=== PATIENT | male | born 1930 | race Caucasian/White ===

== ENCOUNTER 2017-03-04 19:37 | Emergency (ER) | payer MEDICARE, OTHER ==
[2017-03-04 20:00] VITALS: BP 79/65
[2017-03-04] MEDS ORDERED: Sodium Chloride 0.9% 10 ML Syringe FLUSH PRN (20:20)
[2017-03-04] MEDS ORDERED: cefTRIAXone 2 GM in Sodium Chloride 0.9% 100 ML IV ONE (20:21)
--- NOTE | 2017-03-04 23:39 | EDM.PDOC ---
ED HPI GENERAL MEDICAL PROBLEM - General Chief Complaint: Upper Extremity Injury/Pain Stated Complaint: SWOLLEN LEFT HAND HAD SURGERY Time Seen by Provider: 03/04/17 20:01 Source of Information: Reports: Patient History Limitations: Reports: No Limitations - History of Present Illness INITIAL COMMENTS - FREE TEXT/NARRATIVE: The patient presents with left hand redness and swelling post lumpectomy. The patient had a lump on the left dorsum of his hand and Dr Mckee removed it on the . He developed redness, pain and swelling a few days ago. He went to the [facility] walk in clinic and was put on clindamycin. He took 2 doses and he presented today. He had more swelling and he was concerned. He denies other symptoms such as fever, chills, cough, chest pain, or abdominal pain. Onset: Gradual Duration: Day(s): Location: Reports: Upper Extremity, Left (dorsum of his hand) Quality: Reports: Sharp Severity: Moderate Improves with: Reports: None Worsens with: Reports: None Associated Symptoms: Reports: No Other Symptoms Left Hand Pain Score (Numeric/FACES): 5 - Related Data Allergies Allergy/AdvReac Type Severity Reaction Status Date / Time celecoxib [From Celebrex] Allergy Hives Verified 02/02/14 18:07 rofecoxib [From Vioxx] Allergy Hives Verified 02/02/14 18:07 valdecoxib [From Bextra] Allergy Hives Verified 02/02/14 18:07 methylprednisolone AdvReac Dizziness Verified 02/02/14 18:07 Home Meds: Home Meds Ascorbic Acid [Vitamin C] 500 mg PO DAILY 01/05/14 [History] Aspirin [David Chewable Aspirin] 81 mg PO DAILY 01/05/14 [History] Calcium Carbonate/Vitamin D3 [Caltrate 600 + D Soft Chew Tab] 1 each PO DAILY [History] Enalapril [Vasotec] 20 mg PO BID 01/05/14 [History] Metoprolol Tartrate 1 tab PO BID 01/05/14 [History] Omeprazole 20 mg PO DAILY 01/05/14 [History] Rivaroxaban [Xarelto] 15 mg PO DAILY 01/05/14 [History] Tamsulosin [Flomax] 0.8 mg PO DAILY 01/05/14 [History] atorvaSTATin [Lipitor] 40 mg PO DAILY 01/05/14 [History] Acetaminophen [Tylenol] 650 mg PO BID 02/02/14 [History] Aloe Vera 2 oz PO DAILY 02/02/14 [History] Arginine HCl [Pure l-Arginine HCl] 1,000 mg PO DAILY 02/02/14 [History] Docusate Sodium [Colace] 100 mg PO DAILY 02/02/14 [History] Fenofibric Acid (Choline) [Trilipix] 45 mg PO DAILY 02/02/14 [History] Fibromed 1 tab PO DAILY 02/02/14 [History] Isosorbide Mononitrate [Imdur] 30 mg PO DAILY 02/02/14 [History] Nitroglycerin [Nitrostat] 0.4 mg SL PRN 02/02/14 [History] Vitamin E 400 unit PO DAILY 02/02/14 [History] guaiFENesin [Mucinex] 600 mg PO BID 02/02/14 [History] Levofloxacin [Levaquin] 750 mg PO DAILY #7 tab 02/04/14 [Rx] Cefpodoxime [Vantin] 400 mg PO BID #14 tablet 02/13/14 [Rx] Doxycycline [Doxycycline Monohydrate] 100 mg PO BID #14 tab 02/13/14 [Rx] Past Medical History HEENT History: Reports: Hard of Hearing, Impaired Vision Cardiovascular History: Reports: Bypass, [place], Stents, Other (See Below) Neurological History: Reports: TIA - Past Surgical History GI Surgical History: Reports: Cholecystectomy Musculoskeletal Surgical History: Reports: Hip Replacement Social & Family History - Tobacco Use Smoking Status *Q: Former Smoker Years of Tobacco use: 20 Used Tobacco, but Quit: Yes Month Tobacco Last Used: 1984 Second Hand Smoke Exposure: Yes - Caffeine Use Caffeine Use: Reports: Coffee, Soda - Alcohol Use Days Per Week of Alcohol Use: 2 Number of Drinks Per Day: 2 Total Drinks Per Week: 4 - Recreational Drug Use Recreational Drug Use: No Review of Systems - Review of Systems Review Of Systems: See Below Constitutional: Reports: No Symptoms Eyes: Reports: No Symptoms Ears: Reports: No Symptoms Nose: Reports: No Symptoms Respiratory: Reports: No Symptoms Cardiovascular: Reports: No Symptoms GI/Abdominal: Reports: No Symptoms Musculoskeletal: Reports: Other (Left hand infection) ED EXAM, GENERAL - Physical Exam Exam: See Below Exam Limited By: No Limitations General Appearance: Alert, No Apparent Distress Ears: Normal External Exam Nose: Normal Inspection Head: Atraumatic, Normocephalic Neck: Normal Inspection Respiratory/Chest: No Respiratory Distress, Lungs Clear, Normal Breath Sounds Cardiovascular: Regular Rate, Rhythm, No Edema, No Murmur GI/Abdominal: Soft, Non-Tender, No Organomegaly, No Mass Extremities: Other (Left hand has erythema and edema to the dorsum. He can move his fingers and he has good sensation.) Course - Vital Signs Last Recorded V/S: Last Vital Signs Temp 98.2 F 03/04/17 19:57 Pulse 70 03/04/17 23:57 Resp 18 03/04/17 23:57 BP 79/65 L 03/04/17 19:57 Pulse Ox 95 03/04/17 23:57 - Orders/Labs/Meds Orders: Active Orders 24 hr Category Date Time Status Peripheral IV Care [RC] . DIRECTED Care 03/04/17 20:21 Active VL Duplex Upr Ext Veins Ltd Lt [US] Stat Exams 03/04/17 20:22 Taken Peripheral IV Insertion Adult [OM.PC] Stat Oth 03/04/17 20:20 Ordered Labs: Laboratory Tests 03/04/17 03/04/17 Range/Units 21:05 21:05 WBC 8.14 (4.23-9.07) K/mm3 RBC 4.37 L (4.63-6.08) M/mm3 Hgb 12.9 L (13.7-17.5) gm/L Hct 40.4 (40.1-51.0) % MCV 92.4 H (79.0-92.2) fl MCH 29.5 (25.7-32.2) pg MCHC 31.9 L (32.2-35.5) g/dl RDW Std Deviation 47.0 H (35.1-43.9) fL Plt Count 149 L (163-337) K/mm3 MPV 11.0 (9.4-12.3) fl Neut % (Auto) 71.7 H (34.0-67.9) % Lymph % (Auto) 17.9 L (21.8-53.1) % [place] % (Auto) 7.7 (5.3-12.2) % Eos % (Auto) 2.2 (0.8-7.0) Baso % (Auto) 0.1 (0.1-1.2) % Neut # (Auto) 5.83 H (1.78-5.38) K/mm3 Lymph # (Auto) 1.46 (1.32-3.57) K/mm3 [place] # (Auto) 0.63 (0.30-0.82) K/mm3 Eos # (Auto) 0.18 (0.04-0.54) K/mm3 Baso # (Auto) 0.01 (0.01-0.08) K/mm3 Sodium 139 (136-145) mEq/L Potassium 3.9 (3.5-5.1) mEq/L Chloride 103 (98-107) mEq/L Carbon Dioxide 30 (21-32) mEq/L Anion Gap 9.9 (5-15) BUN 23 H (7-18) mg/dL Creatinine 1.2 (0.7-1.3) mg/dL Est Cr Clr Drug Dosing 43.54 mL/min Estimated GFR (MDRD) 58 (>60) mL/min BUN/Creatinine Ratio 19.2 H (14-18) Glucose 170 H (83-115) mg/dL Calcium 8.9 (8.5-10.1) mg/dL Total Bilirubin 0.3 (0.2-1.0) mg/dL AST 20 (15-37) U/L ALT 18 (16-63) U/L Alkaline Phosphatase 37 L (46-116) U/L C-Reactive Protein 2.2 H* (<1.0) mg/dL Total Protein 6.6 (6.4-8.2) g/dl Albumin 3.6 (3.4-5.0) g/dl Globulin 3.0 gm/dL Albumin/Globulin Ratio 1.2 (1-2) Meds: Medications Discontinued Medications Generic Name Dose Route Start Last Admin Trade Name Freq PRN Reason Stop Dose Admin Ceftriaxone Sodium 2 gm/ 100 mls @ 200 mls/hr 03/04/17 20:21 03/04/17 21:09 Sodium Chloride IV 03/04/17 20:50 200 mls/hr ONETIME ONE Administration Sodium Chloride 10 ml 03/04/17 20:20 03/04/17 21:10 Saline Flush FLUSH 10 ml ASDIRECTED PRN Administration Keep Vein Open - Re-Assessments/Exams Free Text/Narrative Re-Assessment/Exam: 03/05/17 02:38 I ordered an IV, rocephin 2 grams IV, and labs. 03/05/17 02:39 His WBC was normal. His CMP was negative. His CRP was elevated at 2.2. The clinic was able to get a culture. I feel clindamycin is a good choice until they get cultures back. He is scheduled to see Mary Alonzo on Sunday. I will have him keep that appointment and have him elevate his arm and take the antibiotics. Departure - Departure Time of Disposition: 23:40 Disposition: Home, Self-Care 01 Condition: Good Clinical Impression: Cellulitis Postoperative wound infection Qualifiers: Encounter type: initial encounter Qualified Code(s): T81.4XXA - Infection following a procedure, initial encounter - Discharge Information Instructions: Cellulitis, Adult, Cellulitis, Adult, [id number] Referrals: Kj Mckee MD [Physician] - 3 Days Forms: ED Department Discharge Additional Instructions: Elevate your arm as much as you can above your heart for the next 2 days. Continue to take the clindamycin as prescribed. Follow up with Dr Mckee. Please return if you are worse. - My Orders Last 24 Hours: My Active Orders 03/04/17 20:20 Peripheral IV Insertion Adult [OM.PC] Stat 03/04/17 20:21 Peripheral IV Care [RC] . DIRECTED 03/04/17 20:22 VL Duplex Upr Ext Veins Ltd Lt [US] Stat - Assessment/Plan Last 24 Hours: My Active Orders 03/04/17 20:20 Peripheral IV Insertion Adult [OM.PC] Stat 03/04/17 20:21 Peripheral IV Care [RC] . DIRECTED 03/04/17 20:22 VL Duplex Upr Ext Veins Ltd Lt [US] Stat
--- NOTE | 2017-03-05 17:54 | US ---
Left upper extremity venous ultrasound: Duplex and color flow imaging was obtained of the left internal jugular, subclavian, axillary, brachial, cephalic, basilic, radial and ulnar veins. Findings: Normal phasic flow, augmentation and compression are seen. Impression: 1. No evidence of venous thrombosis is seen within the left upper extremity. Diagnostic code #1 Agree with preliminary report issued by [facility] ([facility] preliminary report dictated on 03/04/17, 11:21 PM Central Time)
== END 2017-03-04 23:50 | disposition home or self-care (01) ==
LOC: JD.ED 19:37
DX: T81.4XXA Infection following a procedure, initial encounter (principal); I25.2 Old myocardial infarction; Z88.8 Allergy status to other drugs, medicaments and biological substances; Z79.82 Long term (current) use of aspirin; Z79.899 Other long term (current) drug therapy; Z86.73 Personal history of transient ischemic attack (TIA), and cerebral infarction without residual deficits; Z90.49 Acquired absence of other specified parts of digestive tract; Z96.649 Presence of unspecified artificial hip joint; Z87.891 Personal history of nicotine dependence
CPT/HCPCS: 36415; 80053; 85025; 86140; 93971; 96365; 99284; J0696; J7030; J7050

== ENCOUNTER → 2017-03-06 | Day surgery (SDC) | payer MEDICARE, OTHER ==
[~2017-03-06] MED LIST: HYDROmorphone 0.5 MG/0.5 ML Syringe IVPUSH ONE; HYDROmorphone 0.5 MG/0.5 ML Syringe ONE; Iodine/Sodium Iodide 2% Tincture 30 ML Bottle ONE; Labetalol 100 MG/20 ML MDV ONE; Lactated Ringers 1,000 ML ONE; Lidocaine 0.5% 50 ML SDV ONE; Lidocaine 1% 2 ML ONE; Midazolam 1 MG/ML 2 ML SDV ONE; Propofol 200 MG/20 ML SDV ONE; Sodium Bicarbonate 8.4% 50 MEQ/50 ML SDV ONE; Sodium Chloride 0.9% 10 ML Syringe FLUSH PRN; fentaNYL 100 MCG/2 ML SDV IVPUSH ONE; fentaNYL 100 MCG/2 ML SDV ONE
[2017-03-06 03:10] VITALS: BP 94/61
--- NOTE | 2017-03-06 03:31 | EDM.PDOC ---
ED HPI GENERAL MEDICAL PROBLEM - General Chief Complaint: Upper Extremity Injury/Pain Stated Complaint: INFECTED LEFT HAND Time Seen by Provider: 03/06/17 03:04 Source of Information: Reports: Patient, Family History Limitations: Reports: No Limitations - History of Present Illness INITIAL COMMENTS - FREE TEXT/NARRATIVE: The patient presents with left hand pain, redness, swelling and infection. He had a lump on his left hand that was removed by Dr Mckee on the 27 of February. A few days ago he developed pain, redness and swelling. He was seen at the [facility] on the . He was given clindamycin. He took a couple doses and his pain continued. He came in to the ER on the and I saw him. I did an US of his arm to look for DVT and it was negative. His WBC was normal but his CRP was elevated to 2.2. I gave him 2 grams of rocephin. I discharged him home and kept him on the clindamycin. He was supposed to follow up with Dr Mckee's PA on Sunday, Mary Rosado. The pain has increased today. He had more drainage today. They did get a culture at the clinic a few days ago. He denies fever or chills, chest pain, abdominal pain nausea or vomiting. He does have shortness of breath. He is oxygen dependent due to COPD. Onset: Gradual Duration: Week(s): Location: Reports: Upper Extremity, Left (hand) Quality: Reports: Sharp Severity: Severe Improves with: Reports: None Worsens with: Reports: Movement Associated Symptoms: Reports: Shortness of Breath. Denies: Chest Pain, Fever/ Chills, Headaches, Nausea/Vomiting, Seizure Left Hand Pain Score (Numeric/FACES): 7 - Related Data Allergies Allergy/AdvReac Type Severity Reaction Status Date / Time celecoxib [From Celebrex] Allergy Hives Verified 03/06/17 03:11 rofecoxib [From Vioxx] Allergy Hives Verified 03/06/17 03:11 valdecoxib [From Bextra] Allergy Hives Verified 03/06/17 03:11 methylprednisolone AdvReac Dizziness Verified 03/06/17 03:11 Home Meds: Home Meds Ascorbic Acid [Vitamin C] 500 mg PO DAILY 01/05/14 [History] Aspirin [David Chewable Aspirin] 81 mg PO DAILY 01/05/14 [History] Calcium Carbonate/Vitamin D3 [Caltrate 600 + D Soft Chew Tab] 1 each PO DAILY [History] Enalapril [Vasotec] 20 mg PO BID 01/05/14 [History] Metoprolol Tartrate 1 tab PO BID 01/05/14 [History] Omeprazole 20 mg PO DAILY 01/05/14 [History] Rivaroxaban [Xarelto] 15 mg PO DAILY 01/05/14 [History] Tamsulosin [Flomax] 0.4 mg PO DAILY 01/05/14 [History] atorvaSTATin [Lipitor] 40 mg PO DAILY 01/05/14 [History] Acetaminophen [Tylenol] 650 mg PO BID 02/02/14 [History] Arginine HCl [Pure l-Arginine HCl] 1,000 mg PO DAILY 02/02/14 [History] Docusate Sodium [Colace] 100 mg PO DAILY 02/02/14 [History] Fenofibric Acid (Choline) [Trilipix] 45 mg PO DAILY 02/02/14 [History] Fibromed 1 tab PO DAILY 02/02/14 [History] Isosorbide Mononitrate [Imdur] 30 mg PO DAILY 02/02/14 [History] Nitroglycerin [Nitrostat] 0.4 mg SL ASDIRECTED PRN 02/02/14 [History] Vitamin E 400 unit PO DAILY 02/02/14 [History] Clindamycin HCl [Cleocin] 300 mg PO Q8H 03/06/17 [History] Non-Formulary Medication [NF Drug] 1 cap PO BID 03/06/17 [History] Past Medical History HEENT History: Reports: Hard of Hearing, Impaired Vision Cardiovascular History: Reports: Bypass, [place], Stents, Other (See Below) Respiratory History: Reports: Other (See Below) Other Respiratory History: Chronic O2 use Gastrointestinal History: Reports: GERD Genitourinary History: Reports: BPH Neurological History: Reports: TIA Dermatologic History: Reports: Other (See Below) Other Dermatologic History: growth on left hand - Past Surgical History HEENT Surgical History: Reports: None Respiratory Surgical History: Reports: None GI Surgical History: Reports: Cholecystectomy Neurological Surgical History: Reports: None Musculoskeletal Surgical History: Reports: Hip Replacement Dermatological Surgical History: Reports: Skin Biopsy Social & Family History - Tobacco Use Smoking Status *Q: Former Smoker Years of Tobacco use: 20 Used Tobacco, but Quit: Yes Month Tobacco Last Used: 1979 Second Hand Smoke Exposure: No - Caffeine Use Caffeine Use: Reports: None - Alcohol Use Days Per Week of Alcohol Use: 2 Number of Drinks Per Day: 2 Total Drinks Per Week: 4 - Recreational Drug Use Recreational Drug Use: No Review of Systems - Review of Systems Review Of Systems: See Below Constitutional: Reports: No Symptoms Eyes: Reports: No Symptoms Ears: Reports: No Symptoms Nose: Reports: No Symptoms Mouth/Throat: Reports: No Symptoms Respiratory: Reports: Shortness of Breath Cardiovascular: Reports: No Symptoms GI/Abdominal: Reports: No Symptoms Genitourinary: Reports: No Symptoms Musculoskeletal: Reports: Other (Left hand pain, erythema and edema) ED EXAM, GENERAL - Physical Exam Exam: See Below Exam Limited By: No Limitations General Appearance: Alert, No Apparent Distress Ears: Normal External Exam Nose: Normal Inspection Head: Atraumatic, Normocephalic Neck: Normal Inspection Respiratory/Chest: No Respiratory Distress, Lungs Clear, Normal Breath Sounds Cardiovascular: Regular Rate, Rhythm, No Edema, No Murmur GI/Abdominal: Soft, Non-Tender, No Organomegaly, No Mass Extremities: Other (erythema and edema with pain upon palpation to the dorsum of the left hand. There is some drainage. He can move his fingers and he has good sensation distally.) Course - Vital Signs Last Recorded V/S: Last Vital Signs Temp 97.5 F 03/06/17 03:07 Pulse 73 03/06/17 03:07 Resp 22 H 03/06/17 03:07 BP 94/61 03/06/17 03:07 Pulse Ox - Orders/Labs/Meds Orders: Active Orders 24 hr Category Date Time Status Cardiac Monitoring [RC] . DIRECTED Care 03/06/17 03:07 Active Oxygen Therapy [RC] PRN Care 03/06/17 03:08 Active Peripheral IV Care [RC] . DIRECTED Care 03/06/17 03:08 Active Sodium Chloride 0.9% [Saline Flush] Med 03/06/17 03:07 Active 10 ml FLUSH ASDIRECTED PRN Peripheral IV Insertion Adult [OM.PC] Stat Oth 03/06/17 03:07 Ordered Medication Orders Sodium Chloride (Saline Flush) 10 ml FLUSH ASDIRECTED PRN PRN Reason: Keep Vein Open Last Admin: 03/06/17 03:22 Dose: 10 ml Labs: Laboratory Tests 03/06/17 03/06/17 Range/Units 03:15 03:15 WBC 8.62 (4.23-9.07) K/mm3 RBC 4.75 (4.63-6.08) M/mm3 Hgb 14.0 (13.7-17.5) gm/L Hct 43.6 (40.1-51.0) % MCV 91.8 (79.0-92.2) fl MCH 29.5 (25.7-32.2) pg MCHC 32.1 L (32.2-35.5) g/dl RDW Std Deviation 47.2 H (35.1-43.9) fL Plt Count 153 L (163-337) K/mm3 MPV 11.0 (9.4-12.3) fl Neut % (Auto) 70.4 H (34.0-67.9) % Lymph % (Auto) 18.6 L (21.8-53.1) % [place] % (Auto) 8.1 (5.3-12.2) % Eos % (Auto) 2.3 (0.8-7.0) Baso % (Auto) 0.1 (0.1-1.2) % Neut # (Auto) 6.07 H (1.78-5.38) K/mm3 Lymph # (Auto) 1.60 (1.32-3.57) K/mm3 [place] # (Auto) 0.70 (0.30-0.82) K/mm3 Eos # (Auto) 0.20 (0.04-0.54) K/mm3 Baso # (Auto) 0.01 (0.01-0.08) K/mm3 Sodium 140 (136-145) mEq/L Potassium 4.3 (3.5-5.1) mEq/L Chloride 103 (98-107) mEq/L Carbon Dioxide 28 (21-32) mEq/L Anion Gap 13.3 (5-15) BUN 23 H (7-18) mg/dL Creatinine 1.3 (0.7-1.3) mg/dL Est Cr Clr Drug Dosing 40.34 mL/min Estimated GFR (MDRD) 52 (>60) mL/min BUN/Creatinine Ratio 17.7 (14-18) Glucose 158 H (83-115) mg/dL Calcium 9.3 (8.5-10.1) mg/dL Total Bilirubin 0.4 (0.2-1.0) mg/dL AST 19 (15-37) U/L ALT 18 (16-63) U/L Alkaline Phosphatase 40 L (46-116) U/L C-Reactive Protein 2.7 H* (<1.0) mg/dL Total Protein 7.5 (6.4-8.2) g/dl Albumin 3.8 (3.4-5.0) g/dl Globulin 3.7 gm/dL Albumin/Globulin Ratio 1.0 (1-2) Meds: Medications Generic Name Dose Route Start Last Admin Trade Name Freq PRN Reason Stop Dose Admin Sodium Chloride 10 ml 03/06/17 03:07 03/06/17 03:22 Saline Flush FLUSH 10 ml ASDIRECTED PRN Administration Keep Vein Open Discontinued Medications Generic Name Dose Route Start Last Admin Trade Name Jeri PRN Reason Stop Dose Admin Fentanyl 50 mcg 03/06/17 03:53 03/06/17 04:00 Sublimaze IVPUSH 03/06/17 03:54 50 mcg ONETIME ONE Administration Fentanyl 50 mcg 03/06/17 04:52 03/06/17 05:00 Sublimaze IVPUSH 03/06/17 04:53 50 mcg ONETIME ONE Administration Fentanyl 100 mcg 03/06/17 05:35 03/06/17 05:40 Sublimaze IVPUSH 03/06/17 05:36 100 mcg ONETIME ONE Administration Fentanyl 100 mcg 03/06/17 06:58 Sublimaze IVPUSH 03/06/17 06:59 ONETIME ONE Hydromorphone HCl 0.5 mg 03/06/17 03:10 03/06/17 03:22 Dilaudid IVPUSH 03/06/17 03:11 0.5 mg ONETIME ONE Administration Vancomycin HCl 1.5 gm/ Sodium 250 mls @ 250 mls/hr 03/06/17 03:11 03/06/17 03 :22 Chloride IV 03/06/17 04:10 250 mls/hr ONETIME ONE Administration - Re-Assessments/Exams Free Text/Narrative Re-Assessment/Exam: 03/06/17 03:35 I ordered oxygen, IV saline lock, vancomycin 1.5grams IV, and labs. 03/06/17 04:36 His CBC looks good. His glucose was slightly elevated at 158. His CRP went up just slightly to 2.7. He had more pain so I ordered fentanyl 50mcg IV. I feel he needs to be admitted. I called Dr Vale and he would not take care of the patient because he does not do hands. I called Dr Reynoso and she would not admit the patient. I called [facility] in [place] and talked with Dr Lay the hand surgeon transition mgr rn and he recommended opening up the sutures and cleaning out the wound and he can follow up with the patient. I feel he needs to go to surgery. I called Dr Saenz and he agreed to come see the patient and open up the wound and clean it out. I ordered a few doses of fentanyl while he was waiting. Departure - Departure Time of Disposition: 07:10 Disposition: Refer to Observation Condition: Good Clinical Impression: Cellulitis Postoperative wound infection Qualifiers: Encounter type: initial encounter Qualified Code(s): T81.4XXA - Infection following a procedure, initial encounter - Discharge Information Referrals: Yovanny Irwin MD [Primary Care Provider] - Forms: ED Department Discharge - My Orders Last 24 Hours: My Active Orders 03/06/17 03:07 Cardiac Monitoring [RC] . DIRECTED Sodium Chloride 0.9% [Saline Flush] 10 ml FLUSH ASDIRECTED PRN Peripheral IV Insertion Adult [OM.PC] Stat 03/06/17 03:08 Oxygen Therapy [RC] PRN Peripheral IV Care [RC] . DIRECTED - Assessment/Plan Last 24 Hours: My Active Orders 03/06/17 03:07 Cardiac Monitoring [RC] . DIRECTED Sodium Chloride 0.9% [Saline Flush] 10 ml FLUSH ASDIRECTED PRN Peripheral IV Insertion Adult [OM.PC] Stat 03/06/17 03:08 Oxygen Therapy [RC] PRN Peripheral IV Care [RC] . DIRECTED
--- NOTE | 2017-03-06 14:36 | HP ---
DATE OF ADMISSION: 03/06/2017 HISTORY OF PRESENT ILLNESS: This is the first orthopedic outpatient admission for surgery for this 87-year- old male who is suffering from a postsurgical infection of left hand. The patient underwent a surgical removal of a mass on 02/26/2017, developed increasing pain, swelling, and redness about dorsum of the hand with drainage. He had presented several times to both the walk-in clinic and emergency room. Cultures were taken and found to have a staph infection. The patient was placed on clindamycin and then followed with vancomycin. With persistent pain problems and no improvement in his condition, Orthopedic evaluation was carried out through the emergency room. The patient is now being scheduled for an outpatient irrigation and debridement, and begin wound care treatment program for a postsurgical infection of the left hand. The patient was discussed of the infection, went over the procedure and treatment program, and he understands that and has consented to the surgery. ALLERGIES: To morphine. The patient also has allergy to Celebrex and Vioxx. PAST MEDICAL HISTORY: The patient has a complicated medical history with a previous history of heart problems. He is currently on a blood-thinning medication that includes Xarelto and also he is on treatment programs for his prostate. Otherwise, the patient denies any fever, chills, or night sweats in the left hand area and has been stable. He also has been taking prednisone 20 mg on a long-term basis. CURRENT MEDICATIONS: Include Flomax 0.4 mg, Lopressor 50 mg, Vasotec 20 mg, Trilipix 45 mg, Xarelto 15 mg, levofloxacin 500 mg, prednisone 20 mg, Lipitor along with Imdur 30 mg, Prilosec 20 mg, Flonase, aspirin, and multivitamins. PAST SURGICAL HISTORY: The patient has had multiple surgeries in the past including bypass surgery, colon surgery, he also notes a right hip problem and had surgical procedure performed. Notes no anesthesia complications or problems. SOCIAL HISTORY: The patient is a nonsmoker. Alcohol is on occasional basis. PHYSICAL EXAMINATION: GENERAL: A well-developed and well-nourished 87-year-old male in moderate to severe distress. HEAD, EYES, EARS, NOSE, AND THROAT: Normocephalic. NECK: Supple. CHEST: Clear. COR: Regular rate. ABDOMEN: Soft. : Intact. MUSCULOSKELETAL: Examination of the left hand reveals dorsal aspect with significant erythema and also early necrosis forming in and around the incisional area of the left hand. Sutures are present. The patient has positive pain with any type of finger motion and wrist motion. The overall circulation of the left upper extremity is intact. ASSESSMENT: Surgical infection of left hand, dorsal aspect, staph. PLAN: The plan is for the patient to undergo irrigation and debridement, and then begin an outpatient treatment program with IV antibiotics along with wound care treatment through a program through the Physical Therapy Department. MMODAL /[id number]
--- NOTE | 2017-03-07 08:56 | CONS ---
CONSULTING PHYSICIAN: Zeferino Saenz MD DATE OF CONSULTATION: 03/06/2017 HISTORY: Orthopedic consultation called for evaluation of a left hand infection. The patient had undergone a previous surgical removal of a mass on 02/26/2017. He noted that, approximately 4 to 5 days after removal, he started developing increasing pain, swelling, redness and some drainage in around the surgical incision site area. The patient was seen through the Walk-in Clinic at [facility]. He had cultures taken and was placed on antibiotics. The patient presented to the emergency room here at [facility] for evaluation of the hand infection. The patient was then changed to IV vancomycin and was sent out. He then returned again with severe pain of the hand, again, redness and swelling developed with some drainage. The patient was then evaluated and Orthopedic consultation was called for. PHYSICAL EXAMINATION: Examination of the left hand reveals the patient to have positive swelling at the dorsal aspect of the left hand. There is a straight line surgical incision over roughly the third metacarpal area, approximately 6 cm long. There is erythema surrounding the surgical site area. Stitches are still in place. There is mild drainage present of the distal end of the incisional area. The patient has severe pain with any type of pressure or palpation about the dorsum of the hand. Circulation is intact to the fingers. IMPRESSION: Post infection, surgical, left hand, probable staph. PLAN: The plan would be for the patient to undergo an irrigation and debridement, and begin wound care treatment program for the left hand surgical infection. Procedure has been outlined to him and what the plan would be for him. He will go through IV antibiotics on an outpatient basis. Then, he will be started into the physical therapy wound care program and begin on a treatment for the wound itself. The procedure, again, was outlined to him, he understands it, and he has consented to the surgery. MMODAL /[id number]
--- NOTE | 2017-03-07 09:03 | OR ---
DATE OF OPERATION: 03/06/2017 SURGEON: Zeferino Saenz MD PREOPERATIVE DIAGNOSIS: Postsurgical infection, dorsum of left hand staph. POSTOPERATIVE DIAGNOSIS: Postsurgical infection, dorsum of left hand staph. ANESTHESIA: Light sedation with Barney block anesthesia. OPERATION PERFORMED: Irrigation and debridement of surgical wound dorsal aspect left hand. DESCRIPTION OF PROCEDURE: The patient was taken to the operative room in supine and was placed under a sedation with Barney block anesthesia of left upper extremity. After adequate anesthesia, the sutures were then removed which were very painful and unable to be moved in the emergency room. Once the sutures were removed, the operation proceeded with prepping and draping of the left hand by standard technique for open infection. After prepping and draping, the area of wound was inspected. The skin had closed proximally but was very soft and fluctuant distally. It was opted to go ahead and open the incisional area up and proceeded ahead with the debridement of the subcutaneous tissues. Once the debridement was completed, surge lavage was used with iodine to thoroughly irrigate the wound pre debridement and post debridement. Once thorough irrigation being completed, inspection was complete. The operation proceeded with packing the wound with half-inch iodoform gauze. A soft sterile dressing was applied and the patient was placed in a short-arm splint. The patient tolerated the procedure well, left the operating room in stable condition to his room for recovery. PLAN: Plan will be for the patient to continue on IV vancomycin treatment program which we monitored through the pharmacy for 5 days and also the patient will then follow up with physical therapy for wound care. ESTIMATED BLOOD LOSS: MMODAL /[id number]
--- NOTE | 2017-03-15 09:44 | OR ---
DATE OF OPERATION: 03/06/2017 SURGEON: Zeferino Saenz MD ADDENDUM: PREOPERATIVE DIAGNOSIS: 1. Wound infection, MRSA staph, left hand. The measurements for the incisional wound was 7 mm long by 1.5 cm wide for debridement. 2. Also cultures were taken at the time of surgery. MMODAL /[id number]
--- NOTE | 2017-03-19 13:35 | OR ---
DATE OF OPERATION: 03/06/2017 SURGEON: Zeferino Saenz MD ADDENDUM: PREOPERATIVE DIAGNOSIS: Wound infection, MRSA staph, left hand. Measurements for the incisional wound were 7 cm long by 1.5 cm wide. POSTOPERATIVE DIAGNOSIS: Wound infection, MRSA staph, left hand. Measurements for the incisional wound were 7 cm long by 1.5 cm wide. MMODAL /[id number]
== END ==
LOC: JD.ED 03:01 → JD.SDS 08:50
PROVIDERS: ATTEND Specialist
DX: T81.4XXA Infection following a procedure, initial encounter (principal); B95.62 Methicillin resistant Staphylococcus aureus infection as the cause of diseases classified elsewhere; Z88.6 Allergy status to analgesic agent; Z79.01 Long term (current) use of anticoagulants; Z79.52 Long term (current) use of systemic steroids; Z79.82 Long term (current) use of aspirin; Z79.899 Other long term (current) drug therapy; Z98.890 Other specified postprocedural states; Z88.5 Allergy status to narcotic agent
CPT/HCPCS: 11043; 36415; 80053; 85025; 86140; 96361; 96365; 96366; 96375; 96376; 99285; A9270; J1170; J2250; J3010; J3370; J7050; 00400; J2704

== ENCOUNTER 2017-03-08 12:00 | Inpatient (IN) | payer MEDICARE, OTHER ==
[2017-03-08] MEDS ORDERED: Sodium Chloride 0.9% 500 ML IV ONE (14:03)
[2017-03-08] MEDS ORDERED: Sodium Chloride 0.9% 250 ML IV ONE (14:54)
[2017-03-08] MEDS ORDERED: Hydrocortisone Sodium Succinate 100 MG/2 ML SDV IVPUSH ONE (15:28)
--- NOTE | 2017-03-08 15:37 | CR ---
Chest: Portable view of the chest was obtained. Comparison: Previous chest x-ray of 02/08/14. Heart is enlarged. Pulmonary vessels are congested. Lungs otherwise are clear. Bony structures are grossly intact. Previous sternotomy is noted. Impression: 1. Cardiomegaly and mild pulmonary vascular congestion. Diagnostic code #3
[2017-03-08] MEDS ORDERED: Linezolid 600 MG Tab PO ONE (15:45)
--- NOTE | 2017-03-08 17:21 | EDM.PDOC ---
ED HPI GENERAL MEDICAL PROBLEM - General Chief Complaint: Respiratory Problem Stated Complaint: LEFT HAND COMPLICATION Time Seen by Provider: 03/08/17 12:08 Source of Information: Reports: Patient History Limitations: Reports: No Limitations - History of Present Illness INITIAL COMMENTS - FREE TEXT/NARRATIVE: The patient presents from day surgery because he does not feel well. The patient had surgery on the dorsum of his hand on February [address] Mckee. There was a lump that he removed. He did good for a few days and then he started having more pain, swelling, redness and drainage. On March 04 he went to the [facility] and they did cultures and put him on clindamycin. He came to the ER that night and I saw him and did labs. His WBC was normal. His CRP was 2.2. I gave him rocephin 2 grams IV and he was to continue the clindamycin. He came back to the ER on March 06 with more pain and redness. I ordered labs and his WBC was normal. His CRP was 2.7. I ordered vancomycin and I was going to admit him here. Dr Vale does not do hands and he recommended I send him to [place]. I called [facility] in [place] and talked with the hand surgeon there and he recommended removing the sutures and cleaning out the wound and continue the antibiotics. I was not comfortable with this and I called Dr Saenz and he came to see the patient and took him to the OR and removed the sutures and cleaned out the wound. He did cultures and that grew out MRSA. He has been on vancomycin daily since. He went for his vancomycin dose and he was very tired and had generalized weakness. He was sent over to the ER for evaluation. He says since he had the surgery he has been feeling like this. He denies fever, chills, cough, chest pain, abdominal pain, nausea or vomiting. He is normally short of breath and he is on oxygen at home. He had trouble getting down his stairs at home. He has not been eating or drinking much as home. Onset: Gradual Duration: Day(s): Location: Reports: Upper Extremity, Left (Dorsum of hand) Quality: Reports: Sharp Severity: Moderate Improves with: Reports: None Worsens with: Reports: Movement Associated Symptoms: Reports: Shortness of Breath. Denies: Chest Pain, Cough, Fever/Chills, Nausea/Vomiting Left Arm Pain Score (Numeric/FACES): 8 - Related Data Allergies Allergy/AdvReac Type Severity Reaction Status Date / Time celecoxib [From Celebrex] Allergy Hives Verified 03/08/17 12:18 rofecoxib [From Vioxx] Allergy Hives Verified 03/08/17 12:18 valdecoxib [From Bextra] Allergy Hives Verified 03/08/17 12:18 methylprednisolone AdvReac Dizziness Verified 03/08/17 12:18 morphine AdvReac Irritabilit Verified 03/08/17 12:18 y Home Meds: Home Meds Ascorbic Acid [Vitamin C] 500 mg PO DAILY 01/05/14 [History] Aspirin [David Chewable Aspirin] 81 mg PO DAILY 01/05/14 [History] Calcium Carbonate/Vitamin D3 [Caltrate 600 + D Soft Chew Tab] 1 each PO DAILY [History] Enalapril [Vasotec] 20 mg PO BID 01/05/14 [History] Metoprolol Tartrate 1 tab PO BID 01/05/14 [History] Omeprazole 20 mg PO DAILY 01/05/14 [History] Rivaroxaban [Xarelto] 15 mg PO DAILY 01/05/14 [History] Tamsulosin [Flomax] 0.4 mg PO DAILY 01/05/14 [History] atorvaSTATin [Lipitor] 40 mg PO DAILY 01/05/14 [History] Arginine HCl [Pure l-Arginine HCl] 1,000 mg PO DAILY 02/02/14 [History] Docusate Sodium [Colace] 100 mg PO DAILY 02/02/14 [History] Fenofibric Acid (Choline) [Trilipix] 45 mg PO DAILY 02/02/14 [History] Fibromed 1 tab PO DAILY 02/02/14 [History] Isosorbide Mononitrate [Imdur] 30 mg PO DAILY 02/02/14 [History] Nitroglycerin [Nitrostat] 0.4 mg SL ASDIRECTED PRN 02/02/14 [History] Vitamin E 400 unit PO DAILY 02/02/14 [History] Non-Formulary Medication [NF Drug] 1 cap PO BID 03/06/17 [History] oxyCODONE ER [OxyCONTIN] 10 mg PO Q12HR PRN 03/08/17 [History] oxyCODONE HCl/Acetaminophen [oxyCODONE-Acetaminophen 5-325] 1 - 2 tab PO Q6H PRN 03/08/17 [History] Past Medical History HEENT History: Reports: Hard of Hearing, Impaired Vision Cardiovascular History: Reports: Bypass, SC, Stents, Other (See Below) Respiratory History: Reports: Other (See Below) Other Respiratory History: Chronic O2 use Gastrointestinal History: Reports: GERD Genitourinary History: Reports: BPH Neurological History: Reports: TIA Dermatologic History: Reports: Other (See Below) Other Dermatologic History: growth on left hand - Past Surgical History HEENT Surgical History: Reports: None Cardiovascular Surgical History: Reports: Coronary Artery Bypass, Coronary Artery Stent Respiratory Surgical History: Reports: None GI Surgical History: Reports: Cholecystectomy Neurological Surgical History: Reports: None Musculoskeletal Surgical History: Reports: Hip Replacement, Other (See Below) Dermatological Surgical History: Reports: Skin Biopsy Social & Family History - Tobacco Use Smoking Status *Q: Former Smoker Years of Tobacco use: 20 Used Tobacco, but Quit: No Month Tobacco Last Used: 1979 Second Hand Smoke Exposure: No - Caffeine Use Caffeine Use: Reports: None - Alcohol Use Days Per Week of Alcohol Use: 2 Number of Drinks Per Day: 2 Total Drinks Per Week: 4 - Recreational Drug Use Recreational Drug Use: No ED ROS GENERAL - Review of Systems Review Of Systems: See Below Constitutional: Reports: Weakness, Fatigue HEENT: Reports: No Symptoms Respiratory: Reports: Shortness of Breath. Denies: Cough Cardiovascular: Reports: No Symptoms Endocrine: Reports: No Symptoms GI/Abdominal: Reports: No Symptoms : Reports: No Symptoms Musculoskeletal: Reports: Other (Left hand pain, redness and swelling) ED EXAM, GENERAL - Physical Exam Exam: See Below Exam Limited By: No Limitations General Appearance: Alert, No Apparent Distress Ears: Normal External Exam Nose: Normal Inspection Head: Atraumatic, Normocephalic Neck: Normal Inspection Respiratory/Chest: No Respiratory Distress, Lungs Clear, Decreased Breath Sounds Cardiovascular: Regular Rate, Rhythm, No Edema, No Murmur GI/Abdominal: Soft, Non-Tender, No Organomegaly, No Mass Back Exam: Normal Inspection Extremities: Other (Right hand is in splint. He has good capillary refill and sensation.) EKG INTERPRETATION EKG Date: 09/07/17 Time: 13:10 Rhythm: NSR Rate (Beats/Min): 69 [place]: RAD-Right [place] Deviation P-Wave: Present QRS: Normal ST-T: Normal QT: Normal EKG Interpretation Comments: PVC Course - Vital Signs Last Recorded V/S: Last Vital Signs Temp 97.6 F 03/08/17 12:18 Pulse 80 03/08/17 18:05 Resp 16 03/08/17 17:01 BP 79/57 L 03/08/17 18:05 Pulse Ox 90 L 03/08/17 18:05 - Orders/Labs/Meds Orders: Active Orders 24 hr Category Date Time Status Cardiac Monitoring [RC] . DIRECTED Care 03/08/17 12:43 Active EKG Documentation Completion [RC] STAT Care 03/08/17 12:45 Active Insert Cali Catheter [Insert Urinary Catheter] [OM.PC] Care 03/08/17 18:45 Ordered Q24H RT Aerosol Therapy [RC] ASDIRECTED Care 03/08/17 18:29 Active Urinary Catheter Assessment [RC] ASDIRECTED Care 03/08/17 18:32 Active PT Evaluation and Treatment [CONS] Routine Cons 03/08/17 15:15 Active Labs: Laboratory Tests 03/08/17 03/08/17 03/08/17 Range/Units 13:20 13:20 13:54 WBC 8.44 (4.23-9.07) K/mm3 RBC 4.27 L (4.63-6.08) M/mm3 Hgb 12.5 L (13.7-17.5) gm/L Hct 39.4 L (40.1-51.0) % MCV 92.3 H (79.0-92.2) fl MCH 29.3 (25.7-32.2) pg MCHC 31.7 L (32.2-35.5) g/dl RDW Std Deviation 47.3 H (35.1-43.9) fL Plt Count 142 L (163-337) K/mm3 MPV 10.8 (9.4-12.3) fl Neut % (Auto) 80.3 H (34.0-67.9) % Lymph % (Auto) 10.5 L (21.8-53.1) % [place] % (Auto) 7.6 (5.3-12.2) % Eos % (Auto) 1.3 (0.8-7.0) Baso % (Auto) 0.1 (0.1-1.2) % Neut # (Auto) 6.77 H (1.78-5.38) K/mm3 Lymph # (Auto) 0.89 L (1.32-3.57) K/mm3 [place] # (Auto) 0.64 (0.30-0.82) K/mm3 Eos # (Auto) 0.11 (0.04-0.54) K/mm3 Baso # (Auto) 0.01 (0.01-0.08) K/mm3 Sodium 136 (136-145) mEq/L Potassium 4.4 (3.5-5.1) mEq/L Chloride 100 (98-107) mEq/L Carbon Dioxide 30 (21-32) mEq/L Anion Gap 10.4 (5-15) BUN 40 H (7-18) mg/dL Creatinine 2.3 H (0.7-1.3) mg/dL Est Cr Clr Drug Dosing 21.95 mL/min Estimated GFR (MDRD) 27 (>60) mL/min BUN/Creatinine Ratio 17.4 (14-18) Glucose 114 (83-115) mg/dL Calcium 9.1 (8.5-10.1) mg/dL Magnesium 2.1 (1.8-2.4) mg/dl Total Bilirubin 0.4 (0.2-1.0) mg/dL AST 22 (15-37) U/L ALT 15 L (16-63) U/L Alkaline Phosphatase 36 L (46-116) U/L Troponin I 0.032 (0.00-0.056) ng/mL NT-Pro-B Natriuret Pep 1402 H (0-450) pg/mL Total Protein 6.6 (6.4-8.2) g/dl Albumin 3.2 L (3.4-5.0) g/dl Globulin 3.4 gm/dL Albumin/Globulin Ratio 0.9 L (1-2) Meds: Medications Discontinued Medications Generic Name Dose Route Start Last Admin Trade Name Freq PRN Reason Stop Dose Admin Albuterol/Ipratropium 3 ml 03/08/17 18:29 03/08/17 18:54 Duoneb 3.0-0.5 Mg/3 Ml NEB 09/07/17 18:30 3 ml ONETIME ONE Administration Hydrocortisone Sodium Succinate 100 mg 03/08/17 15:28 03/08/17 15:36 Solu-Cortef IVPUSH 03/08/17 15:29 100 mg ONETIME ONE Administration Sodium Chloride 500 mls @ 1,000 mls/hr 03/08/17 14:03 03/08/17 14:13 Normal Saline IV 03/08/17 14:32 1,000 mls/hr .BOLUS ONE Administration Sodium Chloride 250 mls @ 1,000 mls/hr 03/08/17 14:54 Normal Saline IV 03/08/17 15:08 .BOLUS ONE Linezolid 600 mg 03/08/17 15:45 03/08/17 17:01 Zyvox PO 03/08/17 15:46 600 mg ONETIME ONE Administration - Re-Assessments/Exams Free Text/Narrative Re-Assessment/Exam: 03/08/17 17:24 I ordered an IV saline lock, EKG, labs, and CXR. 03/08/17 17:25 His WBC is normal. His creatinine is elevated at 2.3. His troponin is negative. His BNP was elevated at 1402. He has a history of CHF. His EKG shows a NSR with no acute changes. His CXR show cardiomegaly and mild congestive changes. He wears oxygen at home and he needs it here. His BP went down in the 60s when he was here. I gave him a few fluid boluses to a total of 1L. That did help some but not much. I wonder if he has some adrenal insufficiency. I ordered hydrocortisone 100mg IV. That did help some. The odd thing is he does not look like he is in shock. He is alert and orientated and he jokes with every one. I feel he needs to be admitted and I called Dr Reynoso and she would like a few other things done. I ordered a CT of his chest. PT also came to see him and put the wound vac on it. I am waiting for the CT now. We did that because of the hypoxia and hypotension. 03/08/17 19:[address] shows mild emphysematous change. Scattered areas of scarring and fibrosis. Other incidental findings. Nothing acute is felt to be present on noncontrast chest CT study. Dr Reynoso and I talked his BP is better. It appears he is not on anything for his COPD. I have ordered a duoneb. She will admit him to ICU. Departure - Departure Time of Disposition: 19:05 Disposition: Admitted As Inpatient 68 Condition: Serious Clinical Impression: Cellulitis, Hypoxia, Renal impairment, COLD, Chronic obstructive lung disease, Hypoxemia Postoperative wound infection Qualifiers: Encounter type: initial encounter Qualified Code(s): T81.4XXA - Infection following a procedure, initial encounter Hypotension Qualifiers: Hypotension type: unspecified hypotension type Qualified Code(s): I95.9 - Hypotension, unspecified - Discharge Information - My Orders Last 24 Hours: My Active Orders 03/08/17 12:43 Cardiac Monitoring [RC] . DIRECTED 03/08/17 12:45 EKG Documentation Completion [RC] STAT 03/08/17 15:15 PT Evaluation and Treatment [CONS] Routine 03/08/17 18:29 RT Aerosol Therapy [RC] ASDIRECTED 03/08/17 18:32 Urinary Catheter Assessment [RC] ASDIRECTED 03/08/17 18:45 Insert Cali Catheter [Insert Urinary Catheter] [OM.PC] Q24H - Assessment/Plan Last 24 Hours: My Active Orders 03/08/17 12:43 Cardiac Monitoring [RC] . DIRECTED 03/08/17 12:45 EKG Documentation Completion [RC] STAT 03/08/17 15:15 PT Evaluation and Treatment [CONS] Routine 03/08/17 18:29 RT Aerosol Therapy [RC] ASDIRECTED 03/08/17 18:32 Urinary Catheter Assessment [RC] ASDIRECTED 03/08/17 18:45 Insert Cali Catheter [Insert Urinary Catheter] [OM.PC] Q24H
--- NOTE | 2017-03-08 17:50 | CT ---
CT chest Technique: Multiple axial sections were obtained from above the lung apices inferiorly through the lung bases. Intravenous contrast was not utilized. Findings: Previous sternotomy is noted. Coronary artery calcification is seen. Scattered lymph nodes are seen and believed to be within normal limits. Vascular calcification is seen within the thoracic aorta and branch vessels. Surgical clips are seen from prior cholecystectomy. Small portion of the visualized upper abdominal structures are within normal limits. Mild emphysematous change is present. Mild areas of parenchymal density are seen within both upper lungs as well as peripherally within the lower lungs felt compatible with combination of scarring and mild fibrosis. No acute-appearing parenchymal densities are seen. No pleural effusions or pneumothorax is seen. Bone window settings were reviewed showing scattered degenerative endplate spurring within the spine. Impression: 1. Mild emphysematous change. Scattered areas of scarring and fibrosis as noted above. Other incidental findings. 2. Nothing acute is felt to be present on noncontrast chest CT study. Diagnostic code #2
[2017-03-08] MEDS ORDERED: Albuterol/Ipratropium 3.0-0.5 MG/3 ML Neb Soln NEB ONE (18:29)
[2017-03-08] MEDS ORDERED: Nitroglycerin 0.4 MG Tab.SL SL PRN (19:18)
[2017-03-08] MEDS ORDERED: Hydrocortisone Sodium Succinate 100 MG/2 ML SDV IVPUSH SCH (19:30)
[2017-03-08] MEDS ORDERED: HYDROmorphone 0.5 MG/0.5 ML Syringe IVPUSH PRN (19:34)
[2017-03-08] MEDS ORDERED: Acetaminophen/HYDROcodone 325-5 MG Tab PO PRN (19:36)
[2017-03-08] MEDS ORDERED: Temazepam 7.5 MG Cap PO PRN (19:37)
[2017-03-08] MEDS ORDERED: Albuterol/Ipratropium 3.0-0.5 MG/3 ML Neb Soln NEB PRN (19:39)
--- NOTE | 2017-03-08 20:04 | PCM.HP ---
H&P History of Present Illness - General Date of Service: 03/08/17 Admit Problem/Dx: Admission Diagnosis/Problem Admission Diagnosis/Problem Renal failure Source of Information: Patient, Family, Old Records, Provider History Limitations: Reports: No Limitations - History of Present Illness Initial Comments - Free Text/Narative: 87 year old male with hand surgery in late January, has required I and D with wound cultures with MRSA. He has been on Vancomycin and most recently on Clindamycin. The patient has presented twice to the ED with a complaint of hand pain associated with generalized weakness and malaise. He has been given a dose of oral Zyvox in the ED, will be admitted to the ICU for hypotension; a lactic acid is pending on admission. Symptom Onset Date: 03/06/17 Duration of Symptoms: Reports: Day(s):, Getting Worse Location: Reports: Lower Extremity, Left Quality: Reports: Same as Previous Episode Severity: Moderate Improves with: Reports: Medication Worsens with: Reports: None Associated Symptoms: Reports: Malaise, Weakness Left Arm Pain Score (Numeric/FACES): 8 - Related Data Allergies/Adverse Reactions: Allergies Allergy/AdvReac Type Severity Reaction Status Date / Time celecoxib [From Celebrex] Allergy Hives Verified 03/08/17 12:18 rofecoxib [From Vioxx] Allergy Hives Verified 03/08/17 12:18 valdecoxib [From Bextra] Allergy Hives Verified 03/08/17 12:18 methylprednisolone AdvReac Dizziness Verified 03/08/17 12:18 morphine AdvReac Irritabilit Verified 03/08/17 12:18 y Home Medications: Home Meds Ascorbic Acid [Vitamin C] 500 mg PO DAILY 01/05/14 [History] Aspirin [David Chewable Aspirin] 81 mg PO DAILY 01/05/14 [History] Calcium Carbonate/Vitamin D3 [Caltrate 600 + D Soft Chew Tab] 1 each PO DAILY [History] Enalapril [Vasotec] 20 mg PO BID 01/05/14 [History] Metoprolol Tartrate 1 tab PO BID 01/05/14 [History] Omeprazole 20 mg PO DAILY 01/05/14 [History] Rivaroxaban [Xarelto] 15 mg PO DAILY 01/05/14 [History] Tamsulosin [Flomax] 0.4 mg PO DAILY 01/05/14 [History] atorvaSTATin [Lipitor] 40 mg PO DAILY 01/05/14 [History] Arginine HCl [Pure l-Arginine HCl] 1,000 mg PO DAILY 02/02/14 [History] Docusate Sodium [Colace] 100 mg PO DAILY 02/02/14 [History] Fenofibric Acid (Choline) [Trilipix] 45 mg PO DAILY 02/02/14 [History] Fibromed 1 tab PO DAILY 02/02/14 [History] Isosorbide Mononitrate [Imdur] 30 mg PO DAILY 02/02/14 [History] Nitroglycerin [Nitrostat] 0.4 mg SL ASDIRECTED PRN 02/02/14 [History] Vitamin E 400 unit PO DAILY 02/02/14 [History] Non-Formulary Medication [NF Drug] 1 cap PO BID 03/06/17 [History] oxyCODONE ER [OxyCONTIN] 10 mg PO Q12HR PRN 03/08/17 [History] oxyCODONE HCl/Acetaminophen [oxyCODONE-Acetaminophen 5-325] 1 - 2 tab PO Q6H PRN 03/08/17 [History] Past Medical History HEENT History: Reports: Hard of Hearing, Impaired Vision Cardiovascular History: Reports: Bypass, [place], Stents, Other (See Below) Respiratory History: Reports: Other (See Below) Other Respiratory History: Chronic O2 use Gastrointestinal History: Reports: GERD Genitourinary History: Reports: BPH Neurological History: Reports: TIA Dermatologic History: Reports: Other (See Below) Other Dermatologic History: growth on left hand - Past Surgical History HEENT Surgical History: Reports: None Cardiovascular Surgical History: Reports: Coronary Artery Bypass, Coronary Artery Stent Respiratory Surgical History: Reports: None GI Surgical History: Reports: Cholecystectomy Neurological Surgical History: Reports: None Musculoskeletal Surgical History: Reports: Hip Replacement, Other (See Below) Dermatological Surgical History: Reports: Skin Biopsy Social & Family History - Tobacco Use Smoking Status *Q: Former Smoker Years of Tobacco use: 20 Used Tobacco, but Quit: No Month Tobacco Last Used: 1979 Second Hand Smoke Exposure: No - Caffeine Use Caffeine Use: Reports: None - Alcohol Use Days Per Week of Alcohol Use: 2 Number of Drinks Per Day: 2 Total Drinks Per Week: 4 - Recreational Drug Use Recreational Drug Use: No H&P Review of Systems - Review of Systems: Review Of Systems: See Below General: Reports: Malaise, Weakness, Fatigue HEENT: Reports: No Symptoms Pulmonary: Reports: Shortness of Breath Cardiovascular: Reports: No Symptoms Gastrointestinal: Reports: No Symptoms Genitourinary: Reports: No Symptoms Musculoskeletal: Reports: No Symptoms Skin: Reports: No Symptoms Psychiatric: Reports: No Symptoms Neurological: Reports: No Symptoms Hematologic/Lymphatic: Reports: No Symptoms Immunologic: Reports: No Symptoms Exam - Exam Exam: See Below - Vital Signs Vital Signs: Last Vital Signs Temp 36.4 C 03/08/17 12:18 Pulse 80 03/08/17 18:05 Resp 16 03/08/17 17:01 BP 79/57 L 03/08/17 18:05 Pulse Ox 90 L 03/08/17 18:05 Weight: 96.162 kg - Exam Quality Assessment: Supplemental Oxygen General: Alert, Oriented HEENT: EOMI, Nares Patent, Normal Nasal Septum, Pupils Equal, Pupils Reactive, PERRLA Neck: Supple, Trachea Midline Lungs: Normal Respiratory Effort, Decreased Breath Sounds Cardiovascular: Regular Rate GI/Abdominal Exam: Normal Bowel Sounds, Soft, Non-Tender, No Distention (Male) Exam: Deferred Rectal (Males) Exam: Deferred Back Exam: Normal Inspection Extremities: Arm Pain (right; decrease range of motion.), Limited Range of Motion, Increased Warmth, Redness Skin: Warm, Dry, Wound (dressing: CDI; changed to wound vac) Neurological: Cranial Nerves Intact Neuro Extensive - Mental Status: Alert, Oriented x3 Neuro Extensive - Motor, Sensory, Reflexes: CN II-XII Intact Psychiatric: Alert, Normal Affect, Normal Mood - Patient Data Result Diagrams: 03/09/17 10:30 03/09/17 10:30 *Q Meaningful Use (ADM) - VTE *Q VTE Criteria *Q: - Stroke *Q Stroke Criteria *Q: - AMI *Q AMI Criteria *Q: - Problem List (1) COLD, Chronic obstructive lung disease SNOMED Code(s): 70972560 ICD Code: J44.9 - CHRONIC OBSTRUCTIVE PULMONARY DISEASE, UNSPECIFIED Status : Acute Current Visit: Yes (2) Cellulitis SNOMED Code(s): 033635042 ICD Code: L03.90 - CELLULITIS, UNSPECIFIED Status: Acute Current Visit: Yes (3) Hypotension SNOMED Code(s): 18170316 ICD Code: I95.9 - HYPOTENSION, UNSPECIFIED Status: Acute Current Visit: Yes Qualifiers: Hypotension type: unspecified hypotension type Qualified Code(s): I95.9 - Hypotension, unspecified (4) Hypoxia SNOMED Code(s): 180948395 ICD Code: R09.02 - HYPOXEMIA Status: Acute Current Visit: Yes (5) Postoperative wound infection SNOMED Code(s): 42225064, 295247004 ICD Code: T81.4XXA - INFECTION FOLLOWING A PROCEDURE, INITIAL ENCOUNTER Status: Acute Current Visit: Yes Qualifiers: Encounter type: initial encounter Qualified Code(s): T81.4XXA - Infection following a procedure, initial encounter (6) Renal impairment SNOMED Code(s): 267622336 ICD Code: N28.9 - DISORDER OF KIDNEY AND URETER, UNSPECIFIED Status: Acute Current Visit: Yes Problem List Initiated/Reviewed/Updated: Yes Orders Last 24hrs: Active Orders 24 hr Category Date Time Status Patient Status [ADT] Routine ADT 03/08/17 19:02 Active RT Aerosol Therapy [RC] ASDIRECTED Care 03/08/17 19:39 Active Consult to Case Management [CONS] Routine Cons 03/08/17 19:38 Active Consult to Occupational Therapy [OT Evaluation and Cons 03/09/17 09:00 Active Treatment] [CONS] Routine BMP [BASIC METABOLIC PANEL,BMP] [CHEM] DAILY Lab 03/09/17 05:00 Ordered BMP [BASIC METABOLIC PANEL,BMP] [CHEM] DAILY Lab 03/10/17 05:00 Ordered BMP [BASIC METABOLIC PANEL,BMP] [CHEM] DAILY Lab 03/11/17 05:00 Ordered BMP [BASIC METABOLIC PANEL,BMP] [CHEM] DAILY Lab 03/12/17 05:00 Ordered CBC WITH AUTO DIFF [HEME] DAILY Lab 03/09/17 05:00 Ordered CBC WITH AUTO DIFF [HEME] DAILY Lab 03/10/17 05:00 Ordered CBC WITH AUTO DIFF [HEME] DAILY Lab 03/11/17 05:00 Ordered CBC WITH AUTO DIFF [HEME] DAILY Lab 03/12/17 05:00 Ordered CRP [C-REACTIVE PROTEIN] [CHEM] DAILY Lab 03/09/17 05:00 Ordered CRP [C-REACTIVE PROTEIN] [CHEM] DAILY Lab 03/10/17 05:00 Ordered CRP [C-REACTIVE PROTEIN] [CHEM] DAILY Lab 03/11/17 05:00 Ordered CRP [C-REACTIVE PROTEIN] [CHEM] DAILY Lab 03/12/17 05:00 Ordered CULTURE BLOOD [BC] Stat Lab 03/08/17 19:26 Ordered CULTURE BLOOD [BC] Stat Lab 03/08/17 19:26 Ordered LACTIC ACID [CHEM] DAILY Lab 03/09/17 05:00 Ordered LACTIC ACID [CHEM] DAILY Lab 03/10/17 05:00 Ordered LACTIC ACID [CHEM] DAILY Lab 03/11/17 05:00 Ordered LACTIC ACID [CHEM] DAILY Lab 03/12/17 05:00 Ordered PRO B-TYPE NATRIUR PEPT,BNPPRO [CHEM] Routine Lab 03/09/17 05:00 Ordered SEDIMENTATION RATE AUTO [HEME] Routine Lab 03/09/17 05:00 Ordered Acetaminophen/HYDROcodone [[place] 325-5 MG] Med 03/08/17 19:36 Active 1 tab PO Q8H PRN Albuterol/Ipratropium [DuoNeb 3.0-0.5 MG/3 ML] Med 03/08/17 19:39 Active 3 ml NEB QID PRN Arginine HCl [Pure l-Arginine HCl] Med 03/09/17 09:00 Active 1,000 mg PO DAILY Aspirin Med 03/09/17 09:00 Active 81 mg PO DAILY Docusate Sodium [Colace] Med 03/09/17 09:00 Active 100 mg PO DAILY Fenofibric Acid (Choline) [Trilipix] Med 03/09/17 09:00 Active 45 mg PO DAILY HYDROmorphone [Dilaudid] Med 03/08/17 19:34 Active 0.5 mg IVPUSH Q6H PRN Hydrocortisone Sod Succinate [Solu-CORTEF] Med 03/08/17 19:30 Active 100 mg IVPUSH Q6H Isosorbide Mononitrate [Imdur] Med 03/09/17 09:00 Active 30 mg PO DAILY Linezolid [Zyvox] Med 03/09/17 08:00 Active 600 mg PO Q12H Metoprolol Tartrate [Lopressor] Med 03/08/17 21:00 Active 50 mg PO BID Nitroglycerin [Nitrostat] Med 03/08/17 19:18 Active 0.4 mg SL ASDIRECTED PRN Pantoprazole [ProTONIX] Med 03/09/17 07:00 Active 40 mg PO DAILY@0700 Rivaroxaban [Xarelto] Med 03/09/17 09:00 Active 15 mg PO DAILY Rosuvastatin [Crestor] Med 03/09/17 09:00 Active 10 mg PO DAILY Tamsulosin [Flomax] Med 03/09/17 09:00 Active 0.4 mg PO DAILY Temazepam [Restoril] Med 03/08/17 19:37 Active 7.5 mg PO BEDTIME PRN Blood Culture x2 Reflex Set [OM.PC] Stat Oth 03/08/17 19:26 Ordered Isolation [COMM] Routine Oth 03/08/17 19:38 Ordered Medication Orders Hydrocodone Bitart/Acetaminophen ([place] 325-5 Mg) 1 tab PO Q8H PRN PRN Reason: Pain (moderate 4-6) Albuterol/Ipratropium (Duoneb 3.0-0.5 Mg/3 Ml) 3 ml NEB QID PRN PRN Reason: Shortness of Breath Aspirin (Aspirin) 81 mg PO DAILY [facility] Docusate Sodium (Colace) 100 mg PO DAILY [facility] Hydrocortisone Sodium Succinate (Solu-Cortef) 100 mg IVPUSH Q6H [place] Hydromorphone HCl (Dilaudid) 0.5 mg IVPUSH Q6H PRN PRN Reason: Pain (moderate 4-6) Isosorbide Mononitrate (Imdur) 30 mg PO DAILY [facility] Linezolid (Zyvox) 600 mg PO Q12H [facility] Metoprolol Tartrate (Lopressor) 50 mg PO BID [facility] Nitroglycerin (Nitrostat) 0.4 mg SL ASDIRECTED PRN PRN Reason: Chest Pain Non-Formulary Medication (Arginine Hcl [Pure L-Arginine Hcl]) 1,000 mg PO DAILY [facility] Non-Formulary Medication (Fenofibric Acid (Choline) [Trilipix]) 45 mg PO DAILY [facility] Pantoprazole Sodium (Protonix) 40 mg PO DAILY@0700 [facility] Rivaroxaban (Xarelto) 15 mg PO DAILY [facility] Rosuvastatin Calcium (Crestor) 10 mg PO DAILY [facility] Tamsulosin HCl (Flomax) 0.4 mg PO DAILY [facility] Temazepam (Restoril) 7.5 mg PO BEDTIME PRN PRN Reason: Insomnia Assessment/Plan Comment:: Impression: Post op wound infection, POD 9 (original procedure 02/27/17); I/D 03/04/17, returns with progression of swelling-->celluitis, MRSA Failed post op outpatient therapy twice. COPD with emphysema; O2 dependent Chronic HTN CAD s/p CABG BPH GERD Plan: IVF Zyvox Contact isolation Elevate LUE Pain mgt Ortho follow up Daily labs Home meds DVT/GI prophylaxis
[2017-03-08] MEDS ORDERED: Sodium Chloride 0.9% 1,000 ML IV SCH (20:15)
[2017-03-08] MEDS: Metoprolol Tartrate 50 MG Tab PO SCH (20:21)
[2017-03-08] MEDS: Hydrocortisone Sodium Succinate 100 MG/2 ML SDV IVPUSH SCH (20:45)
[2017-03-09] MEDS: Hydrocortisone Sodium Succinate 100 MG/2 ML SDV IVPUSH SCH ×4 (02:54→20:30)
[2017-03-09] MEDS: Pantoprazole 40 MG Tab.CR PO SCH (07:21)
[2017-03-09] MEDS ORDERED: Linezolid 600 MG Tab PO SCH (08:00)
[2017-03-09] MEDS: Docusate Sodium 100 MG Cap PO SCH (08:07)
[2017-03-09] MEDS: Rosuvastatin 10 MG Tab PO SCH (08:07)
[2017-03-09] MEDS: Isosorbide Mononitrate 30 MG Tab.ER PO SCH (08:08)
[2017-03-09] MEDS: Rivaroxaban 10 MG Tab PO SCH (08:08)
[2017-03-09] MEDS: Tamsulosin 0.4 MG Cap.ER PO SCH (08:09)
[2017-03-09] MEDS: Aspirin 81 MG Tab.Chew PO SCH (08:09)
[2017-03-09] MEDS: Metoprolol Tartrate 50 MG Tab PO SCH ×2 (10:49→20:17)
[2017-03-09] MEDS: ARGININE PO SCH (10:50)
[2017-03-09] MEDS: Fenofibrate 54 MG Tab PO SCH (10:56)
--- NOTE | 2017-03-09 12:49 | PCM.SN ---
- Free Text/Narrative Note: Start: 1010 Stop: 1032 Anesthesia requested to assist in lab draw. 20 gauge to right upper forearm placed with aseptic technique and 10ml's of blood drawn and given to Lab personnel. Site flushed with 10ml's of normal saline. Sterile opsite placed and site secured.
[2017-03-09] MEDS ORDERED: Furosemide 20 MG/2 ML VIAL IVPUSH ONE (13:09)
--- NOTE | 2017-03-09 15:59 | PCM.PN ---
- General Info Date of Service: 03/09/17 Functional Status: Reports: Pain Controlled, Tolerating Diet, Ambulating - Review of Systems General: Reports: No Symptoms HEENT: Reports: No Symptoms Pulmonary: Reports: No Symptoms Cardiovascular: Reports: No Symptoms Gastrointestinal: Reports: No Symptoms Genitourinary: Reports: No Symptoms Musculoskeletal: Reports: No Symptoms Skin: Reports: No Symptoms Neurological: Reports: No Symptoms Psychiatric: Reports: No Symptoms - Patient Data Vitals - Most Recent: Last Vital Signs Temp 36.3 C 03/09/17 12:00 Pulse 89 03/09/17 10:49 Resp 19 03/09/17 12:00 BP 116/82 03/09/17 14:00 Pulse Ox 98 03/09/17 12:00 Orthostatic Blood Pressure [ 102/72 Standing] Orthostatic Blood Pressure [ 96/80 Sitting] Orthostatic Blood Pressure [ 95/37 Supine] Weight - Most Recent: 96.162 kg I&O - Last 24 Hours: Intake & Output 03/09/17 03/09/17 03/09/17 06:59 14:59 22:59 Intake Total 450 560 500 Output Total 700 450 100 Balance -250 110 400 Lab Results Last 24 Hours: Laboratory Results - last 24 hr 03/09/17 03/09/17 03/09/17 Range/Units 10:30 10:30 10:30 WBC 7.52 (4.23-9.07) K/mm3 RBC 4.45 L (4.63-6.08) M/mm3 Hgb 13.2 L (13.7-17.5) gm/L Hct 40.9 (40.1-51.0) % MCV 91.9 (79.0-92.2) fl MCH 29.7 (25.7-32.2) pg MCHC 32.3 (32.2-35.5) g/dl RDW Std Deviation 47.3 H (35.1-43.9) fL Plt Count 171 (163-337) K/mm3 MPV 11.1 (9.4-12.3) fl Neut % (Auto) 83.4 H (34.0-67.9) % Lymph % (Auto) 9.7 L (21.8-53.1) % [place] % (Auto) 6.3 (5.3-12.2) % Eos % (Auto) 0.1 L (0.8-7.0) Baso % (Auto) 0.1 (0.1-1.2) % Neut # (Auto) 6.27 H (1.78-5.38) K/mm3 Lymph # (Auto) 0.73 L (1.32-3.57) K/mm3 [place] # (Auto) 0.47 (0.30-0.82) K/mm3 Eos # (Auto) 0.01 L (0.04-0.54) K/mm3 Baso # (Auto) 0.01 (0.01-0.08) K/mm3 Manual Slide Review Abnormal smear ESR 34 H (0-15) mm/hr Sodium 140 (136-145) mEq/L Potassium 4.5 (3.5-5.1) mEq/L Chloride 103 (98-107) mEq/L Carbon Dioxide 28 (21-32) mEq/L Anion Gap 13.5 (5-15) BUN 40 H (7-18) mg/dL Creatinine 2.0 H (0.7-1.3) mg/dL Est Cr Clr Drug Dosing 25.25 mL/min Estimated GFR (MDRD) 32 (>60) mL/min BUN/Creatinine Ratio 20.0 H (14-18) Glucose 167 H (83-115) mg/dL Lactic Acid (0.4-2.0) mmol/L Calcium 9.2 (8.5-10.1) mg/dL C-Reactive Protein 13.5 H* (<1.0) mg/dL NT-Pro-B Natriuret Pep 2442 H (0-450) pg/mL 03/09/17 Range/Units 10:30 WBC (4.23-9.07) K/mm3 RBC (4.63-6.08) M/mm3 Hgb (13.7-17.5) gm/L Hct (40.1-51.0) % MCV (79.0-92.2) fl MCH (25.7-32.2) pg MCHC (32.2-35.5) g/dl RDW Std Deviation (35.1-43.9) fL Plt Count (163-337) K/mm3 MPV (9.4-12.3) fl Neut % (Auto) (34.0-67.9) % Lymph % (Auto) (21.8-53.1) % [place] % (Auto) (5.3-12.2) % Eos % (Auto) (0.8-7.0) Baso % (Auto) (0.1-1.2) % Neut # (Auto) (1.78-5.38) K/mm3 Lymph # (Auto) (1.32-3.57) K/mm3 [place] # (Auto) (0.30-0.82) K/mm3 Eos # (Auto) (0.04-0.54) K/mm3 Baso # (Auto) (0.01-0.08) K/mm3 Manual Slide Review ESR (0-15) mm/hr Sodium (136-145) mEq/L Potassium (3.5-5.1) mEq/L Chloride (98-107) mEq/L Carbon Dioxide (21-32) mEq/L Anion Gap (5-15) BUN (7-18) mg/dL Creatinine (0.7-1.3) mg/dL Est Cr Clr Drug Dosing mL/min Estimated GFR (MDRD) (>60) mL/min BUN/Creatinine Ratio (14-18) Glucose (83-115) mg/dL Lactic Acid 2.3 H (0.4-2.0) mmol/L Calcium (8.5-10.1) mg/dL C-Reactive Protein (<1.0) mg/dL NT-Pro-B Natriuret Pep (0-450) pg/mL Med Orders - Current: Current Medications Hydrocodone Bitart/Acetaminophen ([place] 325-5 Mg) 1 tab PO Q8H PRN PRN Reason: Pain (moderate 4-6) Albuterol/Ipratropium (Duoneb 3.0-0.5 Mg/3 Ml) 3 ml NEB QID PRN PRN Reason: Shortness of Breath Aspirin (Aspirin) 81 mg PO DAILY [facility] Last Admin: 03/09/17 08:09 Dose: 81 mg Docusate Sodium (Colace) 100 mg PO DAILY [facility] Last Admin: 03/09/17 08:07 Dose: 100 mg Fenofibrate (Fenofibrate) 54 mg PO DAILY [facility] Last Admin: 03/09/17 10:56 Dose: 54 mg Hydrocortisone Sodium Succinate (Solu-Cortef) 100 mg IVPUSH Q6H [facility] Last Admin: 03/09/17 10:56 Dose: 100 mg Hydromorphone HCl (Dilaudid) 0.5 mg IVPUSH Q6H PRN PRN Reason: Pain (moderate 4-6) Isosorbide Mononitrate (Imdur) 30 mg PO DAILY [facility] Last Admin: 03/09/17 08:08 Dose: 30 mg Linezolid (Zyvox) 600 mg PO Q12H [facility] Metoprolol Tartrate (Lopressor) 50 mg PO BID [facility] Last Admin: 03/09/17 10:49 Dose: Not Given Nitroglycerin (Nitrostat) 0.4 mg SL ASDIRECTED PRN PRN Reason: Chest Pain Pantoprazole Sodium (Protonix) 40 mg PO DAILY@0700 [facility] Last Admin: 03/09/17 07:21 Dose: 40 mg Pure L-Arginine Hcl (1,000 Mg) 0 each PO DAILY [facility] Last Admin: 03/09/17 10:50 Dose: Not Given Rivaroxaban (Xarelto) 15 mg PO DAILY [facility] Last Admin: 03/09/17 08:08 Dose: 15 mg Rosuvastatin Calcium (Crestor) 10 mg PO DAILY [facility] Last Admin: 03/09/17 08:07 Dose: 10 mg Tamsulosin HCl (Flomax) 0.4 mg PO DAILY [facility] Last Admin: 03/09/17 08:09 Dose: 0.4 mg Temazepam (Restoril) 7.5 mg PO BEDTIME PRN PRN Reason: Insomnia Discontinued Medications Albuterol/Ipratropium (Duoneb 3.0-0.5 Mg/3 Ml) 3 ml NEB ONETIME ONE Stop: 03/08/17 18:30 Last Admin: 03/08/17 18:54 Dose: 3 ml Furosemide (Lasix) 20 mg IVPUSH NOW ONE Stop: 03/09/17 13:10 Last Admin: 03/09/17 14:12 Dose: 20 mg Hydrocortisone Sodium Succinate (Solu-Cortef) 100 mg IVPUSH ONETIME ONE Stop: 03/08/17 15:29 Last Admin: 03/08/17 15:36 Dose: 100 mg Hydrocortisone Sodium Succinate (Solu-Cortef) 100 mg IVPUSH Q6H [facility] Last Admin: 03/08/17 20:23 Dose: Not Given Sodium Chloride (Normal Saline) 500 mls @ 1,000 mls/hr IV .BOLUS ONE Stop: 03/08/17 14:32 Last Admin: 03/08/17 14:13 Dose: 1,000 mls/hr Sodium Chloride (Normal Saline) 250 mls @ 1,000 mls/hr IV .BOLUS ONE Stop: 03/08/17 15:08 Last Admin: 03/08/17 19:04 Dose: Not Given Sodium Chloride (Normal Saline) 1,000 mls @ 75 mls/hr IV ASDIRECTED [facility] Last Admin: 03/08/17 20:45 Dose: 75 mls/hr Linezolid (Zyvox) 600 mg PO ONETIME ONE Stop: 03/08/17 15:46 Last Admin: 03/08/17 17:01 Dose: 600 mg Linezolid (Zyvox) 600 mg PO Q12H [facility] Last Admin: 03/09/17 07:22 Dose: 600 mg - Exam Quality Assessment: Supplemental Oxygen, DVT Prophylaxis General: Alert, Oriented, Cooperative, No Acute Distress HEENT: Pupils Equal, Pupils Reactive, EOMI Neck: Supple, Trachea Midline Lungs: Normal Respiratory Effort Cardiovascular: Regular Rate, Regular Rhythm GI/Abdominal Exam: Normal Bowel Sounds, Soft, Non-Tender, No Organomegaly (Male) Exam: Deferred Back Exam: Normal Inspection Extremities: Arm Pain (improved), Limited Range of Motion Skin: Warm Neurological: No New Focal Deficit Psy/Mental Status: Alert - Problem List & Annotations (1) COLD, Chronic obstructive lung disease SNOMED Code(s): 99648228 Code(s): J44.9 - CHRONIC OBSTRUCTIVE PULMONARY DISEASE, UNSPECIFIED Status : Acute Current Visit: Yes (2) Cellulitis SNOMED Code(s): 310279481 Code(s): L03.90 - CELLULITIS, UNSPECIFIED Status: Acute Current Visit: Yes (3) Hypotension SNOMED Code(s): 56722069 Code(s): I95.9 - HYPOTENSION, UNSPECIFIED Status: Acute Current Visit: Yes Qualifiers: Hypotension type: unspecified hypotension type Qualified Code(s): I95.9 - Hypotension, unspecified (4) Hypoxia SNOMED Code(s): 151031047 Code(s): R09.02 - HYPOXEMIA Status: Acute Current Visit: Yes (5) Postoperative wound infection SNOMED Code(s): 68744489, 401285343 Code(s): T81.4XXA - INFECTION FOLLOWING A PROCEDURE, INITIAL ENCOUNTER Status: Acute Current Visit: Yes Qualifiers: Encounter type: initial encounter Qualified Code(s): T81.4XXA - Infection following a procedure, initial encounter (6) Renal impairment SNOMED Code(s): 818478209 Code(s): N28.9 - DISORDER OF KIDNEY AND URETER, UNSPECIFIED Status: Acute Current Visit: Yes - Problem List Review Problem List Initiated/Reviewed/Updated: Yes - My Orders Last 24 Hours: My Active Orders 03/08/17 19:18 Nitroglycerin [Nitrostat] 0.4 mg SL ASDIRECTED PRN 03/08/17 19:26 Blood Culture x2 Reflex Set [OM.PC] Stat 03/08/17 19:34 HYDROmorphone [Dilaudid] 0.5 mg IVPUSH Q6H PRN 03/08/17 19:36 Acetaminophen/HYDROcodone [[place] 325-5 MG] 1 tab PO Q8H PRN 03/08/17 19:37 Temazepam [Restoril] 7.5 mg PO BEDTIME PRN 03/08/17 19:38 Consult to Case Management [CONS] Routine Isolation [COMM] Routine 03/08/17 19:39 RT Aerosol Therapy [RC] ASDIRECTED Albuterol/Ipratropium [DuoNeb 3.0-0.5 MG/3 ML] 3 ml NEB QID PRN 03/08/17 20:17 CULTURE BLOOD [BC] Stat 03/08/17 20:35 CULTURE BLOOD [BC] Stat 03/08/17 21:00 Metoprolol Tartrate [Lopressor] 50 mg PO BID 03/08/17 21:30 Hydrocortisone Sod Succinate [Solu-CORTEF] 100 mg IVPUSH Q6H 03/09/17 07:00 Pantoprazole [ProTONIX] 40 mg PO DAILY@0700 03/09/17 09:00 Consult to Occupational Therapy [OT Evaluation and Treatment] [CONS] Routine Aspirin 81 mg PO DAILY Docusate Sodium [Colace] 100 mg PO DAILY Fenofibrate 54 mg PO DAILY Isosorbide Mononitrate [Imdur] 30 mg PO DAILY Patient's Own Medication [Ptom] 0 each PO DAILY Rivaroxaban [Xarelto] 15 mg PO DAILY Rosuvastatin [Crestor] 10 mg PO DAILY Tamsulosin [Flomax] 0.4 mg PO DAILY 03/09/17 12:24 Up ad [place] [RC] ASDIRECTED 03/09/17 15:29 Admission Status [Patient Status] [ADT] Routine 03/09/17 19:00 Linezolid [Zyvox] 600 mg PO Q12H 03/09/17 Breakfast Heart Healthy Diet [DIET] 03/10/17 05:00 BMP [BASIC METABOLIC PANEL,BMP] [CHEM] DAILY CBC WITH AUTO DIFF [HEME] DAILY CRP [C-REACTIVE PROTEIN] [CHEM] DAILY LACTIC ACID [CHEM] DAILY PRO B-TYPE NATRIUR PEPT,BNPPRO [CHEM] Routine 03/11/17 05:00 BMP [BASIC METABOLIC PANEL,BMP] [CHEM] DAILY CBC WITH AUTO DIFF [HEME] DAILY CRP [C-REACTIVE PROTEIN] [CHEM] DAILY LACTIC ACID [CHEM] DAILY 03/12/17 05:00 BMP [BASIC METABOLIC PANEL,BMP] [CHEM] DAILY CBC WITH AUTO DIFF [HEME] DAILY CRP [C-REACTIVE PROTEIN] [CHEM] DAILY LACTIC ACID [CHEM] DAILY - Plan Plan:: Impression: Post op wound infection, POD 10 (original procedure 02/27/17); I/D 03/04/17, returns with progression of swelling-->celluitis, MRSA Failed post op outpatient therapy twice. COPD with emphysema; O2 dependent Chronic HTN CAD s/p CABG BPH GERD Plan: IVF Zyvox Contact isolation Elevate LUE Pain mgt Ortho follow up Daily labs Home meds DVT/GI prophylaxis
[2017-03-09] MEDS: Linezolid 600 MG Tab PO SCH (19:51)
[2017-03-10] MEDS: Hydrocortisone Sodium Succinate 100 MG/2 ML SDV IVPUSH SCH ×4 (03:36→20:49)
[2017-03-10] MEDS: Pantoprazole 40 MG Tab.CR PO SCH (06:29)
[2017-03-10] MEDS: Linezolid 600 MG Tab PO SCH (06:29)
[2017-03-10] MEDS: Tamsulosin 0.4 MG Cap.ER PO SCH (08:30)
[2017-03-10] MEDS: Rivaroxaban 10 MG Tab PO SCH (08:30)
[2017-03-10] MEDS: Docusate Sodium 100 MG Cap PO SCH (08:30)
[2017-03-10] MEDS: Rosuvastatin 10 MG Tab PO SCH (08:31)
[2017-03-10] MEDS: Aspirin 81 MG Tab.Chew PO SCH (08:32)
[2017-03-10] MEDS: Isosorbide Mononitrate 30 MG Tab.ER PO SCH (08:33)
[2017-03-10] MEDS: ARGININE PO SCH (08:36)
[2017-03-10] MEDS: Fenofibrate 54 MG Tab PO SCH (08:42)
[2017-03-10] MEDS: Metoprolol Tartrate 50 MG Tab PO SCH ×2 (08:43→20:53)
--- NOTE | 2017-03-10 09:28 | PCM.PN ---
- General Info Date of Service: 03/10/17 Functional Status: Reports: Pain Controlled, Tolerating Diet, Ambulating - Review of Systems General: Reports: No Symptoms HEENT: Reports: No Symptoms Pulmonary: Reports: No Symptoms Cardiovascular: Reports: No Symptoms Gastrointestinal: Reports: No Symptoms Genitourinary: Reports: No Symptoms Musculoskeletal: Reports: No Symptoms Skin: Reports: No Symptoms Neurological: Reports: No Symptoms Psychiatric: Reports: No Symptoms - Patient Data Vitals - Most Recent: Last Vital Signs Temp 36.4 C 03/10/17 08:40 Pulse 63 03/10/17 08:43 Resp 16 03/10/17 08:40 BP 113/94 H 03/10/17 08:43 Pulse Ox 92 L 03/10/17 08:40 Orthostatic Blood Pressure [ 102/72 Standing] Orthostatic Blood Pressure [ 96/80 Sitting] Orthostatic Blood Pressure [ 95/37 Supine] Weight - Most Recent: 100.652 kg I&O - Last 24 Hours: Intake & Output 03/09/17 03/10/17 03/10/17 22:59 06:59 14:59 Intake Total 1380 600 Output Total 500 500 Balance 880 100 Lab Results Last 24 Hours: Laboratory Results - last 24 hr 03/09/17 03/09/17 03/09/17 Range/Units 10:30 10:30 10:30 WBC 7.52 (4.23-9.07) K/mm3 RBC 4.45 L (4.63-6.08) M/mm3 Hgb 13.2 L (13.7-17.5) gm/L Hct 40.9 (40.1-51.0) % MCV 91.9 (79.0-92.2) fl MCH 29.7 (25.7-32.2) pg MCHC 32.3 (32.2-35.5) g/dl RDW Std Deviation 47.3 H (35.1-43.9) fL Plt Count 171 (163-337) K/mm3 MPV 11.1 (9.4-12.3) fl Neut % (Auto) 83.4 H (34.0-67.9) % Lymph % (Auto) 9.7 L (21.8-53.1) % Rooks % (Auto) 6.3 (5.3-12.2) % Eos % (Auto) 0.1 L (0.8-7.0) Baso % (Auto) 0.1 (0.1-1.2) % Neut # (Auto) 6.27 H (1.78-5.38) K/mm3 Lymph # (Auto) 0.73 L (1.32-3.57) K/mm3 Rooks # (Auto) 0.47 (0.30-0.82) K/mm3 Eos # (Auto) 0.01 L (0.04-0.54) K/mm3 Baso # (Auto) 0.01 (0.01-0.08) K/mm3 Manual Slide Review Abnormal smear ESR 34 H (0-15) mm/hr Sodium 140 (136-145) mEq/L Potassium 4.5 (3.5-5.1) mEq/L Chloride 103 (98-107) mEq/L Carbon Dioxide 28 (21-32) mEq/L Anion Gap 13.5 (5-15) BUN 40 H (7-18) mg/dL Creatinine 2.0 H (0.7-1.3) mg/dL Est Cr Clr Drug Dosing 25.25 mL/min Estimated GFR (MDRD) 32 (>60) mL/min BUN/Creatinine Ratio 20.0 H (14-18) Glucose 167 H (83-115) mg/dL Lactic Acid (0.4-2.0) mmol/L Calcium 9.2 (8.5-10.1) mg/dL C-Reactive Protein 13.5 H* (<1.0) mg/dL NT-Pro-B Natriuret Pep 2442 H (0-450) pg/mL 03/09/17 03/10/17 03/10/17 Range/Units 10:30 06:33 06:33 WBC 7.37 (4.23-9.07) K/mm3 RBC 4.16 L (4.63-6.08) M/mm3 Hgb 12.3 L (13.7-17.5) gm/L Hct 38.0 L (40.1-51.0) % MCV 91.3 (79.0-92.2) fl MCH 29.6 (25.7-32.2) pg MCHC 32.4 (32.2-35.5) g/dl RDW Std Deviation 46.0 H (35.1-43.9) fL Plt Count 150 L (163-337) K/mm3 MPV 11.1 (9.4-12.3) fl Neut % (Auto) 83.0 H (34.0-67.9) % Lymph % (Auto) 9.6 L (21.8-53.1) % Rooks % (Auto) 6.9 (5.3-12.2) % Eos % (Auto) 0.1 L (0.8-7.0) Baso % (Auto) 0.0 L (0.1-1.2) % Neut # (Auto) 6.11 H (1.78-5.38) K/mm3 Lymph # (Auto) 0.71 L (1.32-3.57) K/mm3 Rooks # (Auto) 0.51 (0.30-0.82) K/mm3 Eos # (Auto) 0.01 L (0.04-0.54) K/mm3 Baso # (Auto) 0.00 L (0.01-0.08) K/mm3 Manual Slide Review Abnormal smear ESR (0-15) mm/hr Sodium 139 (136-145) mEq/L Potassium 4.6 (3.5-5.1) mEq/L Chloride 104 (98-107) mEq/L Carbon Dioxide 29 (21-32) mEq/L Anion Gap 10.6 (5-15) BUN 49 H (7-18) mg/dL Creatinine 1.7 H (0.7-1.3) mg/dL Est Cr Clr Drug Dosing 29.70 mL/min Estimated GFR (MDRD) 38 (>60) mL/min BUN/Creatinine Ratio 28.8 H (14-18) Glucose 174 H (83-115) mg/dL Lactic Acid 2.3 H (0.4-2.0) mmol/L Calcium 9.1 (8.5-10.1) mg/dL C-Reactive Protein 6.5 H* (<1.0) mg/dL NT-Pro-B Natriuret Pep 2643 H (0-450) pg/mL 03/10/17 Range/Units 06:33 WBC (4.23-9.07) K/mm3 RBC (4.63-6.08) M/mm3 Hgb (13.7-17.5) gm/L Hct (40.1-51.0) % MCV (79.0-92.2) fl MCH (25.7-32.2) pg MCHC (32.2-35.5) g/dl RDW Std Deviation (35.1-43.9) fL Plt Count (163-337) K/mm3 MPV (9.4-12.3) fl Neut % (Auto) (34.0-67.9) % Lymph % (Auto) (21.8-53.1) % Rooks % (Auto) (5.3-12.2) % Eos % (Auto) (0.8-7.0) Baso % (Auto) (0.1-1.2) % Neut # (Auto) (1.78-5.38) K/mm3 Lymph # (Auto) (1.32-3.57) K/mm3 Rooks # (Auto) (0.30-0.82) K/mm3 Eos # (Auto) (0.04-0.54) K/mm3 Baso # (Auto) (0.01-0.08) K/mm3 Manual Slide Review ESR (0-15) mm/hr Sodium (136-145) mEq/L Potassium (3.5-5.1) mEq/L Chloride (98-107) mEq/L Carbon Dioxide (21-32) mEq/L Anion Gap (5-15) BUN (7-18) mg/dL Creatinine (0.7-1.3) mg/dL Est Cr Clr Drug Dosing mL/min Estimated GFR (MDRD) (>60) mL/min BUN/Creatinine Ratio (14-18) Glucose (83-115) mg/dL Lactic Acid 1.2 (0.4-2.0) mmol/L Calcium (8.5-10.1) mg/dL C-Reactive Protein (<1.0) mg/dL NT-Pro-B Natriuret Pep (0-450) pg/mL Jose David Results Last 24 Hours: Microbiology 03/08/17 20:17 Aerobic Blood Culture - Preliminary Blood - Venous NO GROWTH AFTER 1 DAY Anaerobic Blood Culture - Preliminary NO GROWTH AFTER 1 DAY 03/08/17 20:35 Aerobic Blood Culture - Preliminary Blood - Venous - Lab Draw NO GROWTH AFTER 1 DAY Anaerobic Blood Culture - Preliminary NO GROWTH AFTER 1 DAY Med Orders - Current: Current Medications Hydrocodone Bitart/Acetaminophen ([place] 325-5 Mg) 1 tab PO Q8H PRN PRN Reason: Pain (moderate 4-6) Albuterol/Ipratropium (Duoneb 3.0-0.5 Mg/3 Ml) 3 ml NEB QID PRN PRN Reason: Shortness of Breath Aspirin (Aspirin) 81 mg PO DAILY [facility] Last Admin: 03/10/17 08:32 Dose: 81 mg Docusate Sodium (Colace) 100 mg PO DAILY [facility] Last Admin: 03/10/17 08:30 Dose: 100 mg Fenofibrate (Fenofibrate) 54 mg PO DAILY [facility] Last Admin: 03/10/17 08:42 Dose: 54 mg Hydrocortisone Sodium Succinate (Solu-Cortef) 100 mg IVPUSH Q6H [facility] Last Admin: 03/10/17 03:36 Dose: 100 mg Hydromorphone HCl (Dilaudid) 0.5 mg IVPUSH Q6H PRN PRN Reason: Pain (moderate 4-6) Last Admin: 03/10/17 08:36 Dose: 0.5 mg Isosorbide Mononitrate (Imdur) 30 mg PO DAILY [facility] Last Admin: 03/10/17 08:33 Dose: 30 mg Linezolid (Zyvox) 600 mg PO Q12H [facility] Last Admin: 03/10/17 06:29 Dose: 600 mg Metoprolol Tartrate (Lopressor) 50 mg PO BID [facility] Last Admin: 03/10/17 08:43 Dose: Not Given Nitroglycerin (Nitrostat) 0.4 mg SL ASDIRECTED PRN PRN Reason: Chest Pain Pantoprazole Sodium (Protonix) 40 mg PO DAILY@0700 [facility] Last Admin: 03/10/17 06:29 Dose: 40 mg Pure L-Arginine Hcl (1,000 MgOwn Med) 0 each PO DAILY [facility] Last Admin: 03/10/17 08:36 Dose: 1,000 each Rivaroxaban (Xarelto) 15 mg PO DAILY [facility] Last Admin: 03/10/17 08:30 Dose: 15 mg Rosuvastatin Calcium (Crestor) 10 mg PO DAILY [facility] Last Admin: 03/10/17 08:31 Dose: 10 mg Tamsulosin HCl (Flomax) 0.4 mg PO DAILY [facility] Last Admin: 03/10/17 08:30 Dose: 0.4 mg Temazepam (Restoril) 7.5 mg PO BEDTIME PRN PRN Reason: Insomnia Discontinued Medications Albuterol/Ipratropium (Duoneb 3.0-0.5 Mg/3 Ml) 3 ml NEB ONETIME ONE Stop: 03/08/17 18:30 Last Admin: 03/08/17 18:54 Dose: 3 ml Furosemide (Lasix) 20 mg IVPUSH NOW ONE Stop: 03/09/17 13:10 Last Admin: 03/09/17 14:12 Dose: 20 mg Hydrocortisone Sodium Succinate (Solu-Cortef) 100 mg IVPUSH ONETIME ONE Stop: 03/08/17 15:29 Last Admin: 03/08/17 15:36 Dose: 100 mg Hydrocortisone Sodium Succinate (Solu-Cortef) 100 mg IVPUSH Q6H [facility] Last Admin: 03/08/17 20:23 Dose: Not Given Sodium Chloride (Normal Saline) 500 mls @ 1,000 mls/hr IV .BOLUS ONE Stop: 03/08/17 14:32 Last Admin: 03/08/17 14:13 Dose: 1,000 mls/hr Sodium Chloride (Normal Saline) 250 mls @ 1,000 mls/hr IV .BOLUS ONE Stop: 03/08/17 15:08 Last Admin: 03/08/17 19:04 Dose: Not Given Sodium Chloride (Normal Saline) 1,000 mls @ 75 mls/hr IV ASDIRECTED [facility] Last Admin: 03/08/17 20:45 Dose: 75 mls/hr Linezolid (Zyvox) 600 mg PO ONETIME ONE Stop: 03/08/17 15:46 Last Admin: 03/08/17 17:01 Dose: 600 mg Linezolid (Zyvox) 600 mg PO Q12H [facility] Last Admin: 03/09/17 07:22 Dose: 600 mg - Exam Quality Assessment: Supplemental Oxygen, DVT Prophylaxis General: Alert, Oriented, Cooperative HEENT: Pupils Equal, Pupils Reactive, EOMI Neck: Supple, Trachea Midline, No JVD Lungs: Normal Respiratory Effort Cardiovascular: Regular Rate, Regular Rhythm GI/Abdominal Exam: Normal Bowel Sounds, Soft, Non-Tender, No Distention (Male) Exam: Deferred Back Exam: Normal Inspection Extremities: Normal Inspection Skin: Warm Neurological: No New Focal Deficit Psy/Mental Status: Alert - Problem List & Annotations (1) COLD, Chronic obstructive lung disease SNOMED Code(s): 92248773 Code(s): J44.9 - CHRONIC OBSTRUCTIVE PULMONARY DISEASE, UNSPECIFIED Status : Acute Current Visit: Yes (2) Cellulitis SNOMED Code(s): 100443280 Code(s): L03.90 - CELLULITIS, UNSPECIFIED Status: Acute Current Visit: Yes (3) Hypotension SNOMED Code(s): 74330031 Code(s): I95.9 - HYPOTENSION, UNSPECIFIED Status: Acute Current Visit: Yes Qualifiers: Hypotension type: unspecified hypotension type Qualified Code(s): I95.9 - Hypotension, unspecified (4) Hypoxia SNOMED Code(s): 808022389 Code(s): R09.02 - HYPOXEMIA Status: Acute Current Visit: Yes (5) Postoperative wound infection SNOMED Code(s): 46125095, 619254955 Code(s): T81.4XXA - INFECTION FOLLOWING A PROCEDURE, INITIAL ENCOUNTER Status: Acute Current Visit: Yes Qualifiers: Encounter type: initial encounter Qualified Code(s): T81.4XXA - Infection following a procedure, initial encounter (6) Renal impairment SNOMED Code(s): 358365935 Code(s): N28.9 - DISORDER OF KIDNEY AND URETER, UNSPECIFIED Status: Acute Current Visit: Yes - Problem List Review Problem List Initiated/Reviewed/Updated: Yes - My Orders Last 24 Hours: My Active Orders 03/09/17 09:00 Consult to Occupational Therapy [OT Evaluation and Treatment] [CONS] Routine Aspirin 81 mg PO DAILY Docusate Sodium [Colace] 100 mg PO DAILY Fenofibrate 54 mg PO DAILY Isosorbide Mononitrate [Imdur] 30 mg PO DAILY Patient's Own Medication [Ptom] 0 each PO DAILY Rivaroxaban [Xarelto] 15 mg PO DAILY Rosuvastatin [Crestor] 10 mg PO DAILY Tamsulosin [Flomax] 0.4 mg PO DAILY 03/09/17 12:24 Up ad Angelina [RC] ASDIRECTED 03/09/17 15:29 Admission Status [Patient Status] [ADT] Routine 03/09/17 19:00 Linezolid [Zyvox] 600 mg PO Q12H 03/11/17 05:00 BMP [BASIC METABOLIC PANEL,BMP] [CHEM] DAILY CBC WITH AUTO DIFF [HEME] DAILY CRP [C-REACTIVE PROTEIN] [CHEM] DAILY LACTIC ACID [CHEM] DAILY 03/12/17 05:00 BMP [BASIC METABOLIC PANEL,BMP] [CHEM] DAILY CBC WITH AUTO DIFF [HEME] DAILY CRP [C-REACTIVE PROTEIN] [CHEM] DAILY LACTIC ACID [CHEM] DAILY - Plan Plan:: Impression: Post op wound infection, POD 10 (original procedure 02/27/17); I/D 03/04/17, returns with progression of swelling-->celluitis, MRSA Failed post op outpatient therapy twice. -->Day 2 of Zyvox COPD with emphysema; O2 dependent Chronic HTN CAD s/p CABG BPH GERD Plan: IVF Zyvox-->start IV Zyvox, give for 24-48 hours Wound care, continue wound vac Contact isolation Elevate LUE Pain mgt Ortho follow up Daily labs Home meds DVT/GI prophylaxis
[2017-03-10] MEDS ORDERED: Furosemide 20 MG/2 ML VIAL IVPUSH ONE (09:33)
[2017-03-10] MEDS: Linezolid 600 MG in Premix Bag 1 BAG IV SCH (13:05)
[2017-03-11] MEDS: Linezolid 600 MG in Premix Bag 1 BAG IV SCH ×2 (01:03→13:38)
--- NOTE | 2017-03-11 01:54 | PCM.SN ---
- Free Text/Narrative Note: Start: 0137 Stop: 0153 Anesthesia requested for IV start. 22 gauge to right upper arm times one attempt. Site flushed with 20ml's normal saline.
--- NOTE | 2017-03-11 04:25 | PCM.SN ---
- Free Text/Narrative Note: Start: 401 Stop: 0425 Anesthesia called for IV start. 22 gauge to right inner wrist noted times one attempt. Site flushed with 30ml's of normal saline. 22 gauge to upper arm dc'd and tip in tact, pressure dressing applied.
[2017-03-11] MEDS: Hydrocortisone Sodium Succinate 100 MG/2 ML SDV IVPUSH SCH ×5 (05:28→22:23)
[2017-03-11] MEDS: Metoprolol Tartrate 50 MG Tab PO SCH ×3 (05:40→21:21)
[2017-03-11] MEDS: Pantoprazole 40 MG Tab.CR PO SCH (06:00)
[2017-03-11] MEDS: Aspirin 81 MG Tab.Chew PO SCH (09:53)
[2017-03-11] MEDS: Rosuvastatin 10 MG Tab PO SCH (09:54)
[2017-03-11] MEDS: Docusate Sodium 100 MG Cap PO SCH (09:55)
[2017-03-11] MEDS: Tamsulosin 0.4 MG Cap.ER PO SCH (09:55)
[2017-03-11] MEDS: Isosorbide Mononitrate 30 MG Tab.ER PO SCH (09:58)
[2017-03-11] MEDS: Fenofibrate 54 MG Tab PO SCH (09:59)
[2017-03-11] MEDS: ARGININE PO SCH (10:00)
[2017-03-11] MEDS: Rivaroxaban 10 MG Tab PO SCH (10:03)
[2017-03-11] MEDS ORDERED: Magnesium Sulfate/Water 2 GM in Premix Bag 1 BAG IV ONE (14:27)
--- NOTE | 2017-03-11 14:32 | PCM.PN ---
- General Info Date of Service: 03/11/17 Functional Status: Reports: Tolerating Diet - Review of Systems General: Reports: No Symptoms HEENT: Reports: No Symptoms Pulmonary: Reports: No Symptoms Cardiovascular: Reports: No Symptoms Gastrointestinal: Reports: No Symptoms Genitourinary: Reports: No Symptoms Musculoskeletal: Reports: No Symptoms Skin: Reports: No Symptoms Neurological: Reports: No Symptoms Psychiatric: Reports: No Symptoms - Patient Data Vitals - Most Recent: Last Vital Signs Temp 36.7 C 03/10/17 20:55 Pulse 52 L 03/11/17 10:05 Resp 20 03/11/17 10:05 BP 136/76 03/11/17 10:05 Pulse Ox 93 L 03/11/17 10:05 Orthostatic Blood Pressure [ 102/72 Standing] Orthostatic Blood Pressure [ 96/80 Sitting] Orthostatic Blood Pressure [ 95/37 Supine] Weight - Most Recent: 100.924 kg I&O - Last 24 Hours: Intake & Output 03/10/17 03/11/17 03/11/17 22:59 06:59 14:59 Intake Total 780 1020 Output Total 520 Balance 260 1020 Jose David Results Last 24 Hours: Microbiology 03/08/17 20:17 Aerobic Blood Culture - Preliminary Blood - Venous NO GROWTH AFTER 2 DAYS Anaerobic Blood Culture - Preliminary NO GROWTH AFTER 2 DAYS 03/08/17 20:35 Aerobic Blood Culture - Preliminary Blood - Venous - Lab Draw NO GROWTH AFTER 2 DAYS Anaerobic Blood Culture - Preliminary NO GROWTH AFTER 2 DAYS Med Orders - Current: Current Medications Hydrocodone Bitart/Acetaminophen ([place] 325-5 Mg) 1 tab PO Q8H PRN PRN Reason: Pain (moderate 4-6) Albuterol/Ipratropium (Duoneb 3.0-0.5 Mg/3 Ml) 3 ml NEB QID PRN PRN Reason: Shortness of Breath Aspirin (Aspirin) 81 mg PO DAILY [facility] Last Admin: 03/11/17 09:53 Dose: 81 mg Docusate Sodium (Colace) 100 mg PO DAILY [facility] Last Admin: 03/11/17 09:55 Dose: 100 mg Fenofibrate (Fenofibrate) 54 mg PO DAILY [facility] Last Admin: 03/11/17 09:59 Dose: 54 mg Hydrocortisone Sodium Succinate (Solu-Cortef) 100 mg IVPUSH Q6H [facility] Last Admin: 03/11/17 10:00 Dose: 100 mg Hydromorphone HCl (Dilaudid) 0.5 mg IVPUSH Q6H PRN PRN Reason: Pain (moderate 4-6) Last Admin: 03/10/17 08:36 Dose: 0.5 mg Linezolid 600 mg/ Premix 300 mls @ 300 mls/hr IV Q12H [facility] Last Admin: 03/11/17 13:38 Dose: 300 mls/hr Magnesium Sulfate 2 gm/ Premix 50 mls @ 25 mls/hr IV ONETIME ONE Stop: 03/11/17 16:26 Isosorbide Mononitrate (Imdur) 30 mg PO DAILY [facility] Last Admin: 03/11/17 09:58 Dose: 30 mg Metoprolol Tartrate (Lopressor) 50 mg PO BID [facility] Last Admin: 03/11/17 09:57 Dose: Not Given Nitroglycerin (Nitrostat) 0.4 mg SL ASDIRECTED PRN PRN Reason: Chest Pain Pantoprazole Sodium (Protonix) 40 mg PO DAILY@0700 [facility] Last Admin: 03/11/17 06:00 Dose: 40 mg Pure L-Arginine Hcl (1,000 MgOwn Med) 0 each PO DAILY [facility] Last Admin: 03/11/17 10:00 Dose: 1,000 each Rivaroxaban (Xarelto) 15 mg PO DAILY [facility] Last Admin: 03/11/17 10:03 Dose: 15 mg Rosuvastatin Calcium (Crestor) 10 mg PO DAILY [facility] Last Admin: 03/11/17 09:54 Dose: 10 mg Tamsulosin HCl (Flomax) 0.4 mg PO DAILY [facility] Last Admin: 03/11/17 09:55 Dose: 0.4 mg Temazepam (Restoril) 7.5 mg PO BEDTIME PRN PRN Reason: Insomnia Discontinued Medications Albuterol/Ipratropium (Duoneb 3.0-0.5 Mg/3 Ml) 3 ml NEB ONETIME ONE Stop: 03/08/17 18:30 Last Admin: 03/08/17 18:54 Dose: 3 ml Furosemide (Lasix) 20 mg IVPUSH NOW ONE Stop: 03/09/17 13:10 Last Admin: 03/09/17 14:12 Dose: 20 mg Furosemide (Lasix) 20 mg IVPUSH NOW ONE Stop: 03/10/17 09:34 Last Admin: 03/10/17 10:13 Dose: 20 mg Hydrocortisone Sodium Succinate (Solu-Cortef) 100 mg IVPUSH ONETIME ONE Stop: 03/08/17 15:29 Last Admin: 03/08/17 15:36 Dose: 100 mg Hydrocortisone Sodium Succinate (Solu-Cortef) 100 mg IVPUSH Q6H [facility] Last Admin: 03/08/17 20:23 Dose: Not Given Sodium Chloride (Normal Saline) 500 mls @ 1,000 mls/hr IV .BOLUS ONE Stop: 03/08/17 14:32 Last Admin: 03/08/17 14:13 Dose: 1,000 mls/hr Sodium Chloride (Normal Saline) 250 mls @ 1,000 mls/hr IV .BOLUS ONE Stop: 03/08/17 15:08 Last Admin: 03/08/17 19:04 Dose: Not Given Sodium Chloride (Normal Saline) 1,000 mls @ 75 mls/hr IV ASDIRECTED [facility] Last Admin: 03/08/17 20:45 Dose: 75 mls/hr Linezolid (Zyvox) 600 mg PO ONETIME ONE Stop: 03/08/17 15:46 Last Admin: 03/08/17 17:01 Dose: 600 mg Linezolid (Zyvox) 600 mg PO Q12H [facility] Last Admin: 03/09/17 07:22 Dose: 600 mg Linezolid (Zyvox) 600 mg PO Q12H [facility] Last Admin: 03/10/17 06:29 Dose: 600 mg - Exam Quality Assessment: DVT Prophylaxis General: Alert, Oriented, Cooperative HEENT: Pupils Equal, Pupils Reactive, EOMI Neck: Supple, Trachea Midline Lungs: Normal Respiratory Effort Cardiovascular: Regular Rate, Regular Rhythm GI/Abdominal Exam: Normal Bowel Sounds, Soft, Non-Tender, No Distention (Male) Exam: Deferred Back Exam: Normal Inspection Extremities: Normal Inspection, Non-Tender Skin: Warm Wound/Incisions: Dressing Dry and Intact Neurological: No New Focal Deficit Psy/Mental Status: Alert, Normal Affect, Normal Mood - Problem List & Annotations (1) COLD, Chronic obstructive lung disease SNOMED Code(s): 07781821 Code(s): J44.9 - CHRONIC OBSTRUCTIVE PULMONARY DISEASE, UNSPECIFIED Status : Acute Current Visit: Yes (2) Cellulitis SNOMED Code(s): 142909448 Code(s): L03.90 - CELLULITIS, UNSPECIFIED Status: Acute Current Visit: Yes (3) Hypotension SNOMED Code(s): 28012323 Code(s): I95.9 - HYPOTENSION, UNSPECIFIED Status: Acute Current Visit: Yes Qualifiers: Hypotension type: unspecified hypotension type Qualified Code(s): I95.9 - Hypotension, unspecified (4) Hypoxia SNOMED Code(s): 247723700 Code(s): R09.02 - HYPOXEMIA Status: Acute Current Visit: Yes (5) Postoperative wound infection SNOMED Code(s): 35574334, 305185321 Code(s): T81.4XXA - INFECTION FOLLOWING A PROCEDURE, INITIAL ENCOUNTER Status: Acute Current Visit: Yes Qualifiers: Encounter type: initial encounter Qualified Code(s): T81.4XXA - Infection following a procedure, initial encounter (6) Renal impairment SNOMED Code(s): 730597765 Code(s): N28.9 - DISORDER OF KIDNEY AND URETER, UNSPECIFIED Status: Acute Current Visit: Yes - Problem List Review Problem List Initiated/Reviewed/Updated: Yes - My Orders Last 24 Hours: My Active Orders 03/10/17 15:49 Code Status [Resuscitation Status] Routine 03/11/17 14:27 Magnesium Sulfate/Water [Magnesium Sulfate 2 GM in Water 50 ML] 2 gm Premix Bag 1 bag IV ONETIME 03/12/17 05:00 BMP [BASIC METABOLIC PANEL,BMP] [CHEM] DAILY CBC WITH AUTO DIFF [HEME] DAILY CRP [C-REACTIVE PROTEIN] [CHEM] DAILY LACTIC ACID [CHEM] DAILY MAGNESIUM [CHEM] Routine - Plan Plan:: Impression: Post op wound infection, POD 12 (original procedure 02/27/17); I/D 03/04/17, returns with progression of swelling-->celluitis, MRSA Failed post op outpatient therapy twice. -->Day 3 of Zyvox COPD with emphysema; O2 dependent Chronic HTN CAD s/p CABG BPH GERD Plan: IVF Zyvox-->start IV Zyvox, give for 24-48 hours Wound care, continue wound vac Contact isolation Elevate LUE Pain mgt Ortho follow up Daily labs Home meds DVT/GI prophylaxis DC 03/12/17 on PO Zyvox
[2017-03-11] MEDS ORDERED: Sodium Chloride 0.9% 100 ML IV SCH (16:15)
--- NOTE | 2017-03-11 23:21 | PCM.SN ---
- Free Text/Narrative Note: Start: 2202 Stop: 2229 Anesthesia requested for IV start. 20 gauge to right antecubital placed times one attempt. Site flushed times 30 ml's of normal saline.
[2017-03-12] MEDS: Linezolid 600 MG in Premix Bag 1 BAG IV SCH (02:01)
[2017-03-12] MEDS: Linezolid 600 MG Tab PO SCH ×2 (02:38→15:11)
[2017-03-12] MEDS: Pantoprazole 40 MG Tab.CR PO SCH (07:40)
[2017-03-12] MEDS: Aspirin 81 MG Tab.Chew PO SCH (09:14)
[2017-03-12] MEDS: Docusate Sodium 100 MG Cap PO SCH (09:14)
[2017-03-12] MEDS: Fenofibrate 54 MG Tab PO SCH (09:14)
[2017-03-12] MEDS: Rosuvastatin 10 MG Tab PO SCH (09:14)
[2017-03-12] MEDS: Tamsulosin 0.4 MG Cap.ER PO SCH (09:15)
[2017-03-12] MEDS: Isosorbide Mononitrate 30 MG Tab.ER PO SCH (09:16)
[2017-03-12] MEDS: ARGININE PO SCH (09:16)
[2017-03-12] MEDS: Metoprolol Tartrate 50 MG Tab PO SCH (09:16)
[2017-03-12] MEDS: Rivaroxaban 10 MG Tab PO SCH (09:17)
[2017-03-12 09:19] VITALS: BP 150/82
--- NOTE | 2017-03-12 12:33 | PCM.DCSUM1 ---
<Ashley Crespo M - Last Filed: 03/12/17 14:52> Discharge Summary - Hospital Course Free Text/Narrative:: 87 year old male with hand surgery in late January, has required I and D with wound cultures with MRSA. He has been on Vancomycin and most recently on Clindamycin. The patient has presented twice to the ED with a complaint of hand pain associated with generalized weakness and malaise. He has been given a dose of oral Zyvox in the ED, will be admitted to the ICU for hypotension; a lactic acid is pending on admission. - Discharge Data Discharge Date: 03/12/17 (admit date 03/08/17) Discharge Disposition: Home, Self-Care 01 Condition: Good - Discharge Diagnosis/Problem(s) (1) Cellulitis SNOMED Code(s): 335839065 ICD Code: L03.90 - CELLULITIS, UNSPECIFIED Status: Acute Priority: High (2) Abscess SNOMED Code(s): 491535449 ICD Code: L02.91 - CUTANEOUS ABSCESS, UNSPECIFIED Status: Acute Priority : High (3) Postoperative wound infection SNOMED Code(s): 64061723, 435916313 ICD Code: T81.4XXA - INFECTION FOLLOWING A PROCEDURE, INITIAL ENCOUNTER Status: Acute Priority: High QualifierTitle: Encounter type: initial encounter Qualified Code(s): T81.4XXA - Infection following a procedure, initial encounter (4) Hypotension SNOMED Code(s): 94955925 ICD Code: I95.9 - HYPOTENSION, UNSPECIFIED Status: Resolved Priority: High QualifierTitle: Hypotension type: unspecified hypotension type Qualified Code(s): I95.9 - Hypotension, unspecified (5) Hypoxemia SNOMED Code(s): 445199769 ICD Code: R09.02 - HYPOXEMIA Status: Resolved Priority: High (6) COLD, Chronic obstructive lung disease SNOMED Code(s): 37506973 ICD Code: J44.9 - CHRONIC OBSTRUCTIVE PULMONARY DISEASE, UNSPECIFIED Status : Chronic Priority: Medium (7) Renal impairment SNOMED Code(s): 687660535 ICD Code: N28.9 - DISORDER OF KIDNEY AND URETER, UNSPECIFIED Status: Chronic Priority: Medium - Patient Summary/Data Operative Procedure(s) Performed: None Complications: None Consults: Consultations 03/08/17 19:38 Consult to Case Management [CONS] Routine 03/09/17 09:00 Consult to Occupational Therapy [OT Evaluation and Treatment] [CONS] Routine Labs Pending at D/C: None Recommended Follow-up Testing/Procedures: Coordinate follow up with Dr. Saenz, Orthopedic Surgeon, with Physical Therapy when you go for wound care appointments with PT. -PT appointment today at 3:15pm for change of wound vac Follow up with your PCP within one week of discharge. Planned Operative Procedure(s) after DC: Wound vac change per PT- Follow up with Dr. Saenz, Orthopedics [facility] Course: As above - Patient Instructions Diet: Usual Diet as Tolerated Activity: As Tolerated (Do not use hand/arm until further instruction with PT and Orthopedics, Dr. Saenz.) Showering/Bathing: May Shower Wound/Incision Care: Keep Operative Site/Wound Site Clean and Dry, Do NOT Change Dressing Notify Provider of: Fever, Increased Pain, Swelling and Redness, Drainage, Nausea and/or Vomiting - Discharge Plan Prescriptions/Med Rec: Linezolid [Zyvox] 600 mg PO Q12H #14 tablet Home Medications: Home Meds Ascorbic Acid [Vitamin C] 500 mg PO DAILY 01/05/14 [History] Aspirin [David Chewable Aspirin] 81 mg PO DAILY 01/05/14 [History] Calcium Carbonate/Vitamin D3 [Caltrate 600 + D Soft Chew Tab] 1 each PO DAILY [History] Enalapril [Vasotec] 20 mg PO BID 01/05/14 [History] Metoprolol Tartrate 1 tab PO BID 01/05/14 [History] Omeprazole 20 mg PO DAILY 01/05/14 [History] Rivaroxaban [Xarelto] 15 mg PO DAILY 01/05/14 [History] Tamsulosin [Flomax] 0.4 mg PO DAILY 01/05/14 [History] atorvaSTATin [Lipitor] 40 mg PO DAILY 01/05/14 [History] Arginine HCl [Pure l-Arginine HCl] 1,000 mg PO DAILY 02/02/14 [History] Docusate Sodium [Colace] 100 mg PO DAILY 02/02/14 [History] Fenofibric Acid (Choline) [Trilipix] 45 mg PO DAILY 02/02/14 [History] Fibromed 1 tab PO DAILY 02/02/14 [History] Isosorbide Mononitrate [Imdur] 30 mg PO DAILY 02/02/14 [History] Nitroglycerin [Nitrostat] 0.4 mg SL ASDIRECTED PRN 02/02/14 [History] Vitamin E 400 unit PO DAILY 02/02/14 [History] Non-Formulary Medication [NF Drug] 1 cap PO BID 03/06/17 [History] oxyCODONE ER [OxyCONTIN] 10 mg PO Q12HR PRN 03/08/17 [History] oxyCODONE HCl/Acetaminophen [oxyCODONE-Acetaminophen 5-325] 1 - 2 tab PO Q6H PRN 03/08/17 [History] Linezolid [Zyvox] 600 mg PO Q12H #14 tablet 03/12/17 [Rx] Patient Handouts: Vacuum-Assisted Closure Therapy Dressing Care, Rivaroxaban oral tablets, Contact Precautions, [id number], Chronic Obstructive Pulmonary Disease, [id number], Cellulitis, Adult, [id number], Vacuum-Assisted Closure Therapy, Aspirin, ASA oral tablets, MRSA Infection, Adult Forms: ED Department Discharge Referrals: Zeferino Saenz MD [Physician] - Yovanny Irwin MD [Primary Care Provider] - - Discharge Summary/Plan Comment DC Time >30 min.: Yes (40 min) - General Info Date of Service: 03/12/17 Admission Dx/Problem (Free Text: Admission Diagnosis/Problem Admission Diagnosis/Problem Renal failure Functional Status: Reports: Pain Controlled, Tolerating Diet, Ambulating, Urinating. Denies: New Symptoms - Review of Systems General: Reports: No Symptoms. Denies: Fever HEENT: Reports: No Symptoms Pulmonary: Reports: No Symptoms Cardiovascular: Reports: No Symptoms Gastrointestinal: Reports: No Symptoms Genitourinary: Reports: No Symptoms Musculoskeletal: Reports: Arm Pain (hand) Skin: Reports: Other (dressing clean, dry, intact) Neurological: Reports: No Symptoms Psychiatric: Reports: No Symptoms, Mood Lability - Patient Data Vitals - Most Recent: Last Vital Signs Temp 97.5 F 03/12/17 08:05 Pulse 60 03/12/17 08:05 Resp 14 03/12/17 08:05 BP 150/82 H 03/12/17 09:16 Pulse Ox 96 03/12/17 08:05 Orthostatic Blood Pressure [ 102/72 Standing] Orthostatic Blood Pressure [ 96/80 Sitting] Orthostatic Blood Pressure [ 95/37 Supine] Weight - Most Recent: 97.976 kg I&O - Last 24 hours: Intake & Output 03/11/17 03/12/17 03/12/17 22:59 06:59 14:59 Intake Total 2080 800 480 Output Total 1250 625 Balance 830 175 480 Lab Results - Last 24 hrs: Laboratory Results - last 24 hr 03/12/17 03/12/17 03/12/17 Range/Units 07:45 07:45 07:45 WBC 9.12 H (4.23-9.07) K/mm3 RBC 4.82 (4.63-6.08) M/mm3 Hgb 14.0 (13.7-17.5) gm/L Hct 42.2 (40.1-51.0) % MCV 87.6 (79.0-92.2) fl MCH 29.0 (25.7-32.2) pg MCHC 33.2 (32.2-35.5) g/dl RDW Std Deviation 43.9 (35.1-43.9) fL Plt Count 151 L (163-337) K/mm3 MPV 11.3 (9.4-12.3) fl Neut % (Auto) 73.5 H (34.0-67.9) % Lymph % (Auto) 15.8 L (21.8-53.1) % Story % (Auto) 8.0 (5.3-12.2) % Eos % (Auto) 1.2 (0.8-7.0) Baso % (Auto) 0.1 (0.1-1.2) % Neut # (Auto) 6.70 H (1.78-5.38) K/mm3 Lymph # (Auto) 1.44 (1.32-3.57) K/mm3 Story # (Auto) 0.73 (0.30-0.82) K/mm3 Eos # (Auto) 0.11 (0.04-0.54) K/mm3 Baso # (Auto) 0.01 (0.01-0.08) K/mm3 Manual Slide Review Normal smear Sodium 141 (136-145) mEq/L Potassium 3.8 (3.5-5.1) mEq/L Chloride 102 (98-107) mEq/L Carbon Dioxide 28 (21-32) mEq/L Anion Gap 14.8 (5-15) BUN 39 H (7-18) mg/dL Creatinine 1.4 H (0.7-1.3) mg/dL Est Cr Clr Drug Dosing 36.07 mL/min Estimated GFR (MDRD) 48 (>60) mL/min BUN/Creatinine Ratio 27.9 H (14-18) Glucose 157 H (83-115) mg/dL Lactic Acid 1.9 (0.4-2.0) mmol/L Calcium 8.7 (8.5-10.1) mg/dL Magnesium 2.3 (1.8-2.4) mg/dl C-Reactive Protein 2.2 H* (<1.0) mg/dL [facility] Results - Last 24 hrs: Microbiology 03/08/17 20:17 Aerobic Blood Culture - Preliminary Blood - Venous NO GROWTH AFTER 3 DAYS Anaerobic Blood Culture - Preliminary NO GROWTH AFTER 3 DAYS 03/08/17 20:35 Aerobic Blood Culture - Preliminary Blood - Venous - Lab Draw NO GROWTH AFTER 3 DAYS Anaerobic Blood Culture - Preliminary NO GROWTH AFTER 3 DAYS Med Orders - Current: Current Medications Hydrocodone Bitart/Acetaminophen ([place] 325-5 Mg) 1 tab PO Q8H PRN PRN Reason: Pain (moderate 4-6) Albuterol/Ipratropium (Duoneb 3.0-0.5 Mg/3 Ml) 3 ml NEB QID PRN PRN Reason: Shortness of Breath Aspirin (Aspirin) 81 mg PO DAILY [facility] Last Admin: 03/12/17 09:14 Dose: 81 mg Docusate Sodium (Colace) 100 mg PO DAILY [facility] Last Admin: 03/12/17 09:14 Dose: 100 mg Fenofibrate (Fenofibrate) 54 mg PO DAILY [facility] Last Admin: 03/12/17 09:14 Dose: 54 mg Isosorbide Mononitrate (Imdur) 30 mg PO DAILY [facility] Last Admin: 03/12/17 09:16 Dose: 30 mg Linezolid (Zyvox) 600 mg PO Q12H [facility] Last Admin: 03/12/17 02:38 Dose: 600 mg Metoprolol Tartrate (Lopressor) 50 mg PO BID [facility] Last Admin: 03/12/17 09:16 Dose: Not Given Nitroglycerin (Nitrostat) 0.4 mg SL ASDIRECTED PRN PRN Reason: Chest Pain Pantoprazole Sodium (Protonix) 40 mg PO DAILY@0700 [facility] Last Admin: 03/12/17 07:40 Dose: 40 mg Pure L-Arginine Hcl (1,000 MgOwn Med) 0 each PO DAILY [facility] Last Admin: 03/12/17 09:16 Dose: 1 each Rivaroxaban (Xarelto) 15 mg PO DAILY [facility] Last Admin: 03/12/17 09:17 Dose: 15 mg Rosuvastatin Calcium (Crestor) 10 mg PO DAILY [facility] Last Admin: 03/12/17 09:14 Dose: 10 mg Tamsulosin HCl (Flomax) 0.4 mg PO DAILY [facility] Last Admin: 03/12/17 09:15 Dose: 0.4 mg Temazepam (Restoril) 7.5 mg PO BEDTIME PRN PRN Reason: Insomnia Discontinued Medications Albuterol/Ipratropium (Duoneb 3.0-0.5 Mg/3 Ml) 3 ml NEB ONETIME ONE Stop: 03/08/17 18:30 Last Admin: 03/08/17 18:54 Dose: 3 ml Furosemide (Lasix) 20 mg IVPUSH NOW ONE Stop: 03/09/17 13:10 Last Admin: 03/09/17 14:12 Dose: 20 mg Furosemide (Lasix) 20 mg IVPUSH NOW ONE Stop: 03/10/17 09:34 Last Admin: 03/10/17 10:13 Dose: 20 mg Hydrocortisone Sodium Succinate (Solu-Cortef) 100 mg IVPUSH ONETIME ONE Stop: 03/08/17 15:29 Last Admin: 03/08/17 15:36 Dose: 100 mg Hydrocortisone Sodium Succinate (Solu-Cortef) 100 mg IVPUSH Q6H [facility] Last Admin: 03/08/17 20:23 Dose: Not Given Hydrocortisone Sodium Succinate (Solu-Cortef) 100 mg IVPUSH Q6H [facility] Last Admin: 03/11/17 22:23 Dose: 100 mg Hydromorphone HCl (Dilaudid) 0.5 mg IVPUSH Q6H PRN PRN Reason: Pain (moderate 4-6) Last Admin: 03/10/17 08:36 Dose: 0.5 mg Sodium Chloride (Normal Saline) 500 mls @ 1,000 mls/hr IV .BOLUS ONE Stop: 03/08/17 14:32 Last Admin: 03/08/17 14:13 Dose: 1,000 mls/hr Sodium Chloride (Normal Saline) 250 mls @ 1,000 mls/hr IV .BOLUS ONE Stop: 03/08/17 15:08 Last Admin: 03/08/17 19:04 Dose: Not Given Sodium Chloride (Normal Saline) 1,000 mls @ 75 mls/hr IV ASDIRECTED [facility] Last Admin: 03/08/17 20:45 Dose: 75 mls/hr Linezolid 600 mg/ Premix 300 mls @ 300 mls/hr IV Q12H [facility] Last Admin: 03/12/17 02:01 Dose: Not Given Magnesium Sulfate 2 gm/ Premix 50 mls @ 25 mls/hr IV ONETIME ONE Stop: 03/11/17 16:26 Last Admin: 03/11/17 15:03 Dose: 25 mls/hr Sodium Chloride (Normal Saline) 100 mls @ 50 mls/hr IV ASDIRECTED [facility] Last Admin: 03/11/17 16:26 Dose: 50 mls/hr Linezolid (Zyvox) 600 mg PO ONETIME ONE Stop: 03/08/17 15:46 Last Admin: 03/08/17 17:01 Dose: 600 mg Linezolid (Zyvox) 600 mg PO Q12H [facility] Last Admin: 03/09/17 07:22 Dose: 600 mg Linezolid (Zyvox) 600 mg PO Q12H [facility] Last Admin: 03/10/17 06:29 Dose: 600 mg - Exam Quality Assessment: Reports: DVT Prophylaxis General: Reports: Alert, No Acute Distress HEENT: Reports: Pupils Equal, Mucous Membr. Moist/[place] Neck: Reports: Supple Lungs: Reports: Normal Respiratory Effort (Male) Exam: Deferred Rectal (Males) Exam: Deferred Extremities: Normal Capillary Refill, Other (CMS + distally; dressing/wound vac in place to hand) Wound/Incisions: Reports: Dressing Dry and Intact Neurological: Reports: No New Focal Deficit Psy/Mental Status: Reports: Alert, Normal Affect, Normal Mood *Q Meaningful Use (DIS) - VTE *Q VTE Criteria *Q: - Stroke *Q Stroke Criteria *Q: - AMI *Q AMI Criteria *Q: <Marylu Reynoso - Last Filed: 03/12/17 16:59> Discharge Summary - Hospital Course Free Text/Narrative:: The patient received IV Zyvox for 48 hours, wound vac was placed by wound care/ PT service. He will be going to OP services for wound care, has reportedly been told that he will require 2 months of wound care, this has not been documented by ortho/wound care provider. Will verify DC needs, he will have 14 days of Zyvox. It is expected that he will no longer need the wound vac after 2 weeks, and will be able to drive to [place] for the winter season. CM/Sw will attempt to arrange his DC needs to expedite his travel to [place] safely. 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 PCP TBD Wound care See consult; would benefit from smaller brace Medication Zyvox 600 mg BID for 14 days. - Discharge Diagnosis/Problem(s) (1) COLD, Chronic obstructive lung disease SNOMED Code(s): 74999493 ICD Code: J44.9 - CHRONIC OBSTRUCTIVE PULMONARY DISEASE, UNSPECIFIED Status : Chronic Priority: Medium (2) Cellulitis SNOMED Code(s): 873823574 ICD Code: L03.90 - CELLULITIS, UNSPECIFIED Status: Acute Priority: High (3) Hypotension SNOMED Code(s): 51652168 ICD Code: I95.9 - HYPOTENSION, UNSPECIFIED Status: Resolved Priority: High Qualifiers: Hypotension type: unspecified hypotension type Qualified Code(s): I95.9 - Hypotension, unspecified (4) Hypoxia SNOMED Code(s): 871548928 ICD Code: R09.02 - HYPOXEMIA Status: Acute (5) Postoperative wound infection SNOMED Code(s): 00580314, 090518166 ICD Code: T81.4XXA - INFECTION FOLLOWING A PROCEDURE, INITIAL ENCOUNTER Status: Acute Priority: High Qualifiers: Encounter type: initial encounter Qualified Code(s): T81.4XXA - Infection following a procedure, initial encounter (6) Renal impairment SNOMED Code(s): 574195054 ICD Code: N28.9 - DISORDER OF KIDNEY AND URETER, UNSPECIFIED Status: Chronic Priority: Medium - Patient Summary/Data Consults: Consultations 03/08/17 19:38 Consult to Case Management [CONS] Routine 03/09/17 09:00 Consult to Occupational Therapy [OT Evaluation and Treatment] [CONS] Routine - Patient Data Vitals - Most Recent: Last Vital Signs Temp 36.4 C 03/12/17 08:05 Pulse 60 03/12/17 08:05 Resp 14 03/12/17 08:05 BP 150/82 H 03/12/17 09:16 Pulse Ox 96 03/12/17 08:05 Orthostatic Blood Pressure [ 102/72 Standing] Orthostatic Blood Pressure [ 96/80 Sitting] Orthostatic Blood Pressure [ 95/37 Supine] I&O - Last 24 hours: Intake & Output 03/12/17 03/12/17 03/12/17 06:59 14:59 22:59 Intake Total 800 480 Output Total 625 Balance 175 480 Lab Results - Last 24 hrs: Laboratory Results - last 24 hr 03/12/17 03/12/17 03/12/17 Range/Units 07:45 07:45 07:45 WBC 9.12 H (4.23-9.07) K/mm3 RBC 4.82 (4.63-6.08) M/mm3 Hgb 14.0 (13.7-17.5) gm/L Hct 42.2 (40.1-51.0) % MCV 87.6 (79.0-92.2) fl MCH 29.0 (25.7-32.2) pg MCHC 33.2 (32.2-35.5) g/dl RDW Std Deviation 43.9 (35.1-43.9) fL Plt Count 151 L (163-337) K/mm3 MPV 11.3 (9.4-12.3) fl Neut % (Auto) 73.5 H (34.0-67.9) % Lymph % (Auto) 15.8 L (21.8-53.1) % Story % (Auto) 8.0 (5.3-12.2) % Eos % (Auto) 1.2 (0.8-7.0) Baso % (Auto) 0.1 (0.1-1.2) % Neut # (Auto) 6.70 H (1.78-5.38) K/mm3 Lymph # (Auto) 1.44 (1.32-3.57) K/mm3 Story # (Auto) 0.73 (0.30-0.82) K/mm3 Eos # (Auto) 0.11 (0.04-0.54) K/mm3 Baso # (Auto) 0.01 (0.01-0.08) K/mm3 Manual Slide Review Normal smear Sodium 141 (136-145) mEq/L Potassium 3.8 (3.5-5.1) mEq/L Chloride 102 (98-107) mEq/L Carbon Dioxide 28 (21-32) mEq/L Anion Gap 14.8 (5-15) BUN 39 H (7-18) mg/dL Creatinine 1.4 H (0.7-1.3) mg/dL Est Cr Clr Drug Dosing 36.07 mL/min Estimated GFR (MDRD) 48 (>60) mL/min BUN/Creatinine Ratio 27.9 H (14-18) Glucose 157 H (83-115) mg/dL Lactic Acid 1.9 (0.4-2.0) mmol/L Calcium 8.7 (8.5-10.1) mg/dL Magnesium 2.3 (1.8-2.4) mg/dl C-Reactive Protein 2.2 H* (<1.0) mg/dL [facility] Results - Last 24 hrs: Microbiology 03/08/17 20:17 Aerobic Blood Culture - Preliminary Blood - Venous NO GROWTH AFTER 3 DAYS Anaerobic Blood Culture - Preliminary NO GROWTH AFTER 3 DAYS 03/08/17 20:35 Aerobic Blood Culture - Preliminary Blood - Venous - Lab Draw NO GROWTH AFTER 3 DAYS Anaerobic Blood Culture - Preliminary NO GROWTH AFTER 3 DAYS Med Orders - Current: Current Medications Discontinued Medications Hydrocodone Bitart/Acetaminophen ([place] 325-5 Mg) 1 tab PO Q8H PRN PRN Reason: Pain (moderate 4-6) Albuterol/Ipratropium (Duoneb 3.0-0.5 Mg/3 Ml) 3 ml NEB ONETIME ONE Stop: 03/08/17 18:30 Last Admin: 03/08/17 18:54 Dose: 3 ml Albuterol/Ipratropium (Duoneb 3.0-0.5 Mg/3 Ml) 3 ml NEB QID PRN PRN Reason: Shortness of Breath Aspirin (Aspirin) 81 mg PO DAILY [facility] Last Admin: 03/12/17 09:14 Dose: 81 mg Docusate Sodium (Colace) 100 mg PO DAILY [facility] Last Admin: 03/12/17 09:14 Dose: 100 mg Fenofibrate (Fenofibrate) 54 mg PO DAILY [facility] Last Admin: 03/12/17 09:14 Dose: 54 mg Furosemide (Lasix) 20 mg IVPUSH NOW ONE Stop: 03/09/17 13:10 Last Admin: 03/09/17 14:12 Dose: 20 mg Furosemide (Lasix) 20 mg IVPUSH NOW ONE Stop: 03/10/17 09:34 Last Admin: 03/10/17 10:13 Dose: 20 mg Hydrocortisone Sodium Succinate (Solu-Cortef) 100 mg IVPUSH ONETIME ONE Stop: 03/08/17 15:29 Last Admin: 03/08/17 15:36 Dose: 100 mg Hydrocortisone Sodium Succinate (Solu-Cortef) 100 mg IVPUSH Q6H [facility] Last Admin: 03/08/17 20:23 Dose: Not Given Hydrocortisone Sodium Succinate (Solu-Cortef) 100 mg IVPUSH Q6H [facility] Last Admin: 03/11/17 22:23 Dose: 100 mg Hydromorphone HCl (Dilaudid) 0.5 mg IVPUSH Q6H PRN PRN Reason: Pain (moderate 4-6) Last Admin: 03/10/17 08:36 Dose: 0.5 mg Sodium Chloride (Normal Saline) 500 mls @ 1,000 mls/hr IV .BOLUS ONE Stop: 03/08/17 14:32 Last Admin: 03/08/17 14:13 Dose: 1,000 mls/hr Sodium Chloride (Normal Saline) 250 mls @ 1,000 mls/hr IV .BOLUS ONE Stop: 03/08/17 15:08 Last Admin: 03/08/17 19:04 Dose: Not Given Sodium Chloride (Normal Saline) 1,000 mls @ 75 mls/hr IV ASDIRECTED [facility] Last Admin: 03/08/17 20:45 Dose: 75 mls/hr Linezolid 600 mg/ Premix 300 mls @ 300 mls/hr IV Q12H [facility] Last Admin: 03/12/17 02:01 Dose: Not Given Magnesium Sulfate 2 gm/ Premix 50 mls @ 25 mls/hr IV ONETIME ONE Stop: 03/11/17 16:26 Last Admin: 03/11/17 15:03 Dose: 25 mls/hr Sodium Chloride (Normal Saline) 100 mls @ 50 mls/hr IV ASDIRECTED [facility] Last Admin: 03/11/17 16:26 Dose: 50 mls/hr Isosorbide Mononitrate (Imdur) 30 mg PO DAILY [facility] Last Admin: 03/12/17 09:16 Dose: 30 mg Linezolid (Zyvox) 600 mg PO ONETIME ONE Stop: 03/08/17 15:46 Last Admin: 03/08/17 17:01 Dose: 600 mg Linezolid (Zyvox) 600 mg PO Q12H [facility] Last Admin: 03/09/17 07:22 Dose: 600 mg Linezolid (Zyvox) 600 mg PO Q12H [facility] Last Admin: 03/10/17 06:29 Dose: 600 mg Linezolid (Zyvox) 600 mg PO Q12H [facility] Last Admin: 03/12/17 15:11 Dose: Not Given Metoprolol Tartrate (Lopressor) 50 mg PO BID [facility] Last Admin: 03/12/17 09:16 Dose: Not Given Nitroglycerin (Nitrostat) 0.4 mg SL ASDIRECTED PRN PRN Reason: Chest Pain Pantoprazole Sodium (Protonix) 40 mg PO DAILY@0700 [facility] Last Admin: 03/12/17 07:40 Dose: 40 mg Pure L-Arginine Hcl (1,000 MgOwn Med) 0 each PO DAILY [facility] Last Admin: 03/12/17 09:16 Dose: 1 each Rivaroxaban (Xarelto) 15 mg PO DAILY [facility] Last Admin: 03/12/17 09:17 Dose: 15 mg Rosuvastatin Calcium (Crestor) 10 mg PO DAILY [facility] Last Admin: 03/12/17 09:14 Dose: 10 mg Tamsulosin HCl (Flomax) 0.4 mg PO DAILY [facility] Last Admin: 03/12/17 09:15 Dose: 0.4 mg Temazepam (Restoril) 7.5 mg PO BEDTIME PRN PRN Reason: Insomnia *Q Meaningful Use (DIS) - VTE *Q VTE Criteria *Q: - Stroke *Q Stroke Criteria *Q: - AMI *Q AMI Criteria *Q:
== END 2017-03-12 15:00 | disposition home or self-care (01) | DRG 863 ==
LOC: JD.ED 12:00 → JD.ICU 18:46 → JD.MS 03-10 16:35
PROVIDERS: ADMIT Internal Medicine Cardiovascular Disease; ATTEND Internal Medicine Cardiovascular Disease
DX: T81.4XXA Infection following a procedure, initial encounter (principal); L03.90 Cellulitis, unspecified; I25.810 Atherosclerosis of coronary artery bypass graft(s) without angina pectoris; A49.02 Methicillin resistant Staphylococcus aureus infection, unspecified site; L03.114 Cellulitis of left upper limb; J44.9 Chronic obstructive pulmonary disease, unspecified; Z95.1 Presence of aortocoronary bypass graft; R09.02 Hypoxemia; N28.9 Disorder of kidney and ureter, unspecified; I95.9 Hypotension, unspecified; R53.1 Weakness; Z95.5 Presence of coronary angioplasty implant and graft; I10 Essential (primary) hypertension; Z87.891 Personal history of nicotine dependence; N40.0 Benign prostatic hyperplasia without lower urinary tract symptoms; Z96.649 Presence of unspecified artificial hip joint; K21.9 Gastro-esophageal reflux disease without esophagitis; I25.2 Old myocardial infarction; Z86.73 Personal history of transient ischemic attack (TIA), and cerebral infarction without residual deficits; Z79.01 Long term (current) use of anticoagulants; Z79.82 Long term (current) use of aspirin; Z99.81 Dependence on supplemental oxygen; Z79.899 Other long term (current) drug therapy; Z88.6 Allergy status to analgesic agent; Z88.8 Allergy status to other drugs, medicaments and biological substances
CPT/HCPCS: 36415; 71010; 71250; 80053; 83735; 83880; 84484; 85025; 93005; 94664; 96361; 96374; 99285; A9270; J1720; J7040; 80048; 83605; 85652; 86140; 87040; 97161-GP; 97165-GO; 97530-GO; 97605-GP; J1170; J2020; J3475; J7030

== ENCOUNTER 2017-03-14 09:56 | Inpatient (IN) | payer MEDICARE, OTHER ==
--- NOTE | 2017-03-14 12:04 | PCM.SN ---
- Free Text/Narrative Note: Start: 1140 Stop: 1200 Anesthesia requested for IV start. 20 gauge to right antecubital times one attempt. Site flushed with 20ml's of normal saline.
[2017-03-14] MEDS ORDERED: Ondansetron 4 MG/2 ML SDV IVPUSH PRN (12:06)
[2017-03-14] MEDS ORDERED: Sodium Chloride 0.9% 10 ML Syringe FLUSH PRN (12:10)
[2017-03-14] MEDS: HYDROmorphone 0.5 MG/0.5 ML Syringe IVPUSH PRN ×2 (12:52→14:38)
[2017-03-14] MEDS: Vancomycin 1 GM, Vancomycin 500 MG in Sodium Chloride 0.9% 500 ML IV SCH (12:53)
[2017-03-14] MEDS ORDERED: LORazepam 0.5 MG Tab PO PRN (16:30)
[2017-03-14] MEDS ORDERED: Acetaminophen/oxyCODONE 325-5 MG Tab PO PRN (16:31)
[2017-03-14] MEDS ORDERED: Nitroglycerin 0.4 MG Tab.SL SL PRN (16:31)
[2017-03-14] MEDS ORDERED: oxyCODONE ER 10 MG TAB.ER PO PRN (16:31)
--- NOTE | 2017-03-14 17:55 | PCM.CONS ---
H&P History of Present Illness - General Date of Service: 03/14/17 Admit Problem/Dx: Admission Diagnosis/Problem Admission Diagnosis/Problem Pain of left hand Source of Information: Patient, Old Records, Provider, RN Notes Reviewed History Limitations: Reports: Physical Impairment (left hand) - History of Present Illness Initial Comments - Free Text/Narative: This is an 87 yo elderly white male with past medical hx/o Impaired Vision/ Hearing, HTN, HLD, Hx/o [place] S/p CABG with Stents, Chronic O2 Use/?COPD, GERD, BPH , Hx/o TIA, and Chronic Pain who comes in as direct admit under the services of Dr. Mckee for worsening hand pain. Patient was recently treated for left hand infection. Currently, he denies any chest pain, chest discomfort, no shortness of breath or difficulty breathing. However he admits to having shoulder pain and left arm pain. He denies any fever or chills. His admission lab shows a creatinine of 1.6 and GFR of 41. Hospital medicine was consulted for possible referred pain rule out WA given his history of advanced cardiovascular disease. Left Hand Pain Score (Numeric/FACES): 8 - Related Data Allergies/Adverse Reactions: Allergies Allergy/AdvReac Type Severity Reaction Status Date / Time celecoxib [From Celebrex] Allergy Hives Verified 03/08/17 12:18 rofecoxib [From Vioxx] Allergy Hives Verified 03/08/17 12:18 valdecoxib [From Bextra] Allergy Hives Verified 03/08/17 12:18 methylprednisolone AdvReac Dizziness Verified 03/08/17 12:18 morphine AdvReac Irritabilit Verified 03/08/17 12:18 y Home Medications: Home Meds Ascorbic Acid [Vitamin C] 500 mg PO DAILY 01/05/14 [History] Aspirin [David Chewable Aspirin] 81 mg PO DAILY 01/05/14 [History] Calcium Carbonate/Vitamin D3 [Caltrate 600 + D Soft Chew Tab] 1 each PO DAILY [History] Enalapril [Vasotec] 20 mg PO BID 01/05/14 [History] Metoprolol Tartrate 1 tab PO BID 01/05/14 [History] Omeprazole 20 mg PO DAILY 01/05/14 [History] Rivaroxaban [Xarelto] 15 mg PO DAILY 01/05/14 [History] Tamsulosin [Flomax] 0.4 mg PO DAILY 01/05/14 [History] atorvaSTATin [Lipitor] 40 mg PO DAILY 01/05/14 [History] Arginine HCl [Pure l-Arginine HCl] 1,000 mg PO DAILY 02/02/14 [History] Docusate Sodium [Colace] 100 mg PO DAILY 02/02/14 [History] Fenofibric Acid (Choline) [Trilipix] 45 mg PO DAILY 02/02/14 [History] Isosorbide Mononitrate [Imdur] 30 mg PO DAILY 02/02/14 [History] Nitroglycerin [Nitrostat] 0.4 mg SL ASDIRECTED PRN 02/02/14 [History] Vitamin E 400 unit PO DAILY 02/02/14 [History] Non-Formulary Medication [NF Drug] 1 cap PO BID 03/06/17 [History] oxyCODONE ER [OxyCONTIN] 10 mg PO Q6HR PRN 03/08/17 [History] oxyCODONE HCl/Acetaminophen [oxyCODONE-Acetaminophen 5-325] 1 - 2 tab PO Q12HR PRN 03/08/17 [History] Linezolid [Zyvox] 600 mg PO Q12H #14 tablet 03/12/17 [Rx] Fibromed. 1 tab PO DAILY 03/14/17 [History] Past Medical History HEENT History: Reports: Hard of Hearing, Impaired Vision Other HEENT History: glasses Cardiovascular History: Reports: Bypass, [place], Stents, Other (See Below) Respiratory History: Reports: Sleep Apnea, Other (See Below) Other Respiratory History: Chronic O2 use, uses 3 L/min at home, uses CPAP at home. Gastrointestinal History: Reports: GERD Genitourinary History: Reports: BPH Musculoskeletal History: Reports: Back Pain, Chronic Neurological History: Reports: TIA Psychiatric History: Reports: Anxiety, Depression Hematologic History: Reports: Blood Transfusion(s) Dermatologic History: Reports: Other (See Below) Other Dermatologic History: growth on left hand - Infectious Disease History Infectious Disease History: Reports: Shingles - Past Surgical History HEENT Surgical History: Reports: None Cardiovascular Surgical History: Reports: Coronary Artery Bypass, Coronary Artery Stent Respiratory Surgical History: Reports: None GI Surgical History: Reports: Cholecystectomy Neurological Surgical History: Reports: None Musculoskeletal Surgical History: Reports: Hip Replacement, Other (See Below) Other Musculoskeletal Surgeries/Procedures:: growth removed from left hand Dermatological Surgical History: Reports: Skin Biopsy Social & Family History - Family History Family Medical History: Noncontributory - Tobacco Use Smoking Status *Q: Former Smoker Years of Tobacco use: 20 Used Tobacco, but Quit: Yes Month Tobacco Last Used: 20years ago Second Hand Smoke Exposure: No - Caffeine Use Caffeine Use: Reports: Coffee, Soda, Tea - Alcohol Use Days Per Week of Alcohol Use: 2 Number of Drinks Per Day: 2 Total Drinks Per Week: 4 Date of Last Drink: 03/01/17 Time of Last Drink: 20:00 - Recreational Drug Use Recreational Drug Use: No Drug Use in Last 12 Months: No H&P Review of Systems - Review of Systems: Review Of Systems: See Below General: Denies: Fever, Chills, Malaise, Weakness, Fatigue HEENT: Reports: No Symptoms Pulmonary: Denies: Shortness of Breath Cardiovascular: Denies: Chest Pain Gastrointestinal: Denies: Abdominal Pain, Nausea, Vomiting Genitourinary: Reports: No Symptoms Musculoskeletal: Reports: Shoulder Pain, Arm Pain Skin: Reports: Wound, Lesions. Denies: Cyanosis, Rash Psychiatric: Denies: Depression, Anxiety, Hallucinations (Auditory) Neurological: Denies: Dizziness, Difficulty Walking, Weakness, Gait Disturbance Hematologic/Lymphatic: Reports: No Symptoms Immunologic: Reports: No Symptoms Exam - Exam Exam: See Below - Vital Signs Vital Signs: Last Vital Signs Temp 37.0 C 03/14/17 12:22 Pulse 76 03/14/17 12:22 Resp 14 03/14/17 12:22 BP 149/87 H 03/14/17 12:22 Pulse Ox 96 03/14/17 12:22 Weight: 96.627 kg - Exam General: Alert, Oriented, Cooperative HEENT: Conjunctiva Clear, EACs Clear, EOMI, Hearing Intact, Mucosa Moist & [place] , Nares Patent, Normal Nasal Septum, Posterior Pharynx Clear, Pupils Equal, Pupils Reactive Neck: Supple, Trachea Midline, +2 Carotid Pulse wo Bruit Lungs: Clear to Auscultation, Normal Respiratory Effort Cardiovascular: Regular Rate, Regular Rhythm GI/Abdominal Exam: Normal Bowel Sounds, Soft, Non-Tender, No Organomegaly, No Distention, No Abnormal Bruit, No Mass (Male) Exam: Deferred Rectal (Males) Exam: Deferred Back Exam: Normal Inspection, Decreased Range of Motion Extremities: Normal Inspection, Normal Range of Motion, Non-Tender, No Pedal Edema, Normal Capillary Refill, Limited Range of Motion (Left hand: dressed and wrapped) Peripheral Pulses: 2+: Posterior Tibial (L), Posterior Tibial (R), Dorsalis Pedis (R) Skin: Warm, Dry, Intact Neuro Extensive - Mental Status: Oriented x3, Normal Cognition, Memory Intact Neuro Extensive - Motor, Sensory, Reflexes: CN II-XII Intact, Normal Gait Psychiatric: Alert, Normal Affect, Normal Mood - Patient Data Lab Results Last 24 hrs: Laboratory Results - last 24 hr 03/14/17 Range/Units 12:40 Creatinine 1.6 H (0.7-1.3) mg/dL Est Cr Clr Drug Dosing 31.56 mL/min Estimated GFR (MDRD) 41 (>60) mL/min Result Diagrams: 03/14/17 12:40 Consult PN Assessment/Plan POD#: other Procedures: Procedures AIRWAY INHALATION TREATMENT (02/06/14) ASSAY OF LACTIC ACID (03/08/17) ASSAY OF MAGNESIUM (03/08/17) ASSAY OF NATRIURETIC PEPTIDE (03/08/17) ASSAY OF TROPONIN QUANT (03/08/17) ASSAY OF VANCOMYCIN (02/06/14) BLOOD CULTURE FOR BACTERIA (03/08/17) BLOOD GASES ANY COMBINATION (02/06/14) C-REACTIVE PROTEIN (03/08/17) CARDIOVASCULAR STRESS TEST (12/01/16) CHEST WALL MANIPULATION (02/06/14) CHEST WALL MANIPULATION (02/06/14) CHEST X-RAY 1 VIEW FRONTAL (03/08/17) CHEST X-RAY 2VW FRONTAL&LATL (02/06/14) COMPLETE CBC W/AUTO DIFF WBC (03/08/17) COMPREHEN METABOLIC PANEL (03/08/17) CREATINE MB FRACTION (02/06/14) CT ANGIOGRAPHY CHEST (02/06/14) CT THORAX W/O DYE (03/08/17) CULTURE AEROBIC IDENTIFY (03/04/17) CULTURE OTHR SPECIMN AEROBIC (03/04/17) RAFAEL MUSC/FASCIA 20 SQ CM/< (03/06/17) ELECTROCARDIOGRAM TRACING (03/08/17) EMERGENCY DEPT VISIT (03/08/17) EMERGENCY DEPT VISIT (03/04/17) EMERGENCY DEPT VISIT (02/06/14) EMERGENCY DEPT VISIT (01/05/14) EVALUATE PT USE OF INHALER (03/08/17) EXTREMITY STUDY (03/04/17) GAIT TRAINING THERAPY (02/06/14) HT MUSCLE IMAGE SPECT MULT (12/01/16) HYDRATE IV INFUSION ADD-ON (03/08/17) MEASURE BLOOD OXYGEN LEVEL (02/06/14) MEASURE BLOOD OXYGEN LEVEL (02/06/14) MEASURE BLOOD OXYGEN LEVEL (02/06/14) MEASURE BLOOD OXYGEN LEVEL (02/02/14) MEASURE BLOOD OXYGEN LEVEL (01/05/14) METABOLIC PANEL TOTAL CA (03/08/17) MICROBE SUSCEPTIBLE DISK (02/02/14) MICROBE SUSCEPTIBLE CHIDI (03/04/17) NEG PRESS WOUND TX </=50 CM (03/08/17) NEUROMUSCULAR REEDUCATION (02/06/14) OT EVAL LOW COMPLEX 30 MIN (03/08/17) OT EVALUATION (02/06/14) PCV13 VACCINE IM (02/02/14) PROTHROMBIN TIME (02/06/14) PT EVAL LOW COMPLEX 20 MIN (03/08/17) PT EVALUATION (02/06/14) RBC SED RATE AUTOMATED (03/08/17) ROUTINE VENIPUNCTURE (03/08/17) SMEAR GRAM STAIN (02/06/14) THER/PROPH/DIAG INJ IV PUSH (03/08/17) THER/PROPH/DIAG IV INF ADDON (03/06/17) THER/PROPH/DIAG IV INF INIT (03/06/17) THERAPEUTIC ACTIVITIES (03/08/17) THERAPEUTIC EXERCISES (02/06/14) TTE W/DOPPLER COMPLETE (02/02/14) TX/PRO/DX INJ NEW DRUG ADDON (03/06/17) TX/PRO/DX INJ SAME DRUG CYANIDE POT HARDENER (03/06/17) TX/PROPH/DG ADDL SEQ IV INF (02/06/14) URINALYSIS AUTO W/SCOPE (02/06/14) US EXAM ABDOM COMPLETE (02/06/14) WITHDRAWAL OF ARTERIAL BLOOD (02/06/14) Problem List Initiated/Reviewed/Updated: Yes My Orders Last 24 Hours: My Active Orders 03/14/17 17:03 EKG 12 Lead [EKG Documentation Completion] [RC] STAT CKMB [CHEM] Urgent TROPONIN I [CHEM] Urgent 03/14/17 17:04 Chest 1V Frontal [CR] Urgent Plan: Assessment/Plan: Acute: Shoulder and Arm Pain - R/o WA - Cardiovascular Risk Factors: Hx/o [place] s/p Stents, Hx/o CABG, HTN, and HLD - Non-active smoke and non-diabetic - HEART Score: 4 points Moderate Score (4-6 points): Risk of MACE of 12-16.6% - He denies any chest pain or SOB - No pain or discomfort with manual palpation - Stat: CXR, CE x1 and EKG Left Arm Infection - Management as per Primary Team Chronic: Impaired Vision/Hearing HTN HLD Hx/o WA S/p CABG with Stents Chronic O2 use GERD BPH Hx/o TIA Chronic Pain Recommendation: This is an 87-year-old elderly white male with recent left wound infection currently undergoing treatment with antibiotic who comes in as direct admit for worsening hand pain. Hospital medicine was consulted for referred shoulder pain to rule out WA given his advanced cardiac history. From hospitalist standpoint, we will order stat chest x-ray, cardiac enzymes x1 and EKG for basic cardiac workup. On behalf of the hospitalist team, thank you for the opportunity to participate in the management of this patient. Requesting Provider: Dr. Mckee Date Consult Requested: 03/14/17 Reason for Consult: Referred Pain R/o WA Patient History Reviewed: Yes Admission H&P Reviewed: Yes Consult Result/Summary:: No chest pain Notified Requestor: Yes Time Spent (in minutes): 45
[2017-03-14] MEDS: Aspirin 81 MG Tab.Chew PO SCH (20:42)
[2017-03-14] MEDS: Pantoprazole 40 MG Tab.CR PO SCH (20:42)
[2017-03-14] MEDS: Vitamin E (dl-alpha-tocopherol acetate) 400 Unit Cap PO SCH (20:42)
[2017-03-14] MEDS: Calcium Carbonate/Vitamin D3 1500 MG-200 Units Tab PO SCH (20:42)
[2017-03-14] MEDS: Rosuvastatin 10 MG Tab PO SCH (20:42)
[2017-03-14] MEDS: Docusate Sodium 100 MG Cap PO SCH (20:42)
[2017-03-14] MEDS: Ascorbic Acid 500 MG Tab PO SCH (20:43)
[2017-03-14] MEDS: Rivaroxaban 10 MG Tab PO SCH (20:43)
[2017-03-14] MEDS: Metoprolol Tartrate 50 MG Tab PO SCH (20:44)
[2017-03-14] MEDS ORDERED: oxyCODONE 5 MG Tab PO PRN (21:04)
[2017-03-14] MEDS: oxyCODONE ER 10 MG TAB.ER PO PRN (21:30)
[2017-03-15] MEDS: Acetaminophen/oxyCODONE 325-5 MG Tab PO PRN ×2 (05:05→12:51)
[2017-03-15] MEDS ORDERED: [UNRECOGNIZED DRUG - OTHER] PO SCH (09:00)
[2017-03-15] MEDS: Mupirocin Oint 22 GM Tube TOP SCH ×2 (09:58→20:32)
[2017-03-15] MEDS: Calcium Carbonate/Vitamin D3 1500 MG-200 Units Tab PO SCH (09:59)
[2017-03-15] MEDS: Aspirin 81 MG Tab.Chew PO SCH (09:59)
[2017-03-15] MEDS: Isosorbide Mononitrate 30 MG Tab.ER PO SCH (09:59)
[2017-03-15] MEDS: Docusate Sodium 100 MG Cap PO SCH (09:59)
[2017-03-15] MEDS: Tamsulosin 0.4 MG Cap.ER PO SCH (09:59)
[2017-03-15] MEDS: Metoprolol Tartrate 50 MG Tab PO SCH ×2 (10:01→20:35)
[2017-03-15] MEDS: Pantoprazole 40 MG Tab.CR PO SCH (10:01)
[2017-03-15] MEDS: FENOFIBRIC ACID 45 MG PO SCH (10:02)
[2017-03-15] MEDS: Ascorbic Acid 500 MG Tab PO SCH (10:02)
[2017-03-15] MEDS: Vitamin E (dl-alpha-tocopherol acetate) 400 Unit Cap PO SCH (10:02)
--- NOTE | 2017-03-15 10:13 | PCM.PN ---
- General Info Date of Service: 03/15/17 Functional Status: Reports: Pain Controlled - Review of Systems General: Reports: No Symptoms Pulmonary: Reports: No Symptoms Cardiovascular: Reports: No Symptoms - Patient Data Vitals - Most Recent: Last Vital Signs Temp 97.2 F 03/15/17 04:32 Pulse 65 03/15/17 10:01 Resp 16 03/15/17 04:32 BP 121/78 03/15/17 10:01 Pulse Ox 95 03/15/17 04:32 Weight - Most Recent: 96.627 kg I&O - Last 24 Hours: Intake & Output 03/14/17 03/15/17 03/15/17 23:59 07:59 15:59 Intake Total 800 Output Total 575 Balance 225 Lab Results Last 24 Hours: Laboratory Results - last 24 hr 03/14/17 03/14/17 03/15/17 Range/Units 12:40 20:06 06:52 WBC 10.27 H (4.23-9.07) K/mm3 RBC 4.39 L (4.63-6.08) M/mm3 Hgb 12.9 L (13.7-17.5) gm/L Hct 40.4 (40.1-51.0) % MCV 92.0 (79.0-92.2) fl MCH 29.4 (25.7-32.2) pg MCHC 31.9 L (32.2-35.5) g/dl RDW Std Deviation 47.9 H (35.1-43.9) fL Plt Count 132 L (163-337) K/mm3 MPV 10.7 (9.4-12.3) fl Neut % (Auto) 75.7 H (34.0-67.9) % Lymph % (Auto) 10.7 L (21.8-53.1) % [place] % (Auto) 9.1 (5.3-12.2) % Eos % (Auto) 3.8 (0.8-7.0) Baso % (Auto) 0.2 (0.1-1.2) % Neut # (Auto) 7.78 H (1.78-5.38) K/mm3 Lymph # (Auto) 1.10 L (1.32-3.57) K/mm3 [place] # (Auto) 0.93 H (0.30-0.82) K/mm3 Eos # (Auto) 0.39 (0.04-0.54) K/mm3 Baso # (Auto) 0.02 (0.01-0.08) K/mm3 Sodium (136-145) mEq/L Potassium (3.5-5.1) mEq/L Chloride (98-107) mEq/L Carbon Dioxide (21-32) mEq/L Anion Gap (5-15) BUN (7-18) mg/dL Creatinine 1.6 H (0.7-1.3) mg/dL Est Cr Clr Drug Dosing 31.56 mL/min Estimated GFR (MDRD) 41 (>60) mL/min BUN/Creatinine Ratio (14-18) Glucose (83-115) mg/dL Calcium (8.5-10.1) mg/dL Total Bilirubin (0.2-1.0) mg/dL AST (15-37) U/L ALT (16-63) U/L Alkaline Phosphatase (46-116) U/L CK-MB (CK-2) 0.5 (0-3.6) ng/ml Troponin I 0.024 (0.00-0.056) ng/mL Total Protein (6.4-8.2) g/dl Albumin (3.4-5.0) g/dl Globulin gm/dL Albumin/Globulin Ratio (1-2) 03/15/17 Range/Units 06:52 WBC (4.23-9.07) K/mm3 RBC (4.63-6.08) M/mm3 Hgb (13.7-17.5) gm/L Hct (40.1-51.0) % MCV (79.0-92.2) fl MCH (25.7-32.2) pg MCHC (32.2-35.5) g/dl RDW Std Deviation (35.1-43.9) fL Plt Count (163-337) K/mm3 MPV (9.4-12.3) fl Neut % (Auto) (34.0-67.9) % Lymph % (Auto) (21.8-53.1) % [place] % (Auto) (5.3-12.2) % Eos % (Auto) (0.8-7.0) Baso % (Auto) (0.1-1.2) % Neut # (Auto) (1.78-5.38) K/mm3 Lymph # (Auto) (1.32-3.57) K/mm3 [place] # (Auto) (0.30-0.82) K/mm3 Eos # (Auto) (0.04-0.54) K/mm3 Baso # (Auto) (0.01-0.08) K/mm3 Sodium 139 (136-145) mEq/L Potassium 3.9 (3.5-5.1) mEq/L Chloride 103 (98-107) mEq/L Carbon Dioxide 28 (21-32) mEq/L Anion Gap 11.9 (5-15) BUN 31 H (7-18) mg/dL Creatinine 1.5 H (0.7-1.3) mg/dL Est Cr Clr Drug Dosing 33.66 mL/min Estimated GFR (MDRD) 44 (>60) mL/min BUN/Creatinine Ratio 20.7 H (14-18) Glucose 144 H (83-115) mg/dL Calcium 9.1 (8.5-10.1) mg/dL Total Bilirubin 0.5 (0.2-1.0) mg/dL AST 18 (15-37) U/L ALT 15 L (16-63) U/L Alkaline Phosphatase 29 L (46-116) U/L CK-MB (CK-2) (0-3.6) ng/ml Troponin I (0.00-0.056) ng/mL Total Protein 6.1 L (6.4-8.2) g/dl Albumin 3.1 L (3.4-5.0) g/dl Globulin 3.0 gm/dL Albumin/Globulin Ratio 1.0 (1-2) Med Orders - Current: Current Medications Ascorbic Acid (Vitamin C) 500 mg PO DAILY [facility] Last Admin: 03/15/17 10:02 Dose: 500 mg Aspirin (Aspirin) 81 mg PO DAILY [facility] Last Admin: 03/15/17 09:59 Dose: 81 mg Calcium Carbonate (Calcium Carbonate/Vitamin D 1500 Mg-200 Unit) 1 tab PO DAILY [facility] Last Admin: 03/15/17 09:59 Dose: 1 tab Docusate Sodium (Colace) 100 mg PO DAILY [facility] Last Admin: 09/14/17 09:59 Dose: 100 mg Enalapril Maleate (Vasotec) 20 mg PO BID [facility] Last Admin: 03/15/17 10:01 Dose: 20 mg Hydromorphone HCl (Dilaudid) 0.5 mg IVPUSH Q2H PRN PRN Reason: Pain Last Admin: 03/14/17 14:38 Dose: 0.5 mg Vancomycin HCl 1 gm/Vancomycin HCl 500 mg/ Sodium Chloride 500 mls @ 250 mls/ hr IV Q24H [facility] Last Admin: 03/14/17 12:53 Dose: 250 mls/hr Isosorbide Mononitrate (Imdur) 30 mg PO DAILY [facility] Last Admin: 03/15/17 09:59 Dose: 30 mg Lorazepam (Ativan) 0.5 mg PO Q8H PRN PRN Reason: Anxiety Last Admin: 03/14/17 17:06 Dose: 0.5 mg Metoprolol Tartrate (Lopressor) 50 mg PO BID [facility] Last Admin: 03/15/17 10:01 Dose: 50 mg Mupirocin (Bactroban Oint) 0 gm TOP BID [facility] Last Admin: 03/15/17 09:58 Dose: 1 applic Nitroglycerin (Nitrostat) 0.4 mg SL ASDIRECTED PRN PRN Reason: Chest Pain Fibromed. 1 Tab 1 tab PO DAILY [facility] Ondansetron HCl (Zofran) 4 mg IVPUSH Q8H PRN PRN Reason: Nausea/Vomiting Oxycodone HCl (Oxycontin) 10 mg PO Q12HR PRN PRN Reason: Pain Last Admin: 03/14/17 21:30 Dose: 10 mg Oxycodone/Acetaminophen (Percocet 325-5 Mg) 1 - 2 tab PO Q6H PRN PRN Reason: Pain Last Admin: 03/15/17 05:05 Dose: 2 tab Pantoprazole Sodium (Protonix) 40 mg PO DAILY [facility] Last Admin: 03/15/17 10:01 Dose: 40 mg Fenofibric Acid ( Choline) [Trilipix] 45mg. 0 each PO DAILY [facility] Last Admin: 03/15/17 10:02 Dose: Not Given Rivaroxaban (Xarelto) 15 mg PO DAILY@2000 [facility] Last Admin: 03/14/17 20:43 Dose: 15 mg Rosuvastatin Calcium (Crestor) 10 mg PO BEDTIME [facility] Last Admin: 03/14/17 20:42 Dose: 10 mg Sodium Chloride (Saline Flush) 10 ml FLUSH ASDIRECTED PRN PRN Reason: Keep Vein Open Tamsulosin HCl (Flomax) 0.4 mg PO DAILY [facility] Last Admin: 03/15/17 09:59 Dose: 0.4 mg Vancomycin HCl (Pharmacy To Dose - Vancomycin) 0 dose .XX ASDIRECTED PRN PRN Reason: RX TO DOSE IV VANCOMYCIN Vitamin E (Vitamin E) 400 units PO DAILY [facility] Last Admin: 03/15/17 10:02 Dose: 400 units Discontinued Medications Non-Formulary Medication (Non-Formulary Medication [Nf Drug]) 1 cap PO BID [facility] Oxycodone HCl (Oxycontin) 10 mg PO Q6HR PRN PRN Reason: Pain (severe 7-10) Oxycodone HCl (Oxycodone) 10 mg PO Q6H PRN PRN Reason: Pain Oxycodone/Acetaminophen (Percocet 325-5 Mg) 1 - 2 tab PO Q12HR PRN PRN Reason: Pain (severe 7-10) Last Admin: 03/14/17 17:07 Dose: 2 tab - Exam Quality Assessment: Supplemental Oxygen General: Alert, Other (wound is clean some swelling over the dorsum of the left hand no drainage or erythema minimal tenderness around the wound ) - Problem List Review Problem List Initiated/Reviewed/Updated: Yes - My Orders Last 24 Hours: My Active Orders 03/14/17 12:02 HYDROmorphone [Dilaudid] 0.5 mg IVPUSH Q2H PRN 03/14/17 12:06 Ondansetron [Zofran] 4 mg IVPUSH Q8H PRN 03/14/17 12:10 Sodium Chloride 0.9% [Saline Flush] 10 ml FLUSH ASDIRECTED PRN Saline Lock Insert [OM.PC] Routine 03/14/17 12:15 Vancomycin Pharmacy to Dose [Pharmacy to Dose - Vancomycin] 0 dose .XX ASDIRECTED PRN 03/14/17 12:20 Oxygen Therapy [RC] ASDIRECTED 03/14/17 13:00 Vancomycin 1 gm Vancomycin 500 mg Sodium Chloride 0.9% [Normal Saline] 500 ml IV Q24H 03/14/17 15:10 Resuscitation Status Routine 03/14/17 15:11 Communication Order [RC] DAILY 03/14/17 15:14 Dressing Change [Wound Care] [RC] BID 03/14/17 15:26 Communication Order [RC] DAILY 03/14/17 16:30 LORazepam [Ativan] 0.5 mg PO Q8H PRN 03/14/17 16:31 Nitroglycerin [Nitrostat] 0.4 mg SL ASDIRECTED PRN 03/14/17 16:45 Enalapril [Vasotec] 20 mg PO BID 03/14/17 16:57 Consult to Physician [CONS] Urgent 03/14/17 16:59 Notify Provider Consults [RC] ASDIRECTED 03/14/17 20:00 Rivaroxaban [Xarelto] 15 mg PO DAILY@199903/14/17 21:00 Ascorbic Acid [Vitamin C] 500 mg PO DAILY Aspirin 81 mg PO DAILY Calcium Carbonate/Vitamin D3 [Calcium Carbonate/Vitamin D 1500 MG-200 Unit] 1 tab PO DAILY Docusate Sodium [Colace] 100 mg PO DAILY Metoprolol Tartrate [Lopressor] 50 mg PO BID Pantoprazole [ProTONIX] 40 mg PO DAILY Rosuvastatin [Crestor] 10 mg PO BEDTIME Vitamin E (dl, acetate) [Vitamin E] 400 units PO DAILY 03/14/17 21:22 Acetaminophen/oxyCODONE [Percocet 325-5 MG] 1 - 2 tab PO Q6H PRN 03/14/17 21:26 oxyCODONE ER [OxyCONTIN] 10 mg PO Q12HR PRN 03/14/17 Lunch Low Salt [Sodium Restricted Diet] [DIET] 03/15/17 09:00 Fibromed. 1 tab PO DAILY Isosorbide Mononitrate [Imdur] 30 mg PO DAILY Mupirocin Oint [Bactroban Oint] 0 gm TOP BID Patient's Own Medication [Ptom] 0 each PO DAILY Tamsulosin [Flomax] 0.4 mg PO DAILY 03/15/17 09:56 Patient Status [ADT] Routine 03/17/17 12:30 VANCOMYCIN TROUGH [CHEM] Timed - Plan Plan:: pain has improved no longer in the shoulder only in the hand and at that is much less than yesterday VS have improved exam improved at the site over the dorsum of the left hand ass improved plan continue present treatment
--- NOTE | 2017-03-15 10:31 | CR ---
Chest: Frontal view of the chest was obtained. Comparison: Previous chest CT dated 03/08/17 and chest x-ray performed on the same day. Heart is enlarged. Pulmonary vessels are mildly congested which appear to be chronic. Previous sternotomy is noted. Bony structures are grossly intact. Impression: 1. Cardiomegaly and mild chronic pulmonary vascular congestion. No significant change is seen from prior chest x-ray. Diagnostic code #2 Agree with preliminary report issued by [facility] ([facility] preliminary report dictated on 03/14/17, 6:48 PM Central Time)
[2017-03-15] MEDS: Vancomycin 1 GM, Vancomycin 500 MG in Sodium Chloride 0.9% 500 ML IV SCH (12:51)
[2017-03-15] MEDS: [UNRECOGNIZED DRUG - OTHER] PO SCH ×2 (18:37→18:38)
[2017-03-15] MEDS: Rosuvastatin 10 MG Tab PO SCH (20:34)
[2017-03-15] MEDS: Rivaroxaban 10 MG Tab PO SCH (20:35)
[2017-03-15] MEDS: oxyCODONE ER 10 MG TAB.ER PO PRN (20:36)
[2017-03-16] MEDS: Acetaminophen/oxyCODONE 325-5 MG Tab PO PRN ×2 (06:14→18:09)
[2017-03-16] MEDS: Aspirin 81 MG Tab.Chew PO SCH (09:22)
[2017-03-16] MEDS: Docusate Sodium 100 MG Cap PO SCH (09:23)
[2017-03-16] MEDS: Tamsulosin 0.4 MG Cap.ER PO SCH (09:23)
[2017-03-16] MEDS: Calcium Carbonate/Vitamin D3 1500 MG-200 Units Tab PO SCH (09:23)
[2017-03-16] MEDS: Isosorbide Mononitrate 30 MG Tab.ER PO SCH (09:24)
[2017-03-16] MEDS: Metoprolol Tartrate 50 MG Tab PO SCH (09:24)
[2017-03-16] MEDS: Ascorbic Acid 500 MG Tab PO SCH (09:25)
[2017-03-16] MEDS: Pantoprazole 40 MG Tab.CR PO SCH (09:25)
[2017-03-16] MEDS: Vitamin E (dl-alpha-tocopherol acetate) 400 Unit Cap PO SCH (09:25)
[2017-03-16] MEDS: FENOFIBRIC ACID 45 MG PO SCH (09:26)
[2017-03-16] MEDS: Mupirocin Oint 22 GM Tube TOP SCH (10:39)
[2017-03-16] MEDS: oxyCODONE ER 10 MG TAB.ER PO PRN (10:44)
[2017-03-16] MEDS: Vancomycin 1 GM, Vancomycin 500 MG in Sodium Chloride 0.9% 500 ML IV SCH (13:59)
[2017-03-16 16:37] VITALS: BP 128/51
[2017-03-16] MEDS: Rivaroxaban 10 MG Tab PO SCH (20:11)
--- NOTE | 2017-03-19 13:20 | DISCH ---
ADMISSION DATE: 03/14/2017 DISCHARGE DATE: 03/16/2017 HISTORY OF PRESENT ILLNESS: This is an 87-year-old male who came in with infection of the left hand. 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 He was initially treated outpatient but failed that and was brought into the hospital where he was given vancomycin and had medical evaluation. He was discharged on the VAC and Zyvox. However, he did not fill the script for the Zyvox. He used Cleocin instead. He was then followed up in the outpatient setting as detailed in the H and P. The VAC was discontinued, and after about 7 days of antibiotics his antibiotics were discontinued. That evening, he presented with severe pain and swelling in the hand. No discharge or erythema, but a lot of tenderness. The patient was admitted for treatment of hand pain, felt to be due to his recurrence of MRSA with IV vanco. ADMISSION PHYSICAL EXAMINATION: GENERAL: Showed the patient in severe distress. EYES: Unremarkable. NECK: Supple. LUNGS: Showed fine rales. HEART: Tones regular. UPPER EXTREMITIES: Show swelling of the dorsal hand with a small surgical incision 1 cm by about 8 mm. Opening was clean. Good granulation tissue. No erythema or discharge. The shoulder showed some pain, but no tenderness. HOSPITAL COURSE: The patient was admitted to the hospital. Evaluation for cardiac was done by consultation with the hospitalist since the patient does have chronic congestive heart failure and history of myocardial infarction, and this was because of the left shoulder pain. However, troponins were normal. Clinical exam was felt not to represent a cardiac but was due to probably his infection in his hands. Started on IV vancomycin and wound care with dressing changes with Bactroban. The patient responded to the pain. Next day, he was better and on second day much improved and ready to be discharged. FINAL DIAGNOSES: 1. 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 2. Chronic congestive heart failure, stable. 3. Need for continuous oxygen secondary to chronic obstructive pulmonary disease. 4. Hypertension. PLAN: To discharge the patient. Continue the outpatient setting with oral antibiotics of Zyvox. We will continue his cardiac medications. Stop his vancomycin and treat the wound twice daily with application of Bactroban and gauze. CONDITION ON DISCHARGE: Improved. DISCHARGE DIET: Low-sodium diet. DISCHARGE MEDICATIONS: Per medication reconciliation form. FOLLOW-UP: In the clinic in 1 week. ACTIVITY: MO /[id number]
== END 2017-03-16 18:30 | disposition home or self-care (01) | DRG 556 ==
LOC: UNDOADMIN 09:56 → JD.MS 09:56 → INTOOBSV 11:16 → OBSVTOIN 11:16 → JD.MS 11:16 → UNDOADMIN 11:16 → OBSVTOIN 03-15 09:56 → UNDODISIN 03-16 18:30
PROVIDERS: ADMIT Surgery; ATTEND Surgery
DX: M25.512 Pain in left shoulder (principal); I25.810 Atherosclerosis of coronary artery bypass graft(s) without angina pectoris; M79.642 Pain in left hand; I10 Essential (primary) hypertension; L08.9 Local infection of the skin and subcutaneous tissue, unspecified; J44.9 Chronic obstructive pulmonary disease, unspecified; K21.9 Gastro-esophageal reflux disease without esophagitis; Z86.711 Personal history of pulmonary embolism; G47.33 Obstructive sleep apnea (adult) (pediatric); Z86.73 Personal history of transient ischemic attack (TIA), and cerebral infarction without residual deficits; Z96.641 Presence of right artificial hip joint; Z87.891 Personal history of nicotine dependence; E78.5 Hyperlipidemia, unspecified; I25.2 Old myocardial infarction; Z88.1 Allergy status to other antibiotic agents; N40.0 Benign prostatic hyperplasia without lower urinary tract symptoms; G89.29 Other chronic pain; Z95.1 Presence of aortocoronary bypass graft; Z99.81 Dependence on supplemental oxygen; Z95.5 Presence of coronary angioplasty implant and graft; Z79.82 Long term (current) use of aspirin; Z79.899 Other long term (current) drug therapy; Z88.6 Allergy status to analgesic agent; Z88.8 Allergy status to other drugs, medicaments and biological substances
CPT/HCPCS: 36415; 71010; 71010-26; 80053; 82553; 82565; 84484; 85025; 93005; 96365; 96366; 96375; 96376; A9270-GY; G0378; G0379; J1170; J3370; J7040

== ENCOUNTER 2017-11-08 16:20 | Emergency (ER) | payer MEDICARE, OTHER ==
[2017-11-08 16:33] VITALS: BP 137/43
[2017-11-08] MEDS ORDERED: Sodium Chloride 0.9% 10 ML Syringe FLUSH PRN (16:49)
[2017-11-08] MEDS ORDERED: Tolterodine 2 MG Tab PO ONE (17:26)
[2017-11-08] MEDS ORDERED: Belladonna Alkaloids/Opium 16.2-30 MG Supp RECTAL ONE (18:26)
[2017-11-08] MEDS ORDERED: LORazepam 2 MG/ML SDV IM ONE (18:43)
[2017-11-08] MEDS ORDERED: Magnesium Oxide 400 MG Tab PO ONE (18:43)
--- NOTE | 2017-11-08 18:55 | EDM.PDOC ---
ED HPI GENERAL MEDICAL PROBLEM - General Chief Complaint: Genitourinary Problem Stated Complaint: [facility] Time Seen by Provider: 11/08/17 16:40 Source of Information: Reports: Patient History Limitations: Reports: No Limitations - History of Present Illness INITIAL COMMENTS - FREE TEXT/NARRATIVE: The patient is an 87-year-old male with a history of prostate cancer who has a suprapubic catheter who presents after having had hypoxia during change of the suprapubic catheter earlier today. He also has a history of COPD, prior PE according to records and is currently on xarelto, and has also had a prior KS per our records. He is on oxygen continuously, normally on 3 L nasal cannula. Per report, he had hypoxia into the 70s on his usual 3 L during the catheter change. The patient states that he feels fine. He denies feeling short of breath. No chest pain. No cough. No fever or recent illness. Denies malaise or fatigue or any other systemic symptoms. He does have 2 complaints. One is that he continues to have severe bladder spasms. He has been taking oxybutynin and. Oxine and that seems to help somewhat but he continues to have frequent bouts of lower abdominal pain. He is not in pain at the moment but he was having pain earlier today. He also states that for the past 2 weeks he's been having severe lower extremity cramps. These come and go. They're worse in the evening and at night. When they come on they feel like severe pain in both legs. The pain does eventually resolved spontaneously. Denies lower extremity pain or swelling otherwise. No numbness or tingling in the legs. He does did recently travel by motor home from [place] to [place]. They're planning to stay here for the summer. Patient has plans to follow-up with a urologist in [facility] about his prostate cancer in 4 days. Bladder Pain Score (Numeric/FACES): 5 - Related Data Allergies Allergy/AdvReac Type Severity Reaction Status Date / Time celecoxib [From Celebrex] Allergy Hives Verified 11/08/17 16:27 rofecoxib [From Vioxx] Allergy Hives Verified 11/08/17 16:27 valdecoxib [From Bextra] Allergy Hives Verified 11/08/17 16:27 methylprednisolone AdvReac Dizziness Verified 11/08/17 16:27 morphine AdvReac Irritabilit Verified 11/08/17 16:27 y Home Meds: Home Meds Ascorbic Acid [Vitamin C] 500 mg PO DAILY 01/05/14 [History] Aspirin [David Chewable Aspirin] 81 mg PO DAILY 01/05/14 [History] Calcium Carbonate/Vitamin D3 [Caltrate 600 + D Soft Chew Tab] 1 each PO DAILY [History] Enalapril [Vasotec] 20 mg PO BID 01/05/14 [History] Metoprolol Tartrate 1 tab PO BID 01/05/14 [History] Omeprazole 20 mg PO DAILY 01/05/14 [History] Rivaroxaban [Xarelto] 15 mg PO DAILY 01/05/14 [History] Tamsulosin [Flomax] 0.4 mg PO DAILY 01/05/14 [History] atorvaSTATin [Lipitor] 40 mg PO DAILY 01/05/14 [History] Arginine HCl [Pure l-Arginine HCl] 1,000 mg PO DAILY 02/02/14 [History] Docusate Sodium [Colace] 100 mg PO DAILY 02/02/14 [History] Fenofibric Acid (Choline) [Trilipix] 45 mg PO DAILY 02/02/14 [History] Isosorbide Mononitrate [Imdur] 30 mg PO DAILY 02/02/14 [History] Nitroglycerin [Nitrostat] 0.4 mg SL ASDIRECTED PRN 02/02/14 [History] Vitamin E 400 unit PO DAILY 02/02/14 [History] Non-Formulary Medication [NF Drug] 1 cap PO BID 03/06/17 [History] oxyCODONE HCl/Acetaminophen [oxyCODONE-Acetaminophen 5-325] 1 - 2 tab PO Q12HR PRN 03/08/17 [History] Linezolid [Zyvox] 600 mg PO Q12H #14 tablet 03/12/17 [Rx] Fibromed. 1 tab PO DAILY 03/14/17 [History] Belladonna/Opium [Belladonna-Opium 16.2-30] 1 supp RECTAL Q6H PRN #8 supp [Rx] Vitamin B Complex 1 each PO DAILY #30 cap 11/08/17 [Rx] Past Medical History HEENT History: Reports: Hard of Hearing, Impaired Vision Other HEENT History: glasses Cardiovascular History: Reports: Bypass, KS, Stents, Other (See Below) Respiratory History: Reports: Sleep Apnea, Other (See Below) Other Respiratory History: Chronic O2 use, uses 3 L/min at home, uses CPAP at home. Gastrointestinal History: Reports: GERD Genitourinary History: Reports: BPH Musculoskeletal History: Reports: Back Pain, Chronic Neurological History: Reports: TIA Psychiatric History: Reports: Anxiety, Depression Hematologic History: Reports: Blood Transfusion(s) Dermatologic History: Reports: Other (See Below) Other Dermatologic History: growth on left hand - Infectious Disease History Infectious Disease History: Reports: Shingles - Past Surgical History HEENT Surgical History: Reports: None Cardiovascular Surgical History: Reports: Coronary Artery Bypass, Coronary Artery Stent Respiratory Surgical History: Reports: None GI Surgical History: Reports: Cholecystectomy Neurological Surgical History: Reports: None Musculoskeletal Surgical History: Reports: Hip Replacement, Other (See Below) Other Musculoskeletal Surgeries/Procedures:: growth removed from left hand Dermatological Surgical History: Reports: Skin Biopsy Social & Family History - Family History Family Medical History: Noncontributory - Tobacco Use Smoking Status *Q: Former Smoker Used Tobacco, but Quit: No - Caffeine Use Caffeine Use: Reports: Coffee, Soda, Tea ED ROS GENERAL - Review of Systems Review Of Systems: See Below Constitutional: Denies: Fever HEENT: Reports: No Symptoms Respiratory: Denies: Shortness of Breath Cardiovascular: Denies: Chest Pain Endocrine: Reports: No Symptoms GI/Abdominal: Denies: Abdominal Pain : Denies: Flank Pain Musculoskeletal: Reports: Leg Pain Skin: Reports: No Symptoms Neurological: Reports: No Symptoms Psychiatric: Reports: No Symptoms Hematologic/Lymphatic: Reports: No Symptoms Immunologic: Reports: No Symptoms ED EXAM, RENAL/ - Physical Exam Exam: See Below Exam Limited By: No Limitations General Appearance: Alert, WD/WN, No Apparent Distress, Other (Well appearing) Eye Exam: Bilateral Eye: EOMI, Normal Inspection, PERRL Ears: Normal External Exam Nose: Normal Inspection Throat/Mouth: Normal Inspection, Normal Oropharynx, Normal Voice, No Airway Compromise Head: Atraumatic, Normocephalic Neck: Normal Inspection, Supple Respiratory/Chest: No Respiratory Distress, Lungs Clear, Normal Breath Sounds, No Accessory Muscle Use, Chest Non-Tender. No: Wheezing, Retractions, Prolonged Expiration Cardiovascular: Normal Peripheral Pulses, Regular Rate, Rhythm, No Edema, No Murmur GI/Abdominal: Soft, Non-Tender, No Distention, Other (Suprapubic catheter in place, site is clean). No: Rebound Back Exam: Normal Inspection. No: CVA Tenderness (L), CVA Tenderness (R) Extremities: Normal Inspection, Non-Tender, No Pedal Edema. No: Jesu's Sign, Increased Warmth, Redness Neurological: Alert, Oriented, Normal Cognition, No Motor/Sensory Deficits Psychiatric: Normal Affect, Normal Mood Skin Exam: Warm, Dry, Intact, Normal Color, No Rash Course - Vital Signs Last Recorded V/S: Last Vital Signs Temp 36.0 C 11/08/17 16:27 Pulse 57 L 11/08/17 16:27 Resp BP 137/43 L 11/08/17 16:27 Pulse Ox 92 L 11/08/17 16:27 - Orders/Labs/Meds Orders: Active Orders 24 hr Category Date Time Status EKG 12 Lead [EKG Documentation Completion] [RC] STAT Care 11/08/17 16:41 Active Peripheral IV Care [RC] . DIRECTED Care 11/08/17 16:50 Active Peripheral IV Care [RC] . DIRECTED Care 11/08/17 16:50 Active Peripheral IV Insertion Adult [OM.PC] Routine Oth 11/08/17 16:50 Ordered Labs: Laboratory Tests 11/08/17 11/08/17 11/08/17 Range/Units 17:47 17:47 17:47 WBC 7.03 (4.23-9.07) K/mm3 RBC 4.11 L (4.63-6.08) M/mm3 Hgb 11.5 L (13.7-17.5) gm/L Hct 38.4 L (40.1-51.0) % MCV 93.4 H (79.0-92.2) fl MCH 28.0 (25.7-32.2) pg MCHC 29.9 L (32.2-35.5) g/dl RDW Std Deviation 47.7 H (35.1-43.9) fL Plt Count 159 L (163-337) K/mm3 MPV 10.4 (9.4-12.3) fl Neut % (Auto) 76.1 H (34.0-67.9) % Lymph % (Auto) 13.1 L (21.8-53.1) % [place] % (Auto) 8.4 (5.3-12.2) % Eos % (Auto) 2.0 (0.8-7.0) Baso % (Auto) 0.1 (0.1-1.2) % Neut # (Auto) 5.35 (1.78-5.38) K/mm3 Lymph # (Auto) 0.92 L (1.32-3.57) K/mm3 [place] # (Auto) 0.59 (0.30-0.82) K/mm3 Eos # (Auto) 0.14 (0.04-0.54) K/mm3 Baso # (Auto) 0.01 (0.01-0.08) K/mm3 Manual Slide Review Abnormal smear PT 16.1 H (9.5-12.1) SECONDS INR 1.49 D-Dimer, Quantitative (0.19-0.50) mg/L Sodium 141 (136-145) mEq/L Potassium 4.8 (3.5-5.1) mEq/L Chloride 105 (98-107) mEq/L Carbon Dioxide 27 (21-32) mEq/L Anion Gap 13.8 (5-15) BUN 33 H (7-18) mg/dL Creatinine 1.6 H (0.7-1.3) mg/dL Est Cr Clr Drug Dosing 32.66 mL/min Estimated GFR (MDRD) 41 (>60) mL/min BUN/Creatinine Ratio 20.6 H (14-18) Glucose 118 H (83-115) mg/dL Calcium 9.1 (8.5-10.1) mg/dL Magnesium 1.9 (1.8-2.4) mg/dl Total Bilirubin 0.6 (0.2-1.0) mg/dL AST 12 L (15-37) U/L ALT 17 (16-63) U/L Alkaline Phosphatase 32 L (46-116) U/L Troponin I < 0.017 (0.00-0.056) ng/mL Total Protein 6.7 (6.4-8.2) g/dl Albumin 3.5 (3.4-5.0) g/dl Globulin 3.2 gm/dL Albumin/Globulin Ratio 1.1 (1-2) /04/18 Range/Units 17:47 WBC (4.23-9.07) K/mm3 RBC (4.63-6.08) M/mm3 Hgb (13.7-17.5) gm/L Hct (40.1-51.0) % MCV (79.0-92.2) fl MCH (25.7-32.2) pg MCHC (32.2-35.5) g/dl RDW Std Deviation (35.1-43.9) fL Plt Count (163-337) K/mm3 MPV (9.4-12.3) fl Neut % (Auto) (34.0-67.9) % Lymph % (Auto) (21.8-53.1) % [place] % (Auto) (5.3-12.2) % Eos % (Auto) (0.8-7.0) Baso % (Auto) (0.1-1.2) % Neut # (Auto) (1.78-5.38) K/mm3 Lymph # (Auto) (1.32-3.57) K/mm3 [place] # (Auto) (0.30-0.82) K/mm3 Eos # (Auto) (0.04-0.54) K/mm3 Baso # (Auto) (0.01-0.08) K/mm3 Manual Slide Review PT (9.5-12.1) SECONDS INR D-Dimer, Quantitative 0.36 (0.19-0.50) mg/L Sodium (136-145) mEq/L Potassium (3.5-5.1) mEq/L Chloride (98-107) mEq/L Carbon Dioxide (21-32) mEq/L Anion Gap (5-15) BUN (7-18) mg/dL Creatinine (0.7-1.3) mg/dL Est Cr Clr Drug Dosing mL/min Estimated GFR (MDRD) (>60) mL/min BUN/Creatinine Ratio (14-18) Glucose (83-115) mg/dL Calcium (8.5-10.1) mg/dL Magnesium (1.8-2.4) mg/dl Total Bilirubin (0.2-1.0) mg/dL AST (15-37) U/L ALT (16-63) U/L Alkaline Phosphatase (46-116) U/L Troponin I (0.00-0.056) ng/mL Total Protein (6.4-8.2) g/dl Albumin (3.4-5.0) g/dl Globulin gm/dL Albumin/Globulin Ratio (1-2) Meds: Medications Discontinued Medications Generic Name Dose Route Start Last Admin Trade Name Freq PRN Reason Stop Dose Admin Belladonna Alkaloids/Opium 1 supp 11/08/17 18:26 11/08/17 18:38 B & O Supprettes No. 15a RECTAL 11/08/17 18:27 1 supp ONETIME ONE Administration Lorazepam 0.5 mg 11/08/17 18:43 11/08/17 18:51 Ativan IM 11/08/17 18:44 0.5 mg ONETIME ONE Administration Magnesium Oxide 800 mg 11/08/17 18:43 11/08/17 19:03 Magnesium Oxide PO 11/08/17 18:44 800 mg ONETIME ONE Administration Pyridoxine HCl 50 mg 11/08/17 19:00 11/08/17 19:04 Vitamin B6-Pyridoxine PO 50 mg DAILY VALE Administration Sodium Chloride 10 ml 11/08/17 16:49 Saline Flush FLUSH ASDIRECTED PRN Keep Vein Open Tolterodine Tartrate 2 mg 11/08/17 17:26 11/08/17 19:03 Detrol PO 11/08/17 17:27 Not Given ONETIME ONE - Re-Assessments/Exams Free Text/Narrative Re-Assessment/Exam: 11/09/17 09:30 Patient is well appearing and is not hypoxic here on his usual 3 L. His oxygen saturations are ranging from 88-92. He is in no distress. He speaks in full sentences and is quite comfortable appearing. Chest x-ray shows mildly enlarged cardiac silhouette, no pneumothorax, no infiltrate, no pulmonary edema. No significant change compared to x-ray dated 03/18. EKG shows normal sinus rhythm, T-wave inversions present in the anterior leads, no significant ST abnormality. Troponin is negative. CBC is normal with a white blood cell count of 7. Chemistry is normal except for mildly elevated creatinine at 1.6. Ultrasound of the bilateral lower extremities is negative for DVT. Patient is on Xarelto which makes PE much less likely. D-dimer was negative as well. Patient was observed for a few hours in the emergency department and continued to have no respiratory distress and normal oxygen saturations. Given the above negative workup, we'll plan to discharge with outpatient follow-up and strict return precautions. Meanwhile, Dr. Dowell called over to pharmacy to arrange availability of belladonna-opium rectal suppositories for bladder spasm. Patient was given a suppository here. I did give him a small prescription for more suppositories to help him get through the weekend if spasms are severe. He does have urology follow-up arranged for Sunday. He did have an episode of severe leg cramping while he was here. His electrolytes including magnesium were normal. He is already on vitamin E. Will add vitamin B complexes as well since these vitamins and been shown to reduce like cramping. Also discussed gentle Stretching exercises for throughout the day and before bedtime. Encouraged him to follow up with his primary doctor should these cramps continue to be severe. DVT was ruled out. Discussed return precautions. 11/09/17 09:32 Departure - Departure Time of Disposition: 19:13 Disposition: Home, Self-Care 01 Clinical Impression: Bladder spasms, Muscle spasm of both lower legs - Discharge Information Prescriptions: Belladonna/Opium [Belladonna-Opium 16.2-30] 1 supp RECTAL Q6H PRN #8 supp PRN Reason: bladder spasms Vitamin B Complex 1 each PO DAILY #30 cap Instructions: Muscle Cramps and Spasms, [id number] Referrals: Kj Mckee MD [Primary Care Provider] - Forms: ED Department Discharge Additional Instructions: 1. Keep oxygen at 4L/min 2. Follow up with your primary care physician as soon as possible 3. For leg cramps, try to do stretching exercises of your lower legs several times per day, especially before bedtime. You may also try taking a B complex vitamin daily. Continue vitamin E. These vitamins are known to be helpful for leg cramping. Discuss further with your primary doctor if you continue to have cramps. 4. Continue oxybutinin and pyridoxine for bladder spasms. Take belladonna-opium suppositories as needed only for severe bladder spasms/cramping. Discuss further medication with your urologist and/or primary care provider 5. Return to the ED if you have shortness of breath, chest pain, fever, severe abdominal pain, or any other concerning symptoms - My Orders Last 24 Hours: My Active Orders 11/08/17 16:41 EKG 12 Lead [EKG Documentation Completion] [RC] STAT 11/08/17 16:50 Peripheral IV Care [RC] . DIRECTED Peripheral IV Care [RC] . DIRECTED Peripheral IV Insertion Adult [OM.PC] Routine - Assessment/Plan Last 24 Hours: My Active Orders 11/08/17 16:41 EKG 12 Lead [EKG Documentation Completion] [RC] STAT 11/08/17 16:50 Peripheral IV Care [RC] . DIRECTED Peripheral IV Care [RC] . DIRECTED Peripheral IV Insertion Adult [OM.PC] Routine
[2017-11-08] MEDS ORDERED: Vitamin B6-pyridOXINE 50 MG Tab PO SCH (19:00)
--- NOTE | 2017-11-08 20:41 | US ---
Bilateral lower extremity deep venous ultrasound: Duplex and color flow imaging was obtained of the right left common femoral, proximal greater saphenous, superficial femoral, popliteal, posterior tibial and peroneal veins. Findings: Normal phasic flow, augmentation and compression is seen. Impression: 1. No evidence of deep venous thrombosis within either the right or left lower extremity. Diagnostic code #1
--- NOTE | 2017-11-09 08:55 | CR ---
Chest: Frontal view of the chest was obtained. Comparison: Previous chest x-ray of 03/14/17. Heart is slightly enlarged. Previous sternotomy is noted. Lungs are clear without acute parenchymal change. Bony structures are grossly intact. Impression: 1. Findings as noted above. Nothing acute is appreciated on frontal chest x-ray. Diagnostic code #2
== END 2017-11-08 19:25 | disposition home or self-care (01) ==
LOC: JD.ED 16:20
DX: N32.89 Other specified disorders of bladder (principal); M62.838 Other muscle spasm; Z88.8 Allergy status to other drugs, medicaments and biological substances; Z88.5 Allergy status to narcotic agent; Z79.899 Other long term (current) drug therapy; Z79.82 Long term (current) use of aspirin; Z87.891 Personal history of nicotine dependence
CPT/HCPCS: 36415; 71045; 80053; 83735; 84484; 85025; 85379; 85610; 93005; 93970; 96372; 99285; A9270; J2060; 99283

== ENCOUNTER 2017-11-09 16:50 | Inpatient (IN) | payer MEDICARE, OTHER ==
[2017-11-09] MEDS ORDERED: Lidocaine 1% 50 ML MDV INJECT STA (17:30)
--- NOTE | 2017-11-09 17:35 | EDM.PDOC ---
ED HPI GENERAL MEDICAL PROBLEM - General Chief Complaint: Genitourinary Problem Stated Complaint: [facility] Time Seen by Provider: 11/09/17 17:01 Source of Information: Reports: Patient History Limitations: Reports: No Limitations - History of Present Illness INITIAL COMMENTS - FREE TEXT/NARRATIVE: 87 yo M with hx prostate cancer who has suprapubic catheter presents with malaise and weakness x 24 hours. No known fever. Has had the chills. No vomiting. No appetite - hasn't had anything to eat today and has just had a small amount of water. Today noticed some blood in the urine, which is a new problem. Has chronic cough, states no change in this. No chest pain. Has some lower abdominal discomfort, sharp, constant, worsening. States he just feels lousy. Feels generally weak. Denies history of similar symptoms. Yesterday his suprapubic catheter was changed out. At that time he was having some intermittent sharp stabbing pains but was otherwise feeling well. He was sent here for evaluation of hypoxic episode during the catheter change, that workup was negative and he was discharged home. He did not fill his prescriptions. After getting home, he started to feel ill, and then continued to feel more ill as the night went on. Treatments AUTO INSPECTION SPECIALIST: Reports: Other (see below) Other Treatments AUTO INSPECTION SPECIALIST: none Lower Abdominal Pain Score (Numeric/FACES): 3 - Related Data Allergies Allergy/AdvReac Type Severity Reaction Status Date / Time celecoxib [From Celebrex] Allergy Hives Verified 11/09/17 19:14 rofecoxib [From Vioxx] Allergy Hives Verified 11/09/17 19:14 valdecoxib [From Bextra] Allergy Hives Verified 11/09/17 19:14 methylprednisolone AdvReac Dizziness Verified 11/09/17 19:14 morphine AdvReac Irritabilit Verified 11/09/17 19:14 y Home Meds: Home Meds Ascorbic Acid [Vitamin C] 500 mg PO DAILY 01/05/14 [History] Aspirin [David Chewable Aspirin] 81 mg PO DAILY 01/05/14 [History] Calcium Carbonate/Vitamin D3 [Caltrate 600 + D Soft Chew Tab] 1 each PO DAILY [History] Enalapril [Vasotec] 20 mg PO BID 01/05/14 [History] Metoprolol Tartrate 50 mg PO BID 01/05/14 [History] Omeprazole 20 mg PO DAILY 01/05/14 [History] Rivaroxaban [Xarelto] 15 mg PO DAILY 01/05/14 [History] Tamsulosin [Flomax] 0.4 mg PO DAILY 01/05/14 [History] atorvaSTATin [Lipitor] 40 mg PO DAILY 01/05/14 [History] Arginine HCl [Pure l-Arginine HCl] 1,000 mg PO DAILY 02/02/14 [History] Docusate Sodium [Colace] 100 mg PO DAILY PRN 02/02/14 [History] Fenofibric Acid (Choline) [Trilipix] 45 mg PO DAILY 02/02/14 [History] Isosorbide Mononitrate [Imdur] 30 mg PO DAILY 02/02/14 [History] Nitroglycerin [Nitrostat] 0.4 mg SL ASDIRECTED PRN 02/02/14 [History] Vitamin E 400 unit PO DAILY 02/02/14 [History] Linezolid [Zyvox] 600 mg PO Q12H #14 tablet 03/12/17 [Rx] Acetaminophen [Acetaminophen ER] 650 mg PO Q4H PRN 11/09/17 [History] Fluticasone Propionate [Flonase] 50 mcg NS BID 11/09/17 [History] Past Medical History HEENT History: Reports: Hard of Hearing, Impaired Vision Other HEENT History: glasses Cardiovascular History: Reports: Bypass, [place], Stents, Other (See Below) Respiratory History: Reports: Sleep Apnea, Other (See Below) Other Respiratory History: Chronic O2 use, uses 3 L/min at home, uses CPAP at home. Gastrointestinal History: Reports: GERD Genitourinary History: Reports: BPH, Other (See Below) Other Genitourinary History: supra pubic cath Musculoskeletal History: Reports: Back Pain, Chronic Neurological History: Reports: TIA Psychiatric History: Reports: Anxiety, Depression Hematologic History: Reports: Blood Transfusion(s) Dermatologic History: Reports: Other (See Below) Other Dermatologic History: growth on left hand - Infectious Disease History Infectious Disease History: Reports: Shingles - Past Surgical History HEENT Surgical History: Reports: None Cardiovascular Surgical History: Reports: Coronary Artery Bypass, Coronary Artery Stent Respiratory Surgical History: Reports: None GI Surgical History: Reports: Cholecystectomy Neurological Surgical History: Reports: None Musculoskeletal Surgical History: Reports: Hip Replacement, Other (See Below) Other Musculoskeletal Surgeries/Procedures:: growth removed from left hand Dermatological Surgical History: Reports: Skin Biopsy Social & Family History - Family History Family Medical History: Noncontributory - Tobacco Use Smoking Status *Q: Former Smoker Used Tobacco, but Quit: Yes Month/Year Tobacco Last Used: 40 - Caffeine Use Caffeine Use: Reports: Coffee, Soda, Tea - Recreational Drug Use Recreational Drug Use: No ED ROS GENERAL - Review of Systems Review Of Systems: See Below Constitutional: Reports: Chills, Malaise, Weakness, Fatigue HEENT: Reports: No Symptoms Respiratory: Reports: Cough. Denies: Shortness of Breath Cardiovascular: Denies: Chest Pain Endocrine: Reports: Fatigue GI/Abdominal: Reports: Abdominal Pain, Nausea. Denies: Vomiting : Reports: Hematuria Musculoskeletal: Reports: No Symptoms Skin: Reports: No Symptoms Neurological: Reports: No Symptoms Psychiatric: Reports: No Symptoms Hematologic/Lymphatic: Reports: No Symptoms Immunologic: Reports: No Symptoms ED EXAM, RENAL/ - Physical Exam Exam: See Below Exam Limited By: No Limitations General Appearance: Alert, Other (ill appearing) Eye Exam: Bilateral Eye: Normal Inspection, PERRL Ears: Normal External Exam Nose: Normal Inspection Throat/Mouth: Normal Voice, No Airway Compromise, Other (dry mucous membranes) Head: Atraumatic, Normocephalic Neck: Normal Inspection, Supple, Full Range of Motion Respiratory/Chest: No Respiratory Distress, Lungs Clear, Normal Breath Sounds, No Accessory Muscle Use, Chest Non-Tender Cardiovascular: Normal Peripheral Pulses, Regular Rate, Rhythm, No Edema, No Murmur, Tachycardia GI/Abdominal: Soft, Other (suprapubic catheter site clean/dry/intact. slightly cloudy/bloody urine in the catheter. +lower abd suprapubic TTP, no rebound/ guarding. no additional abd tenderness. ) (Male) Exam: Normal Inspection Neurological: Alert, Oriented, Normal Cognition, No Motor/Sensory Deficits Psychiatric: Normal Affect, Normal Mood Skin Exam: Warm, Dry, Intact, Normal Color, No Rash Course - Vital Signs Last Recorded V/S: Last Vital Signs Temp 36.6 C 11/10/17 14:46 Pulse 53 L 11/10/17 15:04 Resp 18 11/10/17 14:46 BP 116/95 H 11/10/17 15:04 Pulse Ox 92 L 11/10/17 15:04 - Orders/Labs/Meds Orders: Active Orders 24 hr Category Date Time Status Admission Status [Patient Status] [ADT] Routine ADT 11/09/17 19:08 Active Medication Orders Acetaminophen (Tylenol) 650 mg PO Q4H PRN PRN Reason: FEVER/PAIN Last Admin: 11/09/17 20:21 Dose: 650 mg Ascorbic Acid (Vitamin C) 500 mg PO DAILY [facility] Last Admin: 11/10/17 09:24 Dose: 500 mg Aspirin (Aspirin) 81 mg PO DAILY [facility] Last Admin: 11/10/17 09:25 Dose: 81 mg Belladonna Alkaloids/Opium (B & O Supprettes No. 15a) 1 supp RECTAL Q4H PRN PRN Reason: Cramping Last Admin: 11/10/17 19:04 Dose: 1 supp Calcium Carbonate (Calcium Carbonate/Vitamin D 600 Mg-200 Unit) 1 tab PO DAILY [facility] Last Admin: 11/10/17 09:24 Dose: 1 tab Cholestyramine Resin (Prevalite Packet) 4 gm PO BID [facility] Docusate Sodium (Colace) 100 mg PO DAILY [facility] Last Admin: 11/10/17 09:25 Dose: 100 mg Flunisolide (Nasalide Nasal [place]) 0 ml NASBOTH BID [facility] Hydralazine HCl (Apresoline) 20 mg IVPUSH Q6H PRN PRN Reason: Hypertension Piperacillin Sod/Tazobactam (Sod 4.5 gm/ Sodium Chloride) 100 mls @ 25 mls/hr IV Q12H [facility] Last Admin: 11/10/17 09:21 Dose: 25 mls/hr Sodium Chloride (Normal Saline) 1,000 mls @ 125 mls/hr IV ASDIRECTED [facility] Stop: 11/11/17 03:30 Last Admin: 11/10/17 17:09 Dose: 125 mls/hr Sodium Chloride (Normal Saline) 1,000 mls @ 75 mls/hr IV ASDIRECTED [facility] Isosorbide Mononitrate (Imdur) 30 mg PO DAILY [facility] Last Admin: 11/10/17 09:24 Dose: 30 mg Metoprolol Tartrate (Lopressor) 50 mg PO BID [facility] Last Admin: 11/10/17 09:25 Dose: 50 mg Admin: 11/09/17 20:22 Dose: 50 mg Nitroglycerin (Nitrostat) 0.4 mg SL ASDIRECTED PRN PRN Reason: Chest Pain Non-FormTrilipix (45 Mg) 45 mg PO DAILY [facility] Ondansetron HCl (Zofran) 4 mg IVPUSH Q8H PRN PRN Reason: Nausea/Vomiting Oxycodone/Acetaminophen (Percocet 325-5 Mg) 1 tab PO Q6H PRN PRN Reason: Pain (severe 7-10) Last Admin: 11/10/17 19:04 Dose: 1 tab Pantoprazole Sodium (Protonix) 40 mg PO DAILY@0700 [facility] Last Admin: 11/10/17 06:35 Dose: 40 mg Rivaroxaban (Xarelto) 15 mg PO DAILY [facility] Last Admin: 11/10/17 09:23 Dose: 15 mg Rosuvastatin Calcium (Crestor) 10 mg PO DAILY [facility] Last Admin: 11/10/17 09:23 Dose: 10 mg Saccharomyces Boulardii (Florastor) 500 mg PO DAILY [facility] Sodium Chloride (Saline Flush) 10 ml FLUSH ASDIRECTED PRN PRN Reason: Keep Vein Open Last Admin: 11/09/17 18:06 Dose: 10 ml Tamsulosin HCl (Flomax) 0.4 mg PO DAILY [facility] Last Admin: 11/10/17 09:24 Dose: 0.4 mg Vancomycin HCl (First-Vancomycin 50 Compounding Kit) 125 mg PO TID [facility] Last Admin: 11/10/17 16:35 Dose: 2.5 ml Labs: Laboratory Tests 11/09/17 11/09/17 11/09/17 Range/Units 17:20 17:20 17:20 WBC 8.96 (4.23-9.07) K/mm3 RBC 4.14 L (4.63-6.08) M/mm3 Hgb 11.7 L (13.7-17.5) gm/L Hct 38.8 L (40.1-51.0) % MCV 93.7 H (79.0-92.2) fl MCH 28.3 (25.7-32.2) pg MCHC 30.2 L (32.2-35.5) g/dl RDW Std Deviation 49.3 H (35.1-43.9) fL Plt Count 183 (163-337) K/mm3 MPV 10.4 (9.4-12.3) fl Neut % (Auto) 82.1 H (34.0-67.9) % Lymph % (Auto) 9.4 L (21.8-53.1) % [place] % (Auto) 8.0 (5.3-12.2) % Eos % (Auto) 0 L (0.8-7.0) Baso % (Auto) 0.1 (0.1-1.2) % Neut # (Auto) 7.35 H (1.78-5.38) K/mm3 Lymph # (Auto) 0.84 L (1.32-3.57) K/mm3 [place] # (Auto) 0.72 (0.30-0.82) K/mm3 Eos # (Auto) 0.00 L (0.04-0.54) K/mm3 Baso # (Auto) 0.01 (0.01-0.08) K/mm3 Manual Slide Review Abnormal smear Sodium 139 (136-145) mEq/L Potassium 4.9 (3.5-5.1) mEq/L Chloride 103 (98-107) mEq/L Carbon Dioxide 23 (21-32) mEq/L Anion Gap 17.9 H (5-15) BUN 51 H (7-18) mg/dL Creatinine 3.1 H (0.7-1.3) mg/dL Est Cr Clr Drug Dosing 17.42 mL/min Estimated GFR (MDRD) 19 (>60) mL/min BUN/Creatinine Ratio 16.5 (14-18) Glucose 175 H (83-115) mg/dL Lactic Acid 1.5 (0.4-2.0) mmol/L Calcium 9.2 (8.5-10.1) mg/dL Total Bilirubin 0.5 (0.2-1.0) mg/dL AST 48 H (15-37) U/L ALT 22 (16-63) U/L Alkaline Phosphatase 33 L (46-116) U/L Total Protein 7.1 (6.4-8.2) g/dl Albumin 3.6 (3.4-5.0) g/dl Globulin 3.5 gm/dL Albumin/Globulin Ratio 1.0 (1-2) Urine Color (Yellow) Urine Appearance (Clear) Urine pH (5.0-8.0) Ur Specific [place] (1.005-1.030) Urine Protein (Negative) Urine Glucose (UA) (Negative) Urine Ketones (Negative) Urine Occult Blood (Negative) Urine Nitrite (Negative) Urine Bilirubin (Negative) Urine Urobilinogen (0.2-1.0) Ur Leukocyte Esterase (Negative) Urine RBC (0-5) /hpf Urine WBC (0-5) /hpf Ur Epithelial Cells (0-5) /hpf Urine Bacteria (FEW) /hpf Urine Mucus (FEW) /hpf 11/09/17 Range/Units 17:30 WBC (4.23-9.07) K/mm3 RBC (4.63-6.08) M/mm3 Hgb (13.7-17.5) gm/L Hct (40.1-51.0) % MCV (79.0-92.2) fl MCH (25.7-32.2) pg MCHC (32.2-35.5) g/dl RDW Std Deviation (35.1-43.9) fL Plt Count (163-337) K/mm3 MPV (9.4-12.3) fl Neut % (Auto) (34.0-67.9) % Lymph % (Auto) (21.8-53.1) % [place] % (Auto) (5.3-12.2) % Eos % (Auto) (0.8-7.0) Baso % (Auto) (0.1-1.2) % Neut # (Auto) (1.78-5.38) K/mm3 Lymph # (Auto) (1.32-3.57) K/mm3 [place] # (Auto) (0.30-0.82) K/mm3 Eos # (Auto) (0.04-0.54) K/mm3 Baso # (Auto) (0.01-0.08) K/mm3 Manual Slide Review Sodium (136-145) mEq/L Potassium (3.5-5.1) mEq/L Chloride (98-107) mEq/L Carbon Dioxide (21-32) mEq/L Anion Gap (5-15) BUN (7-18) mg/dL Creatinine (0.7-1.3) mg/dL Est Cr Clr Drug Dosing mL/min Estimated GFR (MDRD) (>60) mL/min BUN/Creatinine Ratio (14-18) Glucose (83-115) mg/dL Lactic Acid (0.4-2.0) mmol/L Calcium (8.5-10.1) mg/dL Total Bilirubin (0.2-1.0) mg/dL AST (15-37) U/L ALT (16-63) U/L Alkaline Phosphatase (46-116) U/L Total Protein (6.4-8.2) g/dl Albumin (3.4-5.0) g/dl Globulin gm/dL Albumin/Globulin Ratio (1-2) Urine Color Dark yellow (Yellow) Urine Appearance Slt cloudy H (Clear) Urine pH 5.5 (5.0-8.0) Ur Specific [place] > or = 1.030 (1.005-1.030) Urine Protein 3+ H (Negative) Urine Glucose (UA) Negative (Negative) Urine Ketones Negative (Negative) Urine Occult Blood 3+ H (Negative) Urine Nitrite Positive H (Negative) Urine Bilirubin 1+ H (Negative) Urine Urobilinogen 1.0 (0.2-1.0) Ur Leukocyte Esterase 1+ H (Negative) Urine RBC 10-20 H (0-5) /hpf Urine WBC 50-75 H (0-5) /hpf Ur Epithelial Cells 0-5 (0-5) /hpf Urine Bacteria Many H (FEW) /hpf Urine Mucus Not seen (FEW) /hpf Meds: Medications Generic Name Dose Route Start Last Admin Trade Name Freq PRN Reason Stop Dose Admin Acetaminophen 650 mg 11/09/17 19:58 11/09/17 20:21 Tylenol PO 650 mg Q4H PRN Administration FEVER/PAIN Ascorbic Acid 500 mg 11/10/17 09:00 11/10/17 09:24 Vitamin C PO 500 mg DAILY [facility] Administration Aspirin 81 mg 11/10/17 09:00 11/10/17 09:25 Aspirin PO 81 mg DAILY [facility] Administration Belladonna Alkaloids/Opium 1 supp 11/10/17 18:29 11/10/17 19:04 B & O Supprettes No. 15a RECTAL 1 supp Q4H PRN Administration Cramping Calcium Carbonate 1 tab 11/10/17 09:00 11/10/17 09:24 Calcium Carbonate/Vitamin D 600 Mg-200 Unit PO 1 tab DAILY [facility] Administration Cholestyramine Resin 4 gm 11/10/17 21:00 Prevalite Packet PO BID [facility] Docusate Sodium 100 mg 11/10/17 09:00 11/10/17 09:25 Colace PO 100 mg DAILY [facility] Administration Flunisolide 0 ml 11/10/17 21:00 Nasalide Nasal [place] NASBOTH BID [facility] Hydralazine HCl 20 mg 11/09/17 20:04 Apresoline IVPUSH Q6H PRN Hypertension Piperacillin Sod/Tazobactam 100 mls @ 25 mls/hr 11/10/17 08:00 11/10/17 09:21 Sod 4.5 gm/ Sodium Chloride IV 25 mls/hr Q12H [facility] Administration Sodium Chloride 1,000 mls @ 125 mls/hr 11/10/17 15:30 11/10/17 17:09 Normal Saline IV 11/11/17 03:30 125 mls/hr ASDIRECTED [facility] Administration Sodium Chloride 1,000 mls @ 75 mls/hr 11/11/17 03:30 Normal Saline IV ASDIRECTED [facility] Isosorbide Mononitrate 30 mg 11/10/17 09:00 11/10/17 09:24 Imdur PO 30 mg DAILY [facility] Administration Metoprolol Tartrate 50 mg 11/09/17 21:00 11/10/17 09:25 Lopressor PO 50 mg BID [facility] Administration Nitroglycerin 0.4 mg 11/09/17 19:20 Nitrostat SL ASDIRECTED PRN Chest Pain Non-FormTrilipix 45 mg 11/10/17 09:00 45 Mg PO DAILY [facility] Ondansetron HCl 4 mg 11/09/17 20:03 Zofran IVPUSH Q8H PRN Nausea/Vomiting Oxycodone/Acetaminophen 1 tab 11/10/17 14:38 11/10/17 19:04 Percocet 325-5 Mg PO 1 tab Q6H PRN Administration Pain (severe 7-10) Pantoprazole Sodium 40 mg 11/10/17 07:00 11/10/17 06:35 Protonix PO 40 mg DAILY@0700 [facility] Administration Rivaroxaban 15 mg 11/10/17 09:00 11/10/17 09:23 Xarelto PO 15 mg DAILY [facility] Administration Rosuvastatin Calcium 10 mg 11/10/17 09:00 11/10/17 09:23 Crestor PO 10 mg DAILY [facility] Administration Saccharomyces Boulardii 500 mg 11/11/17 09:00 Florastor PO DAILY [facility] Sodium Chloride 10 ml 11/09/17 17:41 11/09/17 18:06 Saline Flush FLUSH 10 ml ASDIRECTED PRN Administration Keep Vein Open Tamsulosin HCl 0.4 mg 11/10/17 09:00 11/10/17 09:24 Flomax PO 0.4 mg DAILY [facility] Administration Vancomycin HCl 125 mg 11/10/17 15:00 11/10/17 16:35 First-Vancomycin 50 Compounding Kit PO 2.5 ml TID [facility] Administration Discontinued Medications Generic Name Dose Route Start Last Admin Trade Name Freq PRN Reason Stop Dose Admin Belladonna Alkaloids/Opium 1 supp 11/09/17 19:20 11/10/17 13:00 B & O Supprettes No. 15a RECTAL 1 supp Q6H PRN Administration bladder spasms Hydromorphone HCl 1 mg 11/10/17 13:17 11/10/17 14:41 Dilaudid IVPUSH 11/10/17 13:18 1 mg ONETIME ONE Administration Cefepime HCl 1 gm/ Premix 50 mls @ 100 mls/hr 11/09/17 17:41 11/09/17 22:06 IV 11/09/17 18:10 Not Given ONETIME ONE Sodium Chloride 1,000 mls @ 1,000 mls/hr 11/09/17 17:41 11/09/17 18:05 Normal Saline IV 11/09/17 18:40 1,000 mls/hr ONETIME ONE Administration Cefepime HCl 2 gm/ Premix 50 mls @ 100 mls/hr 11/09/17 17:54 11/09/17 18:03 IV 11/09/17 18:23 100 mls/hr ONETIME STA Administration Cefepime HCl Confirm 11/09/17 17:52 11/09/17 18:06 Maxipime In D5w 2 Gm/50 Ml Administered 11/09/17 17:53 Not Given Dose 50 mls @ as directed .ROUTE .STK-MED ONE Piperacillin Sod/Tazobactam 100 mls @ 200 mls/hr 11/09/17 20:00 05/11/18 20: 56 Sod 4.5 gm/ Sodium Chloride IV 11/09/17 20:29 200 mls/hr ONETIME ONE Administration Sodium Chloride 1,000 mls @ 999 mls/hr 11/09/17 20:00 11/09/17 20:20 Normal Saline IV 11/09/17 21:00 999 mls/hr ONETIME ONE Administration Sodium Chloride 750 mls @ 125 mls/hr 11/09/17 21:30 11/09/17 20:57 Normal Saline IV 11/10/17 03:29 125 mls/hr ASDIRECTED [facility] Administration Sodium Chloride 1,000 mls @ 125 mls/hr 11/10/17 03:30 11/10/17 06:35 Normal Saline IV 75 mls/hr ASDIRECTED [facility] Administration Lidocaine HCl 50 ml 11/09/17 17:30 11/09/17 20:53 Xylocaine 1% INJECT 11/09/17 17:31 Not Given NOW STA Linezolid 600 mg 11/09/17 20:00 Zyvox PO Q12H [facility] Non-FormPure L- 1,000 mg 11/10/17 09:00 Arginine Hcl 1,000 PO Mg DAILY [facility] Oxycodone/Acetaminophen 1 tab 11/09/17 19:20 11/10/17 13:00 Percocet 325-5 Mg PO 1 tab Q12HR PRN Administration Pain (severe 7-10) - Re-Assessments/Exams Free Text/Narrative Re-Assessment/Exam: 11/09/17 18:20 UA positive for infection. Given patient's symptoms, this is likely infection rather than colonization. WBC is normal at 8 but he does have 82% neutrophils. He has an acute kidney injury with creatinine 3.1. His BUN is elevated. I suspect prerenal etiology. He looks dry. 1L NS ordered. IV antibiotics ordered. Cultures sent, lactate pending. Discussed with Dr. Reynoso who agrees to evaluate the patient for admission. 11/09/17 18:27 Departure - Departure Time of Disposition: 17:00 Disposition: Admitted As Inpatient 68 Clinical Impression: Complicated urinary tract infection, Acute kidney injury - Discharge Information - My Orders Last 24 Hours: My Active Orders 11/09/17 19:08 Admission Status [Patient Status] [ADT] Routine - Assessment/Plan Last 24 Hours: My Active Orders 11/09/17 19:08 Admission Status [Patient Status] [ADT] Routine
[2017-11-09] MEDS ORDERED: Cefepime 1 GM in Premix Bag 1 BAG IV ONE (17:41)
[2017-11-09] MEDS ORDERED: Sodium Chloride 0.9% 1,000 ML IV ONE ×2 (17:41→20:00)
[2017-11-09] MEDS ORDERED: Sodium Chloride 0.9% 10 ML Syringe FLUSH PRN (17:41)
[2017-11-09] MEDS ORDERED: Cefepime 50 ML ONE (17:52)
[2017-11-09] MEDS ORDERED: Cefepime 2 GM in Premix Bag 1 BAG IV STA (17:54)
[2017-11-09] MEDS ORDERED: Nitroglycerin 0.4 MG Tab.SL SL PRN (19:20)
--- NOTE | 2017-11-09 19:20 | PCM.HP ---
H&P History of Present Illness - General Date of Service: 11/09/17 Admit Problem/Dx: Admission Diagnosis/Problem Admission Diagnosis/Problem Sepsis Source of Information: Patient, Family, Provider History Limitations: Reports: No Limitations - History of Present Illness Initial Comments - Free Text/Narative: 87 yo male with PMH prostate cancer with a suprapubic catheter presents with malaise and weakness x 24 hours. No known fever but has had chills. No N/V. Notes decrease appetite - hasn't had anything to eat today and has just had a small amount of water. He reports hematuria. Denied CP, SOB, syncopal/ presyncopal episode. Admits to sharp lower abdominal discomfort which has become constant and progressively worse. Overall generalized weakness and malaise began 24 hours [employer]. Denies history of similar symptoms. The patient is s/p suprapubic catheter change out, POD 1. At that time, he was having some intermittent sharp stabbing pains but was otherwise feeling well. He was sent here for post op evaluation of hypoxic episode during the catheter change, that workup was negative and he was discharged home, 11/08/17. He did not fill his prescription of Zyvox and presents today with increasing abdominal discomfort. On the day of admission, he has a documented UTI, and will be admitted; this is POD 2 Onset of Symptoms: Reports: Sudden Symptom Onset Date: 11/09/17 Duration of Symptoms: Reports: Hour(s):, Getting Worse Location: Reports: Abdomen, Generalized Quality: Reports: Sharp Improves with: Reports: Medication Worsens with: Reports: None Associated Symptoms: Reports: Fever/Chills, Malaise, Nausea/Vomiting, Weakness Lower Abdominal Pain Score (Numeric/FACES): 3 - Related Data Allergies/Adverse Reactions: Allergies Allergy/AdvReac Type Severity Reaction Status Date / Time celecoxib [From Celebrex] Allergy Hives Verified 11/09/17 19:14 rofecoxib [From Vioxx] Allergy Hives Verified 11/09/17 19:14 valdecoxib [From Bextra] Allergy Hives Verified 11/09/17 19:14 methylprednisolone AdvReac Dizziness Verified 11/09/17 19:14 morphine AdvReac Irritabilit Verified 11/09/17 19:14 y Home Medications: Home Meds Ascorbic Acid [Vitamin C] 500 mg PO DAILY 01/05/14 [History] Aspirin [David Chewable Aspirin] 81 mg PO DAILY 01/05/14 [History] Calcium Carbonate/Vitamin D3 [Caltrate 600 + D Soft Chew Tab] 1 each PO DAILY [History] Enalapril [Vasotec] 20 mg PO BID 01/05/14 [History] Metoprolol Tartrate 50 mg PO BID 01/05/14 [History] Omeprazole 20 mg PO DAILY 01/05/14 [History] Rivaroxaban [Xarelto] 15 mg PO DAILY 01/05/14 [History] Tamsulosin [Flomax] 0.4 mg PO DAILY 01/05/14 [History] atorvaSTATin [Lipitor] 40 mg PO DAILY 01/05/14 [History] Arginine HCl [Pure l-Arginine HCl] 1,000 mg PO DAILY 02/02/14 [History] Docusate Sodium [Colace] 100 mg PO DAILY PRN 02/02/14 [History] Fenofibric Acid (Choline) [Trilipix] 45 mg PO DAILY 02/02/14 [History] Isosorbide Mononitrate [Imdur] 30 mg PO DAILY 02/02/14 [History] Nitroglycerin [Nitrostat] 0.4 mg SL ASDIRECTED PRN 02/02/14 [History] Vitamin E 400 unit PO DAILY 02/02/14 [History] Linezolid [Zyvox] 600 mg PO Q12H #14 tablet 03/12/17 [Rx] Acetaminophen [Acetaminophen ER] 650 mg PO Q4H PRN 11/09/17 [History] Fluticasone Propionate [Flonase] 50 mcg NS BID 11/09/17 [History] Past Medical History HEENT History: Reports: Hard of Hearing, Impaired Vision Other HEENT History: glasses Cardiovascular History: Reports: Bypass, IA, Stents, Other (See Below) Respiratory History: Reports: Sleep Apnea, Other (See Below) Other Respiratory History: Chronic O2 use, uses 3 L/min at home, uses CPAP at home. Gastrointestinal History: Reports: GERD Genitourinary History: Reports: BPH, Other (See Below) Other Genitourinary History: supra pubic cath Musculoskeletal History: Reports: Back Pain, Chronic Neurological History: Reports: TIA Psychiatric History: Reports: Anxiety, Depression Hematologic History: Reports: Blood Transfusion(s) Dermatologic History: Reports: Other (See Below) Other Dermatologic History: growth on left hand - Infectious Disease History Infectious Disease History: Reports: Shingles - Past Surgical History HEENT Surgical History: Reports: None Cardiovascular Surgical History: Reports: Coronary Artery Bypass, Coronary Artery Stent Respiratory Surgical History: Reports: None GI Surgical History: Reports: Cholecystectomy Neurological Surgical History: Reports: None Musculoskeletal Surgical History: Reports: Hip Replacement, Other (See Below) Other Musculoskeletal Surgeries/Procedures:: growth removed from left hand Dermatological Surgical History: Reports: Skin Biopsy Social & Family History - Family History Family Medical History: Noncontributory - Tobacco Use Smoking Status *Q: Former Smoker Used Tobacco, but Quit: Yes Month/Year Tobacco Last Used: 40 - Caffeine Use Caffeine Use: Reports: Coffee, Soda, Tea - Recreational Drug Use Recreational Drug Use: No H&P Review of Systems - Review of Systems: Review Of Systems: See Below General: Reports: Fever, Chills, Malaise, Weakness, Fatigue HEENT: Reports: No Symptoms Pulmonary: Reports: No Symptoms Cardiovascular: Reports: No Symptoms Gastrointestinal: Reports: Abdominal Pain, Nausea, Vomiting Genitourinary: Reports: No Symptoms Musculoskeletal: Reports: No Symptoms Skin: Reports: No Symptoms Psychiatric: Reports: No Symptoms Neurological: Reports: No Symptoms Hematologic/Lymphatic: Reports: No Symptoms Immunologic: Reports: No Symptoms Exam - Exam Exam: See Below - Vital Signs Vital Signs: Last Vital Signs Temp 37.1 C 11/09/17 17:01 Pulse 104 H 11/09/17 17:01 Resp 15 11/09/17 17:01 BP 131/59 L 11/09/17 17:01 Pulse Ox 94 L 11/09/17 17:01 Weight: 86.636 kg - Exam Quality Assessment: Supplemental Oxygen, Urinary Catheter, DVT Prophylaxis General: Alert, Oriented, Cooperative HEENT: Conjunctiva Clear, Nares Patent, Normal Nasal Septum, Pupils Equal, Pupils Reactive, PERRLA Neck: Trachea Midline Lungs: Normal Respiratory Effort, Decreased Breath Sounds Cardiovascular: Regular Rate, Regular Rhythm GI/Abdominal Exam: Normal Bowel Sounds, Soft, Non-Tender, No Organomegaly, No Distention (Male) Exam: Deferred Rectal (Males) Exam: Deferred Back Exam: Normal Inspection Extremities: Normal Inspection, Non-Tender, Slow Capillary Refill Skin: Warm Neurological: Cranial Nerves Intact Neuro Extensive - Mental Status: Alert, Oriented x3, Normal Mood/Affect, Normal Cognition, Memory Intact Neuro Extensive - Motor, Sensory, Reflexes: CN II-XII Intact Psychiatric: Alert, Normal Affect, Normal Mood - Patient Data Lab Results Last 24 hrs: Laboratory Results - last 24 hr 11/09/17 11/09/17 11/09/17 Range/Units 17:20 17:20 17:20 WBC 8.96 (4.23-9.07) K/mm3 RBC 4.14 L (4.63-6.08) M/mm3 Hgb 11.7 L (13.7-17.5) gm/L Hct 38.8 L (40.1-51.0) % MCV 93.7 H (79.0-92.2) fl MCH 28.3 (25.7-32.2) pg MCHC 30.2 L (32.2-35.5) g/dl RDW Std Deviation 49.3 H (35.1-43.9) fL Plt Count 183 (163-337) K/mm3 MPV 10.4 (9.4-12.3) fl Neut % (Auto) 82.1 H (34.0-67.9) % Lymph % (Auto) 9.4 L (21.8-53.1) % [place] % (Auto) 8.0 (5.3-12.2) % Eos % (Auto) 0 L (0.8-7.0) Baso % (Auto) 0.1 (0.1-1.2) % Neut # (Auto) 7.35 H (1.78-5.38) K/mm3 Lymph # (Auto) 0.84 L (1.32-3.57) K/mm3 [place] # (Auto) 0.72 (0.30-0.82) K/mm3 Eos # (Auto) 0.00 L (0.04-0.54) K/mm3 Baso # (Auto) 0.01 (0.01-0.08) K/mm3 Manual Slide Review Abnormal smear Sodium 139 (136-145) mEq/L Potassium 4.9 (3.5-5.1) mEq/L Chloride 103 (98-107) mEq/L Carbon Dioxide 23 (21-32) mEq/L Anion Gap 17.9 H (5-15) BUN 51 H (7-18) mg/dL Creatinine 3.1 H (0.7-1.3) mg/dL Est Cr Clr Drug Dosing 17.42 mL/min Estimated GFR (MDRD) 19 (>60) mL/min BUN/Creatinine Ratio 16.5 (14-18) Glucose 175 H (83-115) mg/dL Lactic Acid 1.5 (0.4-2.0) mmol/L Calcium 9.2 (8.5-10.1) mg/dL Total Bilirubin 0.5 (0.2-1.0) mg/dL AST 48 H (15-37) U/L ALT 22 (16-63) U/L Alkaline Phosphatase 33 L (46-116) U/L Total Protein 7.1 (6.4-8.2) g/dl Albumin 3.6 (3.4-5.0) g/dl Globulin 3.5 gm/dL Albumin/Globulin Ratio 1.0 (1-2) Urine Color (Yellow) Urine Appearance (Clear) Urine pH (5.0-8.0) Ur Specific [place] (1.005-1.030) Urine Protein (Negative) Urine Glucose (UA) (Negative) Urine Ketones (Negative) Urine Occult Blood (Negative) Urine Nitrite (Negative) Urine Bilirubin (Negative) Urine Urobilinogen (0.2-1.0) Ur Leukocyte Esterase (Negative) Urine RBC (0-5) /hpf Urine WBC (0-5) /hpf Ur Epithelial Cells (0-5) /hpf Urine Bacteria (FEW) /hpf Urine Mucus (FEW) /hpf 11/09/17 Range/Units 17:30 WBC (4.23-9.07) K/mm3 RBC (4.63-6.08) M/mm3 Hgb (13.7-17.5) gm/L Hct (40.1-51.0) % MCV (79.0-92.2) fl MCH (25.7-32.2) pg MCHC (32.2-35.5) g/dl RDW Std Deviation (35.1-43.9) fL Plt Count (163-337) K/mm3 MPV (9.4-12.3) fl Neut % (Auto) (34.0-67.9) % Lymph % (Auto) (21.8-53.1) % [place] % (Auto) (5.3-12.2) % Eos % (Auto) (0.8-7.0) Baso % (Auto) (0.1-1.2) % Neut # (Auto) (1.78-5.38) K/mm3 Lymph # (Auto) (1.32-3.57) K/mm3 [place] # (Auto) (0.30-0.82) K/mm3 Eos # (Auto) (0.04-0.54) K/mm3 Baso # (Auto) (0.01-0.08) K/mm3 Manual Slide Review Sodium (136-145) mEq/L Potassium (3.5-5.1) mEq/L Chloride (98-107) mEq/L Carbon Dioxide (21-32) mEq/L Anion Gap (5-15) BUN (7-18) mg/dL Creatinine (0.7-1.3) mg/dL Est Cr Clr Drug Dosing mL/min Estimated GFR (MDRD) (>60) mL/min BUN/Creatinine Ratio (14-18) Glucose (83-115) mg/dL Lactic Acid (0.4-2.0) mmol/L Calcium (8.5-10.1) mg/dL Total Bilirubin (0.2-1.0) mg/dL AST (15-37) U/L ALT (16-63) U/L Alkaline Phosphatase (46-116) U/L Total Protein (6.4-8.2) g/dl Albumin (3.4-5.0) g/dl Globulin gm/dL Albumin/Globulin Ratio (1-2) Urine Color Dark yellow (Yellow) Urine Appearance Slt cloudy H (Clear) Urine pH 5.5 (5.0-8.0) Ur Specific [place] > or = 1.030 (1.005-1.030) Urine Protein 3+ H (Negative) Urine Glucose (UA) Negative (Negative) Urine Ketones Negative (Negative) Urine Occult Blood 3+ H (Negative) Urine Nitrite Positive H (Negative) Urine Bilirubin 1+ H (Negative) Urine Urobilinogen 1.0 (0.2-1.0) Ur Leukocyte Esterase 1+ H (Negative) Urine RBC 10-20 H (0-5) /hpf Urine WBC 50-75 H (0-5) /hpf Ur Epithelial Cells 0-5 (0-5) /hpf Urine Bacteria Many H (FEW) /hpf Urine Mucus Not seen (FEW) /hpf Result Diagrams: 11/10/17 06:51 11/10/17 14:15 - Problem List (1) Hypertension SNOMED Code(s): 68067013 ICD Code: I10 - ESSENTIAL (PRIMARY) HYPERTENSION Status: Acute Current Visit: Yes (2) Hyperlipidemia SNOMED Code(s): 32749988 ICD Code: E78.5 - HYPERLIPIDEMIA, UNSPECIFIED Status: Acute Current Visit : Yes (3) CAD (coronary artery disease) SNOMED Code(s): 20825537 ICD Code: I25.10 - ATHSCL HEART DISEASE OF [place] CORONARY ARTERY W/O ANG PCTRS Status: Acute Current Visit: Yes (4) TIA (transient ischemic attack) SNOMED Code(s): 848756414 ICD Code: G45.9 - TRANSIENT CEREBRAL ISCHEMIC ATTACK, UNSPECIFIED Status: Acute Current Visit: Yes (5) Hx of CABG SNOMED Code(s): 620136342, 516554496 ICD Code: Z95.1 - PRESENCE OF AORTOCORONARY BYPASS GRAFT Status: Acute Current Visit: Yes (6) Prostate CA SNOMED Code(s): 106780497 ICD Code: C61 - MALIGNANT NEOPLASM OF PROSTATE Status: Acute Current Visit: Yes (7) Chronic pain SNOMED Code(s): 40110006 ICD Code: G89.29 - OTHER CHRONIC PAIN Status: Acute Current Visit: Yes (8) UTI (urinary tract infection) due to urinary indwelling catheter SNOMED Code(s): 542405497 ICD Code: T83.511A - I/I REACT D/T INDWELLING URETHRAL CATHETER, INIT; N39.0 - URINARY TRACT INFECTION, SITE NOT SPECIFIED Status: Acute Current Visit: Yes (9) Hypoxia SNOMED Code(s): 971793002 ICD Code: R09.02 - HYPOXEMIA Status: Acute Current Visit: No (10) COLD, Chronic obstructive lung disease SNOMED Code(s): 34565458 ICD Code: J44.9 - CHRONIC OBSTRUCTIVE PULMONARY DISEASE, UNSPECIFIED Status : Chronic Priority: Medium Current Visit: No (11) Renal impairment SNOMED Code(s): 505795596 ICD Code: N28.9 - DISORDER OF KIDNEY AND URETER, UNSPECIFIED Status: Chronic Priority: Medium Current Visit: No Problem List Initiated/Reviewed/Updated: Yes Orders Last 24hrs: Active Orders 24 hr Category Date Time Status Admission Status [Patient Status] [ADT] Routine ADT 11/09/17 19:08 Active Peripheral IV Care [RC] . DIRECTED Care 11/09/17 17:40 Active Peripheral IV Care [RC] . DIRECTED Care 11/09/17 17:41 Active CULTURE BLOOD [BC] Stat Lab 11/09/17 17:20 Received CULTURE BLOOD [BC] Stat Lab 11/09/17 17:45 Received CULTURE URINE [RM] Stat Lab 11/09/17 17:30 Received UA W/MICROSCOPIC [URIN] Stat Lab 11/09/17 17:30 Ordered Sodium Chloride 0.9% [Saline Flush] Med 11/09/17 17:41 Active 10 ml FLUSH ASDIRECTED PRN Blood Culture x2 Reflex Set [OM.PC] Stat Oth 11/09/17 17:04 Ordered Peripheral IV Insertion Adult [OM.PC] Routine Oth 11/09/17 17:40 Ordered Medication Orders Sodium Chloride (Saline Flush) 10 ml FLUSH ASDIRECTED PRN PRN Reason: Keep Vein Open Last Admin: 11/09/17 18:06 Dose: 10 ml Assessment/Plan Comment:: Impression: S/P Suprapubic cath change, POD2 Hx of prostate CA, Haily 9, s/p Lupron AUTI Acute on chronic renal failure Dehydration Abnormal electrolytes 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
[2017-11-09] MEDS ORDERED: Acetaminophen 325 MG Tab PO PRN (19:58)
[2017-11-09] MEDS ORDERED: Piperacillin/Tazobactam 4.5 GM in Sodium Chloride 0.9% 100 ML IV ONE (20:00)
[2017-11-09] MEDS ORDERED: Linezolid 600 MG Tab PO SCH (20:00)
[2017-11-09] MEDS ORDERED: Ondansetron 4 MG/2 ML SDV IVPUSH PRN (20:03)
[2017-11-09] MEDS ORDERED: hydrALAZINE 20 MG/ML SDV IVPUSH PRN (20:04)
[2017-11-09] MEDS: Metoprolol Tartrate 50 MG Tab PO SCH (20:22)
[2017-11-09] MEDS: Acetaminophen/oxyCODONE 325-5 MG Tab PO PRN (20:53)
[2017-11-09] MEDS: Belladonna Alkaloids/Opium 16.2-30 MG Supp RECTAL PRN (20:55)
[2017-11-09] MEDS ORDERED: Sodium Chloride 0.9% 750 ML IV SCH (21:30)
[2017-11-10] MEDS ORDERED: Sodium Chloride 0.9% 1,000 ML IV SCH (03:30)
[2017-11-10] MEDS: Pantoprazole 40 MG Tab.CR PO SCH (06:35)
[2017-11-10] MEDS ORDERED: [UNRECOGNIZED DRUG - REMARK] PO SCH (09:00)
[2017-11-10] MEDS: Piperacillin/Tazobactam 4.5 GM in Sodium Chloride 0.9% 100 ML IV SCH ×2 (09:21→20:50)
[2017-11-10] MEDS: Rosuvastatin 10 MG Tab PO SCH (09:23)
[2017-11-10] MEDS: Rivaroxaban 10 MG Tab PO SCH (09:23)
[2017-11-10] MEDS: Isosorbide Mononitrate 30 MG Tab.ER PO SCH (09:24)
[2017-11-10] MEDS: Calcium Carbonate/Vitamin D3 600 MG-200 Units Tab PO SCH (09:24)
[2017-11-10] MEDS: Ascorbic Acid 500 MG Tab PO SCH (09:24)
[2017-11-10] MEDS: Tamsulosin 0.4 MG Cap.ER PO SCH (09:24)
[2017-11-10] MEDS: Metoprolol Tartrate 50 MG Tab PO SCH ×2 (09:25→20:52)
[2017-11-10] MEDS: Aspirin 81 MG Tab.Chew PO SCH (09:25)
[2017-11-10] MEDS: Docusate Sodium 100 MG Cap PO SCH (09:25)
--- NOTE | 2017-11-10 12:23 | PCM.PN ---
- General Info Date of Service: 11/10/17 Functional Status: Reports: Pain Controlled, Tolerating Diet, Ambulating, Urinating - Review of Systems General: Reports: Weakness HEENT: Reports: No Symptoms Pulmonary: Reports: No Symptoms Cardiovascular: Reports: No Symptoms Gastrointestinal: Reports: Diarrhea Genitourinary: Reports: No Symptoms Musculoskeletal: Reports: No Symptoms Skin: Reports: No Symptoms Neurological: Reports: No Symptoms Psychiatric: Reports: No Symptoms - Patient Data Vitals - Most Recent: Last Vital Signs Temp 36.4 C 11/10/17 04:43 Pulse 61 11/10/17 09:25 Resp 12 11/10/17 04:43 BP 102/61 11/10/17 09:25 Pulse Ox 97 11/10/17 04:43 Weight - Most Recent: 87.18 kg I&O - Last 24 Hours: Intake & Output 11/09/17 11/10/17 11/10/17 22:59 06:59 14:59 Intake Total 3100 Output Total 400 Balance 2700 Lab Results Last 24 Hours: Laboratory Results - last 24 hr 11/09/17 11/09/17 11/09/17 Range/Units 17:20 17:20 17:20 WBC 8.96 (4.23-9.07) K/mm3 RBC 4.14 L (4.63-6.08) M/mm3 Hgb 11.7 L (13.7-17.5) gm/L Hct 38.8 L (40.1-51.0) % MCV 93.7 H (79.0-92.2) fl MCH 28.3 (25.7-32.2) pg MCHC 30.2 L (32.2-35.5) g/dl RDW Std Deviation 49.3 H (35.1-43.9) fL Plt Count 183 (163-337) K/mm3 MPV 10.4 (9.4-12.3) fl Neut % (Auto) 82.1 H (34.0-67.9) % Lymph % (Auto) 9.4 L (21.8-53.1) % Barton % (Auto) 8.0 (5.3-12.2) % Eos % (Auto) 0 L (0.8-7.0) Baso % (Auto) 0.1 (0.1-1.2) % Neut # (Auto) 7.35 H (1.78-5.38) K/mm3 Lymph # (Auto) 0.84 L (1.32-3.57) K/mm3 Barton # (Auto) 0.72 (0.30-0.82) K/mm3 Eos # (Auto) 0.00 L (0.04-0.54) K/mm3 Baso # (Auto) 0.01 (0.01-0.08) K/mm3 Manual Slide Review Abnormal smear Sodium 139 (136-145) mEq/L Potassium 4.9 (3.5-5.1) mEq/L Chloride 103 (98-107) mEq/L Carbon Dioxide 23 (21-32) mEq/L Anion Gap 17.9 H (5-15) BUN 51 H (7-18) mg/dL Creatinine 3.1 H (0.7-1.3) mg/dL Est Cr Clr Drug Dosing 17.42 mL/min Estimated GFR (MDRD) 19 (>60) mL/min BUN/Creatinine Ratio 16.5 (14-18) Glucose 175 H (83-115) mg/dL Lactic Acid 1.5 (0.4-2.0) mmol/L Calcium 9.2 (8.5-10.1) mg/dL Magnesium (1.8-2.4) mg/dl Total Bilirubin 0.5 (0.2-1.0) mg/dL AST 48 H (15-37) U/L ALT 22 (16-63) U/L Alkaline Phosphatase 33 L (46-116) U/L C-Reactive Protein (<1.0) mg/dL Total Protein 7.1 (6.4-8.2) g/dl Albumin 3.6 (3.4-5.0) g/dl Globulin 3.5 gm/dL Albumin/Globulin Ratio 1.0 (1-2) Urine Color (Yellow) Urine Appearance (Clear) Urine pH (5.0-8.0) Ur Specific [place]aud (1.005-1.030) Urine Protein (Negative) Urine Glucose (UA) (Negative) Urine Ketones (Negative) Urine Occult Blood (Negative) Urine Nitrite (Negative) Urine Bilirubin (Negative) Urine Urobilinogen (0.2-1.0) Ur Leukocyte Esterase (Negative) Urine RBC (0-5) /hpf Urine WBC (0-5) /hpf Ur Epithelial Cells (0-5) /hpf Urine Bacteria (FEW) /hpf Urine Mucus (FEW) /hpf 11/09/17 11/10/17 11/10/17 Range/Units 17:30 06:51 06:51 WBC 7.91 (4.23-9.07) K/mm3 RBC 3.98 L (4.63-6.08) M/mm3 Hgb 11.3 L (13.7-17.5) gm/L Hct 37.8 L (40.1-51.0) % MCV 95.0 H (79.0-92.2) fl MCH 28.4 (25.7-32.2) pg MCHC 29.9 L (32.2-35.5) g/dl RDW Std Deviation 51.1 H (35.1-43.9) fL Plt Count 136 L (163-337) K/mm3 MPV 10.6 (9.4-12.3) fl Neut % (Auto) 73.9 H (34.0-67.9) % Lymph % (Auto) 13.4 L (21.8-53.1) % Barton % (Auto) 11.9 (5.3-12.2) % Eos % (Auto) 0.4 L (0.8-7.0) Baso % (Auto) 0.1 (0.1-1.2) % Neut # (Auto) 5.85 H (1.78-5.38) K/mm3 Lymph # (Auto) 1.06 L (1.32-3.57) K/mm3 Barton # (Auto) 0.94 H (0.30-0.82) K/mm3 Eos # (Auto) 0.03 L (0.04-0.54) K/mm3 Baso # (Auto) 0.01 (0.01-0.08) K/mm3 Manual Slide Review Abnormal smear Sodium 141 (136-145) mEq/L Potassium 5.4 H (3.5-5.1) mEq/L Chloride 109 H (98-107) mEq/L Carbon Dioxide 24 (21-32) mEq/L Anion Gap 13.4 (5-15) BUN 50 H (7-18) mg/dL Creatinine 2.8 H (0.7-1.3) mg/dL Est Cr Clr Drug Dosing 19.29 mL/min Estimated GFR (MDRD) 22 (>60) mL/min BUN/Creatinine Ratio 17.9 (14-18) Glucose 139 H (83-115) mg/dL Lactic Acid (0.4-2.0) mmol/L Calcium 8.3 L (8.5-10.1) mg/dL Magnesium 2.3 (1.8-2.4) mg/dl Total Bilirubin (0.2-1.0) mg/dL AST (15-37) U/L ALT (16-63) U/L Alkaline Phosphatase (46-116) U/L C-Reactive Protein 9.9 H* (<1.0) mg/dL Total Protein (6.4-8.2) g/dl Albumin (3.4-5.0) g/dl Globulin gm/dL Albumin/Globulin Ratio (1-2) Urine Color Dark yellow (Yellow) Urine Appearance Slt cloudy H (Clear) Urine pH 5.5 (5.0-8.0) Ur Specific Maud > or = 1.030 (1.005-1.030) Urine Protein 3+ H (Negative) Urine Glucose (UA) Negative (Negative) Urine Ketones Negative (Negative) Urine Occult Blood 3+ H (Negative) Urine Nitrite Positive H (Negative) Urine Bilirubin 1+ H (Negative) Urine Urobilinogen 1.0 (0.2-1.0) Ur Leukocyte Esterase 1+ H (Negative) Urine RBC 10-20 H (0-5) /hpf Urine WBC 50-75 H (0-5) /hpf Ur Epithelial Cells 0-5 (0-5) /hpf Urine Bacteria Many H (FEW) /hpf Urine Mucus Not seen (FEW) /hpf 11/10/17 Range/Units 06:51 WBC (4.23-9.07) K/mm3 RBC (4.63-6.08) M/mm3 Hgb (13.7-17.5) gm/L Hct (40.1-51.0) % MCV (79.0-92.2) fl MCH (25.7-32.2) pg MCHC (32.2-35.5) g/dl RDW Std Deviation (35.1-43.9) fL Plt Count (163-337) K/mm3 MPV (9.4-12.3) fl Neut % (Auto) (34.0-67.9) % Lymph % (Auto) (21.8-53.1) % Barton % (Auto) (5.3-12.2) % Eos % (Auto) (0.8-7.0) Baso % (Auto) (0.1-1.2) % Neut # (Auto) (1.78-5.38) K/mm3 Lymph # (Auto) (1.32-3.57) K/mm3 Barton # (Auto) (0.30-0.82) K/mm3 Eos # (Auto) (0.04-0.54) K/mm3 Baso # (Auto) (0.01-0.08) K/mm3 Manual Slide Review Sodium (136-145) mEq/L Potassium (3.5-5.1) mEq/L Chloride (98-107) mEq/L Carbon Dioxide (21-32) mEq/L Anion Gap (5-15) BUN (7-18) mg/dL Creatinine (0.7-1.3) mg/dL Est Cr Clr Drug Dosing mL/min Estimated GFR (MDRD) (>60) mL/min BUN/Creatinine Ratio (14-18) Glucose (83-115) mg/dL Lactic Acid 1.5 (0.4-2.0) mmol/L Calcium (8.5-10.1) mg/dL Magnesium (1.8-2.4) mg/dl Total Bilirubin (0.2-1.0) mg/dL AST (15-37) U/L ALT (16-63) U/L Alkaline Phosphatase (46-116) U/L C-Reactive Protein (<1.0) mg/dL Total Protein (6.4-8.2) g/dl Albumin (3.4-5.0) g/dl Globulin gm/dL Albumin/Globulin Ratio (1-2) Urine Color (Yellow) Urine Appearance (Clear) Urine pH (5.0-8.0) Ur Specific Maud (1.005-1.030) Urine Protein (Negative) Urine Glucose (UA) (Negative) Urine Ketones (Negative) Urine Occult Blood (Negative) Urine Nitrite (Negative) Urine Bilirubin (Negative) Urine Urobilinogen (0.2-1.0) Ur Leukocyte Esterase (Negative) Urine RBC (0-5) /hpf Urine WBC (0-5) /hpf Ur Epithelial Cells (0-5) /hpf Urine Bacteria (FEW) /hpf Urine Mucus (FEW) /hpf Jose David Results Last 24 Hours: Microbiology 11/09/17 17:30 Urine Culture - Preliminary Urine, Bladder Gram Negative Rods Med Orders - Current: Current Medications Acetaminophen (Tylenol) 650 mg PO Q4H PRN PRN Reason: FEVER/PAIN Last Admin: 11/09/17 20:21 Dose: 650 mg Ascorbic Acid (Vitamin C) 500 mg PO DAILY [facility] Last Admin: 11/10/17 09:24 Dose: 500 mg Aspirin (Aspirin) 81 mg PO DAILY [facility] Last Admin: 11/10/17 09:25 Dose: 81 mg Belladonna Alkaloids/Opium (B & O Supprettes No. 15a) 1 supp RECTAL Q6H PRN PRN Reason: bladder spasms Last Admin: 11/09/17 20:55 Dose: 1 supp Calcium Carbonate (Calcium Carbonate/Vitamin D 600 Mg-200 Unit) 1 tab PO DAILY [facility] Last Admin: 11/10/17 09:24 Dose: 1 tab Cholestyramine Resin (Prevalite Packet) 4 gm PO BID [facility] Docusate Sodium (Colace) 100 mg PO DAILY [facility] Last Admin: 11/10/17 09:25 Dose: 100 mg Flunisolide (Nasalide Nasal [place]) 0 ml NASBOTH BID [facility] Hydralazine HCl (Apresoline) 20 mg IVPUSH Q6H PRN PRN Reason: Hypertension Sodium Chloride (Normal Saline) 1,000 mls @ 125 mls/hr IV ASDIRECTED [facility] Last Admin: 11/10/17 06:35 Dose: 75 mls/hr Piperacillin Sod/Tazobactam (Sod 4.5 gm/ Sodium Chloride) 100 mls @ 25 mls/hr IV Q12H [facility] Last Admin: 11/10/17 09:21 Dose: 25 mls/hr Isosorbide Mononitrate (Imdur) 30 mg PO DAILY [facility] Last Admin: 11/10/17 09:24 Dose: 30 mg Metoprolol Tartrate (Lopressor) 50 mg PO BID [facility] Last Admin: 11/10/17 09:25 Dose: 50 mg Nitroglycerin (Nitrostat) 0.4 mg SL ASDIRECTED PRN PRN Reason: Chest Pain Non-FormTrilipix (45 Mg) 45 mg PO DAILY [facility] Ondansetron HCl (Zofran) 4 mg IVPUSH Q8H PRN PRN Reason: Nausea/Vomiting Oxycodone/Acetaminophen (Percocet 325-5 Mg) 1 tab PO Q12HR PRN PRN Reason: Pain (severe 7-10) Last Admin: 11/09/17 20:53 Dose: 1 tab Pantoprazole Sodium (Protonix) 40 mg PO DAILY@0700 [facility] Last Admin: 11/10/17 06:35 Dose: 40 mg Rivaroxaban (Xarelto) 15 mg PO DAILY [facility] Last Admin: 11/10/17 09:23 Dose: 15 mg Rosuvastatin Calcium (Crestor) 10 mg PO DAILY [facility] Last Admin: 11/10/17 09:23 Dose: 10 mg Saccharomyces Boulardii (Florastor) 500 mg PO DAILY [facility] Sodium Chloride (Saline Flush) 10 ml FLUSH ASDIRECTED PRN PRN Reason: Keep Vein Open Last Admin: 11/09/17 18:06 Dose: 10 ml Tamsulosin HCl (Flomax) 0.4 mg PO DAILY [facility] Last Admin: 11/10/17 09:24 Dose: 0.4 mg Discontinued Medications Cefepime HCl 1 gm/ Premix 50 mls @ 100 mls/hr IV ONETIME ONE Stop: 11/09/17 18:10 Last Admin: 11/09/17 22:06 Dose: Not Given Sodium Chloride (Normal Saline) 1,000 mls @ 1,000 mls/hr IV ONETIME ONE Stop: 11/09/17 18:40 Last Admin: 11/09/17 18:05 Dose: 1,000 mls/hr Cefepime HCl 2 gm/ Premix 50 mls @ 100 mls/hr IV ONETIME STA Stop: 11/09/17 18:23 Last Admin: 11/09/17 18:03 Dose: 100 mls/hr Cefepime HCl (Maxipime In D5w 2 Gm/50 Ml) Confirm Administered Dose 50 mls @ as directed .ROUTE .STK-MED ONE Stop: 11/09/17 17:53 Last Admin: 11/09/17 18:06 Dose: Not Given Piperacillin Sod/Tazobactam (Sod 4.5 gm/ Sodium Chloride) 100 mls @ 200 mls/hr IV ONETIME ONE Stop: 11/09/17 20:29 Last Admin: 11/09/17 20:56 Dose: 200 mls/hr Sodium Chloride (Normal Saline) 1,000 mls @ 999 mls/hr IV ONETIME ONE Stop: 11/09/17 21:00 Last Admin: 11/09/17 20:20 Dose: 999 mls/hr Sodium Chloride (Normal Saline) 750 mls @ 125 mls/hr IV ASDIRECTED [facility] Stop: 11/10/17 03:29 Last Admin: 11/09/17 20:57 Dose: 125 mls/hr Lidocaine HCl (Xylocaine 1%) 50 ml INJECT NOW STA Stop: 11/09/17 17:31 Last Admin: 11/09/17 20:53 Dose: Not Given Linezolid (Zyvox) 600 mg PO Q12H [facility] Non-FormPure L- Arginine Hcl 1,000 Mg 1,000 mg PO DAILY [facility] - Exam Quality Assessment: Supplemental Oxygen, DVT Prophylaxis General: Alert, Oriented, Cooperative, No Acute Distress HEENT: Pupils Equal, Pupils Reactive, EOMI, Mucous Membr. Moist/[place] Neck: Supple, Trachea Midline, No JVD Lungs: Normal Respiratory Effort, Decreased Breath Sounds, Rhonchi Cardiovascular: Regular Rate GI/Abdominal Exam: Normal Bowel Sounds, Soft, Non-Tender, No Organomegaly (Male) Exam: Deferred Back Exam: Normal Inspection Extremities: Normal Inspection, Non-Tender, Slow Capillary Refill Skin: Warm Neurological: No New Focal Deficit, Normal Speech, Cranial Nerves Intact Psy/Mental Status: Alert, Normal Mood - Problem List Review Problem List Initiated/Reviewed/Updated: Yes - My Orders Last 24 Hours: My Active Orders 11/09/17 19:20 Acetaminophen/oxyCODONE [Percocet 325-5 MG] 1 tab PO Q12HR PRN Belladonna/Opium [B & O Supprettes No. 15A] 1 supp RECTAL Q6H PRN Nitroglycerin [Nitrostat] 0.4 mg SL ASDIRECTED PRN 11/09/17 19:47 Vital Signs [RC] 03,09,15,21 11/09/17 19:48 Activity as Tolerated [RC] .Routine 11/09/17 19:58 Acetaminophen [Tylenol] 650 mg PO Q4H PRN 11/09/17 20:03 Ondansetron [Zofran] 4 mg IVPUSH Q8H PRN 11/09/17 20:04 hydrALAZINE [Apresoline] 20 mg IVPUSH Q6H PRN 11/09/17 20:44 Oxygen Therapy [RC] ASDIRECTED 11/09/17 21:00 Metoprolol Tartrate [Lopressor] 50 mg PO BID 11/09/17 21:48 Resuscitation Status Routine 11/09/17 Dinner Heart Healthy Diet [DIET] 11/10/17 03:30 Sodium Chloride 0.9% [Normal Saline] 1,000 ml IV ASDIRECTED 11/10/17 07:00 Pantoprazole [ProTONIX] 40 mg PO DAILY@0700 11/10/17 08:00 Piperacillin/Tazobactam [Zosyn] 4.5 gm Sodium Chloride 0.9% [Normal Saline] 100 ml IV Q12H 11/10/17 09:00 Consult to Occupational Therapy [OT Evaluation and Treatment] [CONS] Routine Ascorbic Acid [Vitamin C] 500 mg PO DAILY Aspirin 81 mg PO DAILY Calcium Carbonate/Vitamin D3 [Calcium Carbonate/Vitamin D 600 MG-200 Unit] 1 tab PO DAILY Docusate Sodium [Colace] 100 mg PO DAILY Fenofibric Acid (Choline) [Trilipix] 45 mg PO DAILY Isosorbide Mononitrate [Imdur] 30 mg PO DAILY Rivaroxaban [Xarelto] 15 mg PO DAILY Rosuvastatin [Crestor] 10 mg PO DAILY Tamsulosin [Flomax] 0.4 mg PO DAILY 11/10/17 10:00 Consult to Physical Therapy [PT Evaluation and Treatment] [CONS] Routine 11/10/17 11:00 C DIFFICILE BY PCR W/NAP1 [MOLEC] Routine CULTURE STOOL + SHIGATOX [RM] Routine WBC, STOOL [OP] Routine 11/10/17 14:00 BASIC METABOLIC PANEL,BMP [CHEM] Routine 11/10/17 21:00 Cholestyramine/Aspartame [Prevalite Packet] 4 gm PO BID Flunisolide [Nasalide Nasal [place]] 0 ml NASBOTH BID 11/11/17 05:00 BMP [BASIC METABOLIC PANEL,BMP] [CHEM] DAILY CBC WITH AUTO DIFF [HEME] DAILY CRP [C-REACTIVE PROTEIN] [CHEM] DAILY LACTIC ACID [CHEM] DAILY MAGNESIUM [CHEM] DAILY 11/11/17 09:00 Saccharomyces Boulardii [Florastor] 500 mg PO DAILY 11/12/17 05:00 BMP [BASIC METABOLIC PANEL,BMP] [CHEM] DAILY CBC WITH AUTO DIFF [HEME] DAILY CRP [C-REACTIVE PROTEIN] [CHEM] DAILY LACTIC ACID [CHEM] DAILY MAGNESIUM [CHEM] DAILY 11/12/17 10:00 Consult to Case Management [CONS] Routine 11/13/17 05:00 BMP [BASIC METABOLIC PANEL,BMP] [CHEM] DAILY CBC WITH AUTO DIFF [HEME] DAILY CRP [C-REACTIVE PROTEIN] [CHEM] DAILY LACTIC ACID [CHEM] DAILY MAGNESIUM [CHEM] DAILY 11/14/17 05:00 BMP [BASIC METABOLIC PANEL,BMP] [CHEM] DAILY CBC WITH AUTO DIFF [HEME] DAILY CRP [C-REACTIVE PROTEIN] [CHEM] DAILY LACTIC ACID [CHEM] DAILY MAGNESIUM [CHEM] DAILY - Plan Plan:: Impression: S/P Suprapubic cath change, POD2 Hx of prostate CA, [place] 9, s/p Lupron AUTI Acute on chronic renal failure Dehydration Abnormal electrolytes 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 Chronic HTN HLD GERD TIA CAD/MO/CABG Chronic pain Plan: IVF IV ATB; will add vancomycin, C Diff Home meds Daily labs Infectious w/u Consult PT/OT/CM DVT/GI prophylaxis
[2017-11-10] MEDS: Belladonna Alkaloids/Opium 16.2-30 MG Supp RECTAL PRN ×2 (13:00→19:04)
[2017-11-10] MEDS: Acetaminophen/oxyCODONE 325-5 MG Tab PO PRN ×2 (13:00→19:04)
[2017-11-10] MEDS ORDERED: HYDROmorphone 0.5 MG/0.5 ML SYRINGE IVPUSH ONE (13:17)
[2017-11-10] MEDS: Vancomycin 50 MG/ML 150ML Oral Solution Kit PO SCH ×2 (16:35→20:51)
[2017-11-10] MEDS: Sodium Chloride 0.9% 1,000 ML IV SCH (17:09)
[2017-11-10] MEDS: Cholestyramine/Aspartame Powder 4 GM Packet PO SCH (20:53)
[2017-11-11] MEDS: Sodium Chloride 0.9% 1,000 ML IV SCH ×2 (01:32→14:06)
[2017-11-11] MEDS: Pantoprazole 40 MG Tab.CR PO SCH ×2 (04:24→06:11)
[2017-11-11] MEDS: Piperacillin/Tazobactam 4.5 GM in Sodium Chloride 0.9% 100 ML IV SCH ×2 (08:37→20:25)
[2017-11-11] MEDS: Calcium Carbonate/Vitamin D3 600 MG-200 Units Tab PO SCH (08:41)
[2017-11-11] MEDS: Rosuvastatin 10 MG Tab PO SCH (08:41)
[2017-11-11] MEDS: Rivaroxaban 10 MG Tab PO SCH (08:41)
[2017-11-11] MEDS: Ascorbic Acid 500 MG Tab PO SCH (08:42)
[2017-11-11] MEDS: Tamsulosin 0.4 MG Cap.ER PO SCH (08:42)
[2017-11-11] MEDS: Isosorbide Mononitrate 30 MG Tab.ER PO SCH (08:42)
[2017-11-11] MEDS: Aspirin 81 MG Tab.Chew PO SCH (08:43)
[2017-11-11] MEDS: Docusate Sodium 100 MG Cap PO SCH (08:43)
[2017-11-11] MEDS: Vancomycin 50 MG/ML 150ML Oral Solution Kit PO SCH ×3 (08:44→20:26)
[2017-11-11] MEDS: Cholestyramine/Aspartame Powder 4 GM Packet PO SCH ×2 (08:48→20:25)
[2017-11-11] MEDS ORDERED: Saccharomyces Boulardii (Probiotic) 250 MG Cap PO SCH (09:00)
--- NOTE | 2017-11-11 12:39 | PCM.PN ---
- General Info Date of Service: 11/11/17 Functional Status: Reports: Pain Controlled, Tolerating Diet, Ambulating, Urinating - Review of Systems General: Reports: No Symptoms HEENT: Reports: No Symptoms Pulmonary: Reports: No Symptoms Cardiovascular: Reports: No Symptoms Gastrointestinal: Reports: No Symptoms Genitourinary: Reports: No Symptoms Musculoskeletal: Reports: No Symptoms Skin: Reports: No Symptoms Neurological: Reports: No Symptoms Psychiatric: Reports: No Symptoms - Patient Data Vitals - Most Recent: Last Vital Signs Temp 36.8 C 11/11/17 04:11 Pulse 72 11/11/17 04:11 Resp 18 11/11/17 04:11 BP 135/53 L 11/11/17 08:42 Pulse Ox 94 L 11/11/17 04:11 Weight - Most Recent: 87.634 kg I&O - Last 24 Hours: Intake & Output 11/10/17 11/11/17 11/11/17 22:59 06:59 14:59 Intake Total 2321 1887 Output Total 650 650 Balance 1671 1237 Lab Results Last 24 Hours: Laboratory Results - last 24 hr 11/10/17 11/10/17 11/11/17 Range/Units 12:20 14:15 06:12 WBC 4.42 (4.23-9.07) K/mm3 RBC 3.36 L (4.63-6.08) M/mm3 Hgb 9.4 L (13.7-17.5) gm/L Hct 32.3 L (40.1-51.0) % MCV 96.1 H (79.0-92.2) fl MCH 28.0 (25.7-32.2) pg MCHC 29.1 L (32.2-35.5) g/dl RDW Std Deviation 50.3 H (35.1-43.9) fL Plt Count 121 L (163-337) K/mm3 MPV 10.8 (9.4-12.3) fl Neut % (Auto) 69.7 H (34.0-67.9) % Lymph % (Auto) 17.2 L (21.8-53.1) % [facility] % (Auto) 9.0 (5.3-12.2) % Eos % (Auto) 3.4 (0.8-7.0) Baso % (Auto) 0.2 (0.1-1.2) % Neut # (Auto) 3.08 (1.78-5.38) K/mm3 Lymph # (Auto) 0.76 L (1.32-3.57) K/mm3 [facility] # (Auto) 0.40 (0.30-0.82) K/mm3 Eos # (Auto) 0.15 (0.04-0.54) K/mm3 Baso # (Auto) 0.01 (0.01-0.08) K/mm3 Manual Slide Review Abnormal smear Sodium 140 (136-145) mEq/L Potassium 4.5 (3.5-5.1) mEq/L Chloride 109 H (98-107) mEq/L Carbon Dioxide 22 (21-32) mEq/L Anion Gap 13.5 (5-15) BUN 50 H (7-18) mg/dL Creatinine 2.4 H (0.7-1.3) mg/dL Est Cr Clr Drug Dosing 22.50 mL/min Estimated GFR (MDRD) 26 (>60) mL/min BUN/Creatinine Ratio 20.8 H (14-18) Glucose 126 H (83-115) mg/dL Lactic Acid (0.4-2.0) mmol/L Calcium 7.9 L (8.5-10.1) mg/dL Magnesium (1.8-2.4) mg/dl C-Reactive Protein (<1.0) mg/dL C.difficile [id number] Presumptive negative C. difficile Tox (PCR) Positive H 11/11/17 11/11/17 Range/Units 06:12 06:12 WBC (4.23-9.07) K/mm3 RBC (4.63-6.08) M/mm3 Hgb (13.7-17.5) gm/L Hct (40.1-51.0) % MCV (79.0-92.2) fl MCH (25.7-32.2) pg MCHC (32.2-35.5) g/dl RDW Std Deviation (35.1-43.9) fL Plt Count (163-337) K/mm3 MPV (9.4-12.3) fl Neut % (Auto) (34.0-67.9) % Lymph % (Auto) (21.8-53.1) % [facility] % (Auto) (5.3-12.2) % Eos % (Auto) (0.8-7.0) Baso % (Auto) (0.1-1.2) % Neut # (Auto) (1.78-5.38) K/mm3 Lymph # (Auto) (1.32-3.57) K/mm3 [facility] # (Auto) (0.30-0.82) K/mm3 Eos # (Auto) (0.04-0.54) K/mm3 Baso # (Auto) (0.01-0.08) K/mm3 Manual Slide Review Sodium 139 (136-145) mEq/L Potassium 4.5 (3.5-5.1) mEq/L Chloride 110 H (98-107) mEq/L Carbon Dioxide 22 (21-32) mEq/L Anion Gap 11.5 (5-15) BUN 47 H (7-18) mg/dL Creatinine 1.8 H (0.7-1.3) mg/dL Est Cr Clr Drug Dosing 30.00 mL/min Estimated GFR (MDRD) 36 (>60) mL/min BUN/Creatinine Ratio 26.1 H (14-18) Glucose 149 H (83-115) mg/dL Lactic Acid 0.8 (0.4-2.0) mmol/L Calcium 8.1 L (8.5-10.1) mg/dL Magnesium 2.1 (1.8-2.4) mg/dl C-Reactive Protein 7.1 H* (<1.0) mg/dL C.difficile [id number] C. difficile Tox (PCR) Jose Davdi Results Last 24 Hours: Microbiology 11/10/17 12:20 Stool Culture - Preliminary Stool / Feces - Final - Final 11/09/17 17:45 Aerobic Blood Culture - Preliminary Blood - Venous - Lab Draw NO GROWTH AFTER 1 DAY Anaerobic Blood Culture - Preliminary NO GROWTH AFTER 1 DAY 11/09/17 17:20 Aerobic Blood Culture - Preliminary Blood - Venous NO GROWTH AFTER 1 DAY Anaerobic Blood Culture - Preliminary NO GROWTH AFTER 1 DAY 11/10/17 12:20 Stool for WBCs - Final Stool / Feces 11/09/17 17:30 Urine Culture - Preliminary Urine, Bladder Gram Negative Rods Med Orders - Current: Current Medications Acetaminophen (Tylenol) 650 mg PO Q4H PRN PRN Reason: FEVER/PAIN Last Admin: 11/09/17 20:21 Dose: 650 mg Ascorbic Acid (Vitamin C) 500 mg PO DAILY [facility] Last Admin: 11/11/17 08:42 Dose: 500 mg Aspirin (Aspirin) 81 mg PO DAILY [facility] Last Admin: 11/11/17 08:43 Dose: 81 mg Belladonna Alkaloids/Opium (B & O Supprettes No. 15a) 1 supp RECTAL Q4H PRN PRN Reason: Cramping Last Admin: 11/10/17 19:04 Dose: 1 supp Calcium Carbonate (Calcium Carbonate/Vitamin D 600 Mg-200 Unit) 1 tab PO DAILY [facility] Last Admin: 11/11/17 08:41 Dose: 1 tab Cholestyramine Resin (Prevalite Packet) 4 gm PO BID [facility] Last Admin: 11/11/17 08:48 Dose: 4 gm Docusate Sodium (Colace) 100 mg PO DAILY [facility] Last Admin: 11/11/17 08:43 Dose: 100 mg Flunisolide (Nasalide Nasal [place]) 0 ml NASBOTH BID [facility] Last Admin: 11/11/17 08:37 Dose: 2 spray Hydralazine HCl (Apresoline) 20 mg IVPUSH Q6H PRN PRN Reason: Hypertension Piperacillin Sod/Tazobactam (Sod 4.5 gm/ Sodium Chloride) 100 mls @ 25 mls/hr IV Q12H [facility] Last Admin: 11/11/17 08:37 Dose: 25 mls/hr Sodium Chloride (Normal Saline) 1,000 mls @ 75 mls/hr IV ASDIRECTED [facility] Isosorbide Mononitrate (Imdur) 30 mg PO DAILY [facility] Last Admin: 11/11/17 08:42 Dose: 30 mg Metoprolol Tartrate (Lopressor) 50 mg PO BID [facility] Last Admin: 11/10/17 20:52 Dose: Not Given Nitroglycerin (Nitrostat) 0.4 mg SL ASDIRECTED PRN PRN Reason: Chest Pain Non-FormTrilipix (45 Mg) 45 mg PO DAILY [facility] Ondansetron HCl (Zofran) 4 mg IVPUSH Q8H PRN PRN Reason: Nausea/Vomiting Oxycodone/Acetaminophen (Percocet 325-5 Mg) 1 tab PO Q6H PRN PRN Reason: Pain (severe 7-10) Last Admin: 11/10/17 19:04 Dose: 1 tab Pantoprazole Sodium (Protonix) 40 mg PO DAILY@0700 [facility] Last Admin: 11/11/17 06:11 Dose: Not Given Rivaroxaban (Xarelto) 15 mg PO DAILY [facility] Last Admin: 11/11/17 08:41 Dose: 15 mg Rosuvastatin Calcium (Crestor) 10 mg PO DAILY [facility] Last Admin: 11/11/17 08:41 Dose: 10 mg Saccharomyces Boulardii (Florastor) 500 mg PO DAILY [facility] Last Admin: 11/11/17 08:40 Dose: 500 mg Sodium Chloride (Saline Flush) 10 ml FLUSH ASDIRECTED PRN PRN Reason: Keep Vein Open Last Admin: 11/09/17 18:06 Dose: 10 ml Tamsulosin HCl (Flomax) 0.4 mg PO DAILY [facility] Last Admin: 11/11/17 08:42 Dose: 0.4 mg Vancomycin HCl (First-Vancomycin 50 Compounding Kit) 125 mg PO TID [facility] Last Admin: 11/11/17 08:44 Dose: 2.5 ml Discontinued Medications Belladonna Alkaloids/Opium (B & O Supprettes No. 15a) 1 supp RECTAL Q6H PRN PRN Reason: bladder spasms Last Admin: 11/10/17 13:00 Dose: 1 supp Hydromorphone HCl (Dilaudid) 1 mg IVPUSH ONETIME ONE Stop: 11/10/17 13:18 Last Admin: 11/10/17 14:41 Dose: 1 mg Cefepime HCl 1 gm/ Premix 50 mls @ 100 mls/hr IV ONETIME ONE Stop: 11/09/17 18:10 Last Admin: 11/09/17 22:06 Dose: Not Given Sodium Chloride (Normal Saline) 1,000 mls @ 1,000 mls/hr IV ONETIME ONE Stop: 11/09/17 18:40 Last Admin: 11/09/17 18:05 Dose: 1,000 mls/hr Cefepime HCl 2 gm/ Premix 50 mls @ 100 mls/hr IV ONETIME STA Stop: 11/09/17 18:23 Last Admin: 11/09/17 18:03 Dose: 100 mls/hr Cefepime HCl (Maxipime In D5w 2 Gm/50 Ml) Confirm Administered Dose 50 mls @ as directed .ROUTE .STK-MED ONE Stop: 11/09/17 17:53 Last Admin: 11/09/17 18:06 Dose: Not Given Piperacillin Sod/Tazobactam (Sod 4.5 gm/ Sodium Chloride) 100 mls @ 200 mls/hr IV ONETIME ONE Stop: 11/09/17 20:29 Last Admin: 11/09/17 20:56 Dose: 200 mls/hr Sodium Chloride (Normal Saline) 1,000 mls @ 999 mls/hr IV ONETIME ONE Stop: 11/09/17 21:00 Last Admin: 11/09/17 20:20 Dose: 999 mls/hr Sodium Chloride (Normal Saline) 750 mls @ 125 mls/hr IV ASDIRECTED [facility] Stop: 11/10/17 03:29 Last Admin: 11/09/17 20:57 Dose: 125 mls/hr Sodium Chloride (Normal Saline) 1,000 mls @ 125 mls/hr IV ASDIRECTED [facility] Last Admin: 11/10/17 06:35 Dose: 75 mls/hr Sodium Chloride (Normal Saline) 1,000 mls @ 125 mls/hr IV ASDIRECTED [facility] Stop: 11/11/17 03:30 Last Admin: 11/11/17 01:32 Dose: 125 mls/hr Lidocaine HCl (Xylocaine 1%) 50 ml INJECT NOW STA Stop: 11/09/17 17:31 Last Admin: 11/09/17 20:53 Dose: Not Given Linezolid (Zyvox) 600 mg PO Q12H [facility] Non-FormPure L- Arginine Hcl 1,000 Mg 1,000 mg PO DAILY [facility] Oxycodone/Acetaminophen (Percocet 325-5 Mg) 1 tab PO Q12HR PRN PRN Reason: Pain (severe 7-10) Last Admin: 11/10/17 13:00 Dose: 1 tab - Exam Quality Assessment: Supplemental Oxygen, Urine Catheter, DVT Prophylaxis General: Alert, Oriented, Cooperative, No Acute Distress HEENT: Pupils Equal, Pupils Reactive, EOMI Neck: Trachea Midline, No JVD Lungs: Normal Respiratory Effort Cardiovascular: Regular Rate, Regular Rhythm GI/Abdominal Exam: Normal Bowel Sounds, Soft, No Organomegaly, No Distention, Tender (mild) (Male) Exam: Deferred Back Exam: Normal Inspection Extremities: Normal Inspection, Non-Tender, Normal Capillary Refill Skin: Warm Wound/Incisions: Healing Well Neurological: No New Focal Deficit, Normal Speech Psy/Mental Status: Alert, Normal Affect, Normal Mood - Problem List Review Problem List Initiated/Reviewed/Updated: Yes - My Orders Last 24 Hours: My Active Orders 11/10/17 12:20 CULTURE STOOL + SHIGATOX [RM] Routine 11/10/17 14:38 Acetaminophen/oxyCODONE [Percocet 325-5 MG] 1 tab PO Q6H PRN 11/10/17 15:00 Vancomycin [First-Vancomycin 50 Compounding Kit] 125 mg PO TID 11/10/17 18:29 Belladonna/Opium [B & O Supprettes No. 15A] 1 supp RECTAL Q4H PRN 11/10/17 21:00 Cholestyramine/Aspartame [Prevalite Packet] 4 gm PO BID Flunisolide [Nasalide Nasal [place]] 0 ml NASBOTH BID 11/11/17 03:30 Sodium Chloride 0.9% [Normal Saline] 1,000 ml IV ASDIRECTED 11/11/17 09:00 Saccharomyces Boulardii [Florastor] 500 mg PO DAILY 11/12/17 05:00 BMP [BASIC METABOLIC PANEL,BMP] [CHEM] DAILY CBC WITH AUTO DIFF [HEME] DAILY CRP [C-REACTIVE PROTEIN] [CHEM] DAILY LACTIC ACID [CHEM] DAILY MAGNESIUM [CHEM] DAILY 11/12/17 10:00 Consult to Case Management [CONS] Routine 11/13/17 05:00 BMP [BASIC METABOLIC PANEL,BMP] [CHEM] DAILY CBC WITH AUTO DIFF [HEME] DAILY CRP [C-REACTIVE PROTEIN] [CHEM] DAILY LACTIC ACID [CHEM] DAILY MAGNESIUM [CHEM] DAILY 11/14/17 05:00 BMP [BASIC METABOLIC PANEL,BMP] [CHEM] DAILY CBC WITH AUTO DIFF [HEME] DAILY CRP [C-REACTIVE PROTEIN] [CHEM] DAILY LACTIC ACID [CHEM] DAILY MAGNESIUM [CHEM] DAILY - Plan Plan:: Impression: S/P Suprapubic cath change, POD3 Hx of prostate CA, Haily 9, s/p Lupron AUTI; Zosyn renal dose; Belladonna alkalloid sup for spasms Acute on chronic renal failure Dehydration Abnormal electrolytes 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
[2017-11-11] MEDS: Metoprolol Tartrate 50 MG Tab PO SCH ×2 (12:44→21:49)
[2017-11-11] MEDS: Acetaminophen/oxyCODONE 325-5 MG Tab PO PRN ×2 (14:47→22:09)
[2017-11-11] MEDS: Belladonna Alkaloids/Opium 16.2-30 MG Supp RECTAL PRN ×2 (15:52→21:58)
[2017-11-12] MEDS: Belladonna Alkaloids/Opium 16.2-30 MG Supp RECTAL PRN ×2 (04:50→20:58)
[2017-11-12] MEDS: Sodium Chloride 0.9% 1,000 ML IV SCH ×2 (04:51→21:12)
[2017-11-12] MEDS: Pantoprazole 40 MG Tab.CR PO SCH (06:45)
[2017-11-12] MEDS ORDERED: Piperacillin/Tazobactam 4.5 GM in Dextrose 5% in Water 100 ML IV SCH ×2 (08:00)
[2017-11-12] MEDS ORDERED: Piperacillin/Tazobactam 4.5 GM in Sodium Chloride 0.9% 100 ML IV SCH (08:00)
[2017-11-12] MEDS ORDERED: Saccharomyces Boulardii (Probiotic) 250 MG Cap PO SCH (09:00)
[2017-11-12] MEDS: Cholestyramine/Aspartame Powder 4 GM Packet PO SCH ×2 (09:28→21:01)
[2017-11-12] MEDS: Rosuvastatin 10 MG Tab PO SCH (09:29)
[2017-11-12] MEDS: Tamsulosin 0.4 MG Cap.ER PO SCH (09:29)
[2017-11-12] MEDS: Aspirin 81 MG Tab.Chew PO SCH (09:30)
[2017-11-12] MEDS: Docusate Sodium 100 MG Cap PO SCH (09:30)
[2017-11-12] MEDS: Ascorbic Acid 500 MG Tab PO SCH (09:30)
[2017-11-12] MEDS: Calcium Carbonate/Vitamin D3 600 MG-200 Units Tab PO SCH (09:30)
[2017-11-12] MEDS: Rivaroxaban 10 MG Tab PO SCH (09:30)
[2017-11-12] MEDS: Vancomycin 50 MG/ML 150ML Oral Solution Kit PO SCH ×3 (09:32→21:08)
[2017-11-12] MEDS: TRILIPIX PO SCH ×3 (09:35→23:48)
--- NOTE | 2017-11-12 09:50 | PCM.PN ---
- General Info Date of Service: 11/12/17 Admission Dx/Problem (Free Text): Admission Diagnosis/Problem Admission Diagnosis/Problem Sepsis Subjective Update: In to see Aj. He is sitting in bed. He reports frequent bladder spasms which are only relieved by the suppository. Otherwise he has no concerns. Diarrhea has resolved. No nursing concerns. Will switch antibiotic to oral keflex for fear of worsening C-diff. Functional Status: Reports: Pain Controlled, Tolerating Diet, Ambulating, Urinating. Denies: New Symptoms - Review of Systems General: Reports: No Symptoms HEENT: Reports: No Symptoms Pulmonary: Reports: No Symptoms Cardiovascular: Reports: No Symptoms Gastrointestinal: Reports: No Symptoms Genitourinary: Reports: Pain ("penis pain" with spasms ) Musculoskeletal: Reports: No Symptoms Skin: Reports: No Symptoms Neurological: Reports: No Symptoms Psychiatric: Reports: No Symptoms - Patient Data Vitals - Most Recent: Last Vital Signs Temp 96.3 F 11/12/17 09:25 Pulse 65 11/12/17 09:25 Resp 16 11/12/17 09:25 BP 106/75 11/12/17 09:25 Pulse Ox 94 L 11/12/17 09:25 Weight - Most Recent: 206 lb 1.6 oz I&O - Last 24 Hours: Intake & Output 11/11/17 11/12/17 11/12/17 22:59 06:59 14:59 Intake Total 2367 1752 Output Total 950 1100 Balance 1417 652 Lab Results Last 24 Hours: Laboratory Results - last 24 hr 11/12/17 11/12/17 11/12/17 Range/Units 06:13 06:13 06:13 WBC 4.57 (4.23-9.07) K/mm3 RBC 3.74 L (4.63-6.08) M/mm3 Hgb 10.5 L (13.7-17.5) gm/L Hct 35.6 L (40.1-51.0) % MCV 95.2 H (79.0-92.2) fl MCH 28.1 (25.7-32.2) pg MCHC 29.5 L (32.2-35.5) g/dl RDW Std Deviation 49.4 H (35.1-43.9) fL Plt Count 143 L (163-337) K/mm3 MPV 10.8 (9.4-12.3) fl Neut % (Auto) 66.3 (34.0-67.9) % Lymph % (Auto) 21.7 L (21.8-53.1) % [place] % (Auto) 8.3 (5.3-12.2) % Eos % (Auto) 3.5 (0.8-7.0) Baso % (Auto) 0.2 (0.1-1.2) % Neut # (Auto) 3.03 (1.78-5.38) K/mm3 Lymph # (Auto) 0.99 L (1.32-3.57) K/mm3 [place] # (Auto) 0.38 (0.30-0.82) K/mm3 Eos # (Auto) 0.16 (0.04-0.54) K/mm3 Baso # (Auto) 0.01 (0.01-0.08) K/mm3 Manual Slide Review Abnormal smear Sodium 137 (136-145) mEq/L Potassium 4.5 (3.5-5.1) mEq/L Chloride 108 H (98-107) mEq/L Carbon Dioxide 25 (21-32) mEq/L Anion Gap 8.5 (5-15) BUN 27 H (7-18) mg/dL Creatinine 1.2 (0.7-1.3) mg/dL Est Cr Clr Drug Dosing 45.01 mL/min Estimated GFR (MDRD) 58 (>60) mL/min BUN/Creatinine Ratio 22.5 H (14-18) Glucose 107 (83-115) mg/dL Lactic Acid 0.9 (0.4-2.0) mmol/L Calcium 8.5 (8.5-10.1) mg/dL Magnesium 1.8 (1.8-2.4) mg/dl C-Reactive Protein 4.1 H* (<1.0) mg/dL Jose David Results Last 24 Hours: Microbiology 11/09/17 17:45 Aerobic Blood Culture - Preliminary Blood - Venous - Lab Draw NO GROWTH AFTER 2 DAYS Anaerobic Blood Culture - Preliminary NO GROWTH AFTER 2 DAYS 11/09/17 17:20 Aerobic Blood Culture - Preliminary Blood - Venous NO GROWTH AFTER 2 DAYS Anaerobic Blood Culture - Preliminary NO GROWTH AFTER 2 DAYS 11/09/17 17:30 Urine Culture - Preliminary Urine, Bladder Gram Negative Rods 11/10/17 12:20 Stool Culture - Preliminary Stool / Feces - Final - Final Med Orders - Current: Current Medications Acetaminophen (Tylenol) 650 mg PO Q4H PRN PRN Reason: FEVER/PAIN Last Admin: 11/09/17 20:21 Dose: 650 mg Ascorbic Acid (Vitamin C) 500 mg PO DAILY [facility] Last Admin: 11/12/17 09:30 Dose: 500 mg Aspirin (Aspirin) 81 mg PO DAILY [facility] Last Admin: 11/12/17 09:30 Dose: 81 mg Belladonna Alkaloids/Opium (B & O Supprettes No. 15a) 1 supp RECTAL Q4H PRN PRN Reason: Cramping Last Admin: 11/12/17 04:50 Dose: 1 supp Calcium Carbonate (Calcium Carbonate/Vitamin D 600 Mg-200 Unit) 1 tab PO DAILY [facility] Last Admin: 11/12/17 09:30 Dose: 1 tab Cholestyramine Resin (Prevalite Packet) 4 gm PO BID [facility] Last Admin: 11/12/17 09:28 Dose: 4 gm Docusate Sodium (Colace) 100 mg PO DAILY [facility] Last Admin: 11/12/17 09:30 Dose: 100 mg Flunisolide (Nasalide Nasal [place]) 0 ml NASBOTH BID [facility] Last Admin: 11/12/17 09:33 Dose: 2 spray Hydralazine HCl (Apresoline) 20 mg IVPUSH Q6H PRN PRN Reason: Hypertension Sodium Chloride (Normal Saline) 1,000 mls @ 75 mls/hr IV ASDIRECTED [facility] Last Admin: 11/12/17 04:51 Dose: 75 mls/hr Piperacillin Sod/Tazobactam (Sod 4.5 gm/ Dextrose/Water) 100 mls @ 25 mls/hr IV Q8H [facility] Last Admin: 11/12/17 09:17 Dose: 25 mls/hr Isosorbide Mononitrate (Imdur) 30 mg PO DAILY [facility] Last Admin: 11/11/17 08:42 Dose: 30 mg Metoprolol Tartrate (Lopressor) 50 mg PO BID [facility] Last Admin: 11/11/17 21:49 Dose: Not Given Nitroglycerin (Nitrostat) 0.4 mg SL ASDIRECTED PRN PRN Reason: Chest Pain Ondansetron HCl (Zofran) 4 mg IVPUSH Q8H PRN PRN Reason: Nausea/Vomiting Oxycodone/Acetaminophen (Percocet 325-5 Mg) 1 tab PO Q6H PRN PRN Reason: Pain (severe 7-10) Last Admin: 11/11/17 22:09 Dose: 1 tab Pantoprazole Sodium (Protonix) 40 mg PO DAILY@0700 [facility] Last Admin: 11/12/17 06:45 Dose: 40 mg Trilipix 45 Mg 45 each PO DAILY [facility] Last Admin: 11/12/17 09:35 Dose: Not Given Rivaroxaban (Xarelto) 15 mg PO DAILY [facility] Last Admin: 11/12/17 09:30 Dose: 15 mg Rosuvastatin Calcium (Crestor) 10 mg PO DAILY [facility] Last Admin: 11/12/17 09:29 Dose: 10 mg Saccharomyces Boulardii (Florastor) 250 mg PO BID [facility] Last Admin: 11/12/17 09:29 Dose: 250 mg Sodium Chloride (Saline Flush) 10 ml FLUSH ASDIRECTED PRN PRN Reason: Keep Vein Open Last Admin: 11/09/17 18:06 Dose: 10 ml Tamsulosin HCl (Flomax) 0.4 mg PO DAILY [facility] Last Admin: 11/12/17 09:29 Dose: 0.4 mg Vancomycin HCl (First-Vancomycin 50 Compounding Kit) 125 mg PO TID [facility] Last Admin: 11/12/17 09:32 Dose: 2.5 ml Discontinued Medications Belladonna Alkaloids/Opium (B & O Supprettes No. 15a) 1 supp RECTAL Q6H PRN PRN Reason: bladder spasms Last Admin: 11/10/17 13:00 Dose: 1 supp Hydromorphone HCl (Dilaudid) 1 mg IVPUSH ONETIME ONE Stop: 11/10/17 13:18 Last Admin: 11/10/17 14:41 Dose: 1 mg Cefepime HCl 1 gm/ Premix 50 mls @ 100 mls/hr IV ONETIME ONE Stop: 11/09/17 18:10 Last Admin: 11/09/17 22:06 Dose: Not Given Sodium Chloride (Normal Saline) 1,000 mls @ 1,000 mls/hr IV ONETIME ONE Stop: 11/09/17 18:40 Last Admin: 11/09/17 18:05 Dose: 1,000 mls/hr Cefepime HCl 2 gm/ Premix 50 mls @ 100 mls/hr IV ONETIME STA Stop: 11/09/17 18:23 Last Admin: 11/09/17 18:03 Dose: 100 mls/hr Cefepime HCl (Maxipime In D5w 2 Gm/50 Ml) Confirm Administered Dose 50 mls @ as directed .ROUTE .STK-MED ONE Stop: 11/09/17 17:53 Last Admin: 11/09/17 18:06 Dose: Not Given Piperacillin Sod/Tazobactam (Sod 4.5 gm/ Sodium Chloride) 100 mls @ 200 mls/hr IV ONETIME ONE Stop: 11/09/17 20:29 Last Admin: 11/09/17 20:56 Dose: 200 mls/hr Sodium Chloride (Normal Saline) 1,000 mls @ 999 mls/hr IV ONETIME ONE Stop: 11/09/17 21:00 Last Admin: 11/09/17 20:20 Dose: 999 mls/hr Sodium Chloride (Normal Saline) 750 mls @ 125 mls/hr IV ASDIRECTED [facility] Stop: 11/10/17 03:29 Last Admin: 11/09/17 20:57 Dose: 125 mls/hr Sodium Chloride (Normal Saline) 1,000 mls @ 125 mls/hr IV ASDIRECTED [facility] Last Admin: 11/10/17 06:35 Dose: 75 mls/hr Piperacillin Sod/Tazobactam (Sod 4.5 gm/ Sodium Chloride) 100 mls @ 25 mls/hr IV Q12H [facility] Last Admin: 11/11/17 20:25 Dose: 25 mls/hr Sodium Chloride (Normal Saline) 1,000 mls @ 125 mls/hr IV ASDIRECTED [facility] Stop: 11/11/17 03:30 Last Admin: 11/11/17 01:32 Dose: 125 mls/hr Piperacillin Sod/Tazobactam (Sod 4.5 gm/ Sodium Chloride) 100 mls @ 25 mls/hr IV Q8H [facility] Lidocaine HCl (Xylocaine 1%) 50 ml INJECT NOW STA Stop: 11/09/17 17:31 Last Admin: 11/09/17 20:53 Dose: Not Given Linezolid (Zyvox) 600 mg PO Q12H [facility] Non-FormPure L- [place] Hcl 1,000 Mg 1,000 mg PO DAILY [facility] Oxycodone/Acetaminophen (Percocet 325-5 Mg) 1 tab PO Q12HR PRN PRN Reason: Pain (severe 7-10) Last Admin: 11/10/17 13:00 Dose: 1 tab Saccharomyces Boulardii (Florastor) 500 mg PO DAILY [facility] Last Admin: 11/11/17 08:40 Dose: 500 mg - Exam Quality Assessment: Supplemental Oxygen, Urine Catheter (chronic ), DVT Prophylaxis General: Alert, Oriented, No Acute Distress HEENT: Pupils Equal, Pupils Reactive, EOMI, Mucous Membr. Moist/[place] Neck: Supple, Trachea Midline, No JVD Lungs: Clear to Auscultation, Normal Respiratory Effort Cardiovascular: Regular Rate, Regular Rhythm, No Murmurs GI/Abdominal Exam: Normal Bowel Sounds, Soft, Non-Tender, No Organomegaly, No Distention, No Abnormal Bruit, No Mass, Pelvis Stable (Male) Exam: Deferred Extremities: Normal Inspection, Normal Range of Motion, Non-Tender, No Pedal Edema Peripheral Pulses: 1+: Posterior Tibial (L), Posterior Tibial (R), Dorsalis Pedis (L), Dorsalis Pedis (R), 2+: Radial (L), Radial (R) Skin: Warm, Dry, Intact Neurological: No New Focal Deficit Psy/Mental Status: Alert, Normal Affect, Normal Mood - Problem List & Annotations (1) CAD (coronary artery disease) SNOMED Code(s): 08428500 Code(s): I25.10 - ATHSCL HEART DISEASE OF [place] CORONARY ARTERY W/O ANG PCTRS Status: Chronic Priority: Medium Current Visit: No Qualifiers: Coronary Disease-Associated Artery/Lesion type: unspecified vessel or lesion type [place] vs. transplanted heart: unspecified whether [place] or transplanted heart Associated angina: angina presence unspecified Qualified Code(s): I25.10 - Atherosclerotic heart disease of [place] coronary artery without angina pectoris (2) Chronic pain SNOMED Code(s): 53709798 Code(s): G89.29 - OTHER CHRONIC PAIN Status: Chronic Priority: Medium Current Visit: Yes Qualifiers: Chronic pain type: other chronic pain Qualified Code(s): G89.29 - Other chronic pain (3) Hx of CABG SNOMED Code(s): 339269877, 542689946 Code(s): Z95.1 - PRESENCE OF AORTOCORONARY BYPASS GRAFT Status: Chronic Priority: Low Current Visit: No (4) Hyperlipidemia SNOMED Code(s): 23610537 Code(s): E78.5 - HYPERLIPIDEMIA, UNSPECIFIED Status: Chronic Priority: Low Current Visit: No Qualifiers: Hyperlipidemia type: unspecified Qualified Code(s): E78.5 - Hyperlipidemia , unspecified (5) Hypertension SNOMED Code(s): 91971294 Code(s): I10 - ESSENTIAL (PRIMARY) HYPERTENSION Status: Chronic Priority : Medium Current Visit: No Qualifiers: Hypertension type: unspecified Qualified Code(s): I10 - Essential (primary ) hypertension (6) Prostate CA SNOMED Code(s): 758249645 Code(s): C61 - MALIGNANT NEOPLASM OF PROSTATE Status: Chronic Priority: Medium Current Visit: Yes (7) UTI (urinary tract infection) due to urinary indwelling catheter SNOMED Code(s): 821303665 Code(s): T83.511A - I/I REACT D/T INDWELLING URETHRAL CATHETER, INIT; N39.0 - URINARY TRACT INFECTION, SITE NOT SPECIFIED Status: Acute Priority: High Current Visit: Yes (8) Hypoxia SNOMED Code(s): 361509430 Code(s): R09.02 - HYPOXEMIA Status: Chronic Priority: Medium Current Visit: Yes (9) COLD, Chronic obstructive lung disease SNOMED Code(s): 36569687 Code(s): J44.9 - CHRONIC OBSTRUCTIVE PULMONARY DISEASE, UNSPECIFIED Status : Chronic Priority: Medium Current Visit: No (10) Renal impairment SNOMED Code(s): 900867694 Code(s): N28.9 - DISORDER OF KIDNEY AND URETER, UNSPECIFIED Status: Chronic Priority: Medium Current Visit: No (11) C. difficile diarrhea SNOMED Code(s): 5047838341859 Code(s): A04.72 - ENTEROCOLITIS D/T CLOSTRIDIUM DIFFICILE, NOT SPCF RECUR Status: Acute Priority: High Current Visit: Yes (12) Anemia SNOMED Code(s): 596433861 Code(s): D64.9 - ANEMIA, UNSPECIFIED Status: Chronic Priority: Medium Current Visit: Yes Qualifiers: Anemia type: unspecified type Qualified Code(s): D64.9 - Anemia, unspecified (13) History of deep venous thrombosis or pulmonary embolus SNOMED Code(s): 588047787 Code(s): KFZ8056 - Status: Chronic Priority: Medium Current Visit: No (14) Bladder spasms Status: Chronic Priority: Medium Current Visit: No - Problem List Review Problem List Initiated/Reviewed/Updated: Yes - Plan Plan:: I/P: Acute: AUTI -Reports weakness, seeing blood in urine -Risk factor: Chronic suprapubic catheter - changed on 11/08/17 -Hx/o prostate Ca, [place] 9, S/P Lupron -Belladonna alkalloid suppository for spasms -Failed outpatient therapy -No leukocytosis -Lactic acid 1.5-->0.8-->0.9 -CRP 9.9-->7.1-->4.1 -Positive UA -Urine culture and sensitivities - gram negative rods so far -Was given IV cefepime and zosyn prior -> switch to PO keflex C. difficile infection -History of frequent diarrhea and frequent antibiotics -Positive stool study -Moderate WBCs on stool study -Oral vancomycin -Attempt to wean from other antibiotics as soon as possible -IV fluids -Contact precautions Anemia -Appears to be chronic with baseline between 11-12 -Hgb 11.7-->11.3-->9.4-->10.5 -Likely exacerbated by IV fluids -Monitor Resolved: Renal injury -Acute on chronic -Baseline GFR appears to be upper 40's to low 50's -BUN 51-50-47-32 -Creatinine 3.1-->2.8-->2.4-->1.8-->1.2 -eGFR 19-->22-->26-->36-->58 -IV fluids Dehydration -Kidney function as above -Dry mucous membranes -Concentrated urine -Anion gap 17.9-->WNL now Chronic: HTN HLD GERD TIA CAD/[place]/CABG Chronic pain 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 Irwin LOS>96 hours, has two infectious processes, slowly responding.
[2017-11-12] MEDS: Metoprolol Tartrate 50 MG Tab PO SCH ×2 (09:59→21:08)
[2017-11-12] MEDS: Isosorbide Mononitrate 30 MG Tab.ER PO SCH (09:59)
[2017-11-12] MEDS: Acetaminophen/oxyCODONE 325-5 MG Tab PO PRN ×2 (12:10→18:12)
[2017-11-12] MEDS ORDERED: Cephalexin 500 MG Cap PO SCH (21:00)
[2017-11-12] MEDS: Meropenem 500 MG in Sodium Chloride 0.9% 100 ML IV SCH (22:16)
[2017-11-13] MEDS: Meropenem 500 MG in Sodium Chloride 0.9% 100 ML IV SCH ×3 (05:00→20:33)
[2017-11-13] MEDS: Pantoprazole 40 MG Tab.CR PO SCH (06:07)
--- NOTE | 2017-11-13 08:48 | PCM.PN ---
- General Info Date of Service: 11/13/17 Admission Dx/Problem (Free Text): Admission Diagnosis/Problem Admission Diagnosis/Problem Sepsis Subjective Update: In to see Aj. He is lying in bed. He is quite upset about having a cognitive evaluation and states he will refuse from here on out. Order will be canceled. PT and nursing report several episodes of confusion which resolve prior to my evaluation. Nursing is working on establishing a new IV on him. His sensitivities are back and several resistant antibiotics are listed. Discussed case with pharmacy and they gave recommendations. Septra and meropenem decided on. Still receiving oral vancomycin for C diff. He is still reporting penis pain when he has BM. Has history of bladder spasms. Otherwise labs are improving. No other patient concerns. Nursing has no concerns. Will recommend urology consult at discharge. Functional Status: Reports: Pain Controlled, Tolerating Diet, Ambulating, Urinating. Denies: New Symptoms - Review of Systems General: Reports: No Symptoms. Denies: Fever, Weakness HEENT: Reports: No Symptoms Pulmonary: Reports: Shortness of Breath (chronic - baseline). Denies: Cough, Sputum, Wheezing Cardiovascular: Reports: No Symptoms. Denies: Chest Pain Gastrointestinal: Reports: No Symptoms. Denies: Abdominal Pain, Constipation, Diarrhea, Nausea, Vomiting Genitourinary: Reports: Pain (penis pain with spasms ) Musculoskeletal: Reports: No Symptoms Skin: Reports: No Symptoms Neurological: Reports: No Symptoms Psychiatric: Reports: No Symptoms - Patient Data Vitals - Most Recent: Last Vital Signs Temp 98.1 F 11/13/17 07:35 Pulse 63 11/13/17 07:35 Resp 16 11/13/17 07:35 BP 146/62 H 11/13/17 07:35 Pulse Ox 94 L 11/13/17 07:35 Weight - Most Recent: 207 lb 14.4 oz I&O - Last 24 Hours: Intake & Output 11/12/17 11/13/17 11/13/17 22:59 06:59 14:59 Intake Total 2061 2650 Output Total 1750 1000 Balance 311 1650 Lab Results Last 24 Hours: Laboratory Results - last 24 hr 11/13/17 11/13/17 11/13/17 Range/Units 06:18 06:18 06:18 WBC 5.26 (4.23-9.07) K/mm3 RBC 4.14 L (4.63-6.08) M/mm3 Hgb 11.6 L (13.7-17.5) gm/L Hct 39.6 L (40.1-51.0) % MCV 95.7 H (79.0-92.2) fl MCH 28.0 (25.7-32.2) pg MCHC 29.3 L (32.2-35.5) g/dl RDW Std Deviation 49.6 H (35.1-43.9) fL Plt Count 165 (163-337) K/mm3 MPV 10.4 (9.4-12.3) fl Neut % (Auto) 65.4 (34.0-67.9) % Lymph % (Auto) 23.4 (21.8-53.1) % [place] % (Auto) 7.8 (5.3-12.2) % Eos % (Auto) 3.0 (0.8-7.0) Baso % (Auto) 0.2 (0.1-1.2) % Neut # (Auto) 3.44 (1.78-5.38) K/mm3 Lymph # (Auto) 1.23 L (1.32-3.57) K/mm3 [place] # (Auto) 0.41 (0.30-0.82) K/mm3 Eos # (Auto) 0.16 (0.04-0.54) K/mm3 Baso # (Auto) 0.01 (0.01-0.08) K/mm3 Manual Slide Review Normal smear Sodium 143 (136-145) mEq/L Potassium 4.8 (3.5-5.1) mEq/L Chloride 110 H (98-107) mEq/L Carbon Dioxide 27 (21-32) mEq/L Anion Gap 10.8 (5-15) BUN 17 (7-18) mg/dL Creatinine 1.1 (0.7-1.3) mg/dL Est Cr Clr Drug Dosing 49.10 mL/min Estimated GFR (MDRD) > 60 (>60) mL/min BUN/Creatinine Ratio 15.5 (14-18) Glucose 110 (83-115) mg/dL Lactic Acid 0.9 (0.4-2.0) mmol/L Calcium 8.7 (8.5-10.1) mg/dL Magnesium 1.8 (1.8-2.4) mg/dl C-Reactive Protein 2.6 H* (<1.0) mg/dL Jose David Results Last 24 Hours: Microbiology 11/09/17 17:45 Aerobic Blood Culture - Preliminary Blood - Venous - Lab Draw NO GROWTH AFTER 3 DAYS Anaerobic Blood Culture - Preliminary NO GROWTH AFTER 3 DAYS 11/09/17 17:20 Aerobic Blood Culture - Preliminary Blood - Venous NO GROWTH AFTER 3 DAYS Anaerobic Blood Culture - Preliminary NO GROWTH AFTER 3 DAYS 11/09/17 17:30 Urine Culture - Preliminary Urine, Bladder Providencia Rettgeri Gram Positive Cocci 11/10/17 12:20 Stool Culture - Preliminary Stool / Feces - Final - Final Med Orders - Current: Current Medications Acetaminophen (Tylenol) 650 mg PO Q4H PRN PRN Reason: FEVER/PAIN Last Admin: 11/09/17 20:21 Dose: 650 mg Ascorbic Acid (Vitamin C) 500 mg PO DAILY [facility] Last Admin: 11/12/17 09:30 Dose: 500 mg Aspirin (Aspirin) 81 mg PO DAILY [facility] Last Admin: 11/12/17 09:30 Dose: 81 mg Belladonna Alkaloids/Opium (B & O Supprettes No. 15a) 1 supp RECTAL Q4H PRN PRN Reason: Cramping Last Admin: 11/12/17 20:58 Dose: 1 supp Calcium Carbonate (Calcium Carbonate/Vitamin D 600 Mg-200 Unit) 1 tab PO DAILY [facility] Last Admin: 11/12/17 09:30 Dose: 1 tab Cholestyramine Resin (Prevalite Packet) 4 gm PO BID [facility] Last Admin: 11/12/17 21:01 Dose: 4 gm Docusate Sodium (Colace) 100 mg PO DAILY [facility] Last Admin: 11/12/17 09:30 Dose: 100 mg Flunisolide (Nasalide Nasal [place]) 0 ml NASBOTH BID [facility] Last Admin: 11/12/17 20:58 Dose: 2 spray Hydralazine HCl (Apresoline) 20 mg IVPUSH Q6H PRN PRN Reason: Hypertension Sodium Chloride (Normal Saline) 1,000 mls @ 75 mls/hr IV ASDIRECTED [facility] Last Admin: 11/12/17 21:12 Dose: 75 mls/hr Meropenem 500 mg/ Sodium (Chloride) 100 mls @ 200 mls/hr IV Q8H [facility] Last Admin: 11/13/17 05:00 Dose: 200 mls/hr Isosorbide Mononitrate (Imdur) 30 mg PO DAILY [facility] Last Admin: 11/12/17 09:59 Dose: Not Given Magnesium Sulfate (Pharmacy To Dose - Magnesium Replacement) 1 dose .XX ASDIRECTED [facility] Metoprolol Tartrate (Lopressor) 50 mg PO BID [facility] Last Admin: 11/12/17 21:08 Dose: 50 mg Nitroglycerin (Nitrostat) 0.4 mg SL ASDIRECTED PRN PRN Reason: Chest Pain Ondansetron HCl (Zofran) 4 mg IVPUSH Q8H PRN PRN Reason: Nausea/Vomiting Oxycodone/Acetaminophen (Percocet 325-5 Mg) 1 tab PO Q6H PRN PRN Reason: Pain (severe 7-10) Last Admin: 11/12/17 18:12 Dose: 1 tab Pantoprazole Sodium (Protonix) 40 mg PO DAILY@0700 [facility] Last Admin: 11/13/17 06:07 Dose: 40 mg Trilipix 45 Mg 45 each PO DAILY [facility] Last Admin: 11/12/17 23:48 Dose: Not Given Potassium Chloride (Pharmacy To Dose - Potassium Replacement) 1 dose .XX ASDIRECTED [facility] Rivaroxaban (Xarelto) 15 mg PO DAILY [facility] Last Admin: 11/12/17 09:30 Dose: 15 mg Rosuvastatin Calcium (Crestor) 10 mg PO DAILY [facility] Last Admin: 11/12/17 09:29 Dose: 10 mg Sodium Chloride (Saline Flush) 10 ml FLUSH ASDIRECTED PRN PRN Reason: Keep Vein Open Last Admin: 11/09/17 18:06 Dose: 10 ml Tamsulosin HCl (Flomax) 0.4 mg PO DAILY [facility] Last Admin: 11/12/17 09:29 Dose: 0.4 mg Vancomycin HCl (First-Vancomycin 50 Compounding Kit) 125 mg PO TID [facility] Last Admin: 11/12/17 21:08 Dose: 2.5 ml Discontinued Medications Belladonna Alkaloids/Opium (B & O Supprettes No. 15a) 1 supp RECTAL Q6H PRN PRN Reason: bladder spasms Last Admin: 11/10/17 13:00 Dose: 1 supp Cephalexin (Keflex) 500 mg PO Q12H [facility] Stop: 11/14/17 21:01 Last Admin: 11/12/17 23:30 Dose: Not Given Hydromorphone HCl (Dilaudid) 1 mg IVPUSH ONETIME ONE Stop: 11/10/17 13:18 Last Admin: 11/10/17 14:41 Dose: 1 mg Cefepime HCl 1 gm/ Premix 50 mls @ 100 mls/hr IV ONETIME ONE Stop: 11/09/17 18:10 Last Admin: 11/09/17 22:06 Dose: Not Given Sodium Chloride (Normal Saline) 1,000 mls @ 1,000 mls/hr IV ONETIME ONE Stop: 11/09/17 18:40 Last Admin: 11/09/17 18:05 Dose: 1,000 mls/hr Cefepime HCl 2 gm/ Premix 50 mls @ 100 mls/hr IV ONETIME STA Stop: 11/09/17 18:23 Last Admin: 11/09/17 18:03 Dose: 100 mls/hr Cefepime HCl (Maxipime In D5w 2 Gm/50 Ml) Confirm Administered Dose 50 mls @ as directed .ROUTE .STK-MED ONE Stop: 11/09/17 17:53 Last Admin: 11/09/17 18:06 Dose: Not Given Piperacillin Sod/Tazobactam (Sod 4.5 gm/ Sodium Chloride) 100 mls @ 200 mls/hr IV ONETIME ONE Stop: 11/09/17 20:29 Last Admin: 11/09/17 20:56 Dose: 200 mls/hr Sodium Chloride (Normal Saline) 1,000 mls @ 999 mls/hr IV ONETIME ONE Stop: 11/09/17 21:00 Last Admin: 11/09/17 20:20 Dose: 999 mls/hr Sodium Chloride (Normal Saline) 750 mls @ 125 mls/hr IV ASDIRECTED [facility] Stop: 11/10/17 03:29 Last Admin: 11/09/17 20:57 Dose: 125 mls/hr Sodium Chloride (Normal Saline) 1,000 mls @ 125 mls/hr IV ASDIRECTED [facility] Last Admin: 11/10/17 06:35 Dose: 75 mls/hr Piperacillin Sod/Tazobactam (Sod 4.5 gm/ Sodium Chloride) 100 mls @ 25 mls/hr IV Q12H [facility] Last Admin: 11/11/17 20:25 Dose: 25 mls/hr Sodium Chloride (Normal Saline) 1,000 mls @ 125 mls/hr IV ASDIRECTED [place] Stop: 11/11/17 03:30 Last Admin: 11/11/17 01:32 Dose: 125 mls/hr Piperacillin Sod/Tazobactam (Sod 4.5 gm/ Sodium Chloride) 100 mls @ 25 mls/hr IV Q8H [facility] Piperacillin Sod/Tazobactam (Sod 4.5 gm/ Dextrose/Water) 100 mls @ 25 mls/hr IV Q8H [facility] Last Admin: 11/12/17 09:17 Dose: 25 mls/hr Lidocaine HCl (Xylocaine 1%) 50 ml INJECT NOW STA Stop: 11/09/17 17:31 Last Admin: 11/09/17 20:53 Dose: Not Given Linezolid (Zyvox) 600 mg PO Q12H [facility] Non-FormPure L- [place]ine Hcl 1,000 Mg 1,000 mg PO DAILY [facility] Oxycodone/Acetaminophen (Percocet 325-5 Mg) 1 tab PO Q12HR PRN PRN Reason: Pain (severe 7-10) Last Admin: 11/10/17 13:00 Dose: 1 tab Saccharomyces Boulardii (Florastor) 500 mg PO DAILY [facility] Last Admin: 11/11/17 08:40 Dose: 500 mg Saccharomyces Boulardii (Florastor) 250 mg PO BID [facility] Last Admin: 11/12/17 09:29 Dose: 250 mg - Exam Quality Assessment: Supplemental Oxygen (chronic ), Urine Catheter (chronic suprapubic ), DVT Prophylaxis General: Alert, Oriented, Cooperative, No Acute Distress HEENT: Pupils Equal, Pupils Reactive, EOMI, Mucous Membr. Moist/[place] Neck: Supple, Trachea Midline, No JVD Lungs: Clear to Auscultation, Normal Respiratory Effort, Decreased Breath Sounds Cardiovascular: Regular Rate, Regular Rhythm GI/Abdominal Exam: Normal Bowel Sounds, Soft, Non-Tender (Male) Exam: Deferred Back Exam: Normal Inspection, Full Range of Motion Extremities: Normal Inspection, Normal Range of Motion, Non-Tender, No Pedal Edema, Normal Capillary Refill Peripheral Pulses: 1+: Posterior Tibial (L), Posterior Tibial (R), Dorsalis Pedis (L), Dorsalis Pedis (R), 2+: Radial (L), Radial (R) Skin: Warm, Dry, Intact Neurological: No New Focal Deficit Psy/Mental Status: Alert, Normal Affect, Normal Mood - Problem List & Annotations (1) CAD (coronary artery disease) SNOMED Code(s): 01355724 Code(s): I25.10 - ATHSCL HEART DISEASE OF [place] CORONARY ARTERY W/O ANG PCTRS Status: Chronic Priority: Medium Current Visit: No Qualifiers: Coronary Disease-Associated Artery/Lesion type: unspecified vessel or lesion type [place] vs. transplanted heart: unspecified whether [place] or transplanted heart Associated angina: angina presence unspecified Qualified Code(s): I25.10 - Atherosclerotic heart disease of [place] coronary artery without angina pectoris (2) Chronic pain SNOMED Code(s): 30857492 Code(s): G89.29 - OTHER CHRONIC PAIN Status: Chronic Priority: Medium Current Visit: Yes Qualifiers: Chronic pain type: other chronic pain Qualified Code(s): G89.29 - Other chronic pain (3) Hx of CABG SNOMED Code(s): 958306380, 546562972 Code(s): Z95.1 - PRESENCE OF AORTOCORONARY BYPASS GRAFT Status: Chronic Priority: Low Current Visit: No (4) Hyperlipidemia SNOMED Code(s): 68323573 Code(s): E78.5 - HYPERLIPIDEMIA, UNSPECIFIED Status: Chronic Priority: Low Current Visit: No Qualifiers: Hyperlipidemia type: unspecified Qualified Code(s): E78.5 - Hyperlipidemia , unspecified (5) Hypertension SNOMED Code(s): 85113523 Code(s): I10 - ESSENTIAL (PRIMARY) HYPERTENSION Status: Chronic Priority : Medium Current Visit: No Qualifiers: Hypertension type: unspecified Qualified Code(s): I10 - Essential (primary ) hypertension (6) Prostate CA SNOMED Code(s): 756535909 Code(s): C61 - MALIGNANT NEOPLASM OF PROSTATE Status: Chronic Priority: Medium Current Visit: Yes (7) UTI (urinary tract infection) due to urinary indwelling catheter SNOMED Code(s): 991238462 Code(s): T83.511A - I/I REACT D/T INDWELLING URETHRAL CATHETER, INIT; N39.0 - URINARY TRACT INFECTION, SITE NOT SPECIFIED Status: Acute Priority: High Current Visit: Yes Qualifiers: Indwelling urinary catheter type: indwelling urethral catheter Encounter type: initial encounter Qualified Code(s): T83.511A - Infection and inflammatory reaction due to indwelling urethral catheter, initial encounter; N39.0 - Urinary tract infection, site not specified (8) Hypoxia SNOMED Code(s): 360149921 Code(s): R09.02 - HYPOXEMIA Status: Chronic Priority: Medium Current Visit: Yes (9) COLD, Chronic obstructive lung disease SNOMED Code(s): 48506185 Code(s): J44.9 - CHRONIC OBSTRUCTIVE PULMONARY DISEASE, UNSPECIFIED Status : Chronic Priority: Medium Current Visit: No (10) Renal impairment SNOMED Code(s): 250614934 Code(s): N28.9 - DISORDER OF KIDNEY AND URETER, UNSPECIFIED Status: Chronic Priority: Medium Current Visit: No (11) C. difficile diarrhea SNOMED Code(s): 6281155530029 Code(s): A04.72 - ENTEROCOLITIS D/T CLOSTRIDIUM DIFFICILE, NOT SPCF RECUR Status: Acute Priority: High Current Visit: Yes (12) Anemia SNOMED Code(s): 600937380 Code(s): D64.9 - ANEMIA, UNSPECIFIED Status: Chronic Priority: Medium Current Visit: Yes Qualifiers: Anemia type: unspecified type Qualified Code(s): D64.9 - Anemia, unspecified (13) History of deep venous thrombosis or pulmonary embolus SNOMED Code(s): 812379028 Code(s): VDB5161 - Status: Chronic Priority: Medium Current Visit: No (14) Bladder spasms Status: Chronic Priority: Medium Current Visit: No (15) Infection with methicillin-resistant Staphylococcus aureus (MRSA) SNOMED Code(s): 865849451 Code(s): A49.02 - METHICILLIN RESIS STAPH INFECTION, UNSP SITE Status: Acute Priority: High Current Visit: Yes Annotation/Comment:: in urine - Problem List Review Problem List Initiated/Reviewed/Updated: Yes - My Orders Last 24 Hours: My Active Orders 11/12/17 10:00 Magnesium Rep Pharmacy to Dose [Pharmacy to Dose - Magnesium Replacement] 1 dose .XX ASDIRECTED Potassium Rep Pharmacy to Dose [Pharmacy to Dose - Potassium Replacement] 1 dose .XX ASDIRECTED - Plan Plan:: I/P: Acute: AUTI -Reports weakness, seeing blood in urine -Risk factor: Chronic suprapubic catheter - changed on 11/08/17 -Hx/o prostate Ca, [place] 9, S/P Lupron -Belladonna alkalloid suppository for spasms -Failed outpatient therapy -No leukocytosis -Lactic acid 1.5-->0.8-->0.9 -CRP 9.9-->7.1-->4.1-->2.6 -Positive UA -Blood cultures negative after 3 days -Urine culture and sensitivities - Providencia Rettgeri and MRSA -Was given IV cefepime and zosyn prior -> switch to PO keflex -> upgrade to septra and Meropenem C. difficile infection -History of frequent diarrhea and frequent antibiotics -Positive stool study -Moderate WBCs on stool study -Oral vancomycin -Attempt to wean from other antibiotics as soon as possible -IV fluids -Contact precautions Anemia, improving -Appears to be chronic with baseline between 11-12 -Hgb 11.7-->11.3-->9.4-->10.5-->11.6 -Likely exacerbated by IV fluids -Monitor Resolved: Renal injury -Acute on chronic -Baseline GFR appears to be upper 40's to low 50's -BUN 51-50-47-32 -Creatinine 3.1-->2.8-->2.4-->1.8-->1.2 -eGFR 19-->22-->26-->36-->58 -IV fluids Dehydration -Kidney function as above -Dry mucous membranes -Concentrated urine -Anion gap 17.9-->WNL now Chronic: HTN HLD GERD TIA CAD/NC/CABG Chronic pain 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 Irwin LOS>96 hours: has two infectious processes, multiple resistant antibiotics and need for continued IV antibiotics
[2017-11-13] MEDS: Cholestyramine/Aspartame Powder 4 GM Packet PO SCH ×2 (08:59→20:41)
[2017-11-13] MEDS: Isosorbide Mononitrate 30 MG Tab.ER PO SCH (08:59)
[2017-11-13] MEDS: Metoprolol Tartrate 50 MG Tab PO SCH ×2 (09:00→20:38)
[2017-11-13] MEDS: TRILIPIX PO SCH (09:01)
[2017-11-13] MEDS: Rivaroxaban 10 MG Tab PO SCH (09:01)
[2017-11-13] MEDS: Docusate Sodium 100 MG Cap PO SCH (09:01)
[2017-11-13] MEDS: Ascorbic Acid 500 MG Tab PO SCH (09:01)
[2017-11-13] MEDS: Rosuvastatin 10 MG Tab PO SCH (09:01)
[2017-11-13] MEDS: Vancomycin 50 MG/ML 150ML Oral Solution Kit PO SCH ×3 (09:01→20:43)
[2017-11-13] MEDS: Tamsulosin 0.4 MG Cap.ER PO SCH (09:01)
[2017-11-13] MEDS: Aspirin 81 MG Tab.Chew PO SCH (09:01)
[2017-11-13] MEDS: Calcium Carbonate/Vitamin D3 600 MG-200 Units Tab PO SCH (09:01)
[2017-11-13] MEDS: Acetaminophen/oxyCODONE 325-5 MG Tab PO PRN (10:32)
[2017-11-13] MEDS: Belladonna Alkaloids/Opium 16.2-30 MG Supp RECTAL PRN (10:32)
[2017-11-13] MEDS ORDERED: Meropenem 500 MG SDV ONE ×2 (12:23→20:07)
[2017-11-13] MEDS: Sulfamethoxazole/Trimethoprim 800-160 MG Tab PO SCH ×2 (13:43→20:43)
[2017-11-14] MEDS: Meropenem 500 MG in Sodium Chloride 0.9% 100 ML IV SCH ×3 (05:33→21:13)
--- NOTE | 2017-11-14 06:28 | PCM.PN ---
- General Info Date of Service: 11/14/17 Admission Dx/Problem (Free Text): Admission Diagnosis/Problem Admission Diagnosis/Problem Sepsis Subjective Update: In to see Aj today. He has been somewhat depressed. In talking with him it becomes apparent that he mistook our explanation of what his happening with him. He was under the impression that he has bacteremia which is not the case. We had a detailed discussion about his prognosis and diagnosis. He has no other concerns. Nursing has no concerns. He has had some milder penis pain today. He has had a formed BM. Labs continue to look good. Functional Status: Reports: Pain Controlled, Tolerating Diet, Ambulating, Urinating. Denies: New Symptoms - Review of Systems General: Reports: No Symptoms. Denies: Fever, Weakness, Fatigue, Malaise HEENT: Reports: No Symptoms Pulmonary: Reports: Shortness of Breath (at baseline ), Wheezing (at baseline ) . Denies: Cough, Sputum Cardiovascular: Reports: Dyspnea on Exertion (at baseline ). Denies: Chest Pain , Palpitations Gastrointestinal: Reports: No Symptoms. Denies: Abdominal Pain, Constipation, Diarrhea, Nausea, Vomiting Genitourinary: Reports: Pain (Penis pain during bowel movements ) Musculoskeletal: Reports: No Symptoms Skin: Reports: No Symptoms Neurological: Reports: No Symptoms Psychiatric: Reports: No Symptoms - Patient Data Vitals - Most Recent: Last Vital Signs Temp 97.2 F 11/14/17 03:58 Pulse 72 11/14/17 03:58 Resp 16 11/14/17 03:58 BP 108/63 11/14/17 03:58 Pulse Ox 95 11/14/17 03:58 Weight - Most Recent: 207 lb 14.4 oz I&O - Last 24 Hours: Intake & Output 11/13/17 11/13/17 11/14/17 14:59 22:59 06:59 Intake Total 300 2467 850 Output Total 1800 1850 Balance 300 667 -1000 Lab Results Last 24 Hours: Laboratory Results - last 24 hr 11/13/17 11/13/17 11/13/17 Range/Units 06:18 06:18 06:18 WBC 5.26 (4.23-9.07) K/mm3 RBC 4.14 L (4.63-6.08) M/mm3 Hgb 11.6 L (13.7-17.5) gm/L Hct 39.6 L (40.1-51.0) % MCV 95.7 H (79.0-92.2) fl MCH 28.0 (25.7-32.2) pg MCHC 29.3 L (32.2-35.5) g/dl RDW Std Deviation 49.6 H (35.1-43.9) fL Plt Count 165 (163-337) K/mm3 MPV 10.4 (9.4-12.3) fl Neut % (Auto) 65.4 (34.0-67.9) % Lymph % (Auto) 23.4 (21.8-53.1) % [place] % (Auto) 7.8 (5.3-12.2) % Eos % (Auto) 3.0 (0.8-7.0) Baso % (Auto) 0.2 (0.1-1.2) % Neut # (Auto) 3.44 (1.78-5.38) K/mm3 Lymph # (Auto) 1.23 L (1.32-3.57) K/mm3 [place] # (Auto) 0.41 (0.30-0.82) K/mm3 Eos # (Auto) 0.16 (0.04-0.54) K/mm3 Baso # (Auto) 0.01 (0.01-0.08) K/mm3 Manual Slide Review Normal smear Sodium 143 (136-145) mEq/L Potassium 4.8 (3.5-5.1) mEq/L Chloride 110 H (98-107) mEq/L Carbon Dioxide 27 (21-32) mEq/L Anion Gap 10.8 (5-15) BUN 17 (7-18) mg/dL Creatinine 1.1 (0.7-1.3) mg/dL Est Cr Clr Drug Dosing 49.10 mL/min Estimated GFR (MDRD) > 60 (>60) mL/min BUN/Creatinine Ratio 15.5 (14-18) Glucose 110 (83-115) mg/dL Lactic Acid 0.9 (0.4-2.0) mmol/L Calcium 8.7 (8.5-10.1) mg/dL Magnesium 1.8 (1.8-2.4) mg/dl C-Reactive Protein 2.6 H* (<1.0) mg/dL Jose David Results Last 24 Hours: Microbiology 11/09/17 17:45 Aerobic Blood Culture - Preliminary Blood - Venous - Lab Draw NO GROWTH AFTER 4 DAYS Anaerobic Blood Culture - Preliminary NO GROWTH AFTER 4 DAYS 11/09/17 17:20 Aerobic Blood Culture - Preliminary Blood - Venous NO GROWTH AFTER 4 DAYS Anaerobic Blood Culture - Preliminary NO GROWTH AFTER 4 DAYS 11/10/17 12:20 Stool Culture - Final Stool / Feces - Final - Final 11/09/17 17:30 Urine Culture - Final Urine, Bladder Providencia Rettgeri (Mrsa) Staphylococcus Aureus Med Orders - Current: Current Medications Acetaminophen (Tylenol) 650 mg PO Q4H PRN PRN Reason: FEVER/PAIN Last Admin: 11/09/17 20:21 Dose: 650 mg Ascorbic Acid (Vitamin C) 500 mg PO DAILY [facility] Last Admin: 11/13/17 09:01 Dose: 500 mg Aspirin (Aspirin) 81 mg PO DAILY [facility] Last Admin: 11/13/17 09:01 Dose: 81 mg Belladonna Alkaloids/Opium (B & O Supprettes No. 15a) 1 supp RECTAL Q4H PRN PRN Reason: Cramping Last Admin: 11/13/17 10:32 Dose: 1 supp Calcium Carbonate (Calcium Carbonate/Vitamin D 600 Mg-200 Unit) 1 tab PO DAILY [facility] Last Admin: 11/13/17 09:01 Dose: 1 tab Cholestyramine Resin (Prevalite Packet) 4 gm PO BID [facility] Last Admin: 11/13/17 20:41 Dose: 4 gm Flunisolide (Nasalide Nasal [place]) 0 ml NASBOTH BID [facility] Last Admin: 11/13/17 20:41 Dose: 2 spray Hydralazine HCl (Apresoline) 20 mg IVPUSH Q6H PRN PRN Reason: Hypertension Meropenem 500 mg/ Sodium (Chloride) 100 mls @ 200 mls/hr IV Q8H [facility] Last Admin: 11/14/17 05:33 Dose: 150 mls/hr Isosorbide Mononitrate (Imdur) 30 mg PO DAILY [facility] Last Admin: 11/13/17 08:59 Dose: 30 mg Magnesium Sulfate (Pharmacy To Dose - Magnesium Replacement) 1 dose .XX ASDIRECTED [facility] Metoprolol Tartrate (Lopressor) 50 mg PO BID [facility] Last Admin: 11/13/17 20:38 Dose: Not Given Nitroglycerin (Nitrostat) 0.4 mg SL ASDIRECTED PRN PRN Reason: Chest Pain Ondansetron HCl (Zofran) 4 mg IVPUSH Q8H PRN PRN Reason: Nausea/Vomiting Oxycodone/Acetaminophen (Percocet 325-5 Mg) 1 tab PO Q6H PRN PRN Reason: Pain (severe 7-10) Last Admin: 11/13/17 10:32 Dose: 1 tab Pantoprazole Sodium (Protonix) 40 mg PO DAILY@0700 [facility] Last Admin: 11/13/17 06:07 Dose: 40 mg Trilipix 45 Mg 45 each PO DAILY [facility] Last Admin: 11/13/17 09:01 Dose: Not Given Potassium Chloride (Pharmacy To Dose - Potassium Replacement) 1 dose .XX ASDIRECTED [facility] Rivaroxaban (Xarelto) 15 mg PO DAILY [facility] Last Admin: 11/13/17 09:01 Dose: 15 mg Rosuvastatin Calcium (Crestor) 10 mg PO DAILY [facility] Last Admin: 11/13/17 09:01 Dose: 10 mg Sodium Chloride (Saline Flush) 10 ml FLUSH ASDIRECTED PRN PRN Reason: Keep Vein Open Last Admin: 11/09/17 18:06 Dose: 10 ml Tamsulosin HCl (Flomax) 0.4 mg PO DAILY [facility] Last Admin: 11/13/17 09:01 Dose: 0.4 mg Trimethoprim/Sulfamethoxazole (Septra Ds) 1 tab PO BID [facility] Last Admin: 11/13/17 20:43 Dose: 1 tab Vancomycin HCl (First-Vancomycin 50 Compounding Kit) 125 mg PO TID [facility] Last Admin: 11/13/17 20:43 Dose: 2.5 ml Discontinued Medications Belladonna Alkaloids/Opium (B & O Supprettes No. 15a) 1 supp RECTAL Q6H PRN PRN Reason: bladder spasms Last Admin: 11/10/17 13:00 Dose: 1 supp Cephalexin (Keflex) 500 mg PO Q12H [facility] Stop: 11/14/17 21:01 Last Admin: 11/12/17 23:30 Dose: Not Given Docusate Sodium (Colace) 100 mg PO DAILY [facility] Last Admin: 11/13/17 09:01 Dose: Not Given Hydromorphone HCl (Dilaudid) 1 mg IVPUSH ONETIME ONE Stop: 11/10/17 13:18 Last Admin: 11/10/17 14:41 Dose: 1 mg Cefepime HCl 1 gm/ Premix 50 mls @ 100 mls/hr IV ONETIME ONE Stop: 11/09/17 18:10 Last Admin: 11/09/17 22:06 Dose: Not Given Sodium Chloride (Normal Saline) 1,000 mls @ 1,000 mls/hr IV ONETIME ONE Stop: 11/09/17 18:40 Last Admin: 11/09/17 18:05 Dose: 1,000 mls/hr Cefepime HCl 2 gm/ Premix 50 mls @ 100 mls/hr IV ONETIME STA Stop: 11/09/17 18:23 Last Admin: 11/09/17 18:03 Dose: 100 mls/hr Cefepime HCl (Maxipime In D5w 2 Gm/50 Ml) Confirm Administered Dose 50 mls @ as directed .ROUTE .STK-MED ONE Stop: 11/09/17 17:53 Last Admin: 11/09/17 18:06 Dose: Not Given Piperacillin Sod/Tazobactam (Sod 4.5 gm/ Sodium Chloride) 100 mls @ 200 mls/hr IV ONETIME ONE Stop: 11/09/17 20:29 Last Admin: 11/09/17 20:56 Dose: 200 mls/hr Sodium Chloride (Normal Saline) 1,000 mls @ 999 mls/hr IV ONETIME ONE Stop: 11/09/17 21:00 Last Admin: 11/09/17 20:20 Dose: 999 mls/hr Sodium Chloride (Normal Saline) 750 mls @ 125 mls/hr IV ASDIRECTED [facility] Stop: 11/10/17 03:29 Last Admin: 11/09/17 20:57 Dose: 125 mls/hr Sodium Chloride (Normal Saline) 1,000 mls @ 125 mls/hr IV ASDIRECTED [facility] Last Admin: 11/10/17 06:35 Dose: 75 mls/hr Piperacillin Sod/Tazobactam (Sod 4.5 gm/ Sodium Chloride) 100 mls @ 25 mls/hr IV Q12H [facility] Last Admin: 11/11/17 20:25 Dose: 25 mls/hr Sodium Chloride (Normal Saline) 1,000 mls @ 125 mls/hr IV ASDIRECTED [facility] Stop: 11/11/17 03:30 Last Admin: 11/11/17 01:32 Dose: 125 mls/hr Sodium Chloride (Normal Saline) 1,000 mls @ 75 mls/hr IV ASDIRECTED [facility] Last Admin: 11/12/17 21:12 Dose: 75 mls/hr Piperacillin Sod/Tazobactam (Sod 4.5 gm/ Sodium Chloride) 100 mls @ 25 mls/hr IV Q8H [facility] Piperacillin Sod/Tazobactam (Sod 4.5 gm/ Dextrose/Water) 100 mls @ 25 mls/hr IV Q8H [facility] Last Admin: 11/12/17 09:17 Dose: 25 mls/hr Lidocaine HCl (Xylocaine 1%) 50 ml INJECT NOW STA Stop: 11/09/17 17:31 Last Admin: 11/09/17 20:53 Dose: Not Given Linezolid (Zyvox) 600 mg PO Q12H [facility] Meropenem (Merrem) Confirm Administered Dose 500 mg .ROUTE .STK-MED ONE Stop: 11/13/17 12:24 Last Admin: 11/13/17 17:06 Dose: Not Given Meropenem (Merrem) Confirm Administered Dose 500 mg .ROUTE .STK-MED ONE Stop: 11/13/17 20:08 Last Admin: 11/13/17 20:32 Dose: Not Given Non-FormPure L- Arginine Hcl 1,000 Mg 1,000 mg PO DAILY [facility] Oxycodone/Acetaminophen (Percocet 325-5 Mg) 1 tab PO Q12HR PRN PRN Reason: Pain (severe 7-10) Last Admin: 11/10/17 13:00 Dose: 1 tab Saccharomyces Boulardii (Florastor) 500 mg PO DAILY [facility] Last Admin: 11/11/17 08:40 Dose: 500 mg Saccharomyces Boulardii (Florastor) 250 mg PO BID [facility] Last Admin: 11/12/17 09:29 Dose: 250 mg - Exam Quality Assessment: Supplemental Oxygen, Urine Catheter (chronic ), DVT Prophylaxis General: Alert, Oriented, Cooperative, No Acute Distress HEENT: Pupils Equal, Pupils Reactive, EOMI, Mucous Membr. Moist/[place] Neck: Supple, Trachea Midline Lungs: Normal Respiratory Effort, Decreased Breath Sounds Cardiovascular: Regular Rate, Regular Rhythm GI/Abdominal Exam: Normal Bowel Sounds, Soft, Non-Tender (Male) Exam: Deferred Back Exam: Normal Inspection, Full Range of Motion Extremities: Normal Inspection, Normal Range of Motion, Non-Tender, No Pedal Edema, Normal Capillary Refill Peripheral Pulses: 1+: Posterior Tibial (L), Posterior Tibial (R), Dorsalis Pedis (L), Dorsalis Pedis (R), 2+: Radial (L), Radial (R) Skin: Warm, Dry, Intact Neurological: No New Focal Deficit Psy/Mental Status: Alert, Normal Affect, Normal Mood - Problem List & Annotations (1) CAD (coronary artery disease) SNOMED Code(s): 36456202 Code(s): I25.10 - ATHSCL HEART DISEASE OF [place] CORONARY ARTERY W/O ANG PCTRS Status: Chronic Priority: Medium Current Visit: No Qualifiers: Coronary Disease-Associated Artery/Lesion type: unspecified vessel or lesion type [place] vs. transplanted heart: unspecified whether [place] or transplanted heart Associated angina: angina presence unspecified Qualified Code(s): I25.10 - Atherosclerotic heart disease of [place] coronary artery without angina pectoris (2) Chronic pain SNOMED Code(s): 39703013 Code(s): G89.29 - OTHER CHRONIC PAIN Status: Chronic Priority: Medium Current Visit: Yes Qualifiers: Chronic pain type: other chronic pain Qualified Code(s): G89.29 - Other chronic pain (3) Hx of CABG SNOMED Code(s): 612673233, 626552310 Code(s): Z95.1 - PRESENCE OF AORTOCORONARY BYPASS GRAFT Status: Chronic Priority: Low Current Visit: No (4) Hyperlipidemia SNOMED Code(s): 26203287 Code(s): E78.5 - HYPERLIPIDEMIA, UNSPECIFIED Status: Chronic Priority: Low Current Visit: No Qualifiers: Hyperlipidemia type: unspecified Qualified Code(s): E78.5 - Hyperlipidemia , unspecified (5) Hypertension SNOMED Code(s): 79254718 Code(s): I10 - ESSENTIAL (PRIMARY) HYPERTENSION Status: Chronic Priority : Medium Current Visit: No Qualifiers: Hypertension type: unspecified Qualified Code(s): I10 - Essential (primary ) hypertension (6) Prostate CA SNOMED Code(s): 034755370 Code(s): C61 - MALIGNANT NEOPLASM OF PROSTATE Status: Chronic Priority: Medium Current Visit: Yes (7) UTI (urinary tract infection) due to urinary indwelling catheter SNOMED Code(s): 225864094 Code(s): T83.511A - I/I REACT D/T INDWELLING URETHRAL CATHETER, INIT; N39.0 - URINARY TRACT INFECTION, SITE NOT SPECIFIED Status: Acute Priority: High Current Visit: Yes Qualifiers: Indwelling urinary catheter type: indwelling urethral catheter Encounter type: initial encounter Qualified Code(s): T83.511A - Infection and inflammatory reaction due to indwelling urethral catheter, initial encounter; N39.0 - Urinary tract infection, site not specified (8) Hypoxia SNOMED Code(s): 926468058 Code(s): R09.02 - HYPOXEMIA Status: Chronic Priority: Medium Current Visit: Yes (9) COLD, Chronic obstructive lung disease SNOMED Code(s): 07742931 Code(s): J44.9 - CHRONIC OBSTRUCTIVE PULMONARY DISEASE, UNSPECIFIED Status : Chronic Priority: Medium Current Visit: No (10) Renal impairment SNOMED Code(s): 378941628 Code(s): N28.9 - DISORDER OF KIDNEY AND URETER, UNSPECIFIED Status: Chronic Priority: Medium Current Visit: No (11) C. difficile diarrhea SNOMED Code(s): 6213480052841 Code(s): A04.72 - ENTEROCOLITIS D/T CLOSTRIDIUM DIFFICILE, NOT SPCF RECUR Status: Acute Priority: High Current Visit: Yes (12) Anemia SNOMED Code(s): 277998870 Code(s): D64.9 - ANEMIA, UNSPECIFIED Status: Chronic Priority: Medium Current Visit: Yes Qualifiers: Anemia type: unspecified type Qualified Code(s): D64.9 - Anemia, unspecified (13) History of deep venous thrombosis or pulmonary embolus SNOMED Code(s): 778365454 Code(s): XBU6481 - Status: Chronic Priority: Medium Current Visit: No (14) Bladder spasms Status: Chronic Priority: Medium Current Visit: No (15) Infection with methicillin-resistant Staphylococcus aureus (MRSA) SNOMED Code(s): 938087930 Code(s): A49.02 - METHICILLIN RESIS STAPH INFECTION, UNSP SITE Status: Acute Priority: High Current Visit: Yes Annotation/Comment:: in urine - Problem List Review Problem List Initiated/Reviewed/Updated: Yes - My Orders Last 24 Hours: My Active Orders 11/13/17 08:51 Consult to Spiritual Care [CONS] Routine 11/13/17 12:00 Sulfamethoxazole/Trimethoprim [Septra DS] 1 tab PO BID 11/15/17 05:11 BASIC METABOLIC PANEL,BMP [CHEM] AM CBC WITH AUTO DIFF [HEME] AM CRP [C-REACTIVE PROTEIN] [CHEM] AM MAGNESIUM [CHEM] AM 11/16/17 05:11 BASIC METABOLIC PANEL,BMP [CHEM] AM CBC WITH AUTO DIFF [HEME] AM CRP [C-REACTIVE PROTEIN] [CHEM] AM MAGNESIUM [CHEM] AM 11/17/17 05:11 BASIC METABOLIC PANEL,BMP [CHEM] AM CBC WITH AUTO DIFF [HEME] AM CRP [C-REACTIVE PROTEIN] [CHEM] AM MAGNESIUM [CHEM] AM 11/18/17 05:11 BASIC METABOLIC PANEL,BMP [CHEM] AM CBC WITH AUTO DIFF [HEME] AM CRP [C-REACTIVE PROTEIN] [CHEM] AM MAGNESIUM [CHEM] AM - Plan Plan:: I/P: Acute: AUTI -Reports weakness, seeing blood in urine -Risk factor: Chronic suprapubic catheter - changed on 11/08/17 -Hx/o prostate Ca, [place] 9, S/P Lupron -Belladonna alkalloid suppository for spasms -Failed outpatient therapy -No leukocytosis -Lactic acid 1.5-->0.8-->0.9-->0.8 -CRP 9.9-->7.1-->4.1-->2.6-->1.5 -Positive UA -Blood cultures negative after 4 days -Urine culture and sensitivities - Providencia Rettgeri and MRSA -Was given IV cefepime and zosyn prior -> switch to PO keflex -> upgrade to septra and Meropenem C. difficile infection -History of frequent diarrhea and frequent antibiotics -Positive stool study -Moderate WBCs on stool study -Oral vancomycin -Attempt to wean from other antibiotics as soon as possible -IV fluids -Contact precautions Anemia, improving -Appears to be chronic with baseline between 11-12 -Hgb 11.7-->11.3-->9.4-->10.5-->11.6-->11.4 -Likely exacerbated by IV fluids -Monitor Resolved: Renal injury -Acute on chronic -Baseline GFR appears to be upper 40's to low 50's -BUN 51-50-47-32 -Creatinine 3.1-->2.8-->2.4-->1.8-->1.2 -eGFR 19-->22-->26-->36-->58 -IV fluids Dehydration -Kidney function as above -Dry mucous membranes -Concentrated urine -Anion gap 17.9-->WNL now Chronic: HTN HLD GERD TIA CAD/CT/CABG Chronic pain 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 Iriwn LOS>96 hours: has two infectious processes, multiple resistant antibiotics and need for continued IV antibiotics
[2017-11-14] MEDS: Pantoprazole 40 MG Tab.CR PO SCH (08:03)
[2017-11-14] MEDS: Calcium Carbonate/Vitamin D3 600 MG-200 Units Tab PO SCH (08:25)
[2017-11-14] MEDS: Tamsulosin 0.4 MG Cap.ER PO SCH (08:25)
[2017-11-14] MEDS: Sulfamethoxazole/Trimethoprim 800-160 MG Tab PO SCH ×2 (08:25→21:16)
[2017-11-14] MEDS: Rivaroxaban 10 MG Tab PO SCH (08:25)
[2017-11-14] MEDS: Rosuvastatin 10 MG Tab PO SCH (08:25)
[2017-11-14] MEDS: Cholestyramine/Aspartame Powder 4 GM Packet PO SCH ×2 (08:26→21:14)
[2017-11-14] MEDS: Aspirin 81 MG Tab.Chew PO SCH (08:26)
[2017-11-14] MEDS: Isosorbide Mononitrate 30 MG Tab.ER PO SCH (08:26)
[2017-11-14] MEDS: Ascorbic Acid 500 MG Tab PO SCH (08:26)
[2017-11-14] MEDS: Metoprolol Tartrate 50 MG Tab PO SCH ×2 (08:27→21:16)
[2017-11-14] MEDS: Vancomycin 50 MG/ML 150ML Oral Solution Kit PO SCH ×3 (08:27→21:17)
[2017-11-14] MEDS: TRILIPIX PO SCH (08:30)
[2017-11-14] MEDS ORDERED: Magnesium Oxide 400 MG Tab PO ONE (09:00)
[2017-11-15] MEDS: Meropenem 500 MG in Sodium Chloride 0.9% 100 ML IV SCH (04:13)
[2017-11-15] MEDS: Pantoprazole 40 MG Tab.CR PO SCH (06:27)
[2017-11-15] MEDS ORDERED: Magnesium Oxide 400 MG Tab PO SCH (09:00)
--- NOTE | 2017-11-15 09:16 | PCM.DCSUM1 ---
Discharge Summary - Hospital Course HPI Initial Comments: 87 yo male with PMH prostate cancer with a suprapubic catheter presents with malaise and weakness x 24 hours. No known fever but has had chills. No N/V. Notes decrease appetite - hasn't had anything to eat today and has just had a small amount of water. He reports hematuria. Denied CP, SOB, syncopal/ presyncopal episode. Admits to sharp lower abdominal discomfort which has become constant and progressively worse. Overall generalized weakness and malaise began 24 hours [employer]. Denies history of similar symptoms. The patient is s/p suprapubic catheter change out, POD 1. At that time, he was having some intermittent sharp stabbing pains but was otherwise feeling well. He was sent here for post op evaluation of hypoxic episode during the catheter change, that workup was negative and he was discharged home, 11/08/17. He did not fill his prescription of Zyvox and presents today with increasing abdominal discomfort. On the day of admission, he has a documented UTI, and will be admitted; this is POD 2 - Discharge Data Discharge Date: 11/15/17 (Admit date: 11/09/17) Discharge Disposition: Home, Self-Care 01 Condition: Good - Discharge Diagnosis/Problem(s) (1) CAD (coronary artery disease) SNOMED Code(s): 76490458 ICD Code: I25.10 - ATHSCL HEART DISEASE OF [place] CORONARY ARTERY W/O ANG PCTRS Status: Chronic Priority: Medium Current Visit: No Qualifiers: Coronary Disease-Associated Artery/Lesion type: unspecified vessel or lesion type [place] vs. transplanted heart: unspecified whether [place] or transplanted heart Associated angina: angina presence unspecified Qualified Code(s): I25.10 - Atherosclerotic heart disease of [place] coronary artery without angina pectoris (2) Chronic pain SNOMED Code(s): 06580082 ICD Code: G89.29 - OTHER CHRONIC PAIN Status: Chronic Priority: Medium Current Visit: Yes Qualifiers: Chronic pain type: other chronic pain Qualified Code(s): G89.29 - Other chronic pain (3) Hx of CABG SNOMED Code(s): 211608093, 304005017 ICD Code: Z95.1 - PRESENCE OF AORTOCORONARY BYPASS GRAFT Status: Chronic Priority: Low Current Visit: No (4) Hyperlipidemia SNOMED Code(s): 59952749 ICD Code: E78.5 - HYPERLIPIDEMIA, UNSPECIFIED Status: Chronic Priority: Low Current Visit: No Qualifiers: Hyperlipidemia type: unspecified Qualified Code(s): E78.5 - Hyperlipidemia , unspecified (5) Hypertension SNOMED Code(s): 39431382 ICD Code: I10 - ESSENTIAL (PRIMARY) HYPERTENSION Status: Chronic Priority : Medium Current Visit: No Qualifiers: Hypertension type: unspecified Qualified Code(s): I10 - Essential (primary ) hypertension (6) Prostate CA SNOMED Code(s): 201069678 ICD Code: C61 - MALIGNANT NEOPLASM OF PROSTATE Status: Chronic Priority: Medium Current Visit: Yes (7) UTI (urinary tract infection) due to urinary indwelling catheter SNOMED Code(s): 111898390 ICD Code: T83.511A - I/I REACT D/T INDWELLING URETHRAL CATHETER, INIT; N39.0 - URINARY TRACT INFECTION, SITE NOT SPECIFIED Status: Acute Priority: High Current Visit: Yes Qualifiers: Indwelling urinary catheter type: indwelling urethral catheter Encounter type: initial encounter Qualified Code(s): T83.511A - Infection and inflammatory reaction due to indwelling urethral catheter, initial encounter; N39.0 - Urinary tract infection, site not specified (8) Hypoxia SNOMED Code(s): 623193415 ICD Code: R09.02 - HYPOXEMIA Status: Chronic Priority: Medium Current Visit: Yes (9) COLD, Chronic obstructive lung disease SNOMED Code(s): 83186799 ICD Code: J44.9 - CHRONIC OBSTRUCTIVE PULMONARY DISEASE, UNSPECIFIED Status : Chronic Priority: Medium Current Visit: No (10) Renal impairment SNOMED Code(s): 553362925 ICD Code: N28.9 - DISORDER OF KIDNEY AND URETER, UNSPECIFIED Status: Chronic Priority: Medium Current Visit: No (11) C. difficile diarrhea SNOMED Code(s): 5339526903551 ICD Code: A04.72 - ENTEROCOLITIS D/T CLOSTRIDIUM DIFFICILE, NOT SPCF RECUR Status: Acute Priority: High Current Visit: Yes (12) Anemia SNOMED Code(s): 998011746 ICD Code: D64.9 - ANEMIA, UNSPECIFIED Status: Chronic Priority: Medium Current Visit: Yes Qualifiers: Anemia type: unspecified type Qualified Code(s): D64.9 - Anemia, unspecified (13) History of deep venous thrombosis or pulmonary embolus SNOMED Code(s): 981117845 ICD Code: HFI2564 - Status: Chronic Priority: Medium Current Visit: No (14) Bladder spasms Status: Chronic Priority: Medium Current Visit: No (15) Infection with methicillin-resistant Staphylococcus aureus (MRSA) SNOMED Code(s): 926492305 ICD Code: A49.02 - METHICILLIN RESIS STAPH INFECTION, UNSP SITE Status: Acute Priority: High Current Visit: Yes Problem Details: in urine - Patient Summary/Data Consults: Consultations 11/10/17 09:00 Consult to Occupational Therapy [OT Evaluation and Treatment] [CONS] Routine 11/10/17 10:00 Consult to Physical Therapy [PT Evaluation and Treatment] [CONS] Routine 11/12/17 10:00 Consult to Case Management [CONS] Routine 11/13/17 08:51 Consult to Spiritual Care [CONS] Routine Labs Pending at D/C: None Recommended Follow-up Testing/Procedures: Follow up with Dr Schafer as appointment cancelled due to hospitalization. Schedule to see him as soon as possible. Follow-up with primary care provider, Dr. Irwin, within 7 days, sooner if needed Recommending electrolytes, including magnesium, be checked at follow-up as his magnesium was low her and he will be supplemented for 5 days on discharge. Hospital Course: I/P: Acute: AUTI -Reports weakness, seeing blood in urine -Risk factor: Chronic suprapubic catheter - changed on 11/08/17 -Hx/o prostate Ca, [place] 9, S/P Lupron -Belladonna alkalloid suppository for spasms -Failed outpatient therapy -No leukocytosis -Lactic acid 1.5-->0.8-->0.9-->0.8 -CRP 9.9-->7.1-->4.1-->2.6-->1.5-->1.0 -Positive UA -Blood cultures negative after 5 days -Urine culture and sensitivities - Providencia Rettgeri and MRSA- multiple resistances stated -Was given IV cefepime and zosyn prior -> switch to PO keflex -> upgrade to septra and Meropenem -> D/C'd prior to discharge C. difficile infection -History of frequent diarrhea and frequent antibiotics -Positive stool study -Moderate WBCs on stool study -Oral vancomycin -Attempt to wean from other antibiotics as soon as possible -IV fluids -Contact precautions Anemia, at baseline -Appears to be chronic with baseline between 11-12 -Hgb 11.7-->11.3-->9.4-->10.5-->11.6-->11.4 -Likely exacerbated by IV fluids -Monitor Resolved: Renal injury -Acute on chronic -Baseline GFR appears to be upper 40's to low 50's -BUN 51-50-47-32 -Creatinine 3.1-->2.8-->2.4-->1.8-->1.2 -eGFR 19-->22-->26-->36-->58 -IV fluids Dehydration -Kidney function as above -Dry mucous membranes -Concentrated urine -Anion gap 17.9-->WNL now Chronic: HTN HLD GERD TIA CAD/AK/CABG Chronic pain 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 Irwin LOS>96 hours: has two infectious processes, multiple resistant antibiotics and need for continued IV antibiotics Overall Rocha did very well. His diarrhea has resolved and he was re-hydrated. He is back at his baseline oxygen need. He has been working with PT and OT. He occasionally has what he describes as penis pain. He does have a suprapubic catheter in place and prostate cancer. This pain may be from infection or possibly from his cancer. It has improved over his stay. He was found to be resistant to many antibiotics and was treated with oral septra and IV Meropenem. This will be stopped prior to discharge. He never developed leukocytosis however his CRP was quite elevated. This returned to normal prior to discharge. He was set to establish care with Dr. Schafer as he recently had a suprapubic catheter placed, however his appointment was during his stay with us. He needs to establish at the next available time slot. We did order a cognitive evaluation as multiple staff reported confusion however he refused to participate. He was given oral vancomycin here and will be sent home with the liquid. He is to take 2.5mL QID until 11/21/17. On that day he will only take 2 doses. His magnesium was low and was frequently supplemented here. He will be sent home on a 5 day course of magnesium as well. Recommending electrolyte panel , including magnesium) on follow-up appointment with Dr. Irwin. Recommend following up with Dr. Irwin within 7 days of discharge, sooner if needed. Suggesting oral probiotic after C. diff symptoms are gone. We discussed hygiene and limiting exposure including hand washing and having a single bathroom. We also discussed bleach for cleaning and not using hand sat tutor. He will be discharged home today. - Patient Instructions Diet: Heart Healthy Diet Activity: As Tolerated Driving: Do Not Drive (today ) Notify Provider of: Fever, Increased Pain, Nausea and/or Vomiting (worsening diarrhea ) - Discharge Plan Prescriptions/Med Rec: Magnesium Oxide 800 mg PO DAILY 5 Days #5 tablet Vancomycin [First-Vancomycin 50 Compounding Kit] 2.5 mg PO QID #1 bottle Home Medications: Home Meds Ascorbic Acid [Vitamin C] 500 mg PO DAILY 01/05/14 [History] Aspirin [David Chewable Aspirin] 81 mg PO DAILY 01/05/14 [History] Calcium Carbonate/Vitamin D3 [Caltrate 600 + D Soft Chew Tab] 1 each PO DAILY [History] Enalapril [Vasotec] 20 mg PO BID 01/05/14 [History] Metoprolol Tartrate 50 mg PO BID 01/05/14 [History] Omeprazole 20 mg PO DAILY 01/05/14 [History] Rivaroxaban [Xarelto] 15 mg PO DAILY 01/05/14 [History] Tamsulosin [Flomax] 0.4 mg PO DAILY 01/05/14 [History] atorvaSTATin [Lipitor] 40 mg PO DAILY 01/05/14 [History] Arginine HCl [Pure l-Arginine HCl] 1,000 mg PO DAILY 02/02/14 [History] Docusate Sodium [Colace] 100 mg PO DAILY PRN 02/02/14 [History] Fenofibric Acid (Choline) [Trilipix] 45 mg PO DAILY 02/02/14 [History] Isosorbide Mononitrate [Imdur] 30 mg PO DAILY 02/02/14 [History] Nitroglycerin [Nitrostat] 0.4 mg SL ASDIRECTED PRN 02/02/14 [History] Vitamin E 400 unit PO DAILY 02/02/14 [History] Acetaminophen [Acetaminophen ER] 650 mg PO Q4H PRN 11/09/17 [History] Fluticasone Propionate [Flonase] 50 mcg NS BID 11/09/17 [History] Magnesium Oxide 800 mg PO DAILY 5 Days #5 tablet 11/15/17 [Rx] Vancomycin [First-Vancomycin 50 Compounding Kit] 2.5 mg PO QID #1 bottle [Rx] Patient Handouts: Clostridium Difficile Infection, [id number], Urinary Tract Infection, Adult, [id number], Suprapubic Catheter Home Guide Forms: ED Department Discharge Referrals: Yovanny Irwin MD [Primary Care Provider] - 11/21/17 9:30 am (Please follow up with Dr. Irwin on SundayNovember 21 at 9:30am) - Discharge Summary/Plan Comment DC Time >30 min.: Yes (45 mins ) - General Info Date of Service: 11/15/17 Admission Dx/Problem (Free Text: Admission Diagnosis/Problem Admission Diagnosis/Problem Sepsis Subjective Update: In to see Rocha today. He is lying in bed in good spirits. His labs look good. He has no concerns. Had lengthy discussion about avoiding spreading his C. Diff. Nursing has no concerns. Will be discharged home today. Functional Status: Reports: Pain Controlled, Tolerating Diet, Ambulating, Urinating. Denies: New Symptoms - Review of Systems General: Reports: No Symptoms HEENT: Reports: No Symptoms Pulmonary: Reports: Shortness of Breath (baseline ) Cardiovascular: Reports: Dyspnea on Exertion (baseline ). Denies: Chest Pain, Palpitations Gastrointestinal: Reports: No Symptoms. Denies: Abdominal Pain, Constipation, Diarrhea, Nausea, Vomiting Genitourinary: Reports: No Symptoms Musculoskeletal: Reports: No Symptoms Skin: Reports: No Symptoms Neurological: Reports: No Symptoms Psychiatric: Reports: No Symptoms - Patient Data Vitals - Most Recent: Last Vital Signs Temp 97.7 F 11/14/17 21:12 Pulse 62 11/14/17 21:16 Resp 18 11/14/17 21:12 BP 117/69 11/14/17 21:16 Pulse Ox 97 11/14/17 21:15 Weight - Most Recent: 200 lb 12.8 oz I&O - Last 24 hours: Intake & Output 11/14/17 11/15/17 11/15/17 22:59 06:59 14:59 Intake Total 500 1000 Output Total 1500 1650 Balance -1000 -650 Lab Results - Last 24 hrs: Laboratory Results - last 24 hr 11/15/17 11/15/17 Range/Units 06:28 06:28 WBC 5.47 (4.23-9.07) K/mm3 RBC 3.93 L (4.63-6.08) M/mm3 Hgb 11.1 L (13.7-17.5) gm/L Hct 36.5 L (40.1-51.0) % MCV 92.9 H (79.0-92.2) fl MCH 28.2 (25.7-32.2) pg MCHC 30.4 L (32.2-35.5) g/dl RDW Std Deviation 46.9 H (35.1-43.9) fL Plt Count 156 L (163-337) K/mm3 MPV 10.5 (9.4-12.3) fl Neut % (Auto) 72.5 H (34.0-67.9) % Lymph % (Auto) 17.6 L (21.8-53.1) % [place] % (Auto) 6.6 (5.3-12.2) % Eos % (Auto) 2.6 (0.8-7.0) Baso % (Auto) 0.2 (0.1-1.2) % Neut # (Auto) 3.97 (1.78-5.38) K/mm3 Lymph # (Auto) 0.96 L (1.32-3.57) K/mm3 [place] # (Auto) 0.36 (0.30-0.82) K/mm3 Eos # (Auto) 0.14 (0.04-0.54) K/mm3 Baso # (Auto) 0.01 (0.01-0.08) K/mm3 Sodium 139 (136-145) mEq/L Potassium 4.8 (3.5-5.1) mEq/L Chloride 105 (98-107) mEq/L Carbon Dioxide 30 (21-32) mEq/L Anion Gap 8.8 (5-15) BUN 12 (7-18) mg/dL Creatinine 1.1 (0.7-1.3) mg/dL Est Cr Clr Drug Dosing 49.10 mL/min Estimated GFR (MDRD) > 60 (>60) mL/min BUN/Creatinine Ratio 10.9 L (14-18) Glucose 97 (83-115) mg/dL Calcium 9.2 (8.5-10.1) mg/dL Magnesium 1.7 L (1.8-2.4) mg/dl C-Reactive Protein 1.0 (<1.0) mg/dL CHIDI Results - Last 24 hrs: Microbiology 11/09/17 17:45 Aerobic Blood Culture - Preliminary Blood - Venous - Lab Draw NO GROWTH AFTER 5 DAYS Anaerobic Blood Culture - Preliminary NO GROWTH AFTER 5 DAYS 11/09/17 17:20 Aerobic Blood Culture - Preliminary Blood - Venous NO GROWTH AFTER 5 DAYS Anaerobic Blood Culture - Preliminary NO GROWTH AFTER 5 DAYS Med Orders - Current: Current Medications Acetaminophen (Tylenol) 650 mg PO Q4H PRN PRN Reason: FEVER/PAIN Last Admin: 11/09/17 20:21 Dose: 650 mg Ascorbic Acid (Vitamin C) 500 mg PO DAILY [facility] Last Admin: 11/14/17 08:26 Dose: 500 mg Aspirin (Aspirin) 81 mg PO DAILY [facility] Last Admin: 11/14/17 08:26 Dose: 81 mg Belladonna Alkaloids/Opium (B & O Supprettes No. 15a) 1 supp RECTAL Q4H PRN PRN Reason: Cramping Last Admin: 11/13/17 10:32 Dose: 1 supp Calcium Carbonate (Calcium Carbonate/Vitamin D 600 Mg-200 Unit) 1 tab PO DAILY [facility] Last Admin: 11/14/17 08:25 Dose: 1 tab Cholestyramine Resin (Prevalite Packet) 4 gm PO BID [facility] Last Admin: 11/14/17 21:14 Dose: 4 gm Flunisolide (Nasalide Nasal [place]) 0 ml NASBOTH BID [facility] Last Admin: 11/14/17 21:15 Dose: 2 spray Hydralazine HCl (Apresoline) 20 mg IVPUSH Q6H PRN PRN Reason: Hypertension Meropenem 500 mg/ Sodium (Chloride) 100 mls @ 200 mls/hr IV Q8H [facility] Last Admin: 11/15/17 04:13 Dose: 150 mls/hr Isosorbide Mononitrate (Imdur) 30 mg PO DAILY [facility] Last Admin: 11/14/17 08:26 Dose: 30 mg Magnesium Oxide (Magnesium Oxide) 800 mg PO BID [facility] Stop: 11/15/17 21:01 Magnesium Sulfate (Pharmacy To Dose - Magnesium Replacement) 1 dose .XX ASDIRECTED [facility] Metoprolol Tartrate (Lopressor) 50 mg PO BID [facility] Last Admin: 11/14/17 21:16 Dose: 50 mg Nitroglycerin (Nitrostat) 0.4 mg SL ASDIRECTED PRN PRN Reason: Chest Pain Ondansetron HCl (Zofran) 4 mg IVPUSH Q8H PRN PRN Reason: Nausea/Vomiting Oxycodone/Acetaminophen (Percocet 325-5 Mg) 1 tab PO Q6H PRN PRN Reason: Pain (severe 7-10) Last Admin: 11/13/17 10:32 Dose: 1 tab Pantoprazole Sodium (Protonix) 40 mg PO DAILY@0700 [facility] Last Admin: 11/15/17 06:27 Dose: 40 mg Trilipix 45 Mg 45 each PO DAILY [facility] Last Admin: 11/14/17 08:30 Dose: Not Given Potassium Chloride (Pharmacy To Dose - Potassium Replacement) 1 dose .XX ASDIRECTED [facility] Rivaroxaban (Xarelto) 15 mg PO DAILY [facility] Last Admin: 11/14/17 08:25 Dose: 15 mg Rosuvastatin Calcium (Crestor) 10 mg PO DAILY [facility] Last Admin: 11/14/17 08:25 Dose: 10 mg Sodium Chloride (Saline Flush) 10 ml FLUSH ASDIRECTED PRN PRN Reason: Keep Vein Open Last Admin: 11/09/17 18:06 Dose: 10 ml Tamsulosin HCl (Flomax) 0.4 mg PO DAILY [facility] Last Admin: 11/14/17 08:25 Dose: 0.4 mg Trimethoprim/Sulfamethoxazole (Septra Ds) 1 tab PO BID [facility] Last Admin: 11/14/17 21:16 Dose: 1 tab Vancomycin HCl (First-Vancomycin 50 Compounding Kit) 125 mg PO TID [facility] Last Admin: 11/14/17 21:17 Dose: 2.5 ml Discontinued Medications Belladonna Alkaloids/Opium (B & O Supprettes No. 15a) 1 supp RECTAL Q6H PRN PRN Reason: bladder spasms Last Admin: 11/10/17 13:00 Dose: 1 supp Cephalexin (Keflex) 500 mg PO Q12H [facility] Stop: 11/14/17 21:01 Last Admin: 11/12/17 23:30 Dose: Not Given Docusate Sodium (Colace) 100 mg PO DAILY [facility] Last Admin: 11/13/17 09:01 Dose: Not Given Hydromorphone HCl (Dilaudid) 1 mg IVPUSH ONETIME ONE Stop: 11/10/17 13:18 Last Admin: 11/10/17 14:41 Dose: 1 mg Cefepime HCl 1 gm/ Premix 50 mls @ 100 mls/hr IV ONETIME ONE Stop: 11/09/17 18:10 Last Admin: 11/09/17 22:06 Dose: Not Given Sodium Chloride (Normal Saline) 1,000 mls @ 1,000 mls/hr IV ONETIME ONE Stop: 11/09/17 18:40 Last Admin: 11/09/17 18:05 Dose: 1,000 mls/hr Cefepime HCl 2 gm/ Premix 50 mls @ 100 mls/hr IV ONETIME STA Stop: 11/09/17 18:23 Last Admin: 11/09/17 18:03 Dose: 100 mls/hr Cefepime HCl (Maxipime In D5w 2 Gm/50 Ml) Confirm Administered Dose 50 mls @ as directed .ROUTE .STK-MED ONE Stop: 11/09/17 17:53 Last Admin: 11/09/17 18:06 Dose: Not Given Piperacillin Sod/Tazobactam (Sod 4.5 gm/ Sodium Chloride) 100 mls @ 200 mls/hr IV ONETIME ONE Stop: 11/09/17 20:29 Last Admin: 11/09/17 20:56 Dose: 200 mls/hr Sodium Chloride (Normal Saline) 1,000 mls @ 999 mls/hr IV ONETIME ONE Stop: 11/09/17 21:00 Last Admin: 11/09/17 20:20 Dose: 999 mls/hr Sodium Chloride (Normal Saline) 750 mls @ 125 mls/hr IV ASDIRECTED [facility] Stop: 11/10/17 03:29 Last Admin: 11/09/17 20:57 Dose: 125 mls/hr Sodium Chloride (Normal Saline) 1,000 mls @ 125 mls/hr IV ASDIRECTED [facility] Last Admin: 11/10/17 06:35 Dose: 75 mls/hr Piperacillin Sod/Tazobactam (Sod 4.5 gm/ Sodium Chloride) 100 mls @ 25 mls/hr IV Q12H [facility] Last Admin: 11/11/17 20:25 Dose: 25 mls/hr Sodium Chloride (Normal Saline) 1,000 mls @ 125 mls/hr IV ASDIRECTED [facility] Stop: 11/11/17 03:30 Last Admin: 11/11/17 01:32 Dose: 125 mls/hr Sodium Chloride (Normal Saline) 1,000 mls @ 75 mls/hr IV ASDIRECTED [facility] Last Admin: 11/12/17 21:12 Dose: 75 mls/hr Piperacillin Sod/Tazobactam (Sod 4.5 gm/ Sodium Chloride) 100 mls @ 25 mls/hr IV Q8H [facility] Piperacillin Sod/Tazobactam (Sod 4.5 gm/ Dextrose/Water) 100 mls @ 25 mls/hr IV Q8H [facility] Last Admin: 11/12/17 09:17 Dose: 25 mls/hr Lidocaine HCl (Xylocaine 1%) 50 ml INJECT NOW STA Stop: 11/09/17 17:31 Last Admin: 11/09/17 20:53 Dose: Not Given Linezolid (Zyvox) 600 mg PO Q12H [facility] Magnesium Oxide (Magnesium Oxide) 800 mg PO ONETIME ONE Stop: 11/14/17 09:01 Last Admin: 11/14/17 08:49 Dose: 800 mg Meropenem (Merrem) Confirm Administered Dose 500 mg .ROUTE .STK-MED ONE Stop: 11/13/17 12:24 Last Admin: 11/13/17 17:06 Dose: Not Given Meropenem (Merrem) Confirm Administered Dose 500 mg .ROUTE .STK-MED ONE Stop: 11/13/17 20:08 Last Admin: 11/13/17 20:32 Dose: Not Given Non-FormPure L- Arginine Hcl 1,000 Mg 1,000 mg PO DAILY [facility] Oxycodone/Acetaminophen (Percocet 325-5 Mg) 1 tab PO Q12HR PRN PRN Reason: Pain (severe 7-10) Last Admin: 11/10/17 13:00 Dose: 1 tab Saccharomyces Boulardii (Florastor) 500 mg PO DAILY [facility] Last Admin: 11/11/17 08:40 Dose: 500 mg Saccharomyces Boulardii (Florastor) 250 mg PO BID [facility] Last Admin: 11/12/17 09:29 Dose: 250 mg - Exam Quality Assessment: Reports: Supplemental Oxygen (chronic ), Urine Catheter ( chronic ), DVT Prophylaxis General: Reports: Alert, Oriented, Cooperative, No Acute Distress HEENT: Reports: Pupils Equal, Pupils Reactive, EOMI, Mucous Membr. Moist/[place] Neck: Reports: Supple, Trachea Midline, No JVD Lungs: Reports: Normal Respiratory Effort, Decreased Breath Sounds Cardiovascular: Reports: Regular Rate, Regular Rhythm GI/Abdominal Exam: Normal Bowel Sounds, Soft, Non-Tender, No Organomegaly, No Distention, No Abnormal Bruit, No Mass, Pelvis Stable (Male) Exam: Deferred Rectal (Males) Exam: Deferred Back Exam: Reports: Normal Inspection Extremities: Normal Inspection, Normal Range of Motion, Non-Tender, No Pedal Edema, Normal Capillary Refill Skin: Reports: Warm, Dry, Intact Neurological: Reports: No New Focal Deficit Psy/Mental Status: Reports: Alert, Normal Affect, Normal Mood
[2017-11-15] MEDS: Cholestyramine/Aspartame Powder 4 GM Packet PO SCH (09:50)
[2017-11-15] MEDS: Isosorbide Mononitrate 30 MG Tab.ER PO SCH (09:51)
[2017-11-15] MEDS: Calcium Carbonate/Vitamin D3 600 MG-200 Units Tab PO SCH (09:51)
[2017-11-15] MEDS: Rosuvastatin 10 MG Tab PO SCH (09:51)
[2017-11-15] MEDS: Aspirin 81 MG Tab.Chew PO SCH (09:51)
[2017-11-15] MEDS: Tamsulosin 0.4 MG Cap.ER PO SCH (09:52)
[2017-11-15] MEDS: Metoprolol Tartrate 50 MG Tab PO SCH (09:52)
[2017-11-15] MEDS: Rivaroxaban 10 MG Tab PO SCH (09:52)
[2017-11-15] MEDS: Sulfamethoxazole/Trimethoprim 800-160 MG Tab PO SCH (09:52)
[2017-11-15 09:53] VITALS: BP 127/77
[2017-11-15] MEDS: TRILIPIX PO SCH (09:53)
[2017-11-15] MEDS: Ascorbic Acid 500 MG Tab PO SCH (09:53)
[2017-11-15] MEDS: Vancomycin 50 MG/ML 150ML Oral Solution Kit PO SCH (09:53)
== END 2017-11-15 13:50 | disposition home or self-care (01) | DRG 699 ==
LOC: SUPCPDRO 16:50 → JD.ED 16:50 → JD.MS 19:13
PROVIDERS: ADMIT Internal Medicine Cardiovascular Disease; ATTEND Internal Medicine Cardiovascular Disease
DX: N39.0 Urinary tract infection, site not specified (principal); T83.511A Infection and inflammatory reaction due to indwelling urethral catheter, initial encounter; N17.9 Acute kidney failure, unspecified; H91.90 Unspecified hearing loss, unspecified ear; H54.7 Unspecified visual loss; G47.30 Sleep apnea, unspecified; A04.72 Enterocolitis due to Clostridium difficile, not specified as recurrent; F32.9 Major depressive disorder, single episode, unspecified; F41.9 Anxiety disorder, unspecified; Y84.6 Urinary catheterization as the cause of abnormal reaction of the patient, or of later complication, without mention of misadventure at the time of the procedure; R05 Cough; B95.62 Methicillin resistant Staphylococcus aureus infection as the cause of diseases classified elsewhere; R10.9 Unspecified abdominal pain; R11.0 Nausea; Z85.46 Personal history of malignant neoplasm of prostate; I12.9 Hypertensive chronic kidney disease with stage 1 through stage 4 chronic kidney disease, or unspecified chronic kidney disease; N18.9 Chronic kidney disease, unspecified; E86.0 Dehydration; R09.02 Hypoxemia; J44.9 Chronic obstructive pulmonary disease, unspecified; I25.10 Atherosclerotic heart disease of native coronary artery without angina pectoris; N40.0 Benign prostatic hyperplasia without lower urinary tract symptoms; K21.9 Gastro-esophageal reflux disease without esophagitis; C61 Malignant neoplasm of prostate; E78.5 Hyperlipidemia, unspecified; G89.29 Other chronic pain; M54.9 Dorsalgia, unspecified; D63.8 Anemia in other chronic diseases classified elsewhere; Z99.81 Dependence on supplemental oxygen; Z87.891 Personal history of nicotine dependence; Z95.1 Presence of aortocoronary bypass graft; Z95.5 Presence of coronary angioplasty implant and graft; I25.2 Old myocardial infarction; Z86.73 Personal history of transient ischemic attack (TIA), and cerebral infarction without residual deficits; Z86.718 Personal history of other venous thrombosis and embolism; Z79.01 Long term (current) use of anticoagulants; Z79.82 Long term (current) use of aspirin; Z79.899 Other long term (current) drug therapy; Z88.8 Allergy status to other drugs, medicaments and biological substances; Z88.5 Allergy status to narcotic agent
CPT/HCPCS: 36415; 80053; 81001; 83605; 85025; 87040 ×2; 87086; 87088 ×2; 87186 ×2; 96361; 96365; 99284; J0692; J7040; J7050; 80048; 83735; 86140; 87046; 87493; 89055; 94761; 96125-GN; 97110-GP; 97116-GP; 97162-GP; 97165-GO; 97530-GP; A9270; A9270-GY; J1170; J2185; J2543; J3370; J7030; J7060

== ENCOUNTER 2017-12-08 18:06 | Inpatient (IN) | payer MEDICARE, OTHER ==
[2017-12-08] MEDS ORDERED: Sodium Chloride 0.9% 500 ML IV ONE (18:19)
--- NOTE | 2017-12-08 18:27 | EDM.PDOC ---
ED HPI GENERAL MEDICAL PROBLEM - General Chief Complaint: General Stated Complaint: [facility] Time Seen by Provider: 12/08/17 18:07 Source of Information: Reports: Patient History Limitations: Reports: No Limitations - History of Present Illness INITIAL COMMENTS - FREE TEXT/NARRATIVE: 87-year-old male arrives via [place] ambulance service for evaluation and treatment of weakness. Reportedly the patient was so weak he was unable to get up and move around on his volition. He is reporting pain into his groin. He states that he frequently gets bladder spasms and this feels similar to to them. He does have a super pubic catheter that has been in place for some time. He denies any fevers, chills, cough, headache morning chest pain. Reports the suprapubic catheter was changed last around [address] Mckee. Reports he had looser stools today. About 4 or 5 loose stools today. No melena or hematochezia. reports he had some blood in his urine today. Patient is normally on 3 L nasal cannula at all times. Review the patient's records show that he was in the hospital about one month ago for urinary tract infection. Nearly similar story. He was also positive for C. difficile. States that he just finished the antibiotic a few days ago. Penis Pain Score (Numeric/FACES): 8 - Related Data Allergies Allergy/AdvReac Type Severity Reaction Status Date / Time celecoxib [From Celebrex] Allergy Hives Verified 11/09/17 19:14 rofecoxib [From Vioxx] Allergy Hives Verified 11/09/17 19:14 valdecoxib [From Bextra] Allergy Hives Verified 11/09/17 19:14 methylprednisolone AdvReac Dizziness Verified 11/09/17 19:14 morphine AdvReac Irritabilit Verified 11/09/17 19:14 y Home Meds: Home Meds Ascorbic Acid [Vitamin C] 500 mg PO DAILY 01/05/14 [History] Aspirin [David Chewable Aspirin] 81 mg PO DAILY 01/05/14 [History] Calcium Carbonate/Vitamin D3 [Caltrate 600 + D Soft Chew Tab] 1 each PO DAILY [History] Enalapril [Vasotec] 20 mg PO DAILY 01/05/14 [History] Metoprolol Tartrate 50 mg PO DAILY 01/05/14 [History] Omeprazole 20 mg PO DAILY 01/05/14 [History] Rivaroxaban [Xarelto] 15 mg PO DAILY 01/05/14 [History] Tamsulosin [Flomax] 0.4 mg PO DAILY 01/05/14 [History] atorvaSTATin [Lipitor] 40 mg PO DAILY 01/05/14 [History] Arginine HCl [Pure l-Arginine HCl] 1,000 mg PO DAILY 02/02/14 [History] Docusate Sodium [Colace] 100 mg PO DAILY PRN 02/02/14 [History] Fenofibric Acid (Choline) [Trilipix] 45 mg PO DAILY 02/02/14 [History] Isosorbide Mononitrate [Imdur] 30 mg PO DAILY 02/02/14 [History] Nitroglycerin [Nitrostat] 0.4 mg SL ASDIRECTED PRN 02/02/14 [History] Vitamin E 400 unit PO DAILY 02/02/14 [History] Acetaminophen [Acetaminophen ER] 650 mg PO Q4H PRN 11/09/17 [History] Fluticasone Propionate [Flonase] 50 mcg NS ASDIRECTED 11/09/17 [History] Magnesium Oxide 800 mg PO DAILY 5 Days #5 tablet 11/15/17 [Rx] Past Medical History HEENT History: Reports: Hard of Hearing, Impaired Vision Other HEENT History: glasses Cardiovascular History: Reports: Bypass, CO, Stents, Other (See Below) Respiratory History: Reports: Sleep Apnea, Other (See Below) Other Respiratory History: Chronic O2 use, uses 3 L/min at home, uses CPAP at home. Gastrointestinal History: Reports: GERD Genitourinary History: Reports: BPH, Other (See Below) Other Genitourinary History: supra pubic cath Musculoskeletal History: Reports: Back Pain, Chronic Neurological History: Reports: TIA Psychiatric History: Reports: Anxiety, Depression Hematologic History: Reports: Blood Transfusion(s) Dermatologic History: Reports: Other (See Below) Other Dermatologic History: growth on left hand - Infectious Disease History Infectious Disease History: Reports: Shingles - Past Surgical History HEENT Surgical History: Reports: None Cardiovascular Surgical History: Reports: Coronary Artery Bypass, Coronary Artery Stent Respiratory Surgical History: Reports: None GI Surgical History: Reports: Cholecystectomy Neurological Surgical History: Reports: None Musculoskeletal Surgical History: Reports: Hip Replacement, Other (See Below) Other Musculoskeletal Surgeries/Procedures:: growth removed from left hand Dermatological Surgical History: Reports: Skin Biopsy Social & Family History - Family History Family Medical History: Noncontributory - Tobacco Use Smoking Status *Q: Former Smoker Used Tobacco, but Quit: Yes Month/Year Tobacco Last Used: 40 yrs - Caffeine Use Caffeine Use: Reports: Coffee, Soda - Recreational Drug Use Recreational Drug Use: No ED ROS GENERAL - Review of Systems Review Of Systems: See Below Constitutional: Denies: Fever HEENT: Denies: Ear Pain, Throat Pain Respiratory: Denies: Shortness of Breath, Cough Cardiovascular: Denies: Chest Pain GI/Abdominal: Reports: Diarrhea. Denies: Abdominal Pain, Hematochezia, Melena, Nausea, Vomiting : Reports: Hematuria, Pain (reports groin pain from bladder spasma), Other ( suprapubic cathater in place) Neurological: Reports: Difficulty Walking, Weakness. Denies: Headache, Syncope ED EXAM, GENERAL - Physical Exam Exam: See Below Exam Limited By: No Limitations General Appearance: Alert, WD/WN, No Apparent Distress, Obese Nose: Normal Inspection Throat/Mouth: Normal Inspection, Normal Voice, No Airway Compromise Respiratory/Chest: No Respiratory Distress, Lungs Clear, Normal Breath Sounds Cardiovascular: Normal Peripheral Pulses, Regular Rate, Rhythm, No Murmur GI/Abdominal: Normal Bowel Sounds, Soft, Non-Tender, Other (suprapubic cathater in place with surrounding erythema, serous drainage from the area) Neurological: Alert, Oriented, Normal Cognition Psychiatric: Normal Affect, Normal Mood Skin Exam: Warm, Dry, Normal Color EKG INTERPRETATION EKG Date: 12/08/17 Time: 18:30 Rhythm: NSR Rate (Beats/Min): 80 [place]: Normal P-Wave: Present QRS: Normal ST-T: Normal QT: Normal Comparison: No Change EKG Interpretation Comments: NSR at 80 bpm. T wave inversion V1-V3. No significant change from 11-08-17 EKG. Reviewed by myself and Dr. Steward. Course - Vital Signs Last Recorded V/S: Last Vital Signs Temp 100.6 F 12/08/17 22:50 Pulse 72 12/08/17 20:41 Resp 16 12/08/17 20:41 BP 166/63 H 12/08/17 20:41 Pulse Ox 93 L 12/08/17 20:41 - Orders/Labs/Meds Orders: Active Orders 24 hr Category Date Time Status Cardiac Monitoring [RC] . DIRECTED Care 12/08/17 18:19 Active EKG Documentation Completion [RC] ASDIRECTED Care 12/08/17 18:20 Active Chest 1V Frontal [CR] Stat Exams 12/08/17 18:19 Taken CULTURE BLOOD [BC] Stat Lab 12/08/17 18:35 Received CULTURE BLOOD [BC] Stat Lab 12/08/17 18:45 Received CULTURE URINE [RM] Stat Lab 12/08/17 18:31 Ordered CULTURE WOUND [RM] Stat Lab 12/08/17 18:31 Ordered UA W/MICROSCOPIC [URIN] Stat Lab 12/08/17 18:30 Ordered WBC, STOOL [OP] Stat Lab 12/08/17 21:10 Ordered Blood Culture x2 Reflex Set [OM.PC] Stat Oth 12/08/17 18:19 Ordered EKG 12 Lead [EK] Stat Ther 12/08/17 18:19 Ordered Medication Orders Acetaminophen (Tylenol) 650 mg PO Q4H PRN PRN Reason: Pain Hydrocodone Bitart/Acetaminophen ([place] 325-5 Mg) 1 tab PO Q4H PRN PRN Reason: Pain (moderate 4-6) Albuterol/Ipratropium (Duoneb 3.0-0.5 Mg/3 Ml) 3 ml NEB Q4H PRN PRN Reason: Shortness Of Breath/wheezing Ascorbic Acid (Vitamin C) 500 mg PO DAILY [facility]E Aspirin (Aspirin) 81 mg PO DAILY [facility]E Docusate Sodium (Colace) 100 mg PO DAILY PRN PRN Reason: Constipation Hydralazine HCl (Apresoline) 20 mg IVPUSH Q4H PRN PRN Reason: Hypertension Hydromorphone HCl (Dilaudid) 0.5 mg IVPUSH Q2H PRN PRN Reason: Pain (severe 7-10) Promethazine HCl 12.5 mg/ (Sodium Chloride) 50.5 mls @ 100 mls/hr IV Q6H PRN PRN Reason: Nausea/Vomiting Sodium Chloride (Normal Saline) 1,000 mls @ 50 mls/hr IV ASDIRECTED [facility] Isosorbide Mononitrate (Imdur) 30 mg PO DAILY [facility]E Lorazepam (Ativan) 2 mg IVPUSH Q4H PRN PRN Reason: Seizures Lorazepam (Ativan) 0.25 mg IV Q6H PRN PRN Reason: Anxiety Magnesium Oxide (Magnesium Oxide) 800 mg PO DAILY [facility] Magnesium Sulfate (Pharmacy To Dose - Magnesium Replacement) 1 dose .XX ASDIRECTED [facility] Metoprolol Tartrate (Lopressor) 50 mg PO DAILY [facility] Metoprolol Tartrate (Lopressor) 5 mg IVPUSH Q4H PRN PRN Reason: Tachycardia Nitroglycerin (Nitrostat) 0.4 mg SL ASDIRECTED PRN PRN Reason: Chest Pain Non-Formulary Medication (Arginine Hcl [Pure L-Arginine Hcl]) 1,000 mg PO DAILY [facility]E Non-Formulary Medication (Fenofibric Acid (Choline) [Trilipix]) 45 mg PO DAILY [facility] Non-Formulary Medication (Fluticasone Propionate) 50 mcg NS ASDIRECTED [facility] Non-Formulary Medication (Rivaroxaban) 15 mg PO DAILY [facility] Ondansetron HCl (Zofran) 4 mg IV Q6H PRN PRN Reason: Nausea/Vomiting Potassium Chloride (Pharmacy To Dose - Potassium Replacement) 1 dose .XX ASDIRECTED [facility] Rosuvastatin Calcium (Crestor) 10 mg PO DAILY [facility] Saccharomyces Boulardii (Florastor) 250 mg PO BID [facility] Tamsulosin HCl (Flomax) 0.4 mg PO DAILY [facility] Temazepam (Restoril) 7.5 mg PO BEDTIME PRN PRN Reason: Sleep Trimethoprim/Sulfamethoxazole (Septra Ds) 1 tab PO BID [facility] Stop: 12/22/17 09:01 Trospium (Sanctura) 20 mg PO BIDAC [facility] Trospium (Sanctura) 20 mg PO ONETIME ONE Stop: 12/09/17 00:16 Vancomycin HCl (First-Vancomycin 50 Compounding Kit) 125 mg PO QID [facility] Stop: 12/18/17 21:01 Vitamin E (Vitamin E) 400 units PO DAILY [facility] Labs: Laboratory Tests 12/08/17 12/08/17 12/08/17 Range/Units 18:24 18:24 18:24 WBC 5.99 (4.23-9.07) K/mm3 RBC 4.96 (4.63-6.08) M/mm3 Hgb 13.8 (13.7-17.5) gm/L Hct 44.2 (40.1-51.0) % MCV 89.1 (79.0-92.2) fl MCH 27.8 (25.7-32.2) pg MCHC 31.2 L (32.2-35.5) g/dl RDW Std Deviation 48.3 H (35.1-43.9) fL Plt Count 139 L (163-337) K/mm3 MPV 10.6 (9.4-12.3) fl Neutrophils % (Manual) 83 H (40-60) % Band Neutrophils % 0 (0-10) % Lymphocytes % (Manual) 10 L (20-40) % Atypical Lymphs % 0 % Monocytes % (Manual) 7 (2-10) % Eosinophils % (Manual) 0 L (0.8-7.0) % Basophils % (Manual) 0 L (0.2-1.2) Platelet Estimate Decreased RBC Morph Comment Normal Sodium 138 (136-145) mEq/L Potassium 3.9 (3.5-5.1) mEq/L Chloride 101 (98-107) mEq/L Carbon Dioxide 28 (21-32) mEq/L Anion Gap 12.9 (5-15) BUN 17 (7-18) mg/dL Creatinine 1.4 H (0.7-1.3) mg/dL Est Cr Clr Drug Dosing 36.07 mL/min Estimated GFR (MDRD) 48 (>60) mL/min BUN/Creatinine Ratio 12.1 L (14-18) Glucose 136 H (83-115) mg/dL Lactic Acid 0.7 (0.4-2.0) mmol/L Calcium 9.0 (8.5-10.1) mg/dL Total Bilirubin 0.5 (0.2-1.0) mg/dL AST 23 (15-37) U/L ALT 24 (16-63) U/L Alkaline Phosphatase 57 (46-116) U/L Troponin I (0.00-0.056) ng/mL C-Reactive Protein 4.2 H* (<1.0) mg/dL Total Protein 7.6 (6.4-8.2) g/dl Albumin 3.7 (3.4-5.0) g/dl Globulin 3.9 gm/dL Albumin/Globulin Ratio 1.0 (1-2) Urine Color (Yellow) Urine Appearance (Clear) Urine pH (5.0-8.0) Ur Specific [place] (1.005-1.030) Urine Protein (Negative) Urine Glucose (UA) (Negative) Urine Ketones (Negative) Urine Occult Blood (Negative) Urine Nitrite (Negative) Urine Bilirubin (Negative) Urine Urobilinogen (0.2-1.0) Ur Leukocyte Esterase (Negative) Urine RBC (0-5) /hpf Urine WBC (0-5) /hpf Ur Epithelial Cells (0-5) /hpf Urine Bacteria (FEW) /hpf Urine Mucus (FEW) /hpf C.difficile [id number] C. difficile Tox (PCR) 12/08/17 12/08/17 12/08/17 Range/Units 18:24 18:30 21:10 WBC (4.23-9.07) K/mm3 RBC (4.63-6.08) M/mm3 Hgb (13.7-17.5) gm/L Hct (40.1-51.0) % MCV (79.0-92.2) fl MCH (25.7-32.2) pg MCHC (32.2-35.5) g/dl RDW Std Deviation (35.1-43.9) fL Plt Count (163-337) K/mm3 MPV (9.4-12.3) fl Neutrophils % (Manual) (40-60) % Band Neutrophils % (0-10) % Lymphocytes % (Manual) (20-40) % Atypical Lymphs % % Monocytes % (Manual) (2-10) % Eosinophils % (Manual) (0.8-7.0) % Basophils % (Manual) (0.2-1.2) Platelet Estimate RBC Morph Comment Sodium (136-145) mEq/L Potassium (3.5-5.1) mEq/L Chloride (98-107) mEq/L Carbon Dioxide (21-32) mEq/L Anion Gap (5-15) BUN (7-18) mg/dL Creatinine (0.7-1.3) mg/dL Est Cr Clr Drug Dosing mL/min Estimated GFR (MDRD) (>60) mL/min BUN/Creatinine Ratio (14-18) Glucose (83-115) mg/dL Lactic Acid (0.4-2.0) mmol/L Calcium (8.5-10.1) mg/dL Total Bilirubin (0.2-1.0) mg/dL AST (15-37) U/L ALT (16-63) U/L Alkaline Phosphatase (46-116) U/L Troponin I < 0.017 (0.00-0.056) ng/mL C-Reactive Protein (<1.0) mg/dL Total Protein (6.4-8.2) g/dl Albumin (3.4-5.0) g/dl Globulin gm/dL Albumin/Globulin Ratio (1-2) Urine Color Yellow (Yellow) Urine Appearance Cloudy H (Clear) Urine pH 8.5 H (5.0-8.0) Ur Specific [place] 1.020 (1.005-1.030) Urine Protein 3+ H (Negative) Urine Glucose (UA) Negative (Negative) Urine Ketones Negative (Negative) Urine Occult Blood 2+ H (Negative) Urine Nitrite Negative (Negative) Urine Bilirubin 1+ H (Negative) Urine Urobilinogen 0.2 (0.2-1.0) Ur Leukocyte Esterase 1+ H (Negative) Urine RBC 0-5 (0-5) /hpf Urine WBC 20-30 H (0-5) /hpf Ur Epithelial Cells 0-5 (0-5) /hpf Urine Bacteria Moderate H (FEW) /hpf Urine Mucus Few (FEW) /hpf C.difficile [id number] Presumptive negative C. difficile Tox (PCR) Positive H Meds: Medications Generic Name Dose Route Start Last Admin Trade Name Freq PRN Reason Stop Dose Admin Acetaminophen 650 mg 12/08/17 22:36 Tylenol PO Q4H PRN Pain Hydrocodone Bitart/Acetaminophen 1 tab 12/08/17 23:44 [place] 325-5 Mg PO Q4H PRN Pain (moderate 4-6) Albuterol/Ipratropium 3 ml 12/08/17 23:44 Duoneb 3.0-0.5 Mg/3 Ml NEB Q4H PRN Shortness Of Breath/wheezing Ascorbic Acid 500 mg 12/09/17 09:00 Vitamin C PO DAILY [facility]E Aspirin 81 mg 12/09/17 09:00 Aspirin PO DAILY [facility]E Docusate Sodium 100 mg 12/08/17 22:36 Colace PO DAILY PRN Constipation Hydralazine HCl 20 mg 12/08/17 23:30 Apresoline IVPUSH Q4H PRN Hypertension Hydromorphone HCl 0.5 mg 12/08/17 23:44 Dilaudid IVPUSH Q2H PRN Pain (severe 7-10) Promethazine HCl 12.5 mg/ 50.5 mls @ 100 mls/hr 12/08/17 23:44 Sodium Chloride IV Q6H PRN Nausea/Vomiting Sodium Chloride 1,000 mls @ 50 mls/hr 12/08/17 23:45 Normal Saline IV ASDIRECTED [facility] Isosorbide Mononitrate 30 mg 12/09/17 09:00 Imdur PO DAILY [facility] Lorazepam 2 mg 12/08/17 23:30 Ativan IVPUSH Q4H PRN Seizures Lorazepam 0.25 mg 12/08/17 23:44 Ativan IV Q6H PRN Anxiety Magnesium Oxide 800 mg 12/09/17 09:00 Magnesium Oxide PO DAILY [facility] Magnesium Sulfate 1 dose 12/08/17 23:30 Pharmacy To Dose - Magnesium Replacement .XX ASDIRECTED [facility] Metoprolol Tartrate 50 mg 12/09/17 09:00 Lopressor PO DAILY [facility] Metoprolol Tartrate 5 mg 12/08/17 23:30 Lopressor IVPUSH Q4H PRN Tachycardia Nitroglycerin 0.4 mg 12/08/17 22:36 Nitrostat SL ASDIRECTED PRN Chest Pain Non-Formulary Medication 1,000 mg 12/09/17 09:00 Arginine Hcl [Pure L-Arginine Hcl] PO DAILY [facility] Non-Formulary Medication 45 mg 12/09/17 09:00 Fenofibric Acid (Choline) [Trilipix] PO DAILY [facility] Non-Formulary Medication 50 mcg 12/08/17 22:45 Fluticasone Propionate NS ASDIRECTED [facility] Non-Formulary Medication 15 mg 12/09/17 09:00 Rivaroxaban PO DAILY [facility] Ondansetron HCl 4 mg 12/08/17 23:44 Zofran IV Q6H PRN Nausea/Vomiting Potassium Chloride 1 dose 12/08/17 23:30 Pharmacy To Dose - Potassium Replacement .XX ASDIRECTED [facility] Rosuvastatin Calcium 10 mg 12/09/17 09:00 Crestor PO DAILY [facility] Saccharomyces Boulardii 250 mg 12/09/17 09:00 Florastor PO BID [facility] Tamsulosin HCl 0.4 mg 12/09/17 09:00 Flomax PO DAILY [facility] Temazepam 7.5 mg 12/08/17 23:44 Restoril PO BEDTIME PRN Sleep Trimethoprim/Sulfamethoxazole 1 tab 12/09/17 09:00 Septra Ds PO 12/22/17 09:01 BID VALE Trospium 20 mg 12/09/17 06:00 Sanctura PO BIDAC VALE Trospium 20 mg 12/09/17 00:15 Sanctura PO 12/09/17 00:16 ONETIME ONE Vancomycin HCl 125 mg 12/09/17 09:00 First-Vancomycin 50 Compounding Kit PO 12/18/17 21:01 QID VALE Vitamin E 400 units 12/09/17 09:00 Vitamin E PO DAILY [facility] Discontinued Medications Generic Name Dose Route Start Last Admin Trade Name Freq PRN Reason Stop Dose Admin Acetaminophen 650 mg 12/08/17 22:40 12/08/17 22:50 Tylenol PO 12/08/17 23:59 650 mg Q4H PRN Administration Fever Acetaminophen 650 mg 12/08/17 23:44 Tylenol PO Q4H PRN Pain (Mild 1-3)/fever Sodium Chloride 500 mls @ 999 mls/hr 12/08/17 18:19 12/08/17 18:34 Normal Saline IV 12/08/17 18:49 999 mls/hr ONETIME ONE Administration Sodium Chloride 1,000 mls @ 50 mls/hr 12/08/17 19:08 12/08/17 19:18 Normal Saline IV 12/09/17 15:07 50 mls/hr ONETIME ONE Administration Cefepime HCl 1 gm/ Premix 50 mls @ 100 mls/hr 12/08/17 21:48 12/08/17 22:58 IV 12/08/17 22:17 Not Given ONETIME ONE Vancomycin HCl 1.25 gm/ Sodium 250 mls @ 250 mls/hr 12/08/17 22:15 Chloride IV 12/08/17 23:14 ONETIME ONE Cefepime HCl 1 gm/ Premix 50 mls @ 100 mls/hr 12/08/17 22:08 12/08/17 22:58 IV 12/08/17 22:37 Not Given ONETIME ONE Cefepime HCl Confirm 12/08/17 22:09 12/08/17 22:59 Maxipime In D5w 2 Gm/50 Ml Administered 12/08/17 22:10 Not Given Dose 50 mls @ as directed .ROUTE .STK-MED ONE Cefepime HCl 2 gm/ Premix 50 mls @ 100 mls/hr 12/08/17 22:11 12/08/17 22:15 IV 12/08/17 22:40 100 mls/hr ONETIME ONE Administration Pantoprazole Sodium 40 mg 12/09/17 09:00 Protonix PO DAILY [facility] Trimethoprim/Sulfamethoxazole 1 tab 12/08/17 23:44 Septra Ds PO 12/08/17 23:45 ONETIME ONE Vancomycin HCl 1 dose 12/08/17 21:48 Pharmacy To Dose - Vancomycin .XX 12/08/17 21:49 ONETIME ONE Vancomycin HCl 1,258.725 mg 12/08/17 23:45 Vancomycin 15 mg/kg (1258.725 mg) IV Q12H [facility]E - Radiology Interpretation Free Text/Narrative:: 1 view chest xray shows cardiomegaly. No acute intrathoracic process. No significant change from October 2017 xray. - Re-Assessments/Exams Free Text/Narrative Re-Assessment/Exam: 12/08/17 22:10 I reviewed the labs, EKG and imaging with the patient. Given his weakness he is not safe to go home. They're agreeable to admission. Will admit for weakness and urinary tract infection. Blood and urine cultures are pending. He also is a culture of his suprapubic catheter site pending. He has declined medication for pain and nausea along the ER. He is given a 500 bolus Upon arrival the ER and has done well since. Reportedly his blood pressure by EMS was in the 70s to 80s systolic, we have not gotten a blood pressure below 120 systolic. Case discussed with Dr. Shearer, hospitalist on-call. He agrees to the admission. Will be admitted to [facility]. Departure - Departure Time of Disposition: 22:30 Disposition: Admitted As Inpatient 68 Condition: Fair Clinical Impression: UTI, Urinary tract infectious disease, C. difficile diarrhea - Discharge Information - My Orders Last 24 Hours: My Active Orders 12/08/17 18:19 Cardiac Monitoring [RC] . DIRECTED Chest 1V Frontal [CR] Stat Blood Culture x2 Reflex Set [OM.PC] Stat EKG 12 Lead [EK] Stat 06/09/18 18:20 EKG Documentation Completion [RC] ASDIRECTED 12/08/17 18:30 UA W/MICROSCOPIC [URIN] Stat 12/08/17 18:31 CULTURE URINE [RM] Stat CULTURE WOUND [RM] Stat 12/08/17 18:35 CULTURE BLOOD [BC] Stat 12/08/17 18:45 CULTURE BLOOD [BC] Stat 12/08/17 21:10 WBC, STOOL [OP] Stat - Assessment/Plan Last 24 Hours: My Active Orders 12/08/17 18:19 Cardiac Monitoring [RC] . DIRECTED Chest 1V Frontal [CR] Stat Blood Culture x2 Reflex Set [OM.PC] Stat EKG 12 Lead [EK] Stat 12/08/17 18:20 EKG Documentation Completion [RC] ASDIRECTED 12/08/17 18:30 UA W/MICROSCOPIC [URIN] Stat 12/08/17 18:31 CULTURE URINE [RM] Stat CULTURE WOUND [RM] Stat 12/08/17 18:35 CULTURE BLOOD [BC] Stat 12/08/17 18:45 CULTURE BLOOD [BC] Stat 12/08/17 21:10 WBC, STOOL [OP] Stat
[2017-12-08] MEDS ORDERED: Sodium Chloride 0.9% 1,000 ML IV ONE (19:08)
[2017-12-08] MEDS ORDERED: Cefepime 1 GM in Premix Bag 1 BAG IV ONE ×2 (21:48→22:08)
[2017-12-08] MEDS ORDERED: Cefepime 50 ML ONE (22:09)
[2017-12-08] MEDS ORDERED: Cefepime 2 GM in Premix Bag 1 BAG IV ONE (22:11)
[2017-12-08] MEDS ORDERED: Nitroglycerin 0.4 MG Tab.SL SL PRN (22:36)
[2017-12-08] MEDS ORDERED: Acetaminophen 325 MG Tab PO PRN ×3 (22:36→23:44)
[2017-12-08] MEDS ORDERED: Docusate Sodium 100 MG Cap PO PRN (22:36)
[2017-12-08] MEDS ORDERED: Metoprolol Tartrate 5 MG/5 ML SDV IVPUSH PRN (23:30)
[2017-12-08] MEDS ORDERED: hydrALAZINE 20 MG/ML SDV IVPUSH PRN (23:30)
[2017-12-08] MEDS ORDERED: LORazepam 2 MG/ML SDV IVPUSH PRN (23:30)
[2017-12-08] MEDS ORDERED: Promethazine 12.5 MG in Sodium Chloride 0.9% 50 ML IV PRN (23:44)
[2017-12-08] MEDS ORDERED: Sulfamethoxazole/Trimethoprim 800-160 MG Tab PO ONE (23:44)
[2017-12-08] MEDS ORDERED: Ondansetron 4 MG/2 ML SDV IV PRN (23:44)
[2017-12-08] MEDS ORDERED: Albuterol/Ipratropium 3.0-0.5 MG/3 ML Neb Soln NEB PRN (23:44)
[2017-12-08] MEDS ORDERED: HYDROmorphone 0.5 MG/0.5 ML SYRINGE IVPUSH PRN (23:44)
[2017-12-08] MEDS ORDERED: Temazepam 7.5 MG Cap PO PRN (23:44)
[2017-12-08] MEDS ORDERED: LORazepam 2 MG/ML SDV IV PRN (23:44)
[2017-12-08] MEDS ORDERED: Vancomycin 500 MG SDV IV SCH (23:45)
--- NOTE | 2017-12-08 23:51 | PCM.HP ---
H&P History of Present Illness - General Date of Service: 12/08/17 Admit Problem/Dx: Admission Diagnosis/Problem Admission Diagnosis/Problem UTI (urinary tract infection) due to urinary indwelling catheter Source of Information: Patient, Family, Old Records, Provider, RN Notes Reviewed History Limitations: Reports: Physical Impairment - History of Present Illness Initial Comments - Free Text/Narative: This is an 87 yo elderly white male with past medical hx/o Impaired Vision/ Hearing, CABG S/p Stent Placement, KAYLEN on CPAP, COPD, Respiratory Failure on 3L NC Continuous use, GERD, BPH/Prostate Disorder, Suprapubic Catheter Placement, Recurrent UTI with hx/o MRSA, Hx/o TIA, 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 Per patient he was so weak that he was not able to get up and move on his own. He reports extreme pain on his lower abdomen. He reports no fever or chills or any signs of system infections. He has a chronic suprapubic catheter due to bladder dysfunction that is routinely change (monthly) by Dr. Mckee. He is scheduled for it in 2 weeks. Patient was recent discharged here not too long ago for similar complaints. He states he just completed his oral antibiotics a few days ago. His initial work up in ED shows a CBC remarkable for MCHC of 31.2, RDW of 48.3, Platelet Cunt of 139, Neutrophils of 83% and Lymphocytes of 10%. His chemistry is significant for Cr of 1.4, Glucose of 136, and CRP of 4.2. His UA is markedly impressive for UTI. His C. Diff screening is positive. Patient is being admitted for treatment of Recurrent UTI and CDAD along with Acute on Chronic Bladder Spasm. He is full code. Penis Pain Score (Numeric/FACES): 8 - Related Data Allergies/Adverse Reactions: Allergies Allergy/AdvReac Type Severity Reaction Status Date / Time celecoxib [From Celebrex] Allergy Hives Verified 12/09/17 09:25 rofecoxib [From Vioxx] Allergy Hives Verified 12/09/17 09:25 valdecoxib [From Bextra] Allergy Hives Verified 12/09/17 09:25 methylprednisolone AdvReac Dizziness Verified 12/09/17 09:25 morphine AdvReac Irritabilit Verified 12/09/17 09:25 y Home Medications: Home Meds Ascorbic Acid [Vitamin C] 500 mg PO DAILY 01/05/14 [History] Aspirin [David Chewable Aspirin] 81 mg PO DAILY 01/05/14 [History] Calcium Carbonate/Vitamin D3 [Caltrate 600 + D Soft Chew Tab] 1 each PO DAILY [History] Enalapril [Vasotec] 20 mg PO DAILY 01/05/14 [History] Metoprolol Tartrate 50 mg PO DAILY 01/05/14 [History] Omeprazole 20 mg PO DAILY 01/05/14 [History] Rivaroxaban [Xarelto] 15 mg PO DAILY 01/05/14 [History] Tamsulosin [Flomax] 0.4 mg PO DAILY 01/05/14 [History] atorvaSTATin [Lipitor] 40 mg PO DAILY 01/05/14 [History] Arginine HCl [Pure l-Arginine HCl] 1,000 mg PO DAILY 02/02/14 [History] Docusate Sodium [Colace] 100 mg PO DAILY PRN 02/02/14 [History] Fenofibric Acid (Choline) [Trilipix] 45 mg PO DAILY 02/02/14 [History] Isosorbide Mononitrate [Imdur] 30 mg PO DAILY 02/02/14 [History] Nitroglycerin [Nitrostat] 0.4 mg SL ASDIRECTED PRN 02/02/14 [History] Vitamin E 400 unit PO DAILY 02/02/14 [History] Acetaminophen [Acetaminophen ER] 650 mg PO Q4H PRN 11/09/17 [History] Fluticasone Propionate [Flonase] 50 mcg NS ASDIRECTED 11/09/17 [History] Magnesium Oxide 800 mg PO DAILY 5 Days #5 tablet 11/15/17 [Rx] Past Medical History HEENT History: Reports: Hard of Hearing, Impaired Vision Other HEENT History: glasses Cardiovascular History: Reports: Bypass, PA, Stents, Other (See Below) Respiratory History: Reports: Sleep Apnea, Other (See Below) Other Respiratory History: Chronic O2 use, uses 3 L/min at home, uses CPAP at home. Gastrointestinal History: Reports: GERD Genitourinary History: Reports: BPH, Other (See Below) Other Genitourinary History: supra pubic cath Musculoskeletal History: Reports: Back Pain, Chronic Neurological History: Reports: TIA Psychiatric History: Reports: Anxiety, Depression Hematologic History: Reports: Blood Transfusion(s) Dermatologic History: Reports: Other (See Below) Other Dermatologic History: growth on left hand - Infectious Disease History Infectious Disease History: Reports: Shingles - Past Surgical History HEENT Surgical History: Reports: None Cardiovascular Surgical History: Reports: Coronary Artery Bypass, Coronary Artery Stent Respiratory Surgical History: Reports: None GI Surgical History: Reports: Cholecystectomy Neurological Surgical History: Reports: None Musculoskeletal Surgical History: Reports: Hip Replacement, Other (See Below) Other Musculoskeletal Surgeries/Procedures:: growth removed from left hand Dermatological Surgical History: Reports: Skin Biopsy Social & Family History - Family History Family Medical History: Noncontributory - Tobacco Use Smoking Status *Q: Former Smoker Used Tobacco, but Quit: Yes Month/Year Tobacco Last Used: 40 yrs - Caffeine Use Caffeine Use: Reports: Coffee, Soda - Recreational Drug Use Recreational Drug Use: No H&P Review of Systems - Review of Systems: Review Of Systems: See Below General: Reports: Fever, Chills, Malaise, Weakness, Fatigue, Decreased Appetite HEENT: Reports: No Symptoms Pulmonary: Reports: Shortness of Breath. Denies: Pleuritic Chest Pain Cardiovascular: Reports: Dyspnea on Exertion. Denies: Chest Pain, Lightheadedness Gastrointestinal: Denies: Abdominal Pain, Decreased Appetite, Nausea, Vomiting Genitourinary: Reports: Dysuria, Retention, Other (pubic tenderness) Musculoskeletal: Reports: No Symptoms Skin: Denies: Cyanosis, Jaundice, Mottled, Pallor, Diaphoresis, Rash, Erythema Psychiatric: Denies: Confusion, Depression, Anxiety, Agitation, Cravings, Hallucinations Neurological: Reports: Difficulty Walking, Weakness, Gait Disturbance. Denies: Confusion, Dizziness, Headache, Seizure, Syncope Hematologic/Lymphatic: Reports: Anemia Immunologic: Denies: No Symptoms Exam - Exam Exam: See Below - Vital Signs Vital Signs: Last Vital Signs Temp 38.1 C 12/08/17 22:50 Pulse 72 12/08/17 20:41 Resp 16 12/08/17 20:41 BP 166/63 H 12/08/17 20:41 Pulse Ox 93 L 12/08/17 20:41 Weight: 83.915 kg - Exam Quality Assessment: Supplemental Oxygen General: Alert, Oriented, Cooperative, Mild Distress HEENT: Conjunctiva Clear, EACs Clear, EOMI, Hearing Intact, Mucosa Moist & [place] , Nares Patent, Normal Nasal Septum, Posterior Pharynx Clear, Pupils Equal, Pupils Reactive Neck: Supple, Trachea Midline, +2 Carotid Pulse wo Bruit, Full Range of Motion Lungs: Normal Respiratory Effort, Decreased Breath Sounds Cardiovascular: Regular Rate, Regular Rhythm GI/Abdominal Exam: Normal Bowel Sounds, Soft, Non-Tender, No Organomegaly, No Distention, No Abnormal Bruit (Male) Exam: Other (Suprapubic cather; pubic tenderness on mild touch or palpation) Rectal (Males) Exam: Deferred Back Exam: Normal Inspection, Decreased Range of Motion Extremities: Normal Inspection, Normal Range of Motion, Non-Tender, No Pedal Edema, Normal Capillary Refill Peripheral Pulses: 0: Posterior Tibial (L), 3+: Posterior Tibial (R), Dorsalis Pedis (L), Dorsalis Pedis (R) Skin: Warm, Dry, Intact. No: Ecchymosis Neuro Extensive - Mental Status: Oriented x3, Normal Cognition, Memory Intact Neuro Extensive - Motor, Sensory, Reflexes: CN II-XII Intact (limited by pain with movement ), Abnormal Gait Psychiatric: Alert, Normal Affect, Normal Mood - Patient Data Lab Results Last 24 hrs: Laboratory Results - last 24 hr 12/08/17 12/08/17 12/08/17 Range/Units 18:24 18:24 18:24 WBC 5.99 (4.23-9.07) K/mm3 RBC 4.96 (4.63-6.08) M/mm3 Hgb 13.8 (13.7-17.5) gm/L Hct 44.2 (40.1-51.0) % MCV 89.1 (79.0-92.2) fl MCH 27.8 (25.7-32.2) pg MCHC 31.2 L (32.2-35.5) g/dl RDW Std Deviation 48.3 H (35.1-43.9) fL Plt Count 139 L (163-337) K/mm3 MPV 10.6 (9.4-12.3) fl Neutrophils % (Manual) 83 H (40-60) % Band Neutrophils % 0 (0-10) % Lymphocytes % (Manual) 10 L (20-40) % Atypical Lymphs % 0 % Monocytes % (Manual) 7 (2-10) % Eosinophils % (Manual) 0 L (0.8-7.0) % Basophils % (Manual) 0 L (0.2-1.2) Platelet Estimate Decreased RBC Morph Comment Normal Sodium 138 (136-145) mEq/L Potassium 3.9 (3.5-5.1) mEq/L Chloride 101 (98-107) mEq/L Carbon Dioxide 28 (21-32) mEq/L Anion Gap 12.9 (5-15) BUN 17 (7-18) mg/dL Creatinine 1.4 H (0.7-1.3) mg/dL Est Cr Clr Drug Dosing 36.07 mL/min Estimated GFR (MDRD) 48 (>60) mL/min BUN/Creatinine Ratio 12.1 L (14-18) Glucose 136 H (83-115) mg/dL Lactic Acid 0.7 (0.4-2.0) mmol/L Calcium 9.0 (8.5-10.1) mg/dL Total Bilirubin 0.5 (0.2-1.0) mg/dL AST 23 (15-37) U/L ALT 24 (16-63) U/L Alkaline Phosphatase 57 (46-116) U/L Troponin I (0.00-0.056) ng/mL C-Reactive Protein 4.2 H* (<1.0) mg/dL Total Protein 7.6 (6.4-8.2) g/dl Albumin 3.7 (3.4-5.0) g/dl Globulin 3.9 gm/dL Albumin/Globulin Ratio 1.0 (1-2) Urine Color (Yellow) Urine Appearance (Clear) Urine pH (5.0-8.0) Ur Specific [place] (1.005-1.030) Urine Protein (Negative) Urine Glucose (UA) (Negative) Urine Ketones (Negative) Urine Occult Blood (Negative) Urine Nitrite (Negative) Urine Bilirubin (Negative) Urine Urobilinogen (0.2-1.0) Ur Leukocyte Esterase (Negative) Urine RBC (0-5) /hpf Urine WBC (0-5) /hpf Ur Epithelial Cells (0-5) /hpf Urine Bacteria (FEW) /hpf Urine Mucus (FEW) /hpf C.difficile [id number]-[id number] C. difficile Tox (PCR) 12/08/17 12/08/17 12/08/17 Range/Units 18:24 18:30 21:10 WBC (4.23-9.07) K/mm3 RBC (4.63-6.08) M/mm3 Hgb (13.7-17.5) gm/L Hct (40.1-51.0) % MCV (79.0-92.2) fl MCH (25.7-32.2) pg MCHC (32.2-35.5) g/dl RDW Std Deviation (35.1-43.9) fL Plt Count (163-337) K/mm3 MPV (9.4-12.3) fl Neutrophils % (Manual) (40-60) % Band Neutrophils % (0-10) % Lymphocytes % (Manual) (20-40) % Atypical Lymphs % % Monocytes % (Manual) (2-10) % Eosinophils % (Manual) (0.8-7.0) % Basophils % (Manual) (0.2-1.2) Platelet Estimate RBC Morph Comment Sodium (136-145) mEq/L Potassium (3.5-5.1) mEq/L Chloride (98-107) mEq/L Carbon Dioxide (21-32) mEq/L Anion Gap (5-15) BUN (7-18) mg/dL Creatinine (0.7-1.3) mg/dL Est Cr Clr Drug Dosing mL/min Estimated GFR (MDRD) (>60) mL/min BUN/Creatinine Ratio (14-18) Glucose (83-115) mg/dL Lactic Acid (0.4-2.0) mmol/L Calcium (8.5-10.1) mg/dL Total Bilirubin (0.2-1.0) mg/dL AST (15-37) U/L ALT (16-63) U/L Alkaline Phosphatase (46-116) U/L Troponin I < 0.017 (0.00-0.056) ng/mL C-Reactive Protein (<1.0) mg/dL Total Protein (6.4-8.2) g/dl Albumin (3.4-5.0) g/dl Globulin gm/dL Albumin/Globulin Ratio (1-2) Urine Color Yellow (Yellow) Urine Appearance Cloudy H (Clear) Urine pH 8.5 H (5.0-8.0) Ur Specific [place] 1.020 (1.005-1.030) Urine Protein 3+ H (Negative) Urine Glucose (UA) Negative (Negative) Urine Ketones Negative (Negative) Urine Occult Blood 2+ H (Negative) Urine Nitrite Negative (Negative) Urine Bilirubin 1+ H (Negative) Urine Urobilinogen 0.2 (0.2-1.0) Ur Leukocyte Esterase 1+ H (Negative) Urine RBC 0-5 (0-5) /hpf Urine WBC 20-30 H (0-5) /hpf Ur Epithelial Cells 0-5 (0-5) /hpf Urine Bacteria Moderate H (FEW) /hpf Urine Mucus Few (FEW) /hpf C.difficile [id number]-[id number] Presumptive negative C. difficile Tox (PCR) Positive H Result Diagrams: 12/09/17 05:45 12/09/17 05:45 Jose David Results Last 24 hrs: Microbiology 12/08/17 21:10 Stool for WBCs - Final Stool / Feces Problem List Initiated/Reviewed/Updated: Yes Orders Last 24hrs: Active Orders 24 hr Category Date Time Status Patient Status [ADT] Routine ADT 12/08/17 22:12 Active Bladder Irrigation [RC] DAILY Care 12/09/17 08:00 Active Cardiac Monitoring [RC] . DIRECTED Care 12/08/17 18:19 Active EKG Documentation Completion [RC] ASDIRECTED Care 12/08/17 18:20 Active Height and Weight [RC] DAILY Care 12/08/17 23:39 Ordered Intake and Output [RC] QSHIFT Care 12/08/17 23:39 Ordered Oxygen Therapy [RC] PRN Care 12/08/17 23:39 Ordered RT Aerosol Therapy [RC] ASDIRECTED Care 12/08/17 23:49 Ordered VTE/DVT Education [RC] PER UNIT ROUTINE Care 12/08/17 23:39 Ordered Vital Signs [RC] Q4H Care 12/08/17 23:39 Ordered Consult to Case Management [CONS] Routine Cons 12/08/17 23:50 Ordered Consult to [employer] [CONS] Routine Cons 12/08/17 23:50 Ordered Consult to Spiritual Care [CONS] Routine Cons 12/08/17 23:50 Ordered OT Evaluation and Treatment [CONS] Routine Cons 12/08/17 23:50 Ordered PT Evaluation and Treatment [CONS] Routine Cons 12/08/17 23:50 Ordered Heart Healthy Diet [DIET] Diet 12/08/17 Dinner Ordered Chest 1V Frontal [CR] Stat Exams 12/08/17 18:19 Taken BASIC METABOLIC PANEL,BMP [CHEM] AM Lab 12/09/17 05:11 Ordered BASIC METABOLIC PANEL,BMP [CHEM] AM Lab 12/10/17 05:11 Ordered BASIC METABOLIC PANEL,BMP [CHEM] AM Lab 12/11/17 05:11 Ordered BASIC METABOLIC PANEL,BMP [CHEM] AM Lab 12/12/17 05:11 Ordered C-REACTIVE PROTEIN [CHEM] AM Lab 12/09/17 05:11 Ordered C-REACTIVE PROTEIN [CHEM] AM Lab 12/10/17 05:11 Ordered C-REACTIVE PROTEIN [CHEM] AM Lab 12/11/17 05:11 Ordered C-REACTIVE PROTEIN [CHEM] AM Lab 12/12/17 05:11 Ordered CBC WITH AUTO DIFF [HEME] AM Lab 12/09/17 05:11 Ordered CBC WITH AUTO DIFF [HEME] AM Lab 12/10/17 05:11 Ordered CBC WITH AUTO DIFF [HEME] AM Lab 12/11/17 05:11 Ordered CBC WITH AUTO DIFF [HEME] AM Lab 12/12/17 05:11 Ordered CULTURE BLOOD [BC] Stat Lab 12/08/17 18:35 Received CULTURE BLOOD [BC] Stat Lab 12/08/17 18:45 Received CULTURE URINE [RM] Stat Lab 12/08/17 18:31 Ordered CULTURE WOUND [RM] Stat Lab 12/08/17 18:31 Ordered MAGNESIUM [CHEM] AM Lab 12/09/17 05:11 Ordered MAGNESIUM [CHEM] AM Lab 12/10/17 05:11 Ordered MAGNESIUM [CHEM] AM Lab 12/11/17 05:11 Ordered MAGNESIUM [CHEM] AM Lab 12/12/17 05:11 Ordered UA W/MICROSCOPIC [URIN] Stat Lab 12/08/17 18:30 Ordered WBC, STOOL [OP] Stat Lab 12/08/17 21:10 Ordered Acetaminophen [Tylenol] Med 12/08/17 22:36 Active 650 mg PO Q4H PRN Acetaminophen [Tylenol] Med 12/08/17 22:40 Active 650 mg PO Q4H PRN Acetaminophen [Tylenol] Med 12/08/17 23:44 Ordered 650 mg PO Q4H PRN Acetaminophen/HYDROcodone [[place] 325-5 MG] Med 12/08/17 23:44 Ordered 1 tab PO Q4H PRN Albuterol/Ipratropium [DuoNeb 3.0-0.5 MG/3 ML] Med 12/08/17 23:44 Ordered 3 ml NEB Q4H PRN Arginine HCl [Pure l-Arginine HCl] Med 12/09/17 09:00 Ordered 1,000 mg PO DAILY Ascorbic Acid [Vitamin C] Med 12/09/17 09:00 Active 500 mg PO DAILY Aspirin Med 12/09/17 09:00 Active 81 mg PO DAILY Docusate Sodium [Colace] Med 12/08/17 22:36 Active 100 mg PO DAILY PRN Fenofibric Acid (Choline) [Trilipix] Med 12/09/17 09:00 Ordered 45 mg PO DAILY Fluticasone Propionate Med 12/08/17 22:45 Ordered 50 mcg NS ASDIRECTED HYDROmorphone [Dilaudid] Med 12/08/17 23:44 Ordered 0.5 mg IVPUSH Q2H PRN Isosorbide Mononitrate [Imdur] Med 12/09/17 09:00 Active 30 mg PO DAILY LORazepam [Ativan] Med 12/08/17 23:44 Ordered 0.25 mg IV Q6H PRN LORazepam [Ativan] Med 12/08/17 23:30 Ordered 2 mg IVPUSH Q4H PRN Magnesium Oxide Med 12/09/17 09:00 Pending 800 mg PO DAILY Magnesium Rep Pharmacy to Dose [Pharmacy to Dose - Med 12/08/17 23:30 Ordered Magnesium Replacement] 1 dose .XX ASDIRECTED Metoprolol Tartrate [Lopressor] Med 12/08/17 23:30 Ordered 5 mg IVPUSH Q4H PRN Metoprolol Tartrate [Lopressor] Med 12/09/17 09:00 Active 50 mg PO DAILY Nitroglycerin [Nitrostat] Med 12/08/17 22:36 Active 0.4 mg SL ASDIRECTED PRN Ondansetron [Zofran] Med 12/08/17 23:44 Ordered 4 mg IV Q6H PRN Potassium Rep Pharmacy to Dose [Pharmacy to Dose - Med 12/08/17 23:30 Ordered Potassium Replacement] 1 dose .XX ASDIRECTED Promethazine [Phenergan] 12.5 mg Med 12/08/17 23:44 Ordered Sodium Chloride 0.9% [Normal Saline] 50 ml IV Q6H Rivaroxaban Med 12/09/17 09:00 Ordered 15 mg PO DAILY Rosuvastatin [Crestor] Med 12/09/17 09:00 Active 10 mg PO DAILY Saccharomyces Boulardii [Florastor] Med 12/09/17 09:00 Active 250 mg PO BID Sodium Chloride 0.9% [Normal Saline] 1,000 ml Med 12/08/17 23:45 Ordered IV ASDIRECTED Sodium Chloride 0.9% [Normal Saline] 1,000 ml Med 12/08/17 19:08 Active IV ONETIME Sulfamethoxazole/Trimethoprim [Septra DS] Med 12/09/17 09:00 Ordered 1 tab PO BID Tamsulosin [Flomax] Med 12/09/17 09:00 Active 0.4 mg PO DAILY Temazepam [Restoril] Med 12/08/17 23:44 Ordered 7.5 mg PO BEDTIME PRN Vancomycin [First-Vancomycin 50 Compounding Kit] Med 12/09/17 09:00 Ordered 125 mg PO QID Vitamin E [Vitamin E] Med 12/09/17 09:00 Ordered 400 unit PO DAILY hydrALAZINE [Apresoline] Med 12/08/17 23:30 Ordered 20 mg IVPUSH Q4H PRN Blood Culture x2 Reflex Set [OM.PC] Stat Oth 12/08/17 18:19 Ordered Resuscitation Status Routine Resus Stat 12/08/17 23:39 Ordered EKG 12 Lead [EK] Stat Ther 12/08/17 18:19 Ordered Medication Orders Acetaminophen (Tylenol) 650 mg PO Q4H PRN PRN Reason: Pain Acetaminophen (Tylenol) 650 mg PO Q4H PRN PRN Reason: Fever Stop: 12/08/17 23:59 Last Admin: 12/08/17 22:50 Dose: 650 mg Ascorbic Acid (Vitamin C) 500 mg PO DAILY [facility] Aspirin (Aspirin) 81 mg PO DAILY [facility] Docusate Sodium (Colace) 100 mg PO DAILY PRN PRN Reason: Constipation Hydralazine HCl (Apresoline) 20 mg IVPUSH Q4H PRN PRN Reason: Hypertension Sodium Chloride (Normal Saline) 1,000 mls @ 50 mls/hr IV ONETIME ONE Stop: 12/09/17 15:07 Last Admin: 12/08/17 19:18 Dose: 50 mls/hr Isosorbide Mononitrate (Imdur) 30 mg PO DAILY [facility] Lorazepam (Ativan) 2 mg IVPUSH Q4H PRN PRN Reason: Seizures Magnesium Oxide (Magnesium Oxide) 800 mg PO DAILY [facility] Magnesium Sulfate (Pharmacy To Dose - Magnesium Replacement) 1 dose .XX ASDIRECTED [facility] Metoprolol Tartrate (Lopressor) 50 mg PO DAILY [facility] Metoprolol Tartrate (Lopressor) 5 mg IVPUSH Q4H PRN PRN Reason: Tachycardia Nitroglycerin (Nitrostat) 0.4 mg SL ASDIRECTED PRN PRN Reason: Chest Pain Non-Formulary Medication (Arginine Hcl [Pure L-Arginine Hcl]) 1,000 mg PO DAILY [facility] Non-Formulary Medication (Fenofibric Acid (Choline) [Trilipix]) 45 mg PO DAILY [facility] Non-Formulary Medication (Fluticasone Propionate) 50 mcg NS ASDIRECTED [facility] Non-Formulary Medication (Rivaroxaban) 15 mg PO DAILY [facility] Potassium Chloride (Pharmacy To Dose - Potassium Replacement) 1 dose .XX ASDIRECTED [facility] Rosuvastatin Calcium (Crestor) 10 mg PO DAILY [facility] Saccharomyces Boulardii (Florastor) 250 mg PO BID [facility] Tamsulosin HCl (Flomax) 0.4 mg PO DAILY [facility] Trimethoprim/Sulfamethoxazole (Septra Ds) 1 tab PO BID [facility] Vancomycin HCl (First-Vancomycin 50 Compounding Kit) 125 mg PO QID [facility] Stop: 12/18/17 21:01 Vitamin E (Vitamin E) 400 units PO DAILY [facility] Assessment/Plan Comment:: Assessment/Plan: Acute: Recurrent Catheter Related UTI - Has Chronic Bladder Dysfunction/Spasm with Chronic Suprapubic Catheter - Cali catheter is scheduled to change in 2 weeks; usually performed by Dr. Mckee - Has Urology appointment to see Dr. 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
[2017-12-08] MEDS ORDERED: Tolterodine 2 MG Tab PO ONE (23:55)
[2017-12-09] MEDS ORDERED: Trospium 20 MG Tab PO ONE (00:15)
[2017-12-09] MEDS: Acetaminophen/HYDROcodone 325-5 MG Tab PO PRN ×4 (02:30→18:51)
[2017-12-09] MEDS: Sodium Chloride 0.9% 1,000 ML IV SCH (05:55)
[2017-12-09] MEDS: Trospium 20 MG Tab PO SCH ×2 (05:55→16:04)
--- NOTE | 2017-12-09 06:45 | PCM.PN ---
- General Info Date of Service: 12/09/17 Admission Dx/Problem (Free Text): Admission Diagnosis/Problem Admission Diagnosis/Problem UTI (urinary tract infection) due to urinary indwelling catheter Subjective Update: Follow Up Functional Status: Reports: Tolerating Diet, Urinating. Denies: Pain Controlled , New Symptoms Pain Score: 5 - Review of Systems General: Denies: Fever, Weakness, Fatigue, Chills HEENT: Reports: No Symptoms Pulmonary: Denies: Shortness of Breath Cardiovascular: Denies: Chest Pain, Dyspnea on Exertion, Lightheadedness Gastrointestinal: Reports: Abdominal Pain (Lower Abdomen/Pelvis). Denies: Decreased Appetite, Nausea, Vomiting Genitourinary: Reports: No Symptoms Musculoskeletal: Reports: No Symptoms Skin: Denies: Cyanosis, Mottled, Pallor, Diaphoresis, Bruising Neurological: Reports: Difficulty Walking (due to pain ), Weakness, Gait Disturbance. Denies: Confusion Psychiatric: Denies: Depression, Anxiety, Agitation, Hallucinations Systems Review Comment:: Patient did not sleep good last night. He could not get comfortable due to pain although he did get pain medication and anti-spastic medications. He rates his bladder pain at 5/10. He is now afebrile but remains w/o leukocytosis. He is slightly low on his Mg level at 1.6 and borderline low on blood pressures this morning. He reports no other complaints. - Patient Data Vitals - Most Recent: Last Vital Signs Temp 36.9 C 12/09/17 05:59 Pulse 72 12/09/17 05:59 Resp 20 12/09/17 05:59 BP 94/62 12/09/17 05:59 Pulse Ox 91 L 12/09/17 05:59 Weight - Most Recent: 83.915 kg I&O - Last 24 Hours: Intake & Output 12/08/17 12/08/17 12/09/17 14:59 22:59 06:59 Intake Total 500 400 Output Total 60 250 Balance 440 150 Lab Results Last 24 Hours: Laboratory Results - last 24 hr 12/08/17 12/08/17 12/08/17 Range/Units 18:24 18:24 18:24 WBC 5.99 (4.23-9.07) K/mm3 RBC 4.96 (4.63-6.08) M/mm3 Hgb 13.8 (13.7-17.5) gm/L Hct 44.2 (40.1-51.0) % MCV 89.1 (79.0-92.2) fl MCH 27.8 (25.7-32.2) pg MCHC 31.2 L (32.2-35.5) g/dl RDW Std Deviation 48.3 H (35.1-43.9) fL Plt Count 139 L (163-337) K/mm3 MPV 10.6 (9.4-12.3) fl Neut % (Auto) (34.0-67.9) % Lymph % (Auto) (21.8-53.1) % Dickinson % (Auto) (5.3-12.2) % Eos % (Auto) (0.8-7.0) Baso % (Auto) (0.1-1.2) % Neut # (Auto) (1.78-5.38) K/mm3 Lymph # (Auto) (1.32-3.57) K/mm3 Dickinson # (Auto) (0.30-0.82) K/mm3 Eos # (Auto) (0.04-0.54) K/mm3 Baso # (Auto) (0.01-0.08) K/mm3 Neutrophils % (Manual) 83 H (40-60) % Band Neutrophils % 0 (0-10) % Lymphocytes % (Manual) 10 L (20-40) % Atypical Lymphs % 0 % Monocytes % (Manual) 7 (2-10) % Eosinophils % (Manual) 0 L (0.8-7.0) % Basophils % (Manual) 0 L (0.2-1.2) Platelet Estimate Decreased RBC Morph Comment Normal Sodium 138 (136-145) mEq/L Potassium 3.9 (3.5-5.1) mEq/L Chloride 101 (98-107) mEq/L Carbon Dioxide 28 (21-32) mEq/L Anion Gap 12.9 (5-15) BUN 17 (7-18) mg/dL Creatinine 1.4 H (0.7-1.3) mg/dL Est Cr Clr Drug Dosing 36.07 mL/min Estimated GFR (MDRD) 48 (>60) mL/min BUN/Creatinine Ratio 12.1 L (14-18) Glucose 136 H (83-115) mg/dL Lactic Acid 0.7 (0.4-2.0) mmol/L Calcium 9.0 (8.5-10.1) mg/dL Total Bilirubin 0.5 (0.2-1.0) mg/dL AST 23 (15-37) U/L ALT 24 (16-63) U/L Alkaline Phosphatase 57 (46-116) U/L Troponin I (0.00-0.056) ng/mL C-Reactive Protein 4.2 H* (<1.0) mg/dL Total Protein 7.6 (6.4-8.2) g/dl Albumin 3.7 (3.4-5.0) g/dl Globulin 3.9 gm/dL Albumin/Globulin Ratio 1.0 (1-2) Urine Color (Yellow) Urine Appearance (Clear) Urine pH (5.0-8.0) Ur Specific [place] (1.005-1.030) Urine Protein (Negative) Urine Glucose (UA) (Negative) Urine Ketones (Negative) Urine Occult Blood (Negative) Urine Nitrite (Negative) Urine Bilirubin (Negative) Urine Urobilinogen (0.2-1.0) Ur Leukocyte Esterase (Negative) Urine RBC (0-5) /hpf Urine WBC (0-5) /hpf Ur Epithelial Cells (0-5) /hpf Urine Bacteria (FEW) /hpf Urine Mucus (FEW) /hpf C.difficile 027-NAP1-B1 C. difficile Tox (PCR) 12/08/17 12/08/17 12/08/17 Range/Units 18:24 18:30 21:10 WBC (4.23-9.07) K/mm3 RBC (4.63-6.08) M/mm3 Hgb (13.7-17.5) gm/L Hct (40.1-51.0) % MCV (79.0-92.2) fl MCH (25.7-32.2) pg MCHC (32.2-35.5) g/dl RDW Std Deviation (35.1-43.9) fL Plt Count (163-337) K/mm3 MPV (9.4-12.3) fl Neut % (Auto) (34.0-67.9) % Lymph % (Auto) (21.8-53.1) % Dickinson % (Auto) (5.3-12.2) % Eos % (Auto) (0.8-7.0) Baso % (Auto) (0.1-1.2) % Neut # (Auto) (1.78-5.38) K/mm3 Lymph # (Auto) (1.32-3.57) K/mm3 Dickinson # (Auto) (0.30-0.82) K/mm3 Eos # (Auto) (0.04-0.54) K/mm3 Baso # (Auto) (0.01-0.08) K/mm3 Neutrophils % (Manual) (40-60) % Band Neutrophils % (0-10) % Lymphocytes % (Manual) (20-40) % Atypical Lymphs % % Monocytes % (Manual) (2-10) % Eosinophils % (Manual) (0.8-7.0) % Basophils % (Manual) (0.2-1.2) Platelet Estimate RBC Morph Comment Sodium (136-145) mEq/L Potassium (3.5-5.1) mEq/L Chloride (98-107) mEq/L Carbon Dioxide (21-32) mEq/L Anion Gap (5-15) BUN (7-18) mg/dL Creatinine (0.7-1.3) mg/dL Est Cr Clr Drug Dosing mL/min Estimated GFR (MDRD) (>60) mL/min BUN/Creatinine Ratio (14-18) Glucose (83-115) mg/dL Lactic Acid (0.4-2.0) mmol/L Calcium (8.5-10.1) mg/dL Total Bilirubin (0.2-1.0) mg/dL AST (15-37) U/L ALT (16-63) U/L Alkaline Phosphatase (46-116) U/L Troponin I < 0.017 (0.00-0.056) ng/mL C-Reactive Protein (<1.0) mg/dL Total Protein (6.4-8.2) g/dl Albumin (3.4-5.0) g/dl Globulin gm/dL Albumin/Globulin Ratio (1-2) Urine Color Yellow (Yellow) Urine Appearance Cloudy H (Clear) Urine pH 8.5 H (5.0-8.0) Ur Specific [place] 1.020 (1.005-1.030) Urine Protein 3+ H (Negative) Urine Glucose (UA) Negative (Negative) Urine Ketones Negative (Negative) Urine Occult Blood 2+ H (Negative) Urine Nitrite Negative (Negative) Urine Bilirubin 1+ H (Negative) Urine Urobilinogen 0.2 (0.2-1.0) Ur Leukocyte Esterase 1+ H (Negative) Urine RBC 0-5 (0-5) /hpf Urine WBC 20-30 H (0-5) /hpf Ur Epithelial Cells 0-5 (0-5) /hpf Urine Bacteria Moderate H (FEW) /hpf Urine Mucus Few (FEW) /hpf C.difficile 027-NAP1-B1 Presumptive negative C. difficile Tox (PCR) Positive H 12/09/17 Range/Units 05:45 WBC 4.40 (4.23-9.07) K/mm3 RBC 4.35 L (4.63-6.08) M/mm3 Hgb 12.3 L (13.7-17.5) gm/L Hct 39.2 L (40.1-51.0) % MCV 90.1 (79.0-92.2) fl MCH 28.3 (25.7-32.2) pg MCHC 31.4 L (32.2-35.5) g/dl RDW Std Deviation 48.5 H (35.1-43.9) fL Plt Count 117 L (163-337) K/mm3 MPV 10.8 (9.4-12.3) fl Neut % (Auto) 68.5 H (34.0-67.9) % Lymph % (Auto) 22.0 (21.8-53.1) % Dickinson % (Auto) 8.0 (5.3-12.2) % Eos % (Auto) 1.1 (0.8-7.0) Baso % (Auto) 0.2 (0.1-1.2) % Neut # (Auto) 3.01 (1.78-5.38) K/mm3 Lymph # (Auto) 0.97 L (1.32-3.57) K/mm3 Dickinson # (Auto) 0.35 (0.30-0.82) K/mm3 Eos # (Auto) 0.05 (0.04-0.54) K/mm3 Baso # (Auto) 0.01 (0.01-0.08) K/mm3 Neutrophils % (Manual) (40-60) % Band Neutrophils % (0-10) % Lymphocytes % (Manual) (20-40) % Atypical Lymphs % % Monocytes % (Manual) (2-10) % Eosinophils % (Manual) (0.8-7.0) % Basophils % (Manual) (0.2-1.2) Platelet Estimate RBC Morph Comment Sodium (136-145) mEq/L Potassium (3.5-5.1) mEq/L Chloride (98-107) mEq/L Carbon Dioxide (21-32) mEq/L Anion Gap (5-15) BUN (7-18) mg/dL Creatinine (0.7-1.3) mg/dL Est Cr Clr Drug Dosing mL/min Estimated GFR (MDRD) (>60) mL/min BUN/Creatinine Ratio (14-18) Glucose (83-115) mg/dL Lactic Acid (0.4-2.0) mmol/L Calcium (8.5-10.1) mg/dL Total Bilirubin (0.2-1.0) mg/dL AST (15-37) U/L ALT (16-63) U/L Alkaline Phosphatase (46-116) U/L Troponin I (0.00-0.056) ng/mL C-Reactive Protein (<1.0) mg/dL Total Protein (6.4-8.2) g/dl Albumin (3.4-5.0) g/dl Globulin gm/dL Albumin/Globulin Ratio (1-2) Urine Color (Yellow) Urine Appearance (Clear) Urine pH (5.0-8.0) Ur Specific [place] (1.005-1.030) Urine Protein (Negative) Urine Glucose (UA) (Negative) Urine Ketones (Negative) Urine Occult Blood (Negative) Urine Nitrite (Negative) Urine Bilirubin (Negative) Urine Urobilinogen (0.2-1.0) Ur Leukocyte Esterase (Negative) Urine RBC (0-5) /hpf Urine WBC (0-5) /hpf Ur Epithelial Cells (0-5) /hpf Urine Bacteria (FEW) /hpf Urine Mucus (FEW) /hpf C.difficile 027-NAP1-B1 C. difficile Tox (PCR) Jose David Results Last 24 Hours: Microbiology 12/08/17 21:10 Stool for WBCs - Final Stool / Feces Med Orders - Current: Current Medications Acetaminophen (Tylenol) 650 mg PO Q4H PRN PRN Reason: Pain Hydrocodone Bitart/Acetaminophen ([place] 325-5 Mg) 1 tab PO Q4H PRN PRN Reason: Pain (moderate 4-6) Last Admin: 12/09/17 02:30 Dose: 1 tab Albuterol/Ipratropium (Duoneb 3.0-0.5 Mg/3 Ml) 3 ml NEB Q4H PRN PRN Reason: Shortness Of Breath/wheezing Ascorbic Acid (Vitamin C) 500 mg PO DAILY [facility] Aspirin (Aspirin) 81 mg PO DAILY [facility] Docusate Sodium (Colace) 100 mg PO DAILY PRN PRN Reason: Constipation Flunisolide (Nasalide Nasal [place]) 0 ml NASBOTH BID [facility] Hydralazine HCl (Apresoline) 20 mg IVPUSH Q4H PRN PRN Reason: Hypertension Hydromorphone HCl (Dilaudid) 0.5 mg IVPUSH Q2H PRN PRN Reason: Pain (severe 7-10) Promethazine HCl 12.5 mg/ (Sodium Chloride) 50.5 mls @ 100 mls/hr IV Q6H PRN PRN Reason: Nausea/Vomiting Sodium Chloride (Normal Saline) 1,000 mls @ 50 mls/hr IV ASDIRECTED [facility] Last Admin: 12/09/17 05:55 Dose: 50 mls/hr Cefepime HCl 1 gm/ Premix 50 mls @ 100 mls/hr IV Q24H [facility] Isosorbide Mononitrate (Imdur) 30 mg PO DAILY [facility] Lorazepam (Ativan) 2 mg IVPUSH Q4H PRN PRN Reason: Seizures Lorazepam (Ativan) 0.25 mg IV Q6H PRN PRN Reason: Anxiety Magnesium Oxide (Magnesium Oxide) 800 mg PO DAILY [facility] Magnesium Sulfate (Pharmacy To Dose - Magnesium Replacement) 1 dose .XX ASDIRECTED [facility] Metoprolol Tartrate (Lopressor) 50 mg PO DAILY [facility] Metoprolol Tartrate (Lopressor) 5 mg IVPUSH Q4H PRN PRN Reason: Tachycardia Nitroglycerin (Nitrostat) 0.4 mg SL ASDIRECTED PRN PRN Reason: Chest Pain Non-Formulary Medication (Arginine Hcl [Pure L-Arginine Hcl]) 1,000 mg PO DAILY [facility] Non-Formulary Medication (Fenofibric Acid (Choline) [Trilipix]) 45 mg PO DAILY [facility] Non-Formulary Medication (Rivaroxaban) 15 mg PO DAILY [facility] Ondansetron HCl (Zofran) 4 mg IV Q6H PRN PRN Reason: Nausea/Vomiting Potassium Chloride (Pharmacy To Dose - Potassium Replacement) 1 dose .XX ASDIRECTED [facility] Rivaroxaban (Xarelto) 15 mg PO DAILY [facility] Rosuvastatin Calcium (Crestor) 10 mg PO DAILY [facility] Saccharomyces Boulardii (Florastor) 250 mg PO BID [facility] Tamsulosin HCl (Flomax) 0.4 mg PO DAILY [facility] Temazepam (Restoril) 7.5 mg PO BEDTIME PRN PRN Reason: Sleep Trimethoprim/Sulfamethoxazole (Septra Ds) 1 tab PO BID [facility] Stop: 12/22/17 09:01 Trospium (Sanctura) 20 mg PO BIDAC [facility] Last Admin: 12/09/17 05:55 Dose: 20 mg Vancomycin HCl (First-Vancomycin 50 Compounding Kit) 125 mg PO QID [facility] Stop: 12/18/17 21:01 Vitamin E (Vitamin E) 400 units PO DAILY [facility] Discontinued Medications Acetaminophen (Tylenol) 650 mg PO Q4H PRN PRN Reason: Fever Stop: 12/08/17 23:59 Last Admin: 12/08/17 22:50 Dose: 650 mg Acetaminophen (Tylenol) 650 mg PO Q4H PRN PRN Reason: Pain (Mild 1-3)/fever Sodium Chloride (Normal Saline) 500 mls @ 999 mls/hr IV ONETIME ONE Stop: 12/08/17 18:49 Last Admin: 12/08/17 18:34 Dose: 999 mls/hr Sodium Chloride (Normal Saline) 1,000 mls @ 50 mls/hr IV ONETIME ONE Stop: 12/09/17 15:07 Last Admin: 12/08/17 19:18 Dose: 50 mls/hr Cefepime HCl 1 gm/ Premix 50 mls @ 100 mls/hr IV ONETIME ONE Stop: 12/08/17 22:17 Last Admin: 12/08/17 22:58 Dose: Not Given Vancomycin HCl 1.25 gm/ Sodium (Chloride) 250 mls @ 250 mls/hr IV ONETIME ONE Stop: 12/08/17 23:14 Cefepime HCl 1 gm/ Premix 50 mls @ 100 mls/hr IV ONETIME ONE Stop: 12/08/17 22:37 Last Admin: 12/08/17 22:58 Dose: Not Given Cefepime HCl (Maxipime In D5w 2 Gm/50 Ml) Confirm Administered Dose 50 mls @ as directed .ROUTE .STK-MED ONE Stop: 12/08/17 22:10 Last Admin: 12/08/17 22:59 Dose: Not Given Cefepime HCl 2 gm/ Premix 50 mls @ 100 mls/hr IV ONETIME ONE Stop: 12/08/17 22:40 Last Admin: 12/08/17 22:15 Dose: 100 mls/hr Pantoprazole Sodium (Protonix) 40 mg PO DAILY [facility] Trimethoprim/Sulfamethoxazole (Septra Ds) 1 tab PO ONETIME ONE Stop: 12/08/17 23:45 Last Admin: 12/09/17 00:15 Dose: 1 tab Trospium (Sanctura) 20 mg PO ONETIME ONE Stop: 12/09/17 00:16 Last Admin: 12/09/17 01:00 Dose: 20 mg Vancomycin HCl (Pharmacy To Dose - Vancomycin) 1 dose .XX ONETIME ONE Stop: 12/08/17 21:49 Vancomycin HCl (Vancomycin) 1,258.725 mg 15 mg/kg (1258.725 mg) IV Q12H [facility] - Exam Quality Assessment: Supplemental Oxygen General: Alert, Oriented, Cooperative, No Acute Distress HEENT: Pupils Equal, Pupils Reactive, EOMI, Mucous Membr. Moist/[place] Neck: Supple, Trachea Midline, No JVD, No Thyromegaly Lungs: Normal Respiratory Effort, Decreased Breath Sounds Cardiovascular: Regular Rate, Regular Rhythm GI/Abdominal Exam: Normal Bowel Sounds, Soft, No Organomegaly, No Distention, No Abnormal Bruit, Tender (Lower abdomen/pelvic region) - Problem List Review Problem List Initiated/Reviewed/Updated: Yes - My Orders Last 24 Hours: My Active Orders 12/08/17 22:36 Acetaminophen [Tylenol] 650 mg PO Q4H PRN Docusate Sodium [Colace] 100 mg PO DAILY PRN Nitroglycerin [Nitrostat] 0.4 mg SL ASDIRECTED PRN 12/08/17 23:30 LORazepam [Ativan] 2 mg IVPUSH Q4H PRN Magnesium Rep Pharmacy to Dose [Pharmacy to Dose - Magnesium Replacement] 1 dose .XX ASDIRECTED Metoprolol Tartrate [Lopressor] 5 mg IVPUSH Q4H PRN Potassium Rep Pharmacy to Dose [Pharmacy to Dose - Potassium Replacement] 1 dose .XX ASDIRECTED hydrALAZINE [Apresoline] 20 mg IVPUSH Q4H PRN 12/08/17 23:39 Height and Weight [RC] 04 Intake and Output [RC] 04,16 Oxygen Therapy [RC] PRN VTE/DVT Education [RC] PER UNIT ROUTINE Vital Signs [RC] Q4H Resuscitation Status Routine 12/08/17 23:44 Acetaminophen/HYDROcodone [[place] 325-5 MG] 1 tab PO Q4H PRN Albuterol/Ipratropium [DuoNeb 3.0-0.5 MG/3 ML] 3 ml NEB Q4H PRN HYDROmorphone [Dilaudid] 0.5 mg IVPUSH Q2H PRN LORazepam [Ativan] 0.25 mg IV Q6H PRN Ondansetron [Zofran] 4 mg IV Q6H PRN Promethazine [Phenergan] 12.5 mg Sodium Chloride 0.9% [Normal Saline] 50 ml IV Q6H Temazepam [Restoril] 7.5 mg PO BEDTIME PRN 12/08/17 23:45 Sodium Chloride 0.9% [Normal Saline] 1,000 ml IV ASDIRECTED 12/08/17 23:49 RT Aerosol Therapy [RC] ASDIRECTED 12/08/17 23:50 Consult to Case Management [CONS] Routine Consult to Cancer Center Director [CONS] Routine Consult to Spiritual Care [CONS] Routine OT Evaluation and Treatment [CONS] Routine PT Evaluation and Treatment [CONS] Routine 12/08/17 Dinner Heart Healthy Diet [DIET] 12/09/17 05:45 BASIC METABOLIC PANEL,BMP [CHEM] AM C-REACTIVE PROTEIN [CHEM] AM MAGNESIUM [CHEM] AM 12/09/17 06:00 Trospium [Sanctura] 20 mg PO BIDAC 12/09/17 08:00 Bladder Irrigation [RC] DAILY 12/09/17 09:00 Arginine HCl [Pure l-Arginine HCl] 1,000 mg PO DAILY Ascorbic Acid [Vitamin C] 500 mg PO DAILY Aspirin 81 mg PO DAILY Fenofibric Acid (Choline) [Trilipix] 45 mg PO DAILY Flunisolide [Nasalide Nasal [place]] 0 ml NASBOTH BID Isosorbide Mononitrate [Imdur] 30 mg PO DAILY Magnesium Oxide 800 mg PO DAILY Metoprolol Tartrate [Lopressor] 50 mg PO DAILY Rivaroxaban 15 mg PO DAILY Rivaroxaban [Xarelto] 15 mg PO DAILY Rosuvastatin [Crestor] 10 mg PO DAILY Saccharomyces Boulardii [Florastor] 250 mg PO BID Sulfamethoxazole/Trimethoprim [Septra DS] 1 tab PO BID Tamsulosin [Flomax] 0.4 mg PO DAILY Vancomycin [First-Vancomycin 50 Compounding Kit] 125 mg PO QID Vitamin E (dl, acetate) [Vitamin E] 400 units PO DAILY 12/09/17 22:00 Cefepime [Maxipime in D5W 1 GM/50 ML] 1 gm Premix Bag 1 bag IV Q24H 12/10/17 05:11 BASIC METABOLIC PANEL,BMP [CHEM] AM C-REACTIVE PROTEIN [CHEM] AM CBC WITH AUTO DIFF [HEME] AM MAGNESIUM [CHEM] AM 12/11/17 05:11 BASIC METABOLIC PANEL,BMP [CHEM] AM C-REACTIVE PROTEIN [CHEM] AM CBC WITH AUTO DIFF [HEME] AM MAGNESIUM [CHEM] AM 12/12/17 05:11 BASIC METABOLIC PANEL,BMP [CHEM] AM C-REACTIVE PROTEIN [CHEM] AM CBC WITH AUTO DIFF [HEME] AM MAGNESIUM [CHEM] AM - Plan Plan:: Assessment/Plan: Acute: Recurrent Catheter Related UTI - 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 Mckee - Has Urology appointment to see Dr. 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
[2017-12-09] MEDS ORDERED: Magnesium Sulfate/Water 2 GM in Premix Bag 1 BAG IV ONE (09:00)
[2017-12-09] MEDS ORDERED: Rivaroxaban 10 MG Tab PO SCH (09:00)
[2017-12-09] MEDS ORDERED: ARGININE HCL 1000 MG PO SCH (09:00)
[2017-12-09] MEDS ORDERED: Pantoprazole 40 MG Tab.CR PO SCH (09:00)
[2017-12-09] MEDS ORDERED: Magnesium Oxide 400 MG Tab PO SCH (09:00)
[2017-12-09] MEDS: Vancomycin 50 MG/ML 150ML Oral Solution Kit PO SCH ×4 (09:56→21:01)
[2017-12-09] MEDS: Metoprolol Tartrate 50 MG Tab PO SCH (09:59)
[2017-12-09] MEDS: Vitamin E (dl-alpha-tocopherol acetate) 400 Unit Cap PO SCH (09:59)
[2017-12-09] MEDS: Aspirin 81 MG Tab.Chew PO SCH (09:59)
[2017-12-09] MEDS: Saccharomyces Boulardii (Probiotic) 250 MG Cap PO SCH ×2 (09:59→21:01)
[2017-12-09] MEDS: Rosuvastatin 10 MG Tab PO SCH (09:59)
[2017-12-09] MEDS: Famotidine 20 MG Tab PO SCH ×2 (09:59→21:01)
[2017-12-09] MEDS: Isosorbide Mononitrate 30 MG Tab.ER PO SCH (09:59)
[2017-12-09] MEDS: Rivaroxaban 10 MG Tab PO SCH (10:00)
[2017-12-09] MEDS: Tamsulosin 0.4 MG Cap.ER PO SCH (10:00)
[2017-12-09] MEDS: Ascorbic Acid 500 MG Tab PO SCH (10:00)
[2017-12-09] MEDS: Sulfamethoxazole/Trimethoprim 800-160 MG Tab PO SCH ×2 (10:00→21:02)
[2017-12-09] MEDS ORDERED: Belladonna Alkaloids/Opium 16.2-30 MG Supp RECTAL PRN (13:12)
[2017-12-09] MEDS ORDERED: Cefepime 1 GM in Premix Bag 1 BAG IV SCH (22:00)
[2017-12-09] MEDS: CEFEPIME IV SCH (22:34)
[2017-12-10] MEDS: Acetaminophen/HYDROcodone 325-5 MG Tab PO PRN ×2 (00:02→12:17)
[2017-12-10] MEDS ORDERED: Lidocaine 2% 20 ML MDV ONE (00:50)
[2017-12-10] MEDS: Sodium Chloride 0.9% 1,000 ML IV SCH (03:35)
[2017-12-10] MEDS: Trospium 20 MG Tab PO SCH ×2 (06:32→17:14)
[2017-12-10] MEDS: Famotidine 20 MG Tab PO SCH ×2 (08:09→21:58)
[2017-12-10] MEDS: Saccharomyces Boulardii (Probiotic) 250 MG Cap PO SCH ×2 (08:09→21:58)
[2017-12-10] MEDS: Vitamin E (dl-alpha-tocopherol acetate) 400 Unit Cap PO SCH (08:09)
[2017-12-10] MEDS: Tamsulosin 0.4 MG Cap.ER PO SCH (08:09)
[2017-12-10] MEDS: Rosuvastatin 10 MG Tab PO SCH (08:09)
[2017-12-10] MEDS: Ascorbic Acid 500 MG Tab PO SCH (08:09)
[2017-12-10] MEDS: Sulfamethoxazole/Trimethoprim 800-160 MG Tab PO SCH ×2 (08:09→21:58)
[2017-12-10] MEDS: Metoprolol Tartrate 50 MG Tab PO SCH (08:09)
[2017-12-10] MEDS: Rivaroxaban 10 MG Tab PO SCH (08:10)
[2017-12-10] MEDS: Isosorbide Mononitrate 30 MG Tab.ER PO SCH (08:11)
[2017-12-10] MEDS: Vancomycin 50 MG/ML 150ML Oral Solution Kit PO SCH ×4 (08:11→21:58)
[2017-12-10] MEDS: Aspirin 81 MG Tab.Chew PO SCH (08:11)
--- NOTE | 2017-12-10 08:57 | PCM.PN ---
- General Info Date of Service: 12/10/17 Admission Dx/Problem (Free Text): Admission Diagnosis/Problem Admission Diagnosis/Problem UTI (urinary tract infection) due to urinary indwelling catheter Subjective Update: In to see Aj. He is lying in bed and doing well. He states he feels good today. He did tell me he has had an occasional swollen penis and when this happens he is able to get some purulent discharge out occasionally. This has not happened for several days and he has not had an episode of it here. We are awaiting his urine culture. Otherwise no nursing concerns. He has had just a few bladder spasms. Likely discharge tomorrow. Functional Status: Reports: Pain Controlled, Tolerating Diet, Ambulating, Urinating. Denies: New Symptoms - Review of Systems General: Reports: No Symptoms, Weakness (improved ). Denies: Fever, Fatigue, Malaise HEENT: Reports: No Symptoms. Denies: Eye Pain, Sore Throat Pulmonary: Reports: Shortness of Breath (at baseline ). Denies: Pleuritic Chest Pain, Cough, Sputum, Wheezing Cardiovascular: Reports: Chest Pain ([place] on left rib, worse with pressure ) . Denies: Palpitations, Dyspnea on Exertion Gastrointestinal: Reports: No Symptoms, Diarrhea (improving ). Denies: Abdominal Pain, Constipation, Decreased Appetite, Nausea, Vomiting Genitourinary: Reports: Retention, Other (suprapubic catheter in place ) Musculoskeletal: Reports: No Symptoms Skin: Reports: No Symptoms Neurological: Reports: No Symptoms, Difficulty Walking, Weakness, Gait Disturbance. Denies: Numbness, Tingling, Trouble Speaking Psychiatric: Reports: No Symptoms - Patient Data Vitals - Most Recent: Last Vital Signs Temp 97.0 F 12/10/17 08:09 Pulse 108 H 12/10/17 08:09 Resp 16 12/10/17 08:09 BP 159/77 H 12/10/17 08:11 Pulse Ox 95 12/10/17 08:09 Weight - Most Recent: 184 lb 8 oz I&O - Last 24 Hours: Intake & Output 12/09/17 12/10/17 12/10/17 22:59 06:59 14:59 Intake Total 845 1047 Output Total 350 400 Balance 495 647 Lab Results Last 24 Hours: Laboratory Results - last 24 hr 06/11/18 06/11/18 Range/Units 06:05 06:05 WBC 3.09 L (4.23-9.07) K/mm3 RBC 4.15 L (4.63-6.08) M/mm3 Hgb 11.7 L (13.7-17.5) gm/L Hct 37.3 L (40.1-51.0) % MCV 89.9 (79.0-92.2) fl MCH 28.2 (25.7-32.2) pg MCHC 31.4 L (32.2-35.5) g/dl RDW Std Deviation 47.5 H (35.1-43.9) fL Plt Count 96 L (163-337) K/mm3 MPV 10.5 (9.4-12.3) fl Neut % (Auto) 61.2 (34.0-67.9) % Lymph % (Auto) 21.4 L (21.8-53.1) % [place] % (Auto) 10.0 (5.3-12.2) % Eos % (Auto) 7.1 H (0.8-7.0) Baso % (Auto) 0.3 (0.1-1.2) % Neut # (Auto) 1.89 (1.78-5.38) K/mm3 Lymph # (Auto) 0.66 L (1.32-3.57) K/mm3 [place] # (Auto) 0.31 (0.30-0.82) K/mm3 Eos # (Auto) 0.22 (0.04-0.54) K/mm3 Baso # (Auto) 0.01 (0.01-0.08) K/mm3 Manual Slide Review Abnormal smear Sodium 137 (136-145) mEq/L Potassium 3.6 (3.5-5.1) mEq/L Chloride 103 (98-107) mEq/L Carbon Dioxide 26 (21-32) mEq/L Anion Gap 11.6 (5-15) BUN 17 (7-18) mg/dL Creatinine 1.1 (0.7-1.3) mg/dL Est Cr Clr Drug Dosing 47.50 mL/min Estimated GFR (MDRD) > 60 (>60) mL/min BUN/Creatinine Ratio 15.5 (14-18) Glucose 124 H (83-115) mg/dL Calcium 8.5 (8.5-10.1) mg/dL Magnesium 2.1 (1.8-2.4) mg/dl C-Reactive Protein 6.3 H* (<1.0) mg/dL Jose David Results Last 24 Hours: Microbiology 12/08/17 18:45 Aerobic Blood Culture - Preliminary Blood - Venous - Lab Draw NO GROWTH AFTER 1 DAY Anaerobic Blood Culture - Preliminary NO GROWTH AFTER 1 DAY 12/08/17 18:35 Aerobic Blood Culture - Preliminary Blood - Venous NO GROWTH AFTER 1 DAY Anaerobic Blood Culture - Preliminary NO GROWTH AFTER 1 DAY Med Orders - Current: Current Medications Acetaminophen (Tylenol) 650 mg PO Q4H PRN PRN Reason: Pain Hydrocodone Bitart/Acetaminophen (Vass 325-5 Mg) 1 tab PO Q4H PRN PRN Reason: Pain (moderate 4-6) Last Admin: 12/10/17 00:02 Dose: 1 tab Albuterol/Ipratropium (Duoneb 3.0-0.5 Mg/3 Ml) 3 ml NEB Q4H PRN PRN Reason: Shortness Of Breath/wheezing Ascorbic Acid (Vitamin C) 500 mg PO DAILY [facility] Last Admin: 12/10/17 08:09 Dose: 500 mg Aspirin (Aspirin) 81 mg PO DAILY [facility] Last Admin: 12/10/17 08:11 Dose: 81 mg Belladonna Alkaloids/Opium (B & O Supprettes No. 15a) 1 supp RECTAL Q4H PRN PRN Reason: Other Docusate Sodium (Colace) 100 mg PO DAILY PRN PRN Reason: Constipation Famotidine (Pepcid) 20 mg PO BID [facility] Last Admin: 12/10/17 08:09 Dose: 20 mg Flunisolide (Nasalide Nasal [place]) 0 ml NASBOTH BID [facility] Last Admin: 12/10/17 08:16 Dose: Not Given Hydralazine HCl (Apresoline) 20 mg IVPUSH Q4H PRN PRN Reason: Hypertension Hydromorphone HCl (Dilaudid) 0.5 mg IVPUSH Q2H PRN PRN Reason: Pain (severe 7-10) Promethazine HCl 12.5 mg/ (Sodium Chloride) 50.5 mls @ 100 mls/hr IV Q6H PRN PRN Reason: Nausea/Vomiting Sodium Chloride (Normal Saline) 1,000 mls @ 50 mls/hr IV ASDIRECTED [facility] Last Admin: 12/10/17 03:35 Dose: 50 mls/hr Cefepime HCl 1 gm/ Premix 25 mls @ 50 mls/hr IV Q24H [facility] Last Admin: 12/09/17 22:34 Dose: 50 mls/hr Isosorbide Mononitrate (Imdur) 30 mg PO DAILY [facility] Last Admin: 12/10/17 08:11 Dose: 30 mg Lorazepam (Ativan) 2 mg IVPUSH Q4H PRN PRN Reason: Seizures Lorazepam (Ativan) 0.25 mg IV Q6H PRN PRN Reason: Anxiety Magnesium Sulfate (Pharmacy To Dose - Magnesium Replacement) 1 dose .XX ASDIRECTED [facility] Metoprolol Tartrate (Lopressor) 50 mg PO DAILY [facility] Last Admin: 12/10/17 08:09 Dose: 50 mg Metoprolol Tartrate (Lopressor) 5 mg IVPUSH Q4H PRN PRN Reason: Tachycardia Nitroglycerin (Nitrostat) 0.4 mg SL ASDIRECTED PRN PRN Reason: Chest Pain Non-Formulary Medication (Fenofibric Acid (Choline) [Trilipix]) 45 mg PO DAILY [facility] Ondansetron HCl (Zofran) 4 mg IV Q6H PRN PRN Reason: Nausea/Vomiting Potassium Chloride (Pharmacy To Dose - Potassium Replacement) 1 dose .XX ASDIRECTED [facility] Rivaroxaban (Xarelto) 15 mg PO DAILY [facility] Last Admin: 12/10/17 08:10 Dose: 15 mg Rosuvastatin Calcium (Crestor) 10 mg PO DAILY [facility] Last Admin: 12/10/17 08:09 Dose: 10 mg Saccharomyces Boulardii (Florastor) 250 mg PO BID [facility] Last Admin: 12/10/17 08:09 Dose: 250 mg Tamsulosin HCl (Flomax) 0.4 mg PO DAILY [facility] Last Admin: 12/10/17 08:09 Dose: 0.4 mg Temazepam (Restoril) 7.5 mg PO BEDTIME PRN PRN Reason: Sleep Trimethoprim/Sulfamethoxazole (Septra Ds) 1 tab PO BID [facility] Stop: 12/22/17 09:01 Last Admin: 12/10/17 08:09 Dose: 1 tab Trospium (Sanctura) 20 mg PO BIDAC [facility] Last Admin: 12/10/17 06:32 Dose: 20 mg Vancomycin HCl (First-Vancomycin 50 Compounding Kit) 125 mg PO QID [facility] Stop: 12/18/17 21:01 Last Admin: 12/10/17 08:11 Dose: 125 mg Vitamin E (Vitamin E) 400 units PO DAILY [facility] Last Admin: 12/10/17 08:09 Dose: 400 units Discontinued Medications Acetaminophen (Tylenol) 650 mg PO Q4H PRN PRN Reason: Fever Stop: 12/08/17 23:59 Last Admin: 12/08/17 22:50 Dose: 650 mg Acetaminophen (Tylenol) 650 mg PO Q4H PRN PRN Reason: Pain (Mild 1-3)/fever Sodium Chloride (Normal Saline) 500 mls @ 999 mls/hr IV ONETIME ONE Stop: 12/08/17 18:49 Last Admin: 12/08/17 18:34 Dose: 999 mls/hr Sodium Chloride (Normal Saline) 1,000 mls @ 50 mls/hr IV ONETIME ONE Stop: 12/09/17 15:07 Last Admin: 12/08/17 19:18 Dose: 50 mls/hr Cefepime HCl 1 gm/ Premix 50 mls @ 100 mls/hr IV ONETIME ONE Stop: 12/08/17 22:17 Last Admin: 12/08/17 22:58 Dose: Not Given Vancomycin HCl 1.25 gm/ Sodium (Chloride) 250 mls @ 250 mls/hr IV ONETIME ONE Stop: 12/08/17 23:14 Last Admin: 12/09/17 19:52 Dose: Not Given Cefepime HCl 1 gm/ Premix 50 mls @ 100 mls/hr IV ONETIME ONE Stop: 12/08/17 22:37 Last Admin: 12/08/17 22:58 Dose: Not Given Cefepime HCl (Maxipime In D5w 2 Gm/50 Ml) Confirm Administered Dose 50 mls @ as directed .ROUTE .STK-MED ONE Stop: 12/08/17 22:10 Last Admin: 12/08/17 22:59 Dose: Not Given Cefepime HCl 2 gm/ Premix 50 mls @ 100 mls/hr IV ONETIME ONE Stop: 12/08/17 22:40 Last Admin: 12/08/17 22:15 Dose: 100 mls/hr Cefepime HCl 1 gm/ Premix 50 mls @ 100 mls/hr IV Q24H [facility] Last Admin: 12/09/17 22:15 Dose: Not Given Magnesium Sulfate 2 gm/ Premix 50 mls @ 25 mls/hr IV ONETIME ONE Stop: 12/09/17 10:59 Last Admin: 12/09/17 09:53 Dose: 25 mls/hr Lidocaine HCl (Xylocaine 2%) Confirm Administered Dose 20 ml .ROUTE .STK-MED ONE Stop: 12/10/17 00:51 Last Admin: 12/10/17 01:48 Dose: Not Given Magnesium Oxide (Magnesium Oxide) 800 mg PO DAILY [facility] Non-Formulary Medication (Arginine Hcl [Pure L-Arginine Hcl]) 1,000 mg PO DAILY [facility] Pantoprazole Sodium (Protonix) 40 mg PO DAILY [facility] Rivaroxaban (Xarelto) 15 mg PO DAILY [facility] Trimethoprim/Sulfamethoxazole (Septra Ds) 1 tab PO ONETIME ONE Stop: 12/08/17 23:45 Last Admin: 12/09/17 00:15 Dose: 1 tab Trospium (Sanctura) 20 mg PO ONETIME ONE Stop: 12/09/17 00:16 Last Admin: 12/09/17 01:00 Dose: 20 mg Vancomycin HCl (Pharmacy To Dose - Vancomycin) 1 dose .XX ONETIME ONE Stop: 12/08/17 21:49 Last Admin: 12/09/17 19:52 Dose: Not Given Vancomycin HCl (Vancomycin) 1,258.725 mg 15 mg/kg (1258.725 mg) IV Q12H [facility] - Exam Quality Assessment: Supplemental Oxygen (chronic ), Urine Catheter (suprapubic ) , DVT Prophylaxis General: Alert, Oriented, Cooperative, No Acute Distress HEENT: Pupils Equal, Pupils Reactive, EOMI, Mucous Membr. Moist/[place] Neck: Supple, Trachea Midline, No JVD Lungs: Clear to Auscultation, Normal Respiratory Effort, Decreased Breath Sounds. No: Rhonchi, Wheezing Cardiovascular: Regular Rate, Tachycardia (mild at 103 ) GI/Abdominal Exam: Normal Bowel Sounds, Soft, Non-Tender (Male) Exam: Deferred Back Exam: Normal Inspection, Full Range of Motion Extremities: Normal Inspection, Normal Range of Motion, Non-Tender, No Pedal Edema, Normal Capillary Refill Peripheral Pulses: 3+: Radial (L), Radial (R), Posterior Tibial (L), Posterior Tibial (R), Dorsalis Pedis (L), Dorsalis Pedis (R) Skin: Warm, Dry, Intact Wound/Incisions: Healing Well Neurological: No New Focal Deficit Psy/Mental Status: Alert, Normal Affect, Normal Mood - Problem List & Annotations (1) C. difficile diarrhea SNOMED Code(s): 0411135225036 Code(s): A04.72 - ENTEROCOLITIS D/T CLOSTRIDIUM DIFFICILE, NOT SPCF RECUR Status: Acute Priority: High Current Visit: Yes (2) UTI, Urinary tract infectious disease SNOMED Code(s): 92850421 Code(s): N39.0 - URINARY TRACT INFECTION, SITE NOT SPECIFIED Status: Acute Priority: High Current Visit: Yes (3) CAD (coronary artery disease) SNOMED Code(s): 01685185 Code(s): I25.10 - ATHSCL HEART DISEASE OF [place] CORONARY ARTERY W/O ANG PCTRS Status: Chronic Priority: Medium Current Visit: No Qualifiers: Coronary Disease-Associated Artery/Lesion type: unspecified vessel or lesion type [place] vs. transplanted heart: unspecified whether [place] or transplanted heart Associated angina: angina presence unspecified Qualified Code(s): I25.10 - Atherosclerotic heart disease of [place] coronary artery without angina pectoris (4) COLD, Chronic obstructive lung disease SNOMED Code(s): 50199043 Code(s): J44.9 - CHRONIC OBSTRUCTIVE PULMONARY DISEASE, UNSPECIFIED Status : Chronic Priority: Medium Current Visit: No (5) Chronic pain SNOMED Code(s): 26195439 Code(s): G89.29 - OTHER CHRONIC PAIN Status: Chronic Priority: Medium Current Visit: No Qualifiers: Chronic pain type: other chronic pain Qualified Code(s): G89.29 - Other chronic pain (6) History of deep venous thrombosis or pulmonary embolus SNOMED Code(s): 254515210 Code(s): RQG4284 - Status: Chronic Priority: Medium Current Visit: No (7) Hx of CABG SNOMED Code(s): 678596818, 342031328 Code(s): Z95.1 - PRESENCE OF AORTOCORONARY BYPASS GRAFT Status: Chronic Priority: Low Current Visit: No (8) Hyperlipidemia SNOMED Code(s): 45302420 Code(s): E78.5 - HYPERLIPIDEMIA, UNSPECIFIED Status: Chronic Priority: Low Current Visit: No Qualifiers: Hyperlipidemia type: unspecified Qualified Code(s): E78.5 - Hyperlipidemia , unspecified (9) Hypertension SNOMED Code(s): 65719282 Code(s): I10 - ESSENTIAL (PRIMARY) HYPERTENSION Status: Chronic Priority : Medium Current Visit: No Qualifiers: Hypertension type: unspecified Qualified Code(s): I10 - Essential (primary ) hypertension (10) Prostate CA SNOMED Code(s): 656212520 Code(s): C61 - MALIGNANT NEOPLASM OF PROSTATE Status: Chronic Priority: Medium Current Visit: No - Problem List Review Problem List Initiated/Reviewed/Updated: Yes - Plan Plan:: Assessment/Plan: Acute: Recurrent Catheter Related UTI - 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 Mckee - Has Urology appointment to see Dr. 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
[2017-12-10] MEDS: FENOFIBRIC ACID 45 MG PO SCH (11:05)
--- NOTE | 2017-12-10 11:27 | CR ---
Chest: Frontal view of the chest was obtained. Comparison: Prior chest x-ray of 11/08/17. Heart is enlarged. Upper mediastinum is normal. Lungs show no acute parenchymal densities. Previous sternotomy is noted. Bony structures are grossly intact. Impression: 1. Stable cardiomegaly. Other stable findings. Nothing acute is appreciated. Diagnostic code #2
[2017-12-10] MEDS ORDERED: fentaNYL 12 MCG/HR Transdermal Patch TRDERM ONE (15:00)
[2017-12-10] MEDS: CEFEPIME IV SCH (21:59)
[2017-12-11] MEDS: Sodium Chloride 0.9% 1,000 ML IV SCH (00:38)
[2017-12-11] MEDS: Trospium 20 MG Tab PO SCH (05:33)
[2017-12-11] MEDS: Famotidine 20 MG Tab PO SCH (09:16)
[2017-12-11] MEDS: Aspirin 81 MG Tab.Chew PO SCH (09:17)
[2017-12-11] MEDS: Sulfamethoxazole/Trimethoprim 800-160 MG Tab PO SCH (09:17)
[2017-12-11] MEDS: Rivaroxaban 10 MG Tab PO SCH (09:17)
[2017-12-11] MEDS: Rosuvastatin 10 MG Tab PO SCH (09:17)
[2017-12-11] MEDS: Isosorbide Mononitrate 30 MG Tab.ER PO SCH (09:17)
[2017-12-11] MEDS: Metoprolol Tartrate 50 MG Tab PO SCH (09:17)
[2017-12-11] MEDS: Vitamin E (dl-alpha-tocopherol acetate) 400 Unit Cap PO SCH (09:17)
[2017-12-11] MEDS: Tamsulosin 0.4 MG Cap.ER PO SCH (09:17)
[2017-12-11] MEDS: Ascorbic Acid 500 MG Tab PO SCH (09:17)
[2017-12-11 09:22] VITALS: BP 161/67
[2017-12-11] MEDS: FENOFIBRIC ACID 45 MG PO SCH (09:23)
[2017-12-11] MEDS: Saccharomyces Boulardii (Probiotic) 250 MG Cap PO SCH (09:24)
[2017-12-11] MEDS: Vancomycin 50 MG/ML 150ML Oral Solution Kit PO SCH (10:00)
--- NOTE | 2017-12-11 10:38 | PCM.DCSUM1 ---
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 Per patient he was so weak that he was not able to get up and move on his own. He reports extreme pain on his lower abdomen. He reports no fever or chills or any signs of system infections. He has a chronic suprapubic catheter due to bladder dysfunction that is routinely change (monthly) by Dr. Mckee. He is scheduled for it in 2 weeks. Patient was recent discharged here not too long ago for similar complaints. He states he just completed his oral antibiotics a few days ago. His initial work up in ED shows a CBC remarkable for MCHC of 31.2, RDW of 48.3, Platelet Cunt of 139, Neutrophils of 83% and Lymphocytes of 10%. His chemistry is significant for Cr of 1.4, Glucose of 136, and CRP of 4.2. His UA is markedly impressive for UTI. His C. Diff screening is positive. Patient is being admitted for treatment of Recurrent UTI and CDAD along with Acute on Chronic Bladder Spasm. He is full code. Diagnosis: Stroke: No - Discharge Data Discharge Date: 12/11/17 (Admit date:12/08/17) Discharge Disposition: Home, Self-Care 01 Condition: Good - Discharge Diagnosis/Problem(s) (1) C. difficile diarrhea SNOMED Code(s): 4882061945201 ICD Code: A04.72 - ENTEROCOLITIS D/T CLOSTRIDIUM DIFFICILE, NOT SPCF RECUR Status: Acute Priority: High Current Visit: Yes (2) UTI, Urinary tract infectious disease SNOMED Code(s): 84291487 ICD Code: N39.0 - URINARY TRACT INFECTION, SITE NOT SPECIFIED Status: Acute Priority: High Current Visit: Yes (3) CAD (coronary artery disease) SNOMED Code(s): 55726109 ICD Code: I25.10 - ATHSCL HEART DISEASE OF [place] CORONARY ARTERY W/O ANG PCTRS Status: Chronic Priority: Medium Current Visit: No Qualifiers: Coronary Disease-Associated Artery/Lesion type: unspecified vessel or lesion type [place] vs. transplanted heart: unspecified whether [place] or transplanted heart Associated angina: angina presence unspecified Qualified Code(s): I25.10 - Atherosclerotic heart disease of [place] coronary artery without angina pectoris (4) COLD, Chronic obstructive lung disease SNOMED Code(s): 10443741 ICD Code: J44.9 - CHRONIC OBSTRUCTIVE PULMONARY DISEASE, UNSPECIFIED Status : Chronic Priority: Medium Current Visit: No (5) Chronic pain SNOMED Code(s): 07456472 ICD Code: G89.29 - OTHER CHRONIC PAIN Status: Chronic Priority: Medium Current Visit: No Qualifiers: Chronic pain type: other chronic pain Qualified Code(s): G89.29 - Other chronic pain (6) History of deep venous thrombosis or pulmonary embolus SNOMED Code(s): 622257545 ICD Code: DFP2626 - Status: Chronic Priority: Medium Current Visit: No (7) Hx of CABG SNOMED Code(s): 638835628, 404966693 ICD Code: Z95.1 - PRESENCE OF AORTOCORONARY BYPASS GRAFT Status: Chronic Priority: Low Current Visit: No (8) Hyperlipidemia SNOMED Code(s): 51609463 ICD Code: E78.5 - HYPERLIPIDEMIA, UNSPECIFIED Status: Chronic Priority: Low Current Visit: No Qualifiers: Hyperlipidemia type: unspecified Qualified Code(s): E78.5 - Hyperlipidemia , unspecified (9) Hypertension SNOMED Code(s): 72582633 ICD Code: I10 - ESSENTIAL (PRIMARY) HYPERTENSION Status: Chronic Priority : Medium Current Visit: No Qualifiers: Hypertension type: unspecified Qualified Code(s): I10 - Essential (primary ) hypertension (10) Prostate CA SNOMED Code(s): 824759487 ICD Code: C61 - MALIGNANT NEOPLASM OF PROSTATE Status: Chronic Priority: Medium Current Visit: No (11) Chronic suprapubic catheter SNOMED Code(s): 318457737 ICD Code: Z93.59 - OTHER CYSTOSTOMY STATUS Status: Chronic Priority: High Current Visit: Yes (12) Infection with methicillin-resistant Staphylococcus aureus (MRSA) SNOMED Code(s): 200161519 ICD Code: A49.02 - METHICILLIN RESIS STAPH INFECTION, UNSP SITE Status: Acute Priority: High Current Visit: Yes Problem Details: in urine, abdominal wound, penis discharge (13) Bladder spasms Status: Chronic Priority: High Current Visit: Yes - Patient Summary/Data Consults: Consultations 12/08/17 23:50 Consult to Case Management [CONS] Routine Consult to Electric Repair Supervisor [CONS] Routine Consult to Spiritual Care [CONS] Routine OT Evaluation and Treatment [CONS] Routine PT Evaluation and Treatment [CONS] Routine Labs Pending at D/C: None Recommended Follow-up Testing/Procedures: Follow-up with PCP within 7-10 days of discharge, sooner if needed. Follow-up with urology at already scheduled appointment. Follow-up with Dr. Mckee for Hernandez changes at usual intervals. Hospital Course: Assessment/Plan: Acute: Recurrent Catheter Related UTI - Has Chronic Bladder Dysfunction/Spasm with Chronic Suprapubic Catheter - Hernandez catheter is scheduled for changing in 2 weeks; usually performed by Dr. Mckee - Catheter and penis wound cultures show MRSA - Has Urology appointment to see Dr. Schafer in [place] on the or of this month - Last UA culture shows Providencia Rettgeri and MRSA - Negative blood cultures after 2 days - CRP is 4.2 --> 5.7-->6.3 -->3.9 - No leukocytosis - Continue IV Cefepime 1 gram Q8H and Bactrim DS 1 tab po BID for 14 days - Bladder irrigation daily today to flush out urine sediments in the bladder - Urine culture shows Pseudomonas aeruginosa and MRSA Recurrent C. 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 It was explained to him early on that while we could treat the UTI and C. Diff infections, his bladder spasms and ultimately his repeat UTIs would best be treated by urology. His diarrhea continued to improve. Pharmacy was heavily involved in his care. Dr. Natarajan reviewed his medication list and stopped his PPI, switching him instead to an H2 jamal. He has an appointment in [place] with urology at the end of the month and medications were supplied to get him through until that time so his urologist can work him up properly. Aj was quite concerned he would be coming back to the hospital "in about 10 days" and every effort was made to avoid this and provide a good plan on discharge. He was prescribed [place] and a fentanyl patch for pain. A narcan prescription was sent as well and both the patient and his were educated on signs/symptoms of overdose and when to use it. He was also prescribed Bisacodyl suppositories as needed for constipation and should continue his Colace. As noted earlier, he was switched from a PPI to pepcid due to his c. diff infection. He was started on vesicare and myrentriq for bladder spasms. He was re-started on vancomycin for his C. Diff infection. His urine culture showed multiple drug resistances, with organisms as above. He was ultimately sent home on a 14 day course of Septra DS and 10 days worth of cirpo. He was also prescribed a probiotic. Dr. Natarajan added stipulations on his Imdur to hold if the PA is less than 100/60 and on his metoprolol to hold if SBP is <100 or HR is <60. He was instructed to take his BP prior to taking his BP meds. He will be discharged home today and should follow-up with urology as scheduled. He should follow-up with his PCP within 7-[address] Mckee as he has been for suprapubic hernandez changes. - Patient Instructions Diet: Usual Diet as Tolerated Activity: As Tolerated Driving: Do Not Drive Showering/Bathing: May Shower Notify Provider of: Fever, Increased Pain, Swelling and Redness, Drainage, Nausea and/or Vomiting Other/Special Instructions: - Please take all new medications as directed. - Resume all home medications-->see exceptions on discharge medication list. - Check blood pressure and heart rate before taking your BP meds. Follow instructions on when not to take it. - Continue to routinely change hernandez catheter. - May continue routine home activities as tolerated. - Make sure to keep appointment with Dr. Schafer in [place] as scheduled. - Call your family doctor for any questions or concerns after discharge. - Follow up with PCP in 1-2 week. - Come back or seek immediate care should your symptoms persist or get worse - Discharge Plan Prescriptions/Med Rec: Acetaminophen/HYDROcodone [[place] 325-5 MG] 1 tab PO Q4H PRN #16 tablet PRN Reason: Pain (Moderate 4-6) Bisacodyl 10 mg RC BID PRN #10 supp.rect PRN Reason: Constipation Ciprofloxacin HCl 250 mg PO BID #20 tablet Famotidine [Pepcid] 20 mg PO BID #60 tablet fentaNYL [Duragesic] 1 patch TD Q72H #5 patch Mirabegron [Myrbetriq] 25 mg PO DAILY #30 tab.er.24h Naloxone HCl [Narcan] 4 mg NS ASDIRECTED #1 spray Saccharomyces Boulardii [Florastor] 250 mg PO BID #20 cap Solifenacin [Vesicare] 5 mg PO DAILY #30 tab Sulfamethoxazole/Trimethoprim [Septra DS] 1 tab PO BID #27 tablet Vancomycin [First-Vancomycin 50 Compounding Kit] 125 mg PO QID #31 bottle Home Medications: Home Meds Ascorbic Acid [Vitamin C] 500 mg PO DAILY 01/05/14 [History] Aspirin [David Chewable Aspirin] 81 mg PO DAILY 01/05/14 [History] Calcium Carbonate/Vitamin D3 [Caltrate 600 + D Soft Chew Tab] 1 each PO DAILY [History] Enalapril [Vasotec] 20 mg PO DAILY 01/05/14 [History] Rivaroxaban [Xarelto] 15 mg PO DAILY 01/05/14 [History] Tamsulosin [Flomax] 0.4 mg PO DAILY 01/05/14 [History] atorvaSTATin [Lipitor] 40 mg PO DAILY 01/05/14 [History] Arginine HCl [Pure l-Arginine HCl] 1,000 mg PO DAILY 02/02/14 [History] Fenofibric Acid (Choline) [Trilipix] 45 mg PO DAILY 02/02/14 [History] Nitroglycerin [Nitrostat] 0.4 mg SL ASDIRECTED PRN 02/02/14 [History] Vitamin E 400 unit PO DAILY 02/02/14 [History] Acetaminophen [Acetaminophen ER] 650 mg PO Q4H PRN 11/09/17 [History] Fluticasone Propionate [Flonase] 50 mcg NS ASDIRECTED 11/09/17 [History] Magnesium Oxide 800 mg PO DAILY 5 Days #5 tablet 11/15/17 [Rx] Acetaminophen/HYDROcodone [[place] 325-5 MG] 1 tab PO Q4H PRN #16 tablet 12/11/17 [Rx] Bisacodyl 10 mg RC BID PRN #10 supp.rect 12/11/17 [Rx] Ciprofloxacin HCl 250 mg PO BID #20 tablet 12/11/17 [Rx] Docusate Sodium [Colace] 100 mg PO BID #0 12/11/17 [Rx] Famotidine [Pepcid] 20 mg PO BID #60 tablet 12/11/17 [Rx] Isosorbide Mononitrate [Imdur] 30 mg PO DAILY #0 12/11/17 [Rx] Metoprolol Tartrate 50 mg PO DAILY #0 12/11/17 [Rx] Mirabegron [Myrbetriq] 25 mg PO DAILY #30 tab.er.24h 12/11/17 [Rx] Naloxone HCl [Narcan] 4 mg NS ASDIRECTED #1 spray 12/11/17 [Rx] Saccharomyces Boulardii [Florastor] 250 mg PO BID #20 cap 12/11/17 [Rx] Solifenacin [Vesicare] 5 mg PO DAILY #30 tab 12/11/17 [Rx] Sulfamethoxazole/Trimethoprim [Septra DS] 1 tab PO BID #27 tablet 12/11/17 [Rx] Vancomycin [First-Vancomycin 50 Compounding Kit] 125 mg PO QID #31 bottle [Rx] fentaNYL [Duragesic] 1 patch TD Q72H #5 patch 12/11/17 [Rx] Patient Handouts: Catheter-Associated Urinary Tract Infection FAQs - EPP[place], Clostridium Difficile Infection, [place], Urinary Tract Infection, Adult, [id number], Overactive Bladder, Adult Referrals: Derek Schafer MD [Consulting Physician] - (Follow up with urology as scheduled already.) Yovanny Irwin MD [Primary Care Provider] - 12/19/17 8:15 am (Please follow up with Dr. Irwin on December 19 at 0815, we also recommend asking your doctor about having a TDaP vaccine.) - Discharge Summary/Plan Comment DC Time >30 min.: Yes (45 mins) - General Info Date of Service: 12/11/17 Admission Dx/Problem (Free Text: Admission Diagnosis/Problem Admission Diagnosis/Problem UTI (urinary tract infection) due to urinary indwelling catheter Subjective Update: In to see Aj. He is lying in bed. He reports occasional pain from his bladder spasms but overall he is doing ok. He is concerned about discharge and if he will end up coming back to the hospital. Dr. Natarajan discussed plan of care after discharge and went over all medications with Aj and his . They voiced understanding. He has no other concerns. No nursing concerns. Functional Status: Reports: Pain Controlled, Tolerating Diet, Ambulating, Urinating. Denies: New Symptoms - Review of Systems General: Reports: No Symptoms. Denies: Fever, Weakness, Fatigue, Malaise HEENT: Reports: No Symptoms. Denies: Eye Pain, Headaches, Sore Throat Pulmonary: Reports: No Symptoms. Denies: Shortness of Breath, Cough, Sputum, Wheezing Cardiovascular: Reports: No Symptoms. Denies: Chest Pain, Palpitations, Dyspnea on Exertion, Lightheadedness Gastrointestinal: Reports: Abdominal Pain (mild - lower quadrants around suprapubic catheter ). Denies: Constipation, Diarrhea, Nausea, Vomiting Genitourinary: Reports: No Symptoms Musculoskeletal: Reports: No Symptoms Skin: Reports: No Symptoms Neurological: Reports: No Symptoms Psychiatric: Reports: No Symptoms - Patient Data Vitals - Most Recent: Last Vital Signs Temp 98.1 F 12/11/17 09:18 Pulse 74 12/11/17 09:18 Resp 16 12/11/17 09:18 BP 161/67 H 12/11/17 09:18 Pulse Ox 95 12/11/17 09:18 Weight - Most Recent: 185 lb 6.4 oz I&O - Last 24 hours: Intake & Output 12/10/17 12/11/17 12/11/17 22:59 06:59 14:59 Intake Total 1418 1453 Output Total 725 1550 Balance 468 -97 Lab Results - Last 24 hrs: Laboratory Results - last 24 hr 12/11/17 12/11/17 Range/Units 05:56 05:56 WBC 3.40 L (4.23-9.07) K/mm3 RBC 3.93 L (4.63-6.08) M/mm3 Hgb 11.0 L (13.7-17.5) gm/L Hct 35.2 L (40.1-51.0) % MCV 89.6 (79.0-92.2) fl MCH 28.0 (25.7-32.2) pg MCHC 31.3 L (32.2-35.5) g/dl RDW Std Deviation 46.4 H (35.1-43.9) fL Plt Count 107 L (163-337) K/mm3 MPV 11.3 (9.4-12.3) fl Neut % (Auto) 56.8 (34.0-67.9) % Lymph % (Auto) 22.9 (21.8-53.1) % [place] % (Auto) 12.4 H (5.3-12.2) % Eos % (Auto) 7.6 H (0.8-7.0) Baso % (Auto) 0.3 (0.1-1.2) % Neut # (Auto) 1.93 (1.78-5.38) K/mm3 Lymph # (Auto) 0.78 L (1.32-3.57) K/mm3 [place] # (Auto) 0.42 (0.30-0.82) K/mm3 Eos # (Auto) 0.26 (0.04-0.54) K/mm3 Baso # (Auto) 0.01 (0.01-0.08) K/mm3 Sodium 142 (136-145) mEq/L Potassium 4.0 (3.5-5.1) mEq/L Chloride 109 H (98-107) mEq/L Carbon Dioxide 24 (21-32) mEq/L Anion Gap 13.0 (5-15) BUN 15 (7-18) mg/dL Creatinine 1.0 (0.7-1.3) mg/dL Est Cr Clr Drug Dosing 52.25 mL/min Estimated GFR (MDRD) > 60 (>60) mL/min BUN/Creatinine Ratio 15.0 (14-18) Glucose 151 H (83-115) mg/dL Calcium 8.3 L (8.5-10.1) mg/dL Magnesium 1.9 (1.8-2.4) mg/dl C-Reactive Protein 3.9 H* (<1.0) mg/dL CHIDI Results - Last 24 hrs: Microbiology 12/10/17 12:20 Genital Culture - Preliminary Penis (Mrsa) Staphylococcus Aureus 12/08/17 18:21 Urine Culture - Preliminary Urine, Suprapubic Bladder Asp Pseudomonas Aeruginosa (Mrsa) Staphylococcus Aureus 12/08/17 18:45 Aerobic Blood Culture - Preliminary Blood - Venous - Lab Draw NO GROWTH AFTER 2 DAYS Anaerobic Blood Culture - Preliminary NO GROWTH AFTER 2 DAYS 12/08/17 18:35 Aerobic Blood Culture - Preliminary Blood - Venous NO GROWTH AFTER 2 DAYS Anaerobic Blood Culture - Preliminary NO GROWTH AFTER 2 DAYS 12/08/17 18:21 Wound Culture - Final Abdomen - Drainage (Mrsa) Staphylococcus Aureus Med Orders - Current: Current Medications Acetaminophen (Tylenol) 650 mg PO Q4H PRN PRN Reason: Pain Hydrocodone Bitart/Acetaminophen ([place] 325-5 Mg) 1 tab PO Q4H PRN PRN Reason: Pain (moderate 4-6) Last Admin: 12/10/17 12:17 Dose: 1 tab Albuterol/Ipratropium (Duoneb 3.0-0.5 Mg/3 Ml) 3 ml NEB Q4H PRN PRN Reason: Shortness Of Breath/wheezing Ascorbic Acid (Vitamin C) 500 mg PO DAILY [facility] Last Admin: 12/11/17 09:17 Dose: 500 mg Aspirin (Aspirin) 81 mg PO DAILY [facility] Last Admin: 12/11/17 09:17 Dose: 81 mg Belladonna Alkaloids/Opium (B & O Supprettes No. 15a) 1 supp RECTAL Q4H PRN PRN Reason: Other Docusate Sodium (Colace) 100 mg PO DAILY PRN PRN Reason: Constipation Famotidine (Pepcid) 20 mg PO BID [facility] Last Admin: 12/11/17 09:16 Dose: 20 mg Flunisolide (Nasalide Nasal [place]) 0 ml NASBOTH BID [facility] Last Admin: 12/11/17 09:18 Dose: 2 spray Hydralazine HCl (Apresoline) 20 mg IVPUSH Q4H PRN PRN Reason: Hypertension Hydromorphone HCl (Dilaudid) 0.5 mg IVPUSH Q2H PRN PRN Reason: Pain (severe 7-10) Last Admin: 12/10/17 14:28 Dose: 0.5 mg Promethazine HCl 12.5 mg/ (Sodium Chloride) 50.5 mls @ 100 mls/hr IV Q6H PRN PRN Reason: Nausea/Vomiting Sodium Chloride (Normal Saline) 1,000 mls @ 50 mls/hr IV ASDIRECTED [facility] Last Admin: 12/11/17 00:38 Dose: 50 mls/hr Cefepime HCl 1 gm/ Premix 25 mls @ 50 mls/hr IV Q24H [facility] Last Admin: 12/10/17 21:59 Dose: 50 mls/hr Isosorbide Mononitrate (Imdur) 30 mg PO DAILY [facility] Last Admin: 12/11/17 09:17 Dose: 30 mg Lorazepam (Ativan) 2 mg IVPUSH Q4H PRN PRN Reason: Seizures Lorazepam (Ativan) 0.25 mg IV Q6H PRN PRN Reason: Anxiety Magnesium Sulfate (Pharmacy To Dose - Magnesium Replacement) 1 dose .XX ASDIRECTED [facility] Metoprolol Tartrate (Lopressor) 50 mg PO DAILY [facility] Last Admin: 12/11/17 09:17 Dose: 50 mg Metoprolol Tartrate (Lopressor) 5 mg IVPUSH Q4H PRN PRN Reason: Tachycardia Miscellaneous Information (Remove Patch) 0 ea TRDERM ONETIME ONE Stop: 12/13/17 15:01 Nitroglycerin (Nitrostat) 0.4 mg SL ASDIRECTED PRN PRN Reason: Chest Pain Ondansetron HCl (Zofran) 4 mg IV Q6H PRN PRN Reason: Nausea/Vomiting Fenofibric Acid ( Choline) [Trilipix] 45 Mg 0 each PO DAILY [facility] Last Admin: 12/11/17 09:23 Dose: Not Given Potassium Chloride (Pharmacy To Dose - Potassium Replacement) 1 dose .XX ASDIRECTED [facility] Rivaroxaban (Xarelto) 15 mg PO DAILY [facility] Last Admin: 12/11/17 09:17 Dose: 15 mg Rosuvastatin Calcium (Crestor) 10 mg PO DAILY [facility] Last Admin: 12/11/17 09:17 Dose: 10 mg Saccharomyces Boulardii (Florastor) 250 mg PO BID [facility] Last Admin: 12/11/17 09:24 Dose: 250 mg Tamsulosin HCl (Flomax) 0.4 mg PO DAILY [facility] Last Admin: 12/11/17 09:17 Dose: 0.4 mg Temazepam (Restoril) 7.5 mg PO BEDTIME PRN PRN Reason: Sleep Trimethoprim/Sulfamethoxazole (Septra Ds) 1 tab PO BID [facility] Stop: 12/22/17 09:01 Last Admin: 12/11/17 09:17 Dose: 1 tab Trospium (Sanctura) 20 mg PO BIDAC [facility] Last Admin: 12/11/17 05:33 Dose: 20 mg Vancomycin HCl (First-Vancomycin 50 Compounding Kit) 125 mg PO QID [facility] Stop: 12/18/17 21:01 Last Admin: 12/11/17 10:00 Dose: 125 mg Vitamin E (Vitamin E) 400 units PO DAILY [facility] Last Admin: 12/11/17 09:17 Dose: 400 units Discontinued Medications Acetaminophen (Tylenol) 650 mg PO Q4H PRN PRN Reason: Fever Stop: 12/08/17 23:59 Last Admin: 12/08/17 22:50 Dose: 650 mg Acetaminophen (Tylenol) 650 mg PO Q4H PRN PRN Reason: Pain (Mild 1-3)/fever Fentanyl (Duragesic) 12 mcg TRDERM ONETIME ONE Stop: 12/10/17 15:01 Last Admin: 12/10/17 15:04 Dose: 12 mcg Sodium Chloride (Normal Saline) 500 mls @ 999 mls/hr IV ONETIME ONE Stop: 12/08/17 18:49 Last Admin: 12/08/17 18:34 Dose: 999 mls/hr Sodium Chloride (Normal Saline) 1,000 mls @ 50 mls/hr IV ONETIME ONE Stop: 12/09/17 15:07 Last Admin: 12/08/17 19:18 Dose: 50 mls/hr Cefepime HCl 1 gm/ Premix 50 mls @ 100 mls/hr IV ONETIME ONE Stop: 12/08/17 22:17 Last Admin: 12/08/17 22:58 Dose: Not Given Vancomycin HCl 1.25 gm/ Sodium (Chloride) 250 mls @ 250 mls/hr IV ONETIME ONE Stop: 12/08/17 23:14 Last Admin: 12/09/17 19:52 Dose: Not Given Cefepime HCl 1 gm/ Premix 50 mls @ 100 mls/hr IV ONETIME ONE Stop: 12/08/17 22:37 Last Admin: 12/08/17 22:58 Dose: Not Given Cefepime HCl (Maxipime In D5w 2 Gm/50 Ml) Confirm Administered Dose 50 mls @ as directed .ROUTE .STK-MED ONE Stop: 12/08/17 22:10 Last Admin: 12/08/17 22:59 Dose: Not Given Cefepime HCl 2 gm/ Premix 50 mls @ 100 mls/hr IV ONETIME ONE Stop: 12/08/17 22:40 Last Admin: 12/08/17 22:15 Dose: 100 mls/hr Cefepime HCl 1 gm/ Premix 50 mls @ 100 mls/hr IV Q24H [facility] Last Admin: 12/09/17 22:15 Dose: Not Given Magnesium Sulfate 2 gm/ Premix 50 mls @ 25 mls/hr IV ONETIME ONE Stop: 12/09/17 10:59 Last Admin: 12/09/17 09:53 Dose: 25 mls/hr Lidocaine HCl (Xylocaine 2%) Confirm Administered Dose 20 ml .ROUTE .STK-MED ONE Stop: 12/10/17 00:51 Last Admin: 12/10/17 01:48 Dose: Not Given Magnesium Oxide (Magnesium Oxide) 800 mg PO DAILY [facility] Non-Formulary Medication (Ar[place]ine Hcl [Pure L-Arginine Hcl]) 1,000 mg PO DAILY [facility] Pantoprazole Sodium (Protonix) 40 mg PO DAILY [facility] Rivaroxaban (Xarelto) 15 mg PO DAILY [facility] Trimethoprim/Sulfamethoxazole (Septra Ds) 1 tab PO ONETIME ONE Stop: 12/08/17 23:45 Last Admin: 12/09/17 00:15 Dose: 1 tab Trospium (Sanctura) 20 mg PO ONETIME ONE Stop: 12/09/17 00:16 Last Admin: 12/09/17 01:00 Dose: 20 mg Vancomycin HCl (Pharmacy To Dose - Vancomycin) 1 dose .XX ONETIME ONE Stop: 12/08/17 21:49 Last Admin: 12/09/17 19:52 Dose: Not Given Vancomycin HCl (Vancomycin) 1,258.725 mg 15 mg/kg (1258.725 mg) IV Q12H VALE - Exam Quality Assessment: Reports: Supplemental Oxygen (at baseline ), DVT Prophylaxis General: Reports: Alert, Oriented, Cooperative, No Acute Distress HEENT: Reports: Pupils Equal, Pupils Reactive, EOMI, Mucous Membr. Moist/[place] Neck: Reports: Supple Lungs: Reports: Clear to Auscultation, Normal Respiratory Effort, Decreased Breath Sounds. Denies: Rhonchi, Wheezing Cardiovascular: Reports: Regular Rate, Regular Rhythm GI/Abdominal Exam: Normal Bowel Sounds, Soft, No Distention, Tender (mild tenderness to lower quadrants around suprapubic catheter) (Male) Exam: Deferred Rectal (Males) Exam: Deferred Back Exam: Reports: Normal Inspection, Full Range of Motion Extremities: Normal Inspection, Normal Range of Motion, Non-Tender, No Pedal Edema, Normal Capillary Refill Skin: Reports: Warm, Dry, Intact Neurological: Reports: No New Focal Deficit Psy/Mental Status: Reports: Alert, Normal Affect, Normal Mood
[2017-12-11] MEDS: Acetaminophen/HYDROcodone 325-5 MG Tab PO PRN (11:27)
== END 2017-12-11 12:40 | disposition home or self-care (01) | DRG 698 ==
LOC: JD.ED 18:06 → SUPCPDRO 18:06 → JD.MS 22:12
PROVIDERS: ADMIT Internal Medicine; ATTEND Internal Medicine
DX: N39.0 Urinary tract infection, site not specified (principal); A04.72 Enterocolitis due to Clostridium difficile, not specified as recurrent; T83.511A Infection and inflammatory reaction due to indwelling urethral catheter, initial encounter; Z88.8 Allergy status to other drugs, medicaments and biological substances; Z79.899 Other long term (current) drug therapy; Z79.82 Long term (current) use of aspirin; G47.30 Sleep apnea, unspecified; J96.90 Respiratory failure, unspecified, unspecified whether with hypoxia or hypercapnia; K21.9 Gastro-esophageal reflux disease without esophagitis; A04.71 Enterocolitis due to Clostridium difficile, recurrent; Y84.6 Urinary catheterization as the cause of abnormal reaction of the patient, or of later complication, without mention of misadventure at the time of the procedure; M54.9 Dorsalgia, unspecified; Z86.73 Personal history of transient ischemic attack (TIA), and cerebral infarction without residual deficits; I25.10 Atherosclerotic heart disease of native coronary artery without angina pectoris; Z95.5 Presence of coronary angioplasty implant and graft; Z87.891 Personal history of nicotine dependence; J44.9 Chronic obstructive pulmonary disease, unspecified; G89.29 Other chronic pain; Z86.718 Personal history of other venous thrombosis and embolism; Z95.1 Presence of aortocoronary bypass graft; E78.5 Hyperlipidemia, unspecified; I10 Essential (primary) hypertension; B95.62 Methicillin resistant Staphylococcus aureus infection as the cause of diseases classified elsewhere; C61 Malignant neoplasm of prostate; N32.89 Other specified disorders of bladder; E83.42 Hypomagnesemia; F41.9 Anxiety disorder, unspecified; F32.9 Major depressive disorder, single episode, unspecified; Z99.81 Dependence on supplemental oxygen; G47.33 Obstructive sleep apnea (adult) (pediatric); N40.0 Benign prostatic hyperplasia without lower urinary tract symptoms; Z87.440 Personal history of urinary (tract) infections; Z79.01 Long term (current) use of anticoagulants
CPT/HCPCS: 36415; 71045; 80053; 81001; 83605; 84484; 85007; 85027; 86140; 87040 ×2; 87070; 87086; 87186; 87493 ×2; 89055; 93005; 96360; 96361; 99285; J7040 ×2; 80048; 83735; 85025; 87077; 87088; 93010; 97110-GP; 97116-GP; 97162-GP; 97165-GO; 99284; A9270-GY; J0692; J1170; J3370; J3475

== ENCOUNTER 2018-02-11 21:15 | Inpatient (IN) | payer MEDICARE ==
[2018-02-11] MEDS ORDERED: Lidocaine 2% Jelly 10 ML Urojet MUCMEM ONE (21:57)
--- NOTE | 2018-02-11 21:58 | EDM.PDOC ---
ED HPI GENERAL MEDICAL PROBLEM - General Chief Complaint: Respiratory Problem Stated Complaint: [facility] Time Seen by Provider: 02/11/18 21:37 Source of Information: Reports: Patient, RN Notes Reviewed History Limitations: Reports: No Limitations - History of Present Illness INITIAL COMMENTS - FREE TEXT/NARRATIVE: It is unclear what brings the patient to the ED. He states that he has low back pain, but then acknowledges that it is chronic, and his will been worse for years. He then states that he has left knee pain, but also says that it is unchanged for years. He states that he has a dry cough, but that is chronic, and no worsening usual. He states that he has not been out of bed for the past 2 days, and when asked why not, he initially stated his low back pain and left knee pain, however, when pressed, he stated that he usually gets out of bed with these pains, and therefore that is not why he hasn't gotten out of bed. When asked again why he hasn't been out of bed for 2 days, he stated that it is because he has been sleepy. No recent fever, although the patient feels cold here in the ED. No recent chest pain or palpitations. He reports occasional dyspnea on exertion, chronic, but no shortness of breath at rest. He states that he had watery diarrhea 2 or 3 weeks ago, but was treated with antibiotics about a week or so ago, and it resolved. No recent nausea, vomiting, or constipation. No urinary symptoms. The nurse's note indicates that the patient ordinarily saturates about 85% while on 2 L of oxygen per nasal cannula continuously, but that he is found to be 82% on 3 L of oxygen per nasal cannula here in the ED, indicating an increased supplemental oxygen need. 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 The patient's PCP is Dr. Irwin, on the patient states he saw about one week ago. Lower Back Pain Score (Numeric/FACES): 8 - Related Data Allergies Allergy/AdvReac Type Severity Reaction Status Date / Time celecoxib [From Celebrex] Allergy Hives Verified 02/11/18 21:22 rofecoxib [From Vioxx] Allergy Hives Verified 02/11/18 21:22 valdecoxib [From Bextra] Allergy Hives Verified 02/11/18 21:22 methylprednisolone AdvReac Dizziness Verified 02/11/18 21:22 morphine AdvReac Irritabilit Verified 02/11/18 21:22 y Home Meds: Home Meds Ascorbic Acid [Vitamin C] 500 mg PO DAILY 01/05/14 [History] Aspirin [David Chewable Aspirin] 81 mg PO DAILY 01/05/14 [History] Tamsulosin [Flomax] 0.4 mg PO DAILY 01/05/14 [History] Fenofibric Acid (Choline) [Trilipix] 45 mg PO DAILY 02/02/14 [History] Nitroglycerin [Nitrostat] 0.4 mg SL ASDIRECTED PRN 02/02/14 [History] Fluticasone Propionate [Flonase] 2 spray NS DAILY 11/09/17 [History] Naloxone HCl [Narcan] 4 mg NS ASDIRECTED #1 spray 12/11/17 [Rx] Acetaminophen/HYDROcodone [[place] 325-5 MG] 1 tab PO Q6H PRN 02/11/18 [History] Loperamide [Imodium] 2 mg PO Q4H PRN 02/11/18 [History] Metoprolol Tartrate 50 mg PO BID 02/11/18 [History] Multivitamin/Iron/Folic Acid [Centrum Women Tablet] 1 each PO DAILY 02/11/18 [ History] Oxybutynin [Oxybutynin ER] 5 mg PO DAILY 02/11/18 [History] Pantoprazole [ProTONIX] 40 mg PO DAILY 02/11/18 [History] Phenazopyridine [Pyridium] 200 mg PO TID PRN 02/11/18 [History] oxyCODONE HCl/Acetaminophen [Endocet 10-325 mg Tablet] 1 each PO QID PRN [History] traMADol [Ultram] 50 mg PO Q4H PRN 02/11/18 [History] Past Medical History HEENT History: Reports: Hard of Hearing, Impaired Vision Other HEENT History: glasses Cardiovascular History: Reports: 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), CAD, High Cholesterol, Hypertension, VT Respiratory History: Reports: COPD (2L O2 continuously), PE, Sleep Apnea ( nightly CPAP) Gastrointestinal History: Reports: GERD Genitourinary History: Reports: BPH Musculoskeletal History: Reports: Back Pain, Chronic Neurological History: Reports: TIA Psychiatric History: Reports: Anxiety, Depression Hematologic History: Reports: Anemia, Blood Transfusion(s) - Infectious Disease History Infectious Disease History: Reports: MRSA, Shingles - Past Surgical History Cardiovascular Surgical History: Reports: Coronary Artery Bypass, Coronary Artery Stent (2013) GI Surgical History: Reports: Cholecystectomy Male Surgical History: Reports: Suprapubic Catheter Placement (subsequently removed) Musculoskeletal Surgical History: Reports: Hip Replacement (right) Dermatological Surgical History: Reports: Skin Biopsy Social & Family History - Family History Family Medical History: Noncontributory - Tobacco Use Smoking Status *Q: Former Smoker Years of Tobacco use: 70 Packs/Tins Daily: 3 - Alcohol Use Alcohol Use History: Yes Alcohol Use Frequency: Socially - Recreational Drug Use Recreational Drug Use: No - Living Situation & Occupation Living situation: Reports: with Spouse Occupation: Retired ED ROS GENERAL - Review of Systems Review Of Systems: ROS reveals no pertinent complaints other than HPI. ED EXAM, GENERAL - Physical Exam Exam: See Below Exam Limited By: No Limitations General Appearance: Alert, WD/WN, No Apparent Distress Eye Exam: Bilateral Eye: EOMI, Normal Inspection Ears: Normal External Exam, Hearing Grossly Normal Nose: Normal Inspection, No Blood Throat/Mouth: Normal Inspection, Normal Lips, Normal Voice, No Airway Compromise Head: Atraumatic, Normocephalic Neck: Normal Inspection, Full Range of Motion Respiratory/Chest: No Respiratory Distress, Lungs Clear, Normal Breath Sounds, No Accessory Muscle Use Cardiovascular: Normal Peripheral Pulses, Regular Rate, Rhythm, No Edema, No Gallop, No JVD, No Murmur, No Rub Peripheral Pulses: 3+: Radial (L), Radial (R) GI/Abdominal: Normal Bowel Sounds, Soft, Non-Tender, No Organomegaly, No Distention, No Abnormal Bruit, No Mass (Male) Exam: Deferred Back Exam: Normal Inspection, Full Range of Motion, NT Extremities: Normal Inspection, Normal Range of Motion, No Pedal Edema, Normal Capillary Refill Neurological: Alert, Oriented, Normal Cognition, No Motor/Sensory Deficits Psychiatric: Normal Affect Skin Exam: Warm, Dry, Intact, Normal Color, No Rash EKG INTERPRETATION EKG Date: 02/11/18 Time: 22:07 Rhythm: NSR Rate (Beats/Min): 75 [place]: RAD-Right [place] Deviation P-Wave: Enlarged (LAE) QRS: Normal ST-T: Normal QT: Prolonged (QTc 476 ms) Comparison: No Change (12/08/2017) Course - Vital Signs Last Recorded V/S: Last Vital Signs Temp 37.0 C 02/11/18 21:19 Pulse 92 02/11/18 21:19 Resp 16 02/11/18 21:19 BP 176/76 H 02/11/18 21:19 Pulse Ox 88 L 02/12/18 00:15 Orthostatic Blood Pressure [ 177/72 Standing] Orthostatic Blood Pressure [ 170/61 Supine] - Orders/Labs/Meds Orders: Active Orders 24 hr Category Date Time Status EKG Documentation Completion [RC] STAT Care 02/11/18 21:55 Active Orthostatic Vital Signs [RC] STAT Care 02/11/18 21:55 Active Chest 2V [CR] Stat Exams 02/11/18 21:54 Taken CULTURE BLOOD [BC] Stat Lab 02/11/18 22:20 Received CULTURE BLOOD [BC] Stat Lab 02/11/18 22:25 Received UA W/MICROSCOPIC [URIN] Stat Lab 02/11/18 22:45 Ordered Blood Culture x2 Reflex Set [OM.PC] Stat Oth 02/11/18 21:57 Ordered Labs: Laboratory Tests 02/11/18 02/11/18 02/11/18 Range/Units 22:08 22:20 22:20 WBC 10.76 H (4.23-9.07) K/mm3 RBC 4.36 L (4.63-6.08) M/mm3 Hgb 12.0 L (13.7-17.5) gm/L Hct 39.3 L (40.1-51.0) % MCV 90.1 (79.0-92.2) fl MCH 27.5 (25.7-32.2) pg MCHC 30.5 L (32.2-35.5) g/dl RDW Std Deviation 51.1 H (35.1-43.9) fL Plt Count 140 L (163-337) K/mm3 MPV 10.6 (9.4-12.3) fl Neutrophils % (Manual) 90 H (40-60) % Band Neutrophils % 0 (0-10) % Lymphocytes % (Manual) 4 L (20-40) % Atypical Lymphs % 0 % Monocytes % (Manual) 6 (2-10) % Eosinophils % (Manual) 0 L (0.8-7.0) % Basophils % (Manual) 0 L (0.2-1.2) Toxic Granulation 1+ slight Platelet Estimate Adequate Plt Morphology Comment Normal Hypochromasia 1+ slight Poikilocytosis 1+ slight Anisocytosis 1+ slight Microcytosis 1+ slight Macrocytosis 1+ slight RBC Morph Comment Abnormal Puncture Site Rt radial ABG pH 7.39 (7.35-7.45) ABG pCO2 44.2 (35.0-45.0) mmHg ABG pO2 63.0 L (80.0-100.0) mmHg ABG HCO3 26.3 H (22.0-26.0) meq/L ABG O2 Saturation 87.2 L (96.0-97.0) % ABG Base Excess 1.6 (-2-2.0) Joe Test Positive A-a Gradient 86 mmHg O2 Delivery Device Nasal cannula Oxygen Flow Rate 3.0 FiO2 32.00 (21.00-100.00) % Sodium 139 (136-145) mEq/L Potassium 3.9 (3.5-5.1) mEq/L Chloride 103 (98-107) mEq/L Carbon Dioxide 28 (21-32) mEq/L Anion Gap 11.9 (5-15) BUN 19 H (7-18) mg/dL Creatinine 1.1 (0.7-1.3) mg/dL Est Cr Clr Drug Dosing 48.20 mL/min Estimated GFR (MDRD) > 60 (>60) mL/min BUN/Creatinine Ratio 17.3 (14-18) Glucose 137 H (83-115) mg/dL Lactic Acid (0.4-2.0) mmol/L Calcium 8.4 L (8.5-10.1) mg/dL Magnesium 1.5 L (1.8-2.4) mg/dl Total Bilirubin 0.7 (0.2-1.0) mg/dL AST 21 (15-37) U/L ALT 16 (16-63) U/L Alkaline Phosphatase 52 (46-116) U/L Troponin I < 0.017 (0.00-0.056) ng/mL NT-Pro-B Natriuret Pep (0-450) pg/mL Total Protein 7.0 (6.4-8.2) g/dl Albumin 3.4 (3.4-5.0) g/dl Globulin 3.6 gm/dL Albumin/Globulin Ratio 0.9 L (1-2) TSH 3rd Generation 3.348 (0.358-3.74) uIU/mL Urine Color (Yellow) Urine Appearance (Clear) Urine pH (5.0-8.0) Ur Specific [place] (1.005-1.030) Urine Protein (Negative) Urine Glucose (UA) (Negative) Urine Ketones (Negative) Urine Occult Blood (Negative) Urine Nitrite (Negative) Urine Bilirubin (Negative) Urine Urobilinogen (0.2-1.0) Ur Leukocyte Esterase (Negative) Urine RBC (0-5) /hpf Urine WBC (0-5) /hpf Ur Epithelial Cells (0-5) /hpf Urine Bacteria (FEW) /hpf Hyaline Casts (0-5) /lpf Urine Mucus (FEW) /hpf 02/11/18 02/11/18 02/11/18 Range/Units 22:20 22:20 22:45 WBC (4.23-9.07) K/mm3 RBC (4.63-6.08) M/mm3 Hgb (13.7-17.5) gm/L Hct (40.1-51.0) % MCV (79.0-92.2) fl MCH (25.7-32.2) pg MCHC (32.2-35.5) g/dl RDW Std Deviation (35.1-43.9) fL Plt Count (163-337) K/mm3 MPV (9.4-12.3) fl Neutrophils % (Manual) (40-60) % Band Neutrophils % (0-10) % Lymphocytes % (Manual) (20-40) % Atypical Lymphs % % Monocytes % (Manual) (2-10) % Eosinophils % (Manual) (0.8-7.0) % Basophils % (Manual) (0.2-1.2) Toxic Granulation Platelet Estimate Plt Morphology Comment Hypochromasia Poikilocytosis Anisocytosis Microcytosis Macrocytosis RBC Morph Comment Puncture Site ABG pH (7.35-7.45) ABG pCO2 (35.0-45.0) mmHg ABG pO2 (80.0-100.0) mmHg ABG HCO3 (22.0-26.0) meq/L ABG O2 Saturation (96.0-97.0) % ABG Base Excess (-2-2.0) Joe Test A-a Gradient mmHg O2 Delivery Device Oxygen Flow Rate FiO2 (21.00-100.00) % Sodium (136-145) mEq/L Potassium (3.5-5.1) mEq/L Chloride (98-107) mEq/L Carbon Dioxide (21-32) mEq/L Anion Gap (5-15) BUN (7-18) mg/dL Creatinine (0.7-1.3) mg/dL Est Cr Clr Drug Dosing mL/min Estimated GFR (MDRD) (>60) mL/min BUN/Creatinine Ratio (14-18) Glucose (83-115) mg/dL Lactic Acid 0.6 (0.4-2.0) mmol/L Calcium (8.5-10.1) mg/dL Magnesium (1.8-2.4) mg/dl Total Bilirubin (0.2-1.0) mg/dL AST (15-37) U/L ALT (16-63) U/L Alkaline Phosphatase (46-116) U/L Troponin I (0.00-0.056) ng/mL NT-Pro-B Natriuret Pep 7123 H (0-450) pg/mL Total Protein (6.4-8.2) g/dl Albumin (3.4-5.0) g/dl Globulin gm/dL Albumin/Globulin Ratio (1-2) TSH 3rd Generation (0.358-3.74) uIU/mL Urine Color Yellow (Yellow) Urine Appearance Clear (Clear) Urine pH 6.0 (5.0-8.0) Ur Specific [place] 1.025 (1.005-1.030) Urine Protein 1+ H (Negative) Urine Glucose (UA) Negative (Negative) Urine Ketones Negative (Negative) Urine Occult Blood Negative (Negative) Urine Nitrite Negative (Negative) Urine Bilirubin Negative (Negative) Urine Urobilinogen 0.2 (0.2-1.0) Ur Leukocyte Esterase Negative (Negative) Urine RBC 0-5 (0-5) /hpf Urine WBC 0-5 (0-5) /hpf Ur Epithelial Cells Not seen (0-5) /hpf Urine Bacteria Not seen (FEW) /hpf Hyaline Casts 0-5 (0-5) /lpf Urine Mucus Moderate H (FEW) /hpf Meds: Medications Discontinued Medications Generic Name Dose Route Start Last Admin Trade Name Jeri PRN Reason Stop Dose Admin Azithromycin 500 mg/ Sodium 250 mls @ 250 mls/hr 02/11/18 23:22 02/12/18 00: 20 Chloride IV 02/12/18 00:21 250 mls/hr ONETIME STA Administration Ceftriaxone Sodium 2 gm/ 100 mls @ 100 mls/hr 02/11/18 23:21 Sodium Chloride IV 02/12/18 00:20 ONETIME STA Magnesium Sulfate 2 gm/ Premix 50 mls @ 50 mls/hr 02/11/18 23:27 02/12/18 00: 20 IV 02/12/18 00:26 50 mls/hr ONETIME STA Administration Lidocaine HCl 10 ml 02/11/18 21:57 02/12/18 00:30 Xylocaine 2% Jelly MUCMEM 02/11/18 21:58 Not Given ONETIME ONE - Re-Assessments/Exams Free Text/Narrative Re-Assessment/Exam: 02/11/18 23:19 2-view chest radiograph reviewed. There is cardiomegaly, but no pulmonary vascular congestion to suggest decompensated CHF. There are small bilateral pleural effusions. There is a right upper lobe infiltrate, consistent with pneumonia. No pneumothorax. Formal read per the radiologist pending. 02/11/18 23:22 Blood cultures were obtained when labs were collected. The patient will be started on empiric Rocephin and azithromycin for treatment of community- acquired right upper lobe pneumonia. 02/12/18 00:25 The patient is not orthostatic 02/12/18 00:28 Given the patient's age, comorbidities, and increased oxygen requirements, I'm recommending inpatient treatment. The patient is agreeable. Case discussed with Dr. Reynoso at 00:26. She accepts the patient for admission to telemetry. 02/12/18 00:37 Notified by Josi VALENCIA that the patient had a watery diarrhea. I have ordered a C. difficile. I'm also notified that the patient has a temperature of about 102, and that he has some discomfort. I will order some Tylenol. Departure - Departure Time of Disposition: 00:28 Disposition: Admitted As Inpatient 68 Condition: Fair Clinical Impression: Right upper lobe pneumonia, Hypomagnesemia - Discharge Information *PRESCRIPTION DRUG MONITORING PROGRAM REVIEWED*: Not Applicable *COPY OF PRESCRIPTION DRUG MONITORING REPORT IN PATIENT BENITA: Not Applicable Referrals: Yovanny Irwin MD [Physician] - - My Orders Last 24 Hours: My Active Orders 02/11/18 21:54 Chest 2V [CR] Stat 02/11/18 21:55 EKG Documentation Completion [RC] STAT Orthostatic Vital Signs [RC] STAT 02/11/18 21:57 Blood Culture x2 Reflex Set [OM.PC] Stat 02/11/18 22:20 CULTURE BLOOD [BC] Stat 02/11/18 22:25 CULTURE BLOOD [BC] Stat 02/11/18 22:45 UA W/MICROSCOPIC [URIN] Stat - Assessment/Plan Last 24 Hours: My Active Orders 02/11/18 21:54 Chest 2V [CR] Stat 02/11/18 21:55 EKG Documentation Completion [RC] STAT Orthostatic Vital Signs [RC] STAT 02/11/18 21:57 Blood Culture x2 Reflex Set [OM.PC] Stat 02/11/18 22:20 CULTURE BLOOD [BC] Stat 02/11/18 22:25 CULTURE BLOOD [BC] Stat 02/11/18 22:45 UA W/MICROSCOPIC [URIN] Stat
[2018-02-11] MEDS ORDERED: cefTRIAXone 2 GM in Sodium Chloride 0.9% 100 ML IV STA (23:21)
[2018-02-11] MEDS ORDERED: Azithromycin 500 MG in Sodium Chloride 0.9% 250 ML IV STA (23:22)
[2018-02-11] MEDS ORDERED: Magnesium Sulfate/Water 2 GM in Premix Bag 1 BAG IV STA (23:27)
[2018-02-12] MEDS ORDERED: Acetaminophen 325 MG Tab PO ONE (00:38)
[2018-02-12] MEDS ORDERED: Albuterol/Ipratropium 3.0-0.5 MG/3 ML Neb Soln NEB SCH (01:02)
[2018-02-12] MEDS ORDERED: Albuterol 0.083% 2.5 MG/3 ML Neb Soln NEB PRN (01:02)
[2018-02-12] MEDS ORDERED: Ondansetron 4 MG/2 ML SDV IVPUSH PRN (01:03)
[2018-02-12] MEDS ORDERED: Acetaminophen 325 MG Tab PO PRN (01:04)
[2018-02-12] MEDS: Sodium Chloride 0.9% 1,000 ML IV SCH ×2 (02:15→15:25)
[2018-02-12] MEDS: Albuterol/Ipratropium 3.0-0.5 MG/3 ML Neb Soln NEB SCH ×4 (05:20→20:04)
--- NOTE | 2018-02-12 07:41 | CR ---
Chest: Two views of the chest were obtained. Comparison: Prior chest x-ray of 12/08/17. Heart is enlarged. Increased parenchymal density is noted within the right upper lung. Slight perihilar interstitial change is seen. Prior sternotomy is noted. Bony structures show degenerative spurring within the spine. Diaphragms are flattened on the lateral view compatible with emphysematous change. Impression: 1. Emphysematous change. 2. Possible right upper lobe pneumonia and mild perihilar bronchitis. Diagnostic code #3
--- NOTE | 2018-02-12 08:30 | PCM.HP ---
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 He reports chronic leg and back pain along with chronic dry cough, however when pressed further he reports this is not any worse for him. He does say he is having had difficulty getting out of bed for 2 days and he's been very sleepy. Denies any recent fever, chest pain, or palpations. Reports chronic occasional dyspnea on exertion, however no shortness of breath at rest. Reports watery diarrhea 2 or 3 weeks ago which was treated with antibiotics and resolved. Denies any nausea or vomiting or constipation. Denies any current urinary symptoms. It is reported that he normally has saturations around 85% while on 2 L of oxygen via nasal cannula but in the ER he is on 3 L and found to have saturations around 82%. 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 In the ED a 12-lead EKG is obtained showing a sinus rhythm at a rate of 75. Probable left atrial enlargement is noted. There is borderline prolonged QT. This is compared to a prior EKG from 12/08/2017 with no changes noted via the ED provider. Temp is 37C. Pulse 92. Respirations 16. Blood pressure 176/76. Pulse ox is noted to be 88%. Labs are obtained: WBC is elevated at 10.76. Hemoglobin is low at 12. Hematocrit low at 39.3. He has normocytic. The lips are low at 140. Neutrophils are elevated at 90%. There is no bandemia. ABGs obtained in the right radial showing a pH of 7.39. PCO2 of 44.2. PO2 of 63. HCO3 of 26.3. O2 saturation of 87.2. Base excess is 1.6. A-a gradient is 86. This is on 3 L via nasal cannula. FiO2 is 32. Sodium is 139. Potassium 3.9. Chloride 103. Carbon dioxide 28. Anion gap is 11.9. BUN is 19. Creatinine 1.1. EGFR is greater than 60. Glucose is high at 137. Calcium is low at 8.4. Magnesium low 1.5. Total bilirubin 0.7. AST is 21, ALT 16, alkaline phosphatase 52. Troponin is negative at less than 0.017. Protein is 7.0. Albumin 3.4. TSH is 3.. BNP is 7123. UA is negative however one plus protein and moderate mucus is noted. Chest x-ray is obtained and noted by Dr. Braden as having emphysematous change. There is also a possible right upper lobe pneumonia and mild perihilar bronchitis. He is given 500 mg azithromycin and 2 g ceftriaxone. Is also given 2 g of magnesium. Blood cultures were obtained and are pending. Orthostatic vital signs were obtained and are negative. During his ED visit is noted the patient is having watery diarrhea. C difficile test is obtained and is positive. He is also noted to have a temperature of 102 and discomfort. Tylenol was given for this. The patient carries a history of: DVT/PE, CAD, HLD, hypertension, prior SC, COPD with chronic 2 L oxygen use, PE, sleep apnea with home CPAP, GERD, BPH, chronic back pain, TIA, anxiety, depressions, anemia, prior MRSA infection, prior multiple episodes of C. difficile. He is a former smoker. He is a full code. His PCP is Dr. Irwin. Lower Back Pain Score (Numeric/FACES): 8 - Related Data Allergies/Adverse Reactions: Allergies Allergy/AdvReac Type Severity Reaction Status Date / Time celecoxib [From Celebrex] Allergy Hives Verified 02/12/18 04:02 rofecoxib [From Vioxx] Allergy Hives Verified 02/12/18 04:02 valdecoxib [From Bextra] Allergy Hives Verified 02/12/18 04:02 methylprednisolone AdvReac Dizziness Verified 02/12/18 04:02 morphine AdvReac Irritabilit Verified 02/12/18 04:02 y Home Medications: Home Meds Ascorbic Acid [Vitamin C] 500 mg PO DAILY 01/05/14 [History] Aspirin [David Chewable Aspirin] 81 mg PO DAILY 01/05/14 [History] Tamsulosin [Flomax] 0.4 mg PO DAILY 01/05/14 [History] Fenofibric Acid (Choline) [Trilipix] 45 mg PO DAILY 02/02/14 [History] Fluticasone Propionate [Flonase] 2 spray NS DAILY 11/09/17 [History] Acetaminophen/HYDROcodone [[place] 325-5 MG] 1 tab PO Q6H PRN 02/11/18 [History] Loperamide [Imodium] 2 mg PO Q4H PRN 02/11/18 [History] Metoprolol Tartrate 50 mg PO BID 02/11/18 [History] Multivitamin/Iron/Folic Acid [Centrum Women Tablet] 1 each PO DAILY 02/11/18 [ History] Oxybutynin [Oxybutynin ER] 5 mg PO DAILY 02/11/18 [History] Pantoprazole [ProTONIX] 40 mg PO DAILY 02/11/18 [History] Phenazopyridine [Pyridium] 200 mg PO TID PRN 02/11/18 [History] oxyCODONE HCl/Acetaminophen [Endocet 10-325 mg Tablet] 1 each PO QID PRN [History] traMADol [Ultram] 50 mg PO Q4HR PRN 02/11/18 [History] Rivaroxaban [Xarelto] 15 mg PO DAILY 02/12/18 [History] Past Medical History HEENT History: Reports: Hard of Hearing, Impaired Vision Other HEENT History: glasses Cardiovascular History: Reports: 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), CAD, High Cholesterol, Hypertension, SC Respiratory History: Reports: COPD (2L O2 continuously), PE, Sleep Apnea ( nightly CPAP) Other Respiratory History: Chronic O2 use, uses 3 L/min at home, uses CPAP at home. Gastrointestinal History: Reports: GERD Genitourinary History: Reports: BPH Other Genitourinary History: supra pubic cath Musculoskeletal History: Reports: Back Pain, Chronic Neurological History: Reports: TIA Psychiatric History: Reports: Anxiety, Depression Hematologic History: Reports: Anemia, Blood Transfusion(s) Oncologic (Cancer) History: Reports: Other (See Below) Other Oncologic History: pt states he had kidney cancer and had some form of treatment Dermatologic History: Reports: Other (See Below) Other Dermatologic History: growth on left hand - Infectious Disease History Infectious Disease History: Reports: MRSA, Shingles - Past Surgical History Cardiovascular Surgical History: Reports: Coronary Artery Bypass, Coronary Artery Stent (2013) GI Surgical History: Reports: Cholecystectomy Male Surgical History: Reports: Suprapubic Catheter Placement (subsequently removed) Musculoskeletal Surgical History: Reports: Hip Replacement (right) Dermatological Surgical History: Reports: Skin Biopsy Social & Family History - Family History Family Medical History: Noncontributory - Tobacco Use Smoking Status *Q: Former Smoker Years of Tobacco use: 70 Packs/Tins Daily: 3 - Caffeine Use Caffeine Use: Reports: Coffee, Soda, Tea, Other Other Caffeine Use: occassionally - Recreational Drug Use Recreational Drug Use: No - Living Situation & Occupation Living situation: Reports: with Spouse Occupation: Retired H&P Review of Systems - Review of Systems: Review Of Systems: See Below General: Reports: Chills, Malaise, Weakness, Fatigue, Decreased Appetite. Denies: Fever HEENT: Reports: No Symptoms. Denies: Eye Pain, Rhinitis, Post Nasal Drip, Sore Throat, Visual Changes Pulmonary: Reports: Shortness of Breath. Denies: Wheezing, Pleuritic Chest Pain , Cough, Sputum Cardiovascular: Reports: Dyspnea on Exertion. Denies: Chest Pain, Palpitations , Edema, Lightheadedness Gastrointestinal: Reports: Abdominal Pain, Diarrhea. Denies: Constipation, Nausea, Vomiting Genitourinary: Reports: Other (hx/o recent suprapubic catheter which was removed ). Denies: Dysuria, Frequency, Burning, Pain, Urgency Musculoskeletal: Reports: Back Pain (chronic ), Joint Pain (knees - chronic ) Skin: Reports: No Symptoms Psychiatric: Reports: No Symptoms Neurological: Reports: Difficulty Walking, Weakness, Gait Disturbance. Denies: Numbness, Tingling, Change in Speech Hematologic/Lymphatic: Reports: Anemia (chronic ) Immunologic: Reports: No Symptoms Review of Systems Comment:: In to see Aj and discuss his recent treatment and current plan. He is a rather poor historian. He is in better spirits this afternoon than he was this AM. Will stop fluids after this bag finishes due to elevated BNP and cardiac history. We have had some difficulty with maintaining an IV and he did not receive fluids for much of today. Will resume home xarelto for DVT/PE prophylaxis. His is at bedside. He voiced understanding to current treatment plan. Exam - Exam Exam: See Below - Vital Signs Vital Signs: Last Vital Signs Temp 98.8 F 02/12/18 01:52 Pulse 76 02/12/18 01:52 Resp 18 02/12/18 01:52 BP 146/56 H 02/12/18 01:52 Pulse Ox 94 L 02/12/18 01:52 Orthostatic Blood Pressure [ 177/72 Standing] Orthostatic Blood Pressure [ 170/61 Supine] Weight: 176 lb 8 oz - Exam Quality Assessment: Supplemental Oxygen, DVT Prophylaxis General: Alert, Oriented, Cooperative. No: Mild Distress HEENT: Conjunctiva Clear, EACs Clear, Mucosa Moist & [place], Nares Patent, Normal Nasal Septum, Posterior Pharynx Clear, PERRLA Neck: Supple, Trachea Midline Lungs: Normal Respiratory Effort, Decreased Breath Sounds, Wheezing Cardiovascular: Regular Rate, Regular Rhythm GI/Abdominal Exam: Normal Bowel Sounds, Soft, Non-Tender, No Organomegaly, No Distention (Male) Exam: Deferred Rectal (Males) Exam: Deferred Back Exam: Normal Inspection, Decreased Range of Motion Extremities: Normal Inspection, Normal Range of Motion, Non-Tender, No Pedal Edema, Normal Capillary Refill Peripheral Pulses: 3+: Radial (L), Radial (R), Posterior Tibial (L), Posterior Tibial (R), Dorsalis Pedis (L), Dorsalis Pedis (R) Skin: Warm, Dry, Intact Neurological: Cranial Nerves Intact (grossly ) Neuro Extensive - Mental Status: Alert, Oriented x3 Psychiatric: Alert, Anxious, Depressed (reports multiple times he does not think he is "going to make it") - Patient Data Lab Results Last 24 hrs: Laboratory Results - last 24 hr 02/11/18 02/11/18 02/11/18 Range/Units 02:20 22:08 22:20 WBC 10.76 H (4.23-9.07) K/mm3 RBC 4.36 L (4.63-6.08) M/mm3 Hgb 12.0 L (13.7-17.5) gm/L Hct 39.3 L (40.1-51.0) % MCV 90.1 (79.0-92.2) fl MCH 27.5 (25.7-32.2) pg MCHC 30.5 L (32.2-35.5) g/dl RDW Std Deviation 51.1 H (35.1-43.9) fL Plt Count 140 L (163-337) K/mm3 MPV 10.6 (9.4-12.3) fl Neut % (Auto) (34.0-67.9) % Lymph % (Auto) (21.8-53.1) % Lane % (Auto) (5.3-12.2) % Eos % (Auto) (0.8-7.0) Baso % (Auto) (0.1-1.2) % Neut # (Auto) (1.78-5.38) K/mm3 Lymph # (Auto) (1.32-3.57) K/mm3 Lane # (Auto) (0.30-0.82) K/mm3 Eos # (Auto) (0.04-0.54) K/mm3 Baso # (Auto) (0.01-0.08) K/mm3 Neutrophils % (Manual) 90 H (40-60) % Band Neutrophils % 0 (0-10) % Lymphocytes % (Manual) 4 L (20-40) % Atypical Lymphs % 0 % Monocytes % (Manual) 6 (2-10) % Eosinophils % (Manual) 0 L (0.8-7.0) % Basophils % (Manual) 0 L (0.2-1.2) Manual Slide Review Toxic Granulation 1+ slight Platelet Estimate Adequate Plt Morphology Comment Normal Hypochromasia 1+ slight Poikilocytosis 1+ slight Anisocytosis 1+ slight Microcytosis 1+ slight Macrocytosis 1+ slight RBC Morph Comment Abnormal Puncture Site Rt radial ABG pH 7.39 (7.35-7.45) ABG pCO2 44.2 (35.0-45.0) mmHg ABG pO2 63.0 L (80.0-100.0) mmHg ABG HCO3 26.3 H (22.0-26.0) meq/L ABG O2 Saturation 87.2 L (96.0-97.0) % ABG Base Excess 1.6 (-2-2.0) Joe Test Positive A-a Gradient 86 mmHg O2 Delivery Device Nasal cannula Oxygen Flow Rate 3.0 FiO2 32.00 (21.00-100.00) % Sodium (136-145) mEq/L Potassium (3.5-5.1) mEq/L Chloride (98-107) mEq/L Carbon Dioxide (21-32) mEq/L Anion Gap (5-15) BUN (7-18) mg/dL Creatinine (0.7-1.3) mg/dL Est Cr Clr Drug Dosing mL/min Estimated GFR (MDRD) (>60) mL/min BUN/Creatinine Ratio (14-18) Glucose (83-115) mg/dL Lactic Acid (0.4-2.0) mmol/L Calcium (8.5-10.1) mg/dL Magnesium (1.8-2.4) mg/dl Total Bilirubin (0.2-1.0) mg/dL AST (15-37) U/L ALT (16-63) U/L Alkaline Phosphatase (46-116) U/L Troponin I (0.00-0.056) ng/mL C-Reactive Protein (<1.0) mg/dL NT-Pro-B Natriuret Pep (0-450) pg/mL Total Protein (6.4-8.2) g/dl Albumin (3.4-5.0) g/dl Globulin gm/dL Albumin/Globulin Ratio (1-2) TSH 3rd Generation (0.358-3.74) uIU/mL Urine Color (Yellow) Urine Appearance (Clear) Urine pH (5.0-8.0) Ur Specific [place] (1.005-1.030) Urine Protein (Negative) Urine Glucose (UA) (Negative) Urine Ketones (Negative) Urine Occult Blood (Negative) Urine Nitrite (Negative) Urine Bilirubin (Negative) Urine Urobilinogen (0.2-1.0) Ur Leukocyte Esterase (Negative) Urine RBC (0-5) /hpf Urine WBC (0-5) /hpf Ur Epithelial Cells (0-5) /hpf Urine Bacteria (FEW) /hpf Hyaline Casts (0-5) /lpf Urine Mucus (FEW) /hpf C.difficile 027-NAP1-B1 C. difficile Tox (PCR) Mycoplasma pneumon IgM Negative (NEGATIVE) 02/11/18 02/11/18 02/11/18 Range/Units 22:20 22:20 22:20 WBC (4.23-9.07) K/mm3 RBC (4.63-6.08) M/mm3 Hgb (13.7-17.5) gm/L Hct (40.1-51.0) % MCV (79.0-92.2) fl MCH (25.7-32.2) pg MCHC (32.2-35.5) g/dl RDW Std Deviation (35.1-43.9) fL Plt Count (163-337) K/mm3 MPV (9.4-12.3) fl Neut % (Auto) (34.0-67.9) % Lymph % (Auto) (21.8-53.1) % Lane % (Auto) (5.3-12.2) % Eos % (Auto) (0.8-7.0) Baso % (Auto) (0.1-1.2) % Neut # (Auto) (1.78-5.38) K/mm3 Lymph # (Auto) (1.32-3.57) K/mm3 Lane # (Auto) (0.30-0.82) K/mm3 Eos # (Auto) (0.04-0.54) K/mm3 Baso # (Auto) (0.01-0.08) K/mm3 Neutrophils % (Manual) (40-60) % Band Neutrophils % (0-10) % Lymphocytes % (Manual) (20-40) % Atypical Lymphs % % Monocytes % (Manual) (2-10) % Eosinophils % (Manual) (0.8-7.0) % Basophils % (Manual) (0.2-1.2) Manual Slide Review Toxic Granulation Platelet Estimate Plt Morphology Comment Hypochromasia Poikilocytosis Anisocytosis Microcytosis Macrocytosis RBC Morph Comment Puncture Site ABG pH (7.35-7.45) ABG pCO2 (35.0-45.0) mmHg ABG pO2 (80.0-100.0) mmHg ABG HCO3 (22.0-26.0) meq/L ABG O2 Saturation (96.0-97.0) % ABG Base Excess (-2-2.0) Joe Test A-a Gradient mmHg O2 Delivery Device Oxygen Flow Rate FiO2 (21.00-100.00) % Sodium 139 (136-145) mEq/L Potassium 3.9 (3.5-5.1) mEq/L Chloride 103 (98-107) mEq/L Carbon Dioxide 28 (21-32) mEq/L Anion Gap 11.9 (5-15) BUN 19 H (7-18) mg/dL Creatinine 1.1 (0.7-1.3) mg/dL Est Cr Clr Drug Dosing 48.20 mL/min Estimated GFR (MDRD) > 60 (>60) mL/min BUN/Creatinine Ratio 17.3 (14-18) Glucose 137 H (83-115) mg/dL Lactic Acid 0.6 (0.4-2.0) mmol/L Calcium 8.4 L (8.5-10.1) mg/dL Magnesium 1.5 L (1.8-2.4) mg/dl Total Bilirubin 0.7 (0.2-1.0) mg/dL AST 21 (15-37) U/L ALT 16 (16-63) U/L Alkaline Phosphatase 52 (46-116) U/L Troponin I < 0.017 (0.00-0.056) ng/mL C-Reactive Protein (<1.0) mg/dL NT-Pro-B Natriuret Pep 7123 H (0-450) pg/mL Total Protein 7.0 (6.4-8.2) g/dl Albumin 3.4 (3.4-5.0) g/dl Globulin 3.6 gm/dL Albumin/Globulin Ratio 0.9 L (1-2) TSH 3rd Generation 3.348 (0.358-3.74) uIU/mL Urine Color (Yellow) Urine Appearance (Clear) Urine pH (5.0-8.0) Ur Specific [place] (1.005-1.030) Urine Protein (Negative) Urine Glucose (UA) (Negative) Urine Ketones (Negative) Urine Occult Blood (Negative) Urine Nitrite (Negative) Urine Bilirubin (Negative) Urine Urobilinogen (0.2-1.0) Ur Leukocyte Esterase (Negative) Urine RBC (0-5) /hpf Urine WBC (0-5) /hpf Ur Epithelial Cells (0-5) /hpf Urine Bacteria (FEW) /hpf Hyaline Casts (0-5) /lpf Urine Mucus (FEW) /hpf C.difficile 027-NAP1-B1 C. difficile Tox (PCR) Mycoplasma pneumon IgM (NEGATIVE) 02/11/18 02/12/18 02/12/18 Range/Units 22:45 00:35 06:34 WBC (4.23-9.07) K/mm3 RBC (4.63-6.08) M/mm3 Hgb (13.7-17.5) gm/L Hct (40.1-51.0) % MCV (79.0-92.2) fl MCH (25.7-32.2) pg MCHC (32.2-35.5) g/dl RDW Std Deviation (35.1-43.9) fL Plt Count (163-337) K/mm3 MPV (9.4-12.3) fl Neut % (Auto) (34.0-67.9) % Lymph % (Auto) (21.8-53.1) % Lane % (Auto) (5.3-12.2) % Eos % (Auto) (0.8-7.0) Baso % (Auto) (0.1-1.2) % Neut # (Auto) (1.78-5.38) K/mm3 Lymph # (Auto) (1.32-3.57) K/mm3 Lane # (Auto) (0.30-0.82) K/mm3 Eos # (Auto) (0.04-0.54) K/mm3 Baso # (Auto) (0.01-0.08) K/mm3 Neutrophils % (Manual) (40-60) % Band Neutrophils % (0-10) % Lymphocytes % (Manual) (20-40) % Atypical Lymphs % % Monocytes % (Manual) (2-10) % Eosinophils % (Manual) (0.8-7.0) % Basophils % (Manual) (0.2-1.2) Manual Slide Review Toxic Granulation Platelet Estimate Plt Morphology Comment Hypochromasia Poikilocytosis Anisocytosis Microcytosis Macrocytosis RBC Morph Comment Puncture Site ABG pH (7.35-7.45) ABG pCO2 (35.0-45.0) mmHg ABG pO2 (80.0-100.0) mmHg ABG HCO3 (22.0-26.0) meq/L ABG O2 Saturation (96.0-97.0) % ABG Base Excess (-2-2.0) Joe Test A-a Gradient mmHg O2 Delivery Device Oxygen Flow Rate FiO2 (21.00-100.00) % Sodium (136-145) mEq/L Potassium (3.5-5.1) mEq/L Chloride (98-107) mEq/L Carbon Dioxide (21-32) mEq/L Anion Gap (5-15) BUN (7-18) mg/dL Creatinine (0.7-1.3) mg/dL Est Cr Clr Drug Dosing mL/min Estimated GFR (MDRD) (>60) mL/min BUN/Creatinine Ratio (14-18) Glucose (83-115) mg/dL Lactic Acid 0.8 (0.4-2.0) mmol/L Calcium (8.5-10.1) mg/dL Magnesium (1.8-2.4) mg/dl Total Bilirubin (0.2-1.0) mg/dL AST (15-37) U/L ALT (16-63) U/L Alkaline Phosphatase (46-116) U/L Troponin I (0.00-0.056) ng/mL C-Reactive Protein (<1.0) mg/dL NT-Pro-B Natriuret Pep (0-450) pg/mL Total Protein (6.4-8.2) g/dl Albumin (3.4-5.0) g/dl Globulin gm/dL Albumin/Globulin Ratio (1-2) TSH 3rd Generation (0.358-3.74) uIU/mL Urine Color Yellow (Yellow) Urine Appearance Clear (Clear) Urine pH 6.0 (5.0-8.0) Ur Specific [place] 1.025 (1.005-1.030) Urine Protein 1+ H (Negative) Urine Glucose (UA) Negative (Negative) Urine Ketones Negative (Negative) Urine Occult Blood Negative (Negative) Urine Nitrite Negative (Negative) Urine Bilirubin Negative (Negative) Urine Urobilinogen 0.2 (0.2-1.0) Ur Leukocyte Esterase Negative (Negative) Urine RBC 0-5 (0-5) /hpf Urine WBC 0-5 (0-5) /hpf Ur Epithelial Cells Not seen (0-5) /hpf Urine Bacteria Not seen (FEW) /hpf Hyaline Casts 0-5 (0-5) /lpf Urine Mucus Moderate H (FEW) /hpf C.difficile 027-NAP1-B1 Presumptive negative C. difficile Tox (PCR) Positive H Mycoplasma pneumon IgM (NEGATIVE) 02/12/18 02/12/18 Range/Units 06:35 06:35 WBC 9.46 H (4.23-9.07) K/mm3 RBC 4.05 L (4.63-6.08) M/mm3 Hgb 11.3 L (13.7-17.5) gm/L Hct 36.5 L (40.1-51.0) % MCV 90.1 (79.0-92.2) fl MCH 27.9 (25.7-32.2) pg MCHC 31.0 L (32.2-35.5) g/dl RDW Std Deviation 51.2 H (35.1-43.9) fL Plt Count 123 L (163-337) K/mm3 MPV 11.5 (9.4-12.3) fl Neut % (Auto) 88.2 H (34.0-67.9) % Lymph % (Auto) 5.8 L (21.8-53.1) % Lane % (Auto) 5.6 (5.3-12.2) % Eos % (Auto) 0 L (0.8-7.0) Baso % (Auto) 0.1 (0.1-1.2) % Neut # (Auto) 8.34 H (1.78-5.38) K/mm3 Lymph # (Auto) 0.55 L (1.32-3.57) K/mm3 Lane # (Auto) 0.53 (0.30-0.82) K/mm3 Eos # (Auto) 0.00 L (0.04-0.54) K/mm3 Baso # (Auto) 0.01 (0.01-0.08) K/mm3 Neutrophils % (Manual) (40-60) % Band Neutrophils % (0-10) % Lymphocytes % (Manual) (20-40) % Atypical Lymphs % % Monocytes % (Manual) (2-10) % Eosinophils % (Manual) (0.8-7.0) % Basophils % (Manual) (0.2-1.2) Manual Slide Review Abnormal smear Toxic Granulation Platelet Estimate Plt Morphology Comment Hypochromasia Poikilocytosis Anisocytosis Microcytosis Macrocytosis RBC Morph Comment Puncture Site ABG pH (7.35-7.45) ABG pCO2 (35.0-45.0) mmHg ABG pO2 (80.0-100.0) mmHg ABG HCO3 (22.0-26.0) meq/L ABG O2 Saturation (96.0-97.0) % ABG Base Excess (-2-2.0) Joe Test A-a Gradient mmHg O2 Delivery Device Oxygen Flow Rate FiO2 (21.00-100.00) % Sodium 134 L (136-145) mEq/L Potassium 3.6 (3.5-5.1) mEq/L Chloride 100 (98-107) mEq/L Carbon Dioxide 26 (21-32) mEq/L Anion Gap 11.6 (5-15) BUN 15 (7-18) mg/dL Creatinine 1.0 (0.7-1.3) mg/dL Est Cr Clr Drug Dosing 53.03 mL/min Estimated GFR (MDRD) > 60 (>60) mL/min BUN/Creatinine Ratio 15.0 (14-18) Glucose 143 H (83-115) mg/dL Lactic Acid (0.4-2.0) mmol/L Calcium 7.9 L (8.5-10.1) mg/dL Magnesium 2.0 (1.8-2.4) mg/dl Total Bilirubin (0.2-1.0) mg/dL AST (15-37) U/L ALT (16-63) U/L Alkaline Phosphatase (46-116) U/L Troponin I (0.00-0.056) ng/mL C-Reactive Protein 12.3 H* (<1.0) mg/dL NT-Pro-B Natriuret Pep (0-450) pg/mL Total Protein (6.4-8.2) g/dl Albumin (3.4-5.0) g/dl Globulin gm/dL Albumin/Globulin Ratio (1-2) TSH 3rd Generation (0.358-3.74) uIU/mL Urine Color (Yellow) Urine Appearance (Clear) Urine pH (5.0-8.0) Ur Specific Phillips (1.005-1.030) Urine Protein (Negative) Urine Glucose (UA) (Negative) Urine Ketones (Negative) Urine Occult Blood (Negative) Urine Nitrite (Negative) Urine Bilirubin (Negative) Urine Urobilinogen (0.2-1.0) Ur Leukocyte Esterase (Negative) Urine RBC (0-5) /hpf Urine WBC (0-5) /hpf Ur Epithelial Cells (0-5) /hpf Urine Bacteria (FEW) /hpf Hyaline Casts (0-5) /lpf Urine Mucus (FEW) /hpf C.difficile 027-NAP1-B1 C. difficile Tox (PCR) Mycoplasma pneumon IgM (NEGATIVE) Result Diagrams: 02/12/18 06:35 02/12/18 06:35 - Problem List (1) Right upper lobe pneumonia SNOMED Code(s): 542529846 ICD Code: J18.1 - LOBAR PNEUMONIA, UNSPECIFIED ORGANISM Status: Acute Priority: High Current Visit: Yes Qualifiers: Pneumonia type: due to unspecified organism Qualified Code(s): J18.1 - Lobar pneumonia, unspecified organism (2) C. difficile diarrhea SNOMED Code(s): 4925747866373 ICD Code: A04.72 - ENTEROCOLITIS D/T CLOSTRIDIUM DIFFICILE, NOT SPCF RECUR Status: Acute Priority: High Current Visit: No (3) CAD (coronary artery disease) SNOMED Code(s): 89823486 ICD Code: I25.10 - ATHSCL HEART DISEASE OF [place] CORONARY ARTERY W/O ANG PCTRS Status: Chronic Priority: Medium Current Visit: No Qualifiers: Coronary Disease-Associated Artery/Lesion type: unspecified vessel or lesion type [place] vs. transplanted heart: unspecified whether [place] or transplanted heart Associated angina: angina presence unspecified Qualified Code(s): I25.10 - Atherosclerotic heart disease of [place] coronary artery without angina pectoris (4) COLD, Chronic obstructive lung disease SNOMED Code(s): 19396596 ICD Code: J44.9 - CHRONIC OBSTRUCTIVE PULMONARY DISEASE, UNSPECIFIED Status : Chronic Priority: Medium Current Visit: Yes (5) Chronic pain SNOMED Code(s): 18729456 ICD Code: G89.29 - OTHER CHRONIC PAIN Status: Chronic Priority: Medium Current Visit: Yes Qualifiers: Chronic pain type: other chronic pain Qualified Code(s): G89.29 - Other chronic pain (6) History of deep venous thrombosis or pulmonary embolus SNOMED Code(s): 587503297 ICD Code: ADE8519 - Status: Chronic Priority: Medium Current Visit: No (7) Hx of CABG SNOMED Code(s): 899343282, 695080371 ICD Code: Z95.1 - PRESENCE OF AORTOCORONARY BYPASS GRAFT Status: Chronic Priority: Low Current Visit: No (8) Hyperlipidemia SNOMED Code(s): 80233148 ICD Code: E78.5 - HYPERLIPIDEMIA, UNSPECIFIED Status: Chronic Priority: Low Current Visit: No Qualifiers: Hyperlipidemia type: unspecified Qualified Code(s): E78.5 - Hyperlipidemia , unspecified (9) Hypertension SNOMED Code(s): 23958010 ICD Code: I10 - ESSENTIAL (PRIMARY) HYPERTENSION Status: Chronic Priority : Medium Current Visit: No Qualifiers: Hypertension type: unspecified Qualified Code(s): I10 - Essential (primary ) hypertension (10) Hypoxia SNOMED Code(s): 846683219 ICD Code: R09.02 - HYPOXEMIA Status: Chronic Priority: Medium Current Visit: No (11) Prostate CA SNOMED Code(s): 685342657 ICD Code: C61 - MALIGNANT NEOPLASM OF PROSTATE Status: Chronic Priority: Medium Current Visit: No (12) Non compliance with medical treatment SNOMED Code(s): 6160016 ICD Code: Z91.19 - PATIENT'S NONCOMPLIANCE W OTH MEDICAL TREATMENT AND REGIMEN Status: Acute Current Visit: Yes Problem List Initiated/Reviewed/Updated: Yes Orders Last 24hrs: Active Orders 24 hr Category Date Time Status Admission Status [Patient Status] [ADT] Routine ADT 02/12/18 00:41 Active Orthostatic Vital Signs [RC] STAT Care 02/11/18 21:55 Active RT Aerosol Therapy [RC] ASDIRECTED Care 02/12/18 01:03 Active Clear Liquid Diet [DIET] Diet 02/12/18 Breakfast Active CULTURE BLOOD [BC] Stat Lab 02/11/18 22:20 Received CULTURE BLOOD [BC] Stat Lab 02/11/18 22:25 Received UA W/MICROSCOPIC [URIN] Stat Lab 02/11/18 22:45 Ordered Acetaminophen [Tylenol] Med 02/12/18 01:04 Active 650 mg PO Q6H PRN Albuterol [Proventil Neb Soln] Med 02/12/18 01:02 Active 2.5 mg NEB Q4H PRN Albuterol/Ipratropium [DuoNeb 3.0-0.5 MG/3 ML] Med 02/12/18 06:00 Active 3 ml NEB QIDRT Ondansetron [Zofran] Med 02/12/18 01:03 Active 4 mg IVPUSH Q8H PRN Sodium Chloride 0.9% [Normal Saline] 1,000 ml Med 02/12/18 01:00 Active IV ASDIRECTED Blood Culture x2 Reflex Set [OM.PC] Stat Oth 02/11/18 21:57 Ordered Isolation [COMM] Routine Oth 02/12/18 00:59 Ordered SUGEY Hose [Antiembolic Hose] [OM.PC] Routine Oth 02/12/18 00:59 Ordered Resuscitation Status Routine Resus Stat 02/12/18 03:50 Ordered Medication Orders Acetaminophen (Tylenol) 650 mg PO Q6H PRN PRN Reason: Pain/Fever Albuterol (Proventil Neb Soln) 2.5 mg NEB Q4H PRN PRN Reason: shortness of breath Albuterol/Ipratropium (Duoneb 3.0-0.5 Mg/3 Ml) 3 ml NEB QIDRT [facility] Last Admin: 02/12/18 05:20 Dose: 3 ml Sodium Chloride (Normal Saline) 1,000 mls @ 100 mls/hr IV ASDIRECTED [facility] Last Admin: 02/12/18 02:15 Dose: 100 mls/hr Ondansetron HCl (Zofran) 4 mg IVPUSH Q8H PRN PRN Reason: Nausea Assessment/Plan Comment:: I/P: Acute: Pneumonia -Presents to ED with vague symptoms however oxygen saturations are noted to be worse -Denies hx/o fever however is noted to have fever of 102 in ED -Hx/o COPD with chronic oxygen use, KAYLEN on CPAP -WBC 10.76-->9.46 -CRP 12.3 -Lactic acid 0.6 -Negative Mycoplasma -Strep pneumo and viral panel pending -CXR notes emphysematous change, Possible right upper lobe PNA, mild perihilar bronchitis -Azithromycin and Rocephin given in ED-> switch to 750mg Levaquin IV daily -RT/Acapella/IS -PRN albuterol -Duoneb QID as ordered -IV fluids as ordered, caution due to elevated BNP and cardiac history -Droplet precautions -Sputum culture ordered -Repeat CXR in 24-48 hours -Antibiotic choice discussed with pharmacy due to ongoing C. Diff infection C. Diff diarrhea -Ongoing issue for multiple hospital visits -Positive for C. Diff on 11/10/17, 12/08/17, and 02/12/18 in our ED -Has been on oral vancomycin multiple times in past -Patient and are very poor historians -Patient reports he stopped this time because he "ran out" of medication -125mg QID oral vancomycin restarted -Contact precautions -Stressed importance of hand washing with patient, , and other family in room -Stressed importance of contact isolation with patient, , and other family in room -Suggest GI/Infectious disease follow-up at discharge -Will attempt to discontinue antibiotics utilized for PNA treatment as above as soon as possible -Stop imodium Query Medical non-compliance -Patient regularly stops taking medications due to "running out" -Similar story at prior visits -Attempted cognitive evaluation at prior visits however patient was offended and refused to answer questions -"You are just trying to push me into a mcc!" -Obtain old records and current medication list -CM/SW consult Chronic: [place] Impaired vision Blood clots/DVT/PE CAD HLD HTN Prior SC with CABG and stenting COPD Chronic oxygen use (2L) PE Sleep Apnea GERD BPH Chronic back pain HX/o TIA Anxiety Depression HX/o MRSA Bladder cancer Plan: Admit to medical floor on telemetry Other orders as indicated above PT/OT CM/SW for discharge planning DVT Prophylaxis: Xarelto as prescribed for home Home medications as ordered GI Prophylaxis: Pepcid Routine AM labs Code status: Full Code; PCP: Dr. Irwin
[2018-02-12] MEDS ORDERED: traMADol 50 MG Tab PO PRN (08:48)
[2018-02-12] MEDS ORDERED: Phenazopyridine 95 MG Tab PO PRN (08:48)
[2018-02-12] MEDS ORDERED: ACETAMINOPHEN PO PRN (08:48)
[2018-02-12] MEDS ORDERED: Acetaminophen/HYDROcodone 325-5 MG Tab PO PRN (08:48)
[2018-02-12] MEDS ORDERED: OXYCODONE HCL PO PRN (08:48)
[2018-02-12] MEDS ORDERED: Pantoprazole 40 MG Tab.CR PO SCH (09:00)
[2018-02-12] MEDS: Oxybutynin 5 MG Tab.ER PO SCH (10:07)
[2018-02-12] MEDS: Multivitamins,Therapeutic Tab PO SCH (10:07)
[2018-02-12] MEDS: Metoprolol Tartrate 50 MG Tab PO SCH ×2 (10:08→20:44)
[2018-02-12] MEDS: Aspirin 81 MG Tab.Chew PO SCH (10:08)
[2018-02-12] MEDS: Vancomycin 50 MG/ML Oral Solution Bottle Kit PO SCH ×4 (10:09→20:44)
[2018-02-12] MEDS: Tamsulosin 0.4 MG Cap.ER PO SCH (10:09)
[2018-02-12] MEDS: Acetaminophen/oxyCODONE 325-5 MG Tab PO PRN ×2 (12:50→20:41)
[2018-02-12] MEDS ORDERED: Ondansetron 4 MG Tab.DIS PO PRN (15:51)
[2018-02-12] MEDS: Levofloxacin/Dextrose 5%-Water 750 MG in Premix Bag 1 BAG IV SCH (20:39)
[2018-02-12] MEDS: Famotidine 20 MG Tab PO SCH (20:40)
[2018-02-13] MEDS: Albuterol/Ipratropium 3.0-0.5 MG/3 ML Neb Soln NEB SCH ×4 (05:05→20:31)
--- NOTE | 2018-02-13 06:21 | PCM.PN ---
- General Info Date of Service: 02/13/18 Admission Dx/Problem (Free Text): Admission Diagnosis/Problem Admission Diagnosis/Problem Pneumonia Subjective Update: In to see Aj. He looks much better today and is in good spirits. He has been getting a shower daily. His family was in the room and we discussed the importance of hygiene and especially hand washing. Family reports they are currently cleaning the house with bleach. Discussed possible need for GI/ Infectious disease in [place] after discharge. They are accepting of this. Aj's has reportedly had some diarrhea as well. She states this has improved and it was more loose stools than watery diarrhea. The importance of seeking treatment/testing should she develop worsening symptoms was stressed. Sputum culture was obtained and is pending. He is still on 4L of oxygen via [place], which is more than his baseline of 3L. Blood cultures have been negative thus far. Functional Status: Reports: Pain Controlled, Tolerating Diet (advanced ), Ambulating, Urinating, Incentive Spirometry, Other (acapella ). Denies: New Symptoms - Review of Systems General: Reports: Weakness (improving ). Denies: Fever, Fatigue, Malaise, Chills HEENT: Reports: No Symptoms. Denies: Ear Pain, Eye Pain, Post Nasal Drip, Sinus Congestion, Sore Throat Pulmonary: Reports: Shortness of Breath (baseline ), Cough, Sputum. Denies: Wheezing Cardiovascular: Reports: Dyspnea on Exertion (baseline ). Denies: Chest Pain, Edema, Lightheadedness Gastrointestinal: Reports: Diarrhea. Denies: Abdominal Pain, Constipation, Decreased Appetite, Vomiting Genitourinary: Reports: No Symptoms Musculoskeletal: Reports: Back Pain (chronic and at baseline ), Joint Pain ( knee and hip - chronic and at baseline ) Skin: Reports: No Symptoms Neurological: Reports: No Symptoms. Denies: Confusion, Dizziness, Numbness, Tingling, Difficulty Walking, Weakness, Gait Disturbance Psychiatric: Reports: No Symptoms - Patient Data Vitals - Most Recent: Last Vital Signs Temp 98.1 F 02/13/18 05:25 Pulse 83 02/13/18 05:25 Resp 20 02/13/18 05:25 BP 169/63 H 02/13/18 05:25 Pulse Ox 95 02/13/18 05:25 Orthostatic Blood Pressure [ 177/72 Standing] Orthostatic Blood Pressure [ 170/61 Supine] Weight - Most Recent: 176 lb 8 oz I&O - Last 24 Hours: Intake & Output 02/12/18 02/12/18 02/13/18 14:59 22:59 06:59 Intake Total 600 600 950 Balance 600 600 950 Lab Results Last 24 Hours: Laboratory Results - last 24 hr 02/12/18 02/12/18 02/12/18 Range/Units 06:34 06:35 06:35 WBC 9.46 H (4.23-9.07) K/mm3 RBC 4.05 L (4.63-6.08) M/mm3 Hgb 11.3 L (13.7-17.5) gm/L Hct 36.5 L (40.1-51.0) % MCV 90.1 (79.0-92.2) fl MCH 27.9 (25.7-32.2) pg MCHC 31.0 L (32.2-35.5) g/dl RDW Std Deviation 51.2 H (35.1-43.9) fL Plt Count 123 L (163-337) K/mm3 MPV 11.5 (9.4-12.3) fl Neut % (Auto) 88.2 H (34.0-67.9) % Lymph % (Auto) 5.8 L (21.8-53.1) % [place] % (Auto) 5.6 (5.3-12.2) % Eos % (Auto) 0 L (0.8-7.0) Baso % (Auto) 0.1 (0.1-1.2) % Neut # (Auto) 8.34 H (1.78-5.38) K/mm3 Lymph # (Auto) 0.55 L (1.32-3.57) K/mm3 [place] # (Auto) 0.53 (0.30-0.82) K/mm3 Eos # (Auto) 0.00 L (0.04-0.54) K/mm3 Baso # (Auto) 0.01 (0.01-0.08) K/mm3 Manual Slide Review Abnormal smear Sodium 134 L (136-145) mEq/L Potassium 3.6 (3.5-5.1) mEq/L Chloride 100 (98-107) mEq/L Carbon Dioxide 26 (21-32) mEq/L Anion Gap 11.6 (5-15) BUN 15 (7-18) mg/dL Creatinine 1.0 (0.7-1.3) mg/dL Est Cr Clr Drug Dosing 53.03 mL/min Estimated GFR (MDRD) > 60 (>60) mL/min BUN/Creatinine Ratio 15.0 (14-18) Glucose 143 H (83-115) mg/dL Lactic Acid 0.8 (0.4-2.0) mmol/L Calcium 7.9 L (8.5-10.1) mg/dL Magnesium 2.0 (1.8-2.4) mg/dl C-Reactive Protein 12.3 H* (<1.0) mg/dL Jose David Results Last 24 Hours: Microbiology 02/11/18 22:25 Aerobic Blood Culture - Preliminary Blood - Venous - Lab Draw NO GROWTH AFTER 1 DAY Anaerobic Blood Culture - Preliminary NO GROWTH AFTER 1 DAY 02/11/18 22:20 Aerobic Blood Culture - Preliminary Blood - Venous NO GROWTH AFTER 1 DAY Anaerobic Blood Culture - Preliminary NO GROWTH AFTER 1 DAY Med Orders - Current: Current Medications Acetaminophen (Tylenol) 650 mg PO Q6H PRN PRN Reason: Pain/Fever Hydrocodone Bitart/Acetaminophen (Acra 325-5 Mg) 1 tab PO Q6H PRN PRN Reason: Pain (moderate 4-6) Last Admin: 02/12/18 10:07 Dose: 1 tab Albuterol (Proventil Neb Soln) 2.5 mg NEB Q4H PRN PRN Reason: shortness of breath Albuterol/Ipratropium (Duoneb 3.0-0.5 Mg/3 Ml) 3 ml NEB QIDRT [facility] Last Admin: 02/12/18 20:04 Dose: 3 ml Aspirin (Aspirin) 81 mg PO DAILY [facility] Last Admin: 02/12/18 10:08 Dose: 81 mg Famotidine (Pepcid) 20 mg PO BID [facility] Last Admin: 02/12/18 20:40 Dose: 20 mg Flunisolide (Nasalide Nasal [employer]) 0 ml NASBOTH DAILY [facility] Last Admin: 02/12/18 10:08 Dose: 2 spray Levofloxacin/Dextrose 750 mg/ (Premix) 150 mls @ 100 mls/hr IV Q24H [facility] Last Admin: 02/12/18 20:39 Dose: 100 mls/hr Metoprolol Tartrate (Lopressor) 50 mg PO BID [facility] Last Admin: 02/12/18 20:44 Dose: Not Given Multivitamins (Thera) 1 each PO DAILY [facility] Last Admin: 02/12/18 10:07 Dose: 1 each Ondansetron HCl (Zofran) 4 mg IVPUSH Q8H PRN PRN Reason: Nausea Ondansetron HCl (Zofran Odt) 4 mg PO Q6H PRN PRN Reason: nausea, able to take PO Oxybutynin Chloride (Oxybutynin Er) 5 mg PO DAILY [facility] Last Admin: 02/12/18 10:07 Dose: 5 mg Oxycodone/Acetaminophen (Percocet 325-5 Mg) 1 tab PO Q8H PRN PRN Reason: Pain Last Admin: 02/12/18 20:41 Dose: 1 tab Phenazopyridine HCl (Urinary Pain Relief) 190 mg PO TID PRN PRN Reason: UTI SYMPTOMS Rivaroxaban (Xarelto) 15 mg PO DAILY [facility] Tamsulosin HCl (Flomax) 0.4 mg PO DAILY [facility] Last Admin: 02/12/18 10:09 Dose: 0.4 mg Tramadol HCl (Ultram) 50 mg PO Q4H PRN PRN Reason: Pain Vancomycin HCl (Vancomycin 50 Mg/Ml Soln) 125 mg PO QID [facility] Last Admin: 02/12/18 20:44 Dose: 2.5 ml Discontinued Medications Acetaminophen (Tylenol) 650 mg PO NOW ONE Stop: 02/12/18 00:39 Last Admin: 02/12/18 00:54 Dose: 650 mg Albuterol/Ipratropium (Duoneb 3.0-0.5 Mg/3 Ml) 3 ml NEB Q4HR [facility] Last Admin: 02/12/18 01:07 Dose: Not Given Azithromycin 500 mg/ Sodium (Chloride) 250 mls @ 250 mls/hr IV ONETIME STA Stop: 02/12/18 00:21 Last Admin: 02/12/18 00:20 Dose: 250 mls/hr Ceftriaxone Sodium 2 gm/ (Sodium Chloride) 100 mls @ 100 mls/hr IV ONETIME STA Stop: 02/12/18 00:20 Last Admin: 02/12/18 02:15 Dose: 100 mls/hr Magnesium Sulfate 2 gm/ Premix 50 mls @ 50 mls/hr IV ONETIME STA Stop: 02/12/18 00:26 Last Admin: 02/12/18 00:20 Dose: 50 mls/hr Sodium Chloride (Normal Saline) 1,000 mls @ 100 mls/hr IV ASDIRECTED [facility] Last Admin: 02/12/18 15:25 Dose: 100 mls/hr Lidocaine HCl (Xylocaine 2% Jelly) 10 ml MUCMEM ONETIME ONE Stop: 02/11/18 21:58 Last Admin: 02/12/18 00:30 Dose: Not Given Non-Formulary Medication (Oxycodone Hcl/Acetaminophen) 1 each PO QID PRN PRN Reason: Pain Pantoprazole Sodium (Protonix) 40 mg PO DAILY [facility] Last Admin: 02/12/18 10:09 Dose: 40 mg - Exam Quality Assessment: Supplemental Oxygen, DVT Prophylaxis General: Alert, Oriented, Cooperative, No Acute Distress HEENT: Pupils Equal, Pupils Reactive, EOMI, Mucous Membr. Moist/[place] Neck: Supple, Trachea Midline, No JVD Lungs: Normal Respiratory Effort, Decreased Breath Sounds, Wheezing (very mild ) Cardiovascular: Regular Rate, Regular Rhythm GI/Abdominal Exam: Normal Bowel Sounds, Soft, Non-Tender, No Distention (Male) Exam: Deferred Back Exam: Normal Inspection, Decreased Range of Motion Extremities: Normal Inspection, Normal Range of Motion, Non-Tender, No Pedal Edema, Normal Capillary Refill Peripheral Pulses: 1+: Posterior Tibial (L), Posterior Tibial (R), Dorsalis Pedis (L), Dorsalis Pedis (R), 2+: Radial (L), Radial (R) Skin: Warm, Dry, Intact Neurological: No New Focal Deficit Psy/Mental Status: Alert, Other (appears more upbeat and in better spirits today. ) - Problem List & Annotations (1) Right upper lobe pneumonia SNOMED Code(s): 347500661 Code(s): J18.1 - LOBAR PNEUMONIA, UNSPECIFIED ORGANISM Status: Acute Priority: High Current Visit: Yes Qualifiers: Pneumonia type: due to unspecified organism Qualified Code(s): J18.1 - Lobar pneumonia, unspecified organism (2) C. difficile diarrhea SNOMED Code(s): 2157741300320 Code(s): A04.72 - ENTEROCOLITIS D/T CLOSTRIDIUM DIFFICILE, NOT SPCF RECUR Status: Acute Priority: High Current Visit: No (3) CAD (coronary artery disease) SNOMED Code(s): 49127205 Code(s): I25.10 - ATHSCL HEART DISEASE OF [place] CORONARY ARTERY W/O ANG PCTRS Status: Chronic Priority: Medium Current Visit: No Qualifiers: Coronary Disease-Associated Artery/Lesion type: unspecified vessel or lesion type [place] vs. transplanted heart: unspecified whether [place] or transplanted heart Associated angina: angina presence unspecified Qualified Code(s): I25.10 - Atherosclerotic heart disease of [place] coronary artery without angina pectoris (4) COLD, Chronic obstructive lung disease SNOMED Code(s): 58364759 Code(s): J44.9 - CHRONIC OBSTRUCTIVE PULMONARY DISEASE, UNSPECIFIED Status : Chronic Priority: Medium Current Visit: Yes (5) Chronic pain SNOMED Code(s): 11350039 Code(s): G89.29 - OTHER CHRONIC PAIN Status: Chronic Priority: Medium Current Visit: Yes Qualifiers: Chronic pain type: other chronic pain Qualified Code(s): G89.29 - Other chronic pain (6) History of deep venous thrombosis or pulmonary embolus SNOMED Code(s): 140309523 Code(s): ISI5484 - Status: Chronic Priority: Medium Current Visit: No (7) Hx of CABG SNOMED Code(s): 503909868, 779621095 Code(s): Z95.1 - PRESENCE OF AORTOCORONARY BYPASS GRAFT Status: Chronic Priority: Low Current Visit: No (8) Hyperlipidemia SNOMED Code(s): 67532584 Code(s): E78.5 - HYPERLIPIDEMIA, UNSPECIFIED Status: Chronic Priority: Low Current Visit: No Qualifiers: Hyperlipidemia type: unspecified Qualified Code(s): E78.5 - Hyperlipidemia , unspecified (9) Hypertension SNOMED Code(s): 48529139 Code(s): I10 - ESSENTIAL (PRIMARY) HYPERTENSION Status: Chronic Priority : Medium Current Visit: No Qualifiers: Hypertension type: unspecified Qualified Code(s): I10 - Essential (primary ) hypertension (10) Hypoxia SNOMED Code(s): 913004181 Code(s): R09.02 - HYPOXEMIA Status: Chronic Priority: Medium Current Visit: No (11) Prostate CA SNOMED Code(s): 854225257 Code(s): C61 - MALIGNANT NEOPLASM OF PROSTATE Status: Chronic Priority: Medium Current Visit: No (12) Non compliance with medical treatment SNOMED Code(s): 5004831 Code(s): Z91.19 - PATIENT'S NONCOMPLIANCE W OTH MEDICAL TREATMENT AND REGIMEN Status: Suspected Priority: Medium Current Visit: Yes - Problem List Review Problem List Initiated/Reviewed/Updated: Yes - My Orders Last 24 Hours: My Active Orders 02/12/18 08:48 Acetaminophen/HYDROcodone [Acra 325-5 MG] 1 tab PO Q6H PRN Phenazopyridine [Urinary Pain Relief] 190 mg PO TID PRN traMADol [Ultram] 50 mg PO Q4H PRN 02/12/18 08:54 Consult to Respiratory Therapy [Respiratory Care Assess and Treatment] [CONS] Routine 02/12/18 08:55 Acapella [RT Chest Physiotherapy] [RC] ASDIRECTED RT Incentive Spirometry [RC] ASDIRECTED 02/12/18 08:57 CULTURE SPUTUM + SMEAR [RM] Routine Isolation [COMM] Routine 02/12/18 09:00 Aspirin 81 mg PO DAILY Flunisolide [Nasalide Nasal [employer]] 0 ml NASBOTH DAILY Metoprolol Tartrate [Lopressor] 50 mg PO BID Multivitamins,Therapeutic [Thera] 1 each PO DAILY Oxybutynin [Oxybutynin ER] 5 mg PO DAILY Tamsulosin [Flomax] 0.4 mg PO DAILY 02/12/18 09:30 Vancomycin [Vancomycin 50 MG/ML Soln] 125 mg PO QID 02/12/18 15:51 Cardiac Monitoring [RC] CONTINUOUS Height and Weight [RC] DAILY Intake and Output [RC] 04,16 Oxygen Therapy [RC] PRN Pulse Oximetry [RC] PRN Up With Assistance [RC] ASDIRECTED VTE/DVT Education [RC] DAILY Vital Signs [RC] Q4HR Consult to Case Management [CONS] Routine Consult to Optometrist/Practice Owner [CONS] Routine Consult to Spiritual Care [CONS] Routine OT Evaluation and Treatment [CONS] Routine PT Evaluation and Treatment [CONS] Routine Ondansetron [Zofran ODT] 4 mg PO Q6H PRN 02/12/18 15:55 STREP PNEUMONIAE ANTIGEN [MREF] Routine 02/12/18 16:22 MISC TEST Routine 02/12/18 16:32 Communication Order [RC] ROUTINE 02/12/18 20:00 Levofloxacin/Dextrose 5%-Water [Levaquin in D5W 750 MG/150 ML] 750 mg Premix Bag 1 bag IV Q24H 02/12/18 21:00 Famotidine [Pepcid] 20 mg PO BID 02/13/18 05:11 BASIC METABOLIC PANEL,BMP [CHEM] AM CBC WITH AUTO DIFF [HEME] AM CRP [C-REACTIVE PROTEIN] [CHEM] AM MAGNESIUM [CHEM] AM PRO B-TYPE NATRIUR PEPT,BNPPRO [CHEM] Routine 02/13/18 09:00 Rivaroxaban [Xarelto] 15 mg PO DAILY 02/14/18 05:11 BASIC METABOLIC PANEL,BMP [CHEM] AM CBC WITH AUTO DIFF [HEME] AM CRP [C-REACTIVE PROTEIN] [CHEM] AM MAGNESIUM [CHEM] AM 02/14/18 08:00 Chest 2V [CR] Routine 02/15/18 05:11 BASIC METABOLIC PANEL,BMP [CHEM] AM CBC WITH AUTO DIFF [HEME] AM CRP [C-REACTIVE PROTEIN] [CHEM] AM MAGNESIUM [CHEM] AM 02/16/18 05:11 BASIC METABOLIC PANEL,BMP [CHEM] AM CBC WITH AUTO DIFF [HEME] AM CRP [C-REACTIVE PROTEIN] [CHEM] AM MAGNESIUM [CHEM] AM - Plan Plan:: I/P: Acute: Pneumonia -Presents to ED with vague symptoms however oxygen saturations are noted to be worse -Denies hx/o fever however is noted to have fever of 102 in ED -Hx/o COPD with chronic oxygen use, KAYLEN on CPAP -WBC 10.76-->9.46-->4.26 -CRP 12.3-->22.6 -Lactic acid 0.6 -Negative Mycoplasma -Strep pneumo and viral panel pending -CXR notes emphysematous change, Possible right upper lobe PNA, mild perihilar bronchitis -Azithromycin and Rocephin given in ED-> switch to 750mg Levaquin IV daily -RT/Acapella/IS -PRN albuterol -Duoneb QID as ordered -IV fluids as ordered, caution due to elevated BNP and cardiac history -Droplet precautions -Sputum culture pending -Repeat CXR tomorrow -Antibiotic choice discussed with pharmacy due to ongoing C. Diff infection C. Diff diarrhea -Ongoing issue for multiple hospital visits -Positive for C. Diff on 11/10/17, 12/08/17, and 02/12/18 in our ED -Has been on oral vancomycin multiple times in past -Patient and are very poor historians -Patient reports he stopped this time because he "ran out" of medication -125mg QID oral vancomycin restarted -Contact precautions -Stressed importance of hand washing with patient, , and other family in room; reiterated today -Stressed importance of contact isolation with patient, , and other family in room; reiterated today -Suggest GI/Infectious disease follow-up at discharge -Will attempt to discontinue antibiotics utilized for PNA treatment as above as soon as possible -Stop imodium Query Medical non-compliance -Patient regularly stops taking medications due to "running out" -Similar story at prior visits -Attempted cognitive evaluation at prior visits however patient was offended and refused to answer questions -"You are just trying to push me into a fpc!" -Obtain old records and current medication list -CM/SW consult Chronic: [place] Impaired vision Blood clots/DVT/PE CAD HLD HTN Prior [place] with CABG and stenting COPD Chronic oxygen use (2L) PE Sleep Apnea GERD BPH Chronic back pain HX/o TIA Anxiety Depression HX/o MRSA Bladder cancer Plan: Admit to medical floor on telemetry Other orders as indicated above PT/OT CM/SW for discharge planning DVT Prophylaxis: Xarelto as prescribed for home Home medications as ordered GI Prophylaxis: Pepcid Routine AM labs Code status: Full Code; PCP: Dr. Irwin
[2018-02-13] MEDS: Acetaminophen/oxyCODONE 325-5 MG Tab PO PRN (08:26)
[2018-02-13] MEDS: Oxybutynin 5 MG Tab.ER PO SCH (08:26)
[2018-02-13] MEDS: Multivitamins,Therapeutic Tab PO SCH (08:26)
[2018-02-13] MEDS: Tamsulosin 0.4 MG Cap.ER PO SCH (08:26)
[2018-02-13] MEDS: Vancomycin 50 MG/ML Oral Solution Bottle Kit PO SCH ×4 (08:27→20:24)
[2018-02-13] MEDS: Famotidine 20 MG Tab PO SCH ×2 (08:27→20:24)
[2018-02-13] MEDS: Aspirin 81 MG Tab.Chew PO SCH (08:27)
[2018-02-13] MEDS: Metoprolol Tartrate 50 MG Tab PO SCH ×2 (08:27→20:23)
[2018-02-13] MEDS ORDERED: Rivaroxaban 10 MG Tab PO SCH (09:00)
[2018-02-13] MEDS: Levofloxacin/Dextrose 5%-Water 750 MG in Premix Bag 1 BAG IV SCH (20:23)
[2018-02-14] MEDS: Albuterol/Ipratropium 3.0-0.5 MG/3 ML Neb Soln NEB SCH ×4 (05:13→20:35)
--- NOTE | 2018-02-14 06:44 | PCM.PN ---
- General Info Date of Service: 02/14/18 Admission Dx/Problem (Free Text): Admission Diagnosis/Problem Admission Diagnosis/Problem Pneumonia Subjective Update: In to see Aj. He is sitting up in bed and in good spirits. He looks good. His labs are improving. He has no concerns. No nursing concerns. Likely discharge tomorrow. Functional Status: Reports: Pain Controlled, Tolerating Diet, Ambulating, Urinating, Incentive Spirometry. Denies: New Symptoms - Review of Systems General: Reports: No Symptoms. Denies: Fever, Weakness, Fatigue, Malaise HEENT: Reports: No Symptoms. Denies: Eye Pain, Sore Throat Pulmonary: Reports: Shortness of Breath (at baseline currently ), Cough ( improving), Wheezing Cardiovascular: Denies: Chest Pain, Dyspnea on Exertion, Edema Gastrointestinal: Reports: Diarrhea (improving ). Denies: Abdominal Pain, Constipation, Decreased Appetite, Nausea, Vomiting Genitourinary: Reports: No Symptoms Musculoskeletal: Reports: Back Pain (chronic ), Joint Pain (knees and hips - chronic ) Skin: Reports: No Symptoms Neurological: Reports: No Symptoms Psychiatric: Reports: No Symptoms - Patient Data Vitals - Most Recent: Last Vital Signs Temp 97.5 F 02/14/18 05:25 Pulse 73 02/14/18 05:25 Resp 20 02/14/18 05:25 BP 124/92 H 02/14/18 05:25 Pulse Ox 94 L 02/14/18 05:25 Orthostatic Blood Pressure [ 177/72 Standing] Orthostatic Blood Pressure [ 170/61 Supine] Weight - Most Recent: 176 lb I&O - Last 24 Hours: Intake & Output 02/13/18 02/13/18 02/14/18 14:59 22:59 06:59 Intake Total 1360 460 550 Balance 1360 460 550 Lab Results Last 24 Hours: Laboratory Results - last 24 hr 02/13/18 02/13/18 02/13/18 Range/Units 06:00 06:00 06:00 WBC 4.26 (4.23-9.07) K/mm3 RBC 3.70 L (4.63-6.08) M/mm3 Hgb 10.4 L (13.7-17.5) gm/L Hct 34.1 L (40.1-51.0) % MCV 92.2 (79.0-92.2) fl MCH 28.1 (25.7-32.2) pg MCHC 30.5 L (32.2-35.5) g/dl RDW Std Deviation 51.8 H (35.1-43.9) fL Plt Count 107 L (163-337) K/mm3 MPV 11.6 (9.4-12.3) fl Neut % (Auto) 73.5 H (34.0-67.9) % Lymph % (Auto) 16.2 L (21.8-53.1) % [place] % (Auto) 9.2 (5.3-12.2) % Eos % (Auto) 0.9 (0.8-7.0) Baso % (Auto) 0.0 L (0.1-1.2) % Neut # (Auto) 3.13 (1.78-5.38) K/mm3 Lymph # (Auto) 0.69 L (1.32-3.57) K/mm3 [place] # (Auto) 0.39 (0.30-0.82) K/mm3 Eos # (Auto) 0.04 (0.04-0.54) K/mm3 Baso # (Auto) 0.00 L (0.01-0.08) K/mm3 Sodium 138 (136-145) mEq/L Potassium 3.5 (3.5-5.1) mEq/L Chloride 104 (98-107) mEq/L Carbon Dioxide 26 (21-32) mEq/L Anion Gap 11.5 (5-15) BUN 12 (7-18) mg/dL Creatinine 0.9 (0.7-1.3) mg/dL Est Cr Clr Drug Dosing 58.92 mL/min Estimated GFR (MDRD) > 60 (>60) mL/min BUN/Creatinine Ratio 13.3 L (14-18) Glucose 117 H (83-115) mg/dL Calcium 8.0 L (8.5-10.1) mg/dL Magnesium 2.0 (1.8-2.4) mg/dl C-Reactive Protein 22.6 H* (<1.0) mg/dL NT-Pro-B Natriuret Pep 5944 H (0-450) pg/mL Jose David Results Last 24 Hours: Microbiology 02/11/18 22:25 Aerobic Blood Culture - Preliminary Blood - Venous - Lab Draw NO GROWTH AFTER 2 DAYS Anaerobic Blood Culture - Preliminary NO GROWTH AFTER 2 DAYS 02/11/18 22:20 Aerobic Blood Culture - Preliminary Blood - Venous NO GROWTH AFTER 2 DAYS Anaerobic Blood Culture - Preliminary NO GROWTH AFTER 2 DAYS 02/13/18 12:10 Gram Stain - Preliminary Sputum - Expectorated Med Orders - Current: Current Medications Acetaminophen (Tylenol) 650 mg PO Q6H PRN PRN Reason: Pain/Fever Hydrocodone Bitart/Acetaminophen ([place] 325-5 Mg) 1 tab PO Q6H PRN PRN Reason: Pain (moderate 4-6) Last Admin: 02/12/18 10:07 Dose: 1 tab Albuterol (Proventil Neb Soln) 2.5 mg NEB Q4H PRN PRN Reason: shortness of breath Last Admin: 02/13/18 18:22 Dose: 2.5 mg Albuterol/Ipratropium (Duoneb 3.0-0.5 Mg/3 Ml) 3 ml NEB QIDRT [facility] Last Admin: 02/14/18 05:13 Dose: 3 ml Aspirin (Aspirin) 81 mg PO DAILY [facility] Last Admin: 02/13/18 08:27 Dose: 81 mg Famotidine (Pepcid) 20 mg PO BID [facility] Last Admin: 02/13/18 20:24 Dose: 20 mg Flunisolide (Nasalide Nasal [place]) 0 ml NASBOTH DAILY [facility] Last Admin: 02/13/18 08:28 Dose: 2 spray Levofloxacin/Dextrose 750 mg/ (Premix) 150 mls @ 100 mls/hr IV Q24H [facility] Last Admin: 02/13/18 20:23 Dose: 100 mls/hr Metoprolol Tartrate (Lopressor) 50 mg PO BID [facility] Last Admin: 02/13/18 20:23 Dose: 50 mg Multivitamins (Thera) 1 each PO DAILY [facility] Last Admin: 02/13/18 08:26 Dose: 1 each Ondansetron HCl (Zofran) 4 mg IVPUSH Q8H PRN PRN Reason: Nausea Ondansetron HCl (Zofran Odt) 4 mg PO Q6H PRN PRN Reason: nausea, able to take PO Oxybutynin Chloride (Oxybutynin Er) 5 mg PO DAILY [facility] Last Admin: 02/13/18 08:26 Dose: 5 mg Oxycodone/Acetaminophen (Percocet 325-5 Mg) 1 tab PO Q8H PRN PRN Reason: Pain Last Admin: 02/13/18 08:26 Dose: 1 tab Phenazopyridine HCl (Urinary Pain Relief) 190 mg PO TID PRN PRN Reason: UTI SYMPTOMS Rivaroxaban (Xarelto) 15 mg PO DAILY [facility] Last Admin: 02/13/18 08:27 Dose: 15 mg Tamsulosin HCl (Flomax) 0.4 mg PO DAILY [facility] Last Admin: 02/13/18 08:26 Dose: 0.4 mg Tramadol HCl (Ultram) 50 mg PO Q4H PRN PRN Reason: Pain Vancomycin HCl (Vancomycin 50 Mg/Ml Soln) 125 mg PO QID [facility] Last Admin: 02/13/18 20:24 Dose: 2.5 ml Discontinued Medications Acetaminophen (Tylenol) 650 mg PO NOW ONE Stop: 02/12/18 00:39 Last Admin: 02/12/18 00:54 Dose: 650 mg Albuterol/Ipratropium (Duoneb 3.0-0.5 Mg/3 Ml) 3 ml NEB Q4HR [facility] Last Admin: 02/12/18 01:07 Dose: Not Given Azithromycin 500 mg/ Sodium (Chloride) 250 mls @ 250 mls/hr IV ONETIME STA Stop: 02/12/18 00:21 Last Admin: 02/12/18 00:20 Dose: 250 mls/hr Ceftriaxone Sodium 2 gm/ (Sodium Chloride) 100 mls @ 100 mls/hr IV ONETIME STA Stop: 02/12/18 00:20 Last Admin: 02/12/18 02:15 Dose: 100 mls/hr Magnesium Sulfate 2 gm/ Premix 50 mls @ 50 mls/hr IV ONETIME STA Stop: 02/12/18 00:26 Last Admin: 02/12/18 00:20 Dose: 50 mls/hr Sodium Chloride (Normal Saline) 1,000 mls @ 100 mls/hr IV ASDIRECTED [facility] Last Admin: 02/12/18 15:25 Dose: 100 mls/hr Lidocaine HCl (Xylocaine 2% Jelly) 10 ml [place]CM[place] ONETIME ONE Stop: 02/11/18 21:58 Last Admin: 02/12/18 00:30 Dose: Not Given Non-Formulary Medication (Oxycodone Hcl/Acetaminophen) 1 each PO QID PRN PRN Reason: Pain Pantoprazole Sodium (Protonix) 40 mg PO DAILY [facility] Last Admin: 02/12/18 10:09 Dose: 40 mg - Exam Quality Assessment: Supplemental Oxygen, DVT Prophylaxis General: Alert, Oriented, Cooperative, No Acute Distress HEENT: Pupils Equal, Pupils Reactive, EOMI, Mucous Membr. Moist/[place] Neck: Supple, Trachea Midline, No JVD Lungs: Normal Respiratory Effort, Decreased Breath Sounds, Wheezing (very mild ) Cardiovascular: Regular Rate, Regular Rhythm GI/Abdominal Exam: Normal Bowel Sounds, Soft, Non-Tender, No Distention (Male) Exam: Deferred Back Exam: Normal Inspection, Full Range of Motion Extremities: Normal Inspection, Normal Range of Motion, Non-Tender, Normal Capillary Refill, Pedal Edema (mild) Peripheral Pulses: 1+: Posterior Tibial (L), Posterior Tibial (R), Dorsalis Pedis (L), Dorsalis Pedis (R), 2+: Radial (L), Radial (R) Skin: Warm, Dry, Intact Neurological: No New Focal Deficit Psy/Mental Status: Alert, Normal Affect, Normal Mood - Problem List & Annotations (1) Right upper lobe pneumonia SNOMED Code(s): 584742047 Code(s): J18.1 - LOBAR PNEUMONIA, UNSPECIFIED ORGANISM Status: Acute Priority: High Current Visit: Yes Qualifiers: Pneumonia type: due to unspecified organism Qualified Code(s): J18.1 - Lobar pneumonia, unspecified organism (2) C. difficile diarrhea SNOMED Code(s): 8441649889908 Code(s): A04.72 - ENTEROCOLITIS D/T CLOSTRIDIUM DIFFICILE, NOT SPCF RECUR Status: Acute Priority: High Current Visit: No (3) CAD (coronary artery disease) SNOMED Code(s): 80882487 Code(s): I25.10 - ATHSCL HEART DISEASE OF [place] CORONARY ARTERY W/O ANG PCTRS Status: Chronic Priority: Medium Current Visit: No Qualifiers: Coronary Disease-Associated Artery/Lesion type: unspecified vessel or lesion type [place] vs. transplanted heart: unspecified whether [place] or transplanted heart Associated angina: angina presence unspecified Qualified Code(s): I25.10 - Atherosclerotic heart disease of [place] coronary artery without angina pectoris (4) COLD, Chronic obstructive lung disease SNOMED Code(s): 25578223 Code(s): J44.9 - CHRONIC OBSTRUCTIVE PULMONARY DISEASE, UNSPECIFIED Status : Chronic Priority: Medium Current Visit: Yes (5) Chronic pain SNOMED Code(s): 62263960 Code(s): G89.29 - OTHER CHRONIC PAIN Status: Chronic Priority: Medium Current Visit: Yes Qualifiers: Chronic pain type: other chronic pain Qualified Code(s): G89.29 - Other chronic pain (6) History of deep venous thrombosis or pulmonary embolus SNOMED Code(s): 052745339 Code(s): ZJM3274 - Status: Chronic Priority: Medium Current Visit: No (7) Hx of CABG SNOMED Code(s): 617650195, 507625489 Code(s): Z95.1 - PRESENCE OF AORTOCORONARY BYPASS GRAFT Status: Chronic Priority: Low Current Visit: No (8) Hyperlipidemia SNOMED Code(s): 67128811 Code(s): E78.5 - HYPERLIPIDEMIA, UNSPECIFIED Status: Chronic Priority: Low Current Visit: No Qualifiers: Hyperlipidemia type: unspecified Qualified Code(s): E78.5 - Hyperlipidemia , unspecified (9) Hypertension SNOMED Code(s): 48884016 Code(s): I10 - ESSENTIAL (PRIMARY) HYPERTENSION Status: Chronic Priority : Medium Current Visit: No Qualifiers: Hypertension type: unspecified Qualified Code(s): I10 - Essential (primary ) hypertension (10) Hypoxia SNOMED Code(s): 185805444 Code(s): R09.02 - HYPOXEMIA Status: Chronic Priority: Medium Current Visit: No (11) Prostate CA SNOMED Code(s): 397437635 Code(s): C61 - MALIGNANT NEOPLASM OF PROSTATE Status: Chronic Priority: Medium Current Visit: No (12) Non compliance with medical treatment SNOMED Code(s): 5791505 Code(s): Z91.19 - PATIENT'S NONCOMPLIANCE W OTH MEDICAL TREATMENT AND REGIMEN Status: Suspected Priority: Medium Current Visit: Yes - Problem List Review Problem List Initiated/Reviewed/Updated: Yes - My Orders Last 24 Hours: My Active Orders 02/13/18 09:00 Rivaroxaban [Xarelto] 15 mg PO DAILY 02/13/18 12:10 CULTURE SPUTUM + SMEAR [RM] Routine 02/13/18 19:34 RESPIRATORY PANEL Routine 02/13/18 Dinner Soft Diet [DIET] 02/14/18 05:11 BASIC METABOLIC PANEL,BMP [CHEM] AM CBC WITH AUTO DIFF [HEME] AM CRP [C-REACTIVE PROTEIN] [CHEM] AM MAGNESIUM [CHEM] AM 02/14/18 08:00 Chest 2V [CR] Routine 02/15/18 05:11 BASIC METABOLIC PANEL,BMP [CHEM] AM CBC WITH AUTO DIFF [HEME] AM CRP [C-REACTIVE PROTEIN] [CHEM] AM MAGNESIUM [CHEM] AM 02/16/18 05:11 BASIC METABOLIC PANEL,BMP [CHEM] AM CBC WITH AUTO DIFF [HEME] AM CRP [C-REACTIVE PROTEIN] [CHEM] AM MAGNESIUM [CHEM] AM - Plan Plan:: I/P: Acute: Pneumonia -Presents to ED with vague symptoms however oxygen saturations are noted to be worse -Denies hx/o fever however is noted to have fever of 102 in ED -Hx/o COPD with chronic oxygen use, KAYLEN on CPAP -WBC 10.76-->9.46-->4.26-->4.46 -CRP 12.3-->22.6-->19.5 -Lactic acid 0.6 -Negative Mycoplasma -Strep pneumo and viral panel pending -CXR notes emphysematous change, Possible right upper lobe PNA, mild perihilar bronchitis -Azithromycin and Rocephin given in ED-> switch to 750mg Levaquin IV daily -RT/Acapella/IS -PRN albuterol -Duoneb QID as ordered -IV fluids as ordered, caution due to elevated BNP and cardiac history -Droplet precautions -Sputum culture - yeast -Repeat CXR - Slightly increased density in right, stable left. -Antibiotic choice discussed with pharmacy due to ongoing C. Diff infection C. Diff diarrhea -Ongoing issue for multiple hospital visits -Positive for C. Diff on 11/10/17, 12/08/17, and 02/12/18 in our ED -Has been on oral vancomycin multiple times in past -Patient and are very poor historians -Patient reports he stopped this time because he "ran out" of medication -125mg QID oral vancomycin restarted -Contact precautions -Stressed importance of hand washing with patient, , and other family in room; reiterated today -Stressed importance of contact isolation with patient, , and other family in room; reiterated today -Suggest GI/Infectious disease follow-up at discharge -Will attempt to discontinue antibiotics utilized for PNA treatment as above as soon as possible -Stop imodium Query Medical non-compliance -Patient regularly stops taking medications due to "running out" -Similar story at prior visits -Attempted cognitive evaluation at prior visits however patient was offended and refused to answer questions -"You are just trying to push me into a halfway!" -Obtain old records and current medication list -CM/SW consult Chronic: [place] Impaired vision Blood clots/DVT/PE CAD HLD HTN Prior [facility] with CABG and stenting COPD Chronic oxygen use (2L-3L) PE Sleep Apnea GERD BPH Chronic back pain HX/o TIA Anxiety Depression HX/o MRSA Bladder cancer Plan: Admit to medical floor on telemetry Other orders as indicated above PT/OT CM/SW for discharge planning DVT Prophylaxis: Xarelto as prescribed for home Home medications as ordered GI Prophylaxis: Pepcid Routine AM labs Code status: Full Code; PCP: Dr. Irwin Likely discharge 02/15/18. Will need GI/Infectious disease follow-up at discharge for ongoing C. diff infection.
--- NOTE | 2018-02-14 09:01 | CR ---
Chest: Two views of the chest were obtained. Comparison: Prior chest x-ray 02/11/18. Parenchymal density is noted within the right upper chest. Findings have slightly increased in size from prior exam. Increased lung markings noted within the right lung base also felt to be slightly increased from prior study. Diffuse increased lung markings are seen on the left side which are stable. Heart is enlarged. Sternotomy wires are noted. Bony structures show degenerative spurring within the spine. Lungs are hyperinflated compatible with emphysematous change. Impression: 1. Emphysematous change. 2. Increasing parenchymal density within the right upper chest as well as increasing lung markings within the right chest. Findings could represent worsening pneumonia as well as mild increased pulmonary vascular congestion. Bronchitis is also possibility. 3. Other incidental findings. Diagnostic code #3
[2018-02-14] MEDS: Multivitamins,Therapeutic Tab PO SCH (09:04)
[2018-02-14] MEDS: Oxybutynin 5 MG Tab.ER PO SCH (09:04)
[2018-02-14] MEDS: Metoprolol Tartrate 50 MG Tab PO SCH ×2 (09:05→20:14)
[2018-02-14] MEDS: Aspirin 81 MG Tab.Chew PO SCH (09:07)
[2018-02-14] MEDS: Tamsulosin 0.4 MG Cap.ER PO SCH (09:07)
[2018-02-14] MEDS: Famotidine 20 MG Tab PO SCH ×2 (09:07→20:13)
[2018-02-14] MEDS: Vancomycin 50 MG/ML Oral Solution Bottle Kit PO SCH ×4 (09:08→20:16)
[2018-02-14] MEDS ORDERED: Furosemide 20 MG/2 ML VIAL IVPUSH ONE (14:05)
[2018-02-14] MEDS ORDERED: Furosemide 40 MG/4 ML VIAL IVPUSH SCH (14:15)
[2018-02-14] MEDS: Levofloxacin/Dextrose 5%-Water 750 MG in Premix Bag 1 BAG IV SCH (20:09)
[2018-02-14] MEDS ORDERED: Rivaroxaban 10 MG Tab PO SCH (21:00)
[2018-02-15] MEDS: Albuterol/Ipratropium 3.0-0.5 MG/3 ML Neb Soln NEB SCH ×2 (06:34→09:33)
--- NOTE | 2018-02-15 07:50 | PCM.DCSUM1 ---
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 He reports chronic leg and back pain along with chronic dry cough, however when pressed further he reports this is not any worse for him. He does say he is having had difficulty getting out of bed for 2 days and he's been very sleepy. Denies any recent fever, chest pain, or palpations. Reports chronic occasional dyspnea on exertion, however no shortness of breath at rest. Reports watery diarrhea 2 or 3 weeks ago which was treated with antibiotics and resolved. Denies any nausea or vomiting or constipation. Denies any current urinary symptoms. It is reported that he normally has saturations around 85% while on 2 L of oxygen via nasal cannula but in the ER he is on 3 L and found to have saturations around 82%. 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 In the ED a 12-lead EKG is obtained showing a sinus rhythm at a rate of 75. Probable left atrial enlargement is noted. There is borderline prolonged QT. This is compared to a prior EKG from 12/08/2017 with no changes noted via the ED provider. Temp is 37C. Pulse 92. Respirations 16. Blood pressure 176/76. Pulse ox is noted to be 88%. Labs are obtained: WBC is elevated at 10.76. Hemoglobin is low at 12. Hematocrit low at 39.3. He has normocytic. The lips are low at 140. Neutrophils are elevated at 90%. There is no bandemia. ABGs obtained in the right radial showing a pH of 7.39. PCO2 of 44.2. PO2 of 63. HCO3 of 26.3. O2 saturation of 87.2. Base excess is 1.6. A-a gradient is 86. This is on 3 L via nasal cannula. FiO2 is 32. Sodium is 139. Potassium 3.9. Chloride 103. Carbon dioxide 28. Anion gap is 11.9. BUN is 19. Creatinine 1.1. EGFR is greater than 60. Glucose is high at 137. Calcium is low at 8.4. Magnesium low 1.5. Total bilirubin 0.7. AST is 21, ALT 16, alkaline phosphatase 52. Troponin is negative at less than 0.017. Protein is 7.0. Albumin 3.4. TSH is 3.. BNP is 7123. UA is negative however one plus protein and moderate mucus is noted. Chest x-ray is obtained and noted by Dr. Braden as having emphysematous change. There is also a possible right upper lobe pneumonia and mild perihilar bronchitis. He is given 500 mg azithromycin and 2 g ceftriaxone. Is also given 2 g of magnesium. Blood cultures were obtained and are pending. Orthostatic vital signs were obtained and are negative. During his ED visit is noted the patient is having watery diarrhea. C difficile test is obtained and is positive. He is also noted to have a temperature of 102 and discomfort. Tylenol was given for this. The patient carries a history of: DVT/PE, CAD, HLD, hypertension, prior [place], COPD with chronic 2 L oxygen use, PE, sleep apnea with home CPAP, GERD, BPH, chronic back pain, TIA, anxiety, depressions, anemia, prior MRSA infection, prior multiple episodes of C. difficile. He is a former smoker. He is a full code. His PCP is Dr. Irwin. Diagnosis: Stroke: No - Discharge Data Discharge Date: 02/15/18 (Admit date: 02/12/18) Discharge Disposition: Home, Self-Care 01 Condition: Good - Discharge Diagnosis/Problem(s) (1) Right upper lobe pneumonia SNOMED Code(s): 609016456 ICD Code: J18.1 - LOBAR PNEUMONIA, UNSPECIFIED ORGANISM Status: Acute Priority: High Qualifiers: Pneumonia type: due to unspecified organism Qualified Code(s): J18.1 - Lobar pneumonia, unspecified organism (2) C. difficile diarrhea SNOMED Code(s): 4215991277344 ICD Code: A04.72 - ENTEROCOLITIS D/T CLOSTRIDIUM DIFFICILE, NOT SPCF RECUR Status: Acute Priority: High (3) CAD (coronary artery disease) SNOMED Code(s): 19817928 ICD Code: I25.10 - ATHSCL HEART DISEASE OF [place] CORONARY ARTERY W/O ANG PCTRS Status: Chronic Priority: Medium Qualifiers: Coronary Disease-Associated Artery/Lesion type: unspecified vessel or lesion type [place] vs. transplanted heart: unspecified whether [place] or transplanted heart Associated angina: angina presence unspecified Qualified Code(s): I25.10 - Atherosclerotic heart disease of [place] coronary artery without angina pectoris (4) COLD, Chronic obstructive lung disease SNOMED Code(s): 55718712 ICD Code: J44.9 - CHRONIC OBSTRUCTIVE PULMONARY DISEASE, UNSPECIFIED Status : Chronic Priority: Medium (5) Chronic pain SNOMED Code(s): 65317249 ICD Code: G89.29 - OTHER CHRONIC PAIN Status: Chronic Priority: Medium Qualifiers: Chronic pain type: other chronic pain Qualified Code(s): G89.29 - Other chronic pain (6) History of deep venous thrombosis or pulmonary embolus SNOMED Code(s): 800081425 ICD Code: LBH3808 - Status: Chronic Priority: Medium (7) Hx of CABG SNOMED Code(s): 865396687, 240904780 ICD Code: Z95.1 - PRESENCE OF AORTOCORONARY BYPASS GRAFT Status: Chronic Priority: Low (8) Hyperlipidemia SNOMED Code(s): 65762188 ICD Code: E78.5 - HYPERLIPIDEMIA, UNSPECIFIED Status: Chronic Priority: Low Qualifiers: Hyperlipidemia type: unspecified Qualified Code(s): E78.5 - Hyperlipidemia , unspecified (9) Hypertension SNOMED Code(s): 31875682 ICD Code: I10 - ESSENTIAL (PRIMARY) HYPERTENSION Status: Chronic Priority : Medium Qualifiers: Hypertension type: unspecified Qualified Code(s): I10 - Essential (primary ) hypertension (10) Hypoxia SNOMED Code(s): 753525008 ICD Code: R09.02 - HYPOXEMIA Status: Chronic Priority: Medium (11) Prostate CA SNOMED Code(s): 834222103 ICD Code: C61 - MALIGNANT NEOPLASM OF PROSTATE Status: Chronic Priority: Medium (12) Non compliance with medical treatment SNOMED Code(s): 1012740 ICD Code: Z91.19 - PATIENT'S NONCOMPLIANCE W OTH MEDICAL TREATMENT AND REGIMEN Status: Suspected Priority: Medium - Patient Summary/Data Consults: Consultations 02/12/18 08:54 Consult to Respiratory Therapy [Respiratory Care Assess and Treatment] [CONS] Routine 02/12/18 15:51 Consult to Case Management [CONS] Routine Consult to Flight Control Tower Operator [CONS] Routine Consult to Spiritual Care [CONS] Routine OT Evaluation and Treatment [CONS] Routine PT Evaluation and Treatment [CONS] Routine Labs Pending at D/C: Influenza A from respiratory viral panel, repeat sputum culture Recommended Follow-up Testing/Procedures: Follow-up with PCP within 7-10 days, sooner if needed. Follow-up with infectious disease and GI as scheduled Follow-up with ortho about knee pain - patient was given phone numbers Hospital Course: I/P: Acute: Pneumonia -Presents to ED with vague symptoms however oxygen saturations are noted to be worse -Denies hx/o fever however is noted to have fever of 102 in ED -Hx/o COPD with chronic oxygen use, KAYLEN on CPAP -WBC 10.76-->9.46-->4.26-->4.46-->5.71 -CRP 12.3-->22.6-->19.5-->17.2 -Lactic acid 0.6 -Negative Mycoplasma and viral panel -CXR notes emphysematous change, Possible right upper lobe PNA, mild perihilar bronchitis -Azithromycin and Rocephin given in ED-> switch to 750mg Levaquin IV daily -RT/Acapella/IS -PRN albuterol -Duoneb QID as ordered -IV fluids as ordered, caution due to elevated BNP and cardiac history -Droplet precautions -Sputum culture - yeast, repeat pending -Repeat CXR - Slightly increased density in right, stable left. -Antibiotic choice discussed with pharmacy due to ongoing C. Diff infection C. Diff diarrhea -Ongoing issue for multiple hospital visits -Positive for C. Diff on 11/10/17, 12/08/17, and 02/12/18 in our ED -Has been on oral vancomycin multiple times in past -Patient and are very poor historians -Patient reports he stopped this time because he "ran out" of medication -125mg QID oral vancomycin restarted -Contact precautions -Stressed importance of hand washing with patient, , and other family in room; reiterated today -Stressed importance of contact isolation with patient, , and other family in room; reiterated today -Suggest GI/Infectious disease follow-up at discharge -Will attempt to discontinue antibiotics utilized for PNA treatment as above as soon as possible -Stop imodium Query Medical non-compliance -Patient regularly stops taking medications due to "running out" -Similar story at prior visits -Attempted cognitive evaluation at prior visits however patient was offended and refused to answer questions -"You are just trying to push me into a custodial!" -Obtain old records and current medication list -CM/SW consult -Has been working with PT although is refusing outpatient PT at discharge. Chronic: ENTERPRISE Impaired vision Blood clots/DVT/PE CAD HLD HTN Prior [place] with CABG and stenting COPD Chronic oxygen use (2L-3L) PE Sleep Apnea GERD BPH Chronic back pain HX/o TIA Anxiety Depression HX/o MRSA Bladder cancer Plan: Admit to medical floor on telemetry Other orders as indicated above PT/OT CM/SW for discharge planning DVT Prophylaxis: Xarelto as prescribed for home Home medications as ordered GI Prophylaxis: Pepcid Routine AM labs Code status: Full Code; PCP: Dr. Irwin Overall Rocha improved. His SOB and cough returned to baseline. He was able to be weaned down to his reported home dose of oxygen. Sputum culture just revealed yeast and this was discussed with pharmacy. Ultimately the decision was made to not treat as it is likely some normal henny. His CRP and WBC have been trending down. He feels much better. He was receiving 750mg IV Levaquin daily. Pharmacy was consulted with this as we had concerns of worsening his C.diff as well. He will be discharged home on 2 more days of PO levaquin. He was also given a PRN albuterol inhaler. He initially was refusing PT/OT, however he eventually was receptive. Outpatient PT was suggested due to his chronic knee pain, however he is refusing this. He was provided phone numbers for orthopedic care in [facility] and instructed to contact them for this pain as he was asking about it here. He was given a shower daily and instructed to was his hands regularly, especially after utilizing the restroom. This was something he had problems with while here. He again tested positive for C. Diff and was having frequent, watery diarrhea. He was started on PO vancomycin. He has a follow-up appointment scheduled for this coming Sunday with them in [place]. We also suggested GI consult, however they are booked out until May. This can be followed-up with by the PCP. - Patient Instructions Diet: Heart Healthy Diet, Diabetic Diet Activity: As Tolerated Showering/Bathing: May Shower (daily) Notify Provider of: Fever, Increased Pain, Nausea and/or Vomiting Other/Special Instructions: -Follow-up with within 7-10 days of discharge, sooner if needed. -Take all medications as prescribed. Finish your antibiotic even if you are feeling better. -WASH YOUR HANDS EVERYTIME YOU USE THE RESTROOM! This will help stop the spred of your diarrhea. Shower daily. C. Diff is not killed with alcolhol hand sanitizers and everyone needs to use soap and water. When cleaning utilize bleach to kill the bacteria on surfaces as non- bleach products will not work. We recommend utilizing a seperate bathroom from the rest of your friends and family. -If any family members begin having diarrhea they need to be seen by a healthcare provider. Clostridium Difficile is contagious and they may have caught it too. -We discussed your ongoing knee pain. You may benifit from seen an risk specialist. You have two options in town. Dr. Pacheco is with [facility]. His office number is [phone]. Dr. Saenz is with [facility]. His office phone number [phone]. Both offices are located on the second floor of our medical clinic. You may pick whichever provider you prefer and make an appointment. -You will likely benefit from a GI and infectious disease specialist consultation due to your ongoing issue with C. Diff. We have been attempting to schedule GI for you. Your infectious disease appointment is Sunday, scheduled as noted. We have been working on getting you a GI appointment. Follow-nursing directions on this. -Continue to utilize your incentive spirometry (clear/blue divice you inhale with) and acapella (green tube you blow through) until you are completely back to baseline with your cough and shortness of breath. - Discharge Plan *PRESCRIPTION DRUG MONITORING PROGRAM REVIEWED*: Yes *COPY OF PRESCRIPTION DRUG MONITORING REPORT IN PATIENT BENITA: Yes Prescriptions/Med Rec: Albuterol [Ventolin HFA] 2 puff INH Q4H PRN #1 puff PRN Reason: Shortness of breath/wheezing Levofloxacin [Levaquin] 750 mg PO DAILY #2 tablet Vancomycin [Vancomycin 50 MG/ML Soln] 125 mg PO QID #1 bottle Home Medications: Home Meds Ascorbic Acid [Vitamin C] 500 mg PO DAILY 01/05/14 [History] Aspirin [David Chewable Aspirin] 81 mg PO DAILY 01/05/14 [History] Tamsulosin [Flomax] 0.4 mg PO DAILY 01/05/14 [History] Fenofibric Acid (Choline) [Trilipix] 45 mg PO DAILY 02/02/14 [History] Fluticasone Propionate [Flonase] 2 spray NS DAILY 11/09/17 [History] Acetaminophen/HYDROcodone [Novi 325-5 MG] 1 tab PO Q6H PRN 02/11/18 [History] Metoprolol Tartrate 50 mg PO BID 02/11/18 [History] Multivitamin/Iron/Folic Acid [Centrum Women Tablet] 1 each PO DAILY 02/11/18 [ History] Oxybutynin [Oxybutynin ER] 5 mg PO DAILY 02/11/18 [History] Pantoprazole [ProTONIX] 40 mg PO DAILY 02/11/18 [History] Phenazopyridine [Pyridium] 200 mg PO TID PRN 02/11/18 [History] oxyCODONE HCl/Acetaminophen [Endocet 10-325 mg Tablet] 1 each PO QID PRN [History] traMADol [Ultram] 50 mg PO Q4HR PRN 02/11/18 [History] Rivaroxaban [Xarelto] 15 mg PO DAILY 02/12/18 [History] Albuterol [Ventolin HFA] 2 puff INH Q4H PRN #1 puff 02/15/18 [Rx] Levofloxacin [Levaquin] 750 mg PO DAILY #2 tablet 02/15/18 [Rx] Vancomycin [Vancomycin 50 MG/ML Soln] 125 mg PO QID #1 bottle 02/15/18 [Rx] Patient Handouts: Clostridium Difficile Infection, [id number], Hand Washing, [id number]-Dzaz, Infection Control in the Home, Community-Acquired Pneumonia, Adult , Ocpm-sx-Htog Referrals: John Ocampo MD [Ordering Only Provider] - 02/18/18 2:00 pm (This appt. is in [facility] time. Please arrive about 30 minutes early to check in. This is the infectious Disease appt.) Yovanny Irwin MD [Physician] - 02/25/18 1:00 pm (Please follow up with Dr. Irwin on at 1300. ) - Discharge Summary/Plan Comment DC Time >30 min.: Yes (45 mins ) - General Info Date of Service: 02/15/18 Admission Dx/Problem (Free Text: Admission Diagnosis/Problem Admission Diagnosis/Problem Pneumonia Subjective Update: In to see Aj. He is in good spirits and doing well. O2 was weaned to his usual amount. He reports feeling his baseline for SOB. He has no other concerns. We discussed plan of care for discharge and what was done here. Nursing has no concerns. He will be discharged today. Functional Status: Reports: Pain Controlled, Tolerating Diet, Ambulating, Urinating. Denies: New Symptoms - Review of Systems General: Reports: Weakness (improving ). Denies: Fever, Fatigue, Malaise HEENT: Reports: No Symptoms Pulmonary: Reports: Shortness of Breath (baseline), Cough (baseline ), Sputum Cardiovascular: Reports: Dyspnea on Exertion (at baseline ). Denies: Chest Pain Gastrointestinal: Reports: Diarrhea (frequency improving ). Denies: Abdominal Pain, Constipation, Decreased Appetite, Difficulty Swallowing, Nausea, Vomiting Genitourinary: Reports: No Symptoms. Denies: Dysuria, Burning, Pain Musculoskeletal: Reports: No Symptoms Skin: Reports: No Symptoms Neurological: Reports: Pre-Existing Deficit, Difficulty Walking (knee pain). Denies: Confusion, Dizziness, Headache, Numbness, Syncope, Tingling, Trouble Speaking, Weakness, Change in Speech Psychiatric: Reports: No Symptoms - Patient Data Vitals - Most Recent: Last Vital Signs Temp 97.9 F 02/15/18 03:27 Pulse 67 02/15/18 03:27 Resp 18 02/15/18 03:27 BP 99/71 02/15/18 03:27 Pulse Ox 92 L 02/15/18 06:34 Orthostatic Blood Pressure [ 177/72 Standing] Orthostatic Blood Pressure [ 170/61 Supine] Weight - Most Recent: 79.832 kg I&O - Last 24 hours: Intake & Output 02/14/18 02/15/18 02/15/18 22:59 06:59 14:59 Intake Total 810 100 Output Total 700 200 Balance 110 -100 Lab Results - Last 24 hrs: Laboratory Results - last 24 hr 02/13/18 02/14/18 02/14/18 Range/Units 19:34 07:23 07:23 WBC 4.46 (4.23-9.07) K/mm3 RBC 3.79 L (4.63-6.08) M/mm3 Hgb 10.6 L (13.7-17.5) gm/L Hct 34.6 L (40.1-51.0) % MCV 91.3 (79.0-92.2) fl MCH 28.0 (25.7-32.2) pg MCHC 30.6 L (32.2-35.5) g/dl RDW Std Deviation 51.5 H (35.1-43.9) fL Plt Count 112 L (163-337) K/mm3 MPV 10.9 (9.4-12.3) fl Neut % (Auto) 75.4 H (34.0-67.9) % Lymph % (Auto) 11.2 L (21.8-53.1) % Potter % (Auto) 10.1 (5.3-12.2) % Eos % (Auto) 2.9 (0.8-7.0) Baso % (Auto) 0.2 (0.1-1.2) % Neut # (Auto) 3.36 (1.78-5.38) K/mm3 Lymph # (Auto) 0.50 L (1.32-3.57) K/mm3 Potter # (Auto) 0.45 (0.30-0.82) K/mm3 Eos # (Auto) 0.13 (0.04-0.54) K/mm3 Baso # (Auto) 0.01 (0.01-0.08) K/mm3 Sodium 140 (136-145) mEq/L Potassium 3.9 (3.5-5.1) mEq/L Chloride 103 (98-107) mEq/L Carbon Dioxide 30 (21-32) mEq/L Anion Gap 10.9 (5-15) BUN 13 (7-18) mg/dL Creatinine 1.0 (0.7-1.3) mg/dL Est Cr Clr Drug Dosing 53.03 mL/min Estimated GFR (MDRD) > 60 (>60) mL/min BUN/Creatinine Ratio 13.0 L (14-18) Glucose 118 H (83-115) mg/dL Calcium 8.5 (8.5-10.1) mg/dL Magnesium 1.9 (1.8-2.4) mg/dl C-Reactive Protein 19.5 H* (<1.0) mg/dL Adenovirus (PCR) Not detected (Not Detected) B. pertussis DNA (PCR) Not detected (Not Detected) B.parapertussis DNA PCR Not detected (Not Detected) C. pneumoniae DNA (PCR) Not detected (Not Detected) Coronavirus (PCR) Not detected (Not Detected) Human Metapneumovir PCR Not detected (Not Detected) Influenza A (RT-PCR) Not detected (Not Detected) Influenza B (RT-PCR) Not detected (Not Detected) M. pneumoniae (PCR) Not detected (Not Detected) Parainfluen 1,2,3,4 PCR Not detected (Not Detected) RSV (PCR) Not detected (Not Detected) Entero/Rhino (PCR) Not detected (Not Detected) 02/15/18 Range/Units 06:33 WBC 5.71 (4.23-9.07) K/mm3 RBC 4.20 L (4.63-6.08) M/mm3 Hgb 11.5 L (13.7-17.5) gm/L Hct 37.8 L (40.1-51.0) % MCV 90.0 (79.0-92.2) fl MCH 27.4 (25.7-32.2) pg MCHC 30.4 L (32.2-35.5) g/dl RDW Std Deviation 50.6 H (35.1-43.9) fL Plt Count 141 L (163-337) K/mm3 MPV 11.0 (9.4-12.3) fl Neut % (Auto) 65.8 (34.0-67.9) % Lymph % (Auto) 20.1 L (21.8-53.1) % Potter % (Auto) 10.0 (5.3-12.2) % Eos % (Auto) 3.9 (0.8-7.0) Baso % (Auto) 0.0 L (0.1-1.2) % Neut # (Auto) 3.76 (1.78-5.38) K/mm3 Lymph # (Auto) 1.15 L (1.32-3.57) K/mm3 Potter # (Auto) 0.57 (0.30-0.82) K/mm3 Eos # (Auto) 0.22 (0.04-0.54) K/mm3 Baso # (Auto) 0.00 L (0.01-0.08) K/mm3 Sodium (136-145) mEq/L Potassium (3.5-5.1) mEq/L Chloride (98-107) mEq/L Carbon Dioxide (21-32) mEq/L Anion Gap (5-15) BUN (7-18) mg/dL Creatinine (0.7-1.3) mg/dL Est Cr Clr Drug Dosing mL/min Estimated GFR (MDRD) (>60) mL/min BUN/Creatinine Ratio (14-18) Glucose (83-115) mg/dL Calcium (8.5-10.1) mg/dL Magnesium (1.8-2.4) mg/dl C-Reactive Protein (<1.0) mg/dL Adenovirus (PCR) (Not Detected) B. pertussis DNA (PCR) (Not Detected) B.parapertussis DNA PCR (Not Detected) C. pneumoniae DNA (PCR) (Not Detected) Coronavirus (PCR) (Not Detected) Human Metapneumovir PCR (Not Detected) Influenza A (RT-PCR) (Not Detected) Influenza B (RT-PCR) (Not Detected) M. pneumoniae (PCR) (Not Detected) Parainfluen 1,2,3,4 PCR (Not Detected) RSV (PCR) (Not Detected) Entero/Rhino (PCR) (Not Detected) CHIDI Results - Last 24 hrs: Microbiology 02/11/18 22:25 Aerobic Blood Culture - Preliminary Blood - Venous - Lab Draw NO GROWTH AFTER 3 DAYS Anaerobic Blood Culture - Preliminary NO GROWTH AFTER 3 DAYS 02/11/18 22:20 Aerobic Blood Culture - Preliminary Blood - Venous NO GROWTH AFTER 3 DAYS Anaerobic Blood Culture - Preliminary NO GROWTH AFTER 3 DAYS 02/14/18 21:00 Gram Stain - Preliminary Sputum - Other 02/13/18 12:10 Gram Stain - Final Sputum - Expectorated Sputum Culture - Preliminary Yeast Isolated Med Orders - Current: Current Medications Acetaminophen (Tylenol) 650 mg PO Q6H PRN PRN Reason: Pain/Fever Hydrocodone Bitart/Acetaminophen (Novi 325-5 Mg) 1 tab PO Q6H PRN PRN Reason: Pain (moderate 4-6) Last Admin: 02/12/18 10:07 Dose: 1 tab Albuterol (Proventil Neb Soln) 2.5 mg NEB Q4H PRN PRN Reason: shortness of breath Last Admin: 02/13/18 18:22 Dose: 2.5 mg Albuterol/Ipratropium (Duoneb 3.0-0.5 Mg/3 Ml) 3 ml NEB QIDRT [facility] Last Admin: 02/15/18 06:34 Dose: 3 ml Aspirin (Aspirin) 81 mg PO DAILY [facility] Last Admin: 02/14/18 09:07 Dose: 81 mg Famotidine (Pepcid) 20 mg PO BID [facility] Last Admin: 02/14/18 20:13 Dose: 20 mg Flunisolide (Nasalide Nasal [place]) 0 ml NASBOTH DAILY [facility] Last Admin: 02/14/18 09:07 Dose: 2 spray Levofloxacin/Dextrose 750 mg/ (Premix) 150 mls @ 100 mls/hr IV Q24H [facility] Last Admin: 02/14/18 20:09 Dose: 100 mls/hr Metoprolol Tartrate (Lopressor) 50 mg PO BID [facility] Last Admin: 02/14/18 20:14 Dose: Not Given Multivitamins (Thera) 1 each PO DAILY [facility] Last Admin: 02/14/18 09:04 Dose: 1 each Ondansetron HCl (Zofran) 4 mg IVPUSH Q8H PRN PRN Reason: Nausea Ondansetron HCl (Zofran Odt) 4 mg PO Q6H PRN PRN Reason: nausea, able to take PO Oxybutynin Chloride (Oxybutynin Er) 5 mg PO DAILY [facility] Last Admin: 02/14/18 09:04 Dose: 5 mg Oxycodone/Acetaminophen (Percocet 325-5 Mg) 1 tab PO Q8H PRN PRN Reason: Pain Last Admin: 02/13/18 08:26 Dose: 1 tab Phenazopyridine HCl (Urinary Pain Relief) 190 mg PO TID PRN PRN Reason: UTI SYMPTOMS Rivaroxaban (Xarelto) 15 mg PO DAILY@2100 [facility] Last Admin: 02/14/18 20:15 Dose: 15 mg Tamsulosin HCl (Flomax) 0.4 mg PO DAILY [facility] Last Admin: 02/14/18 09:07 Dose: 0.4 mg Tramadol HCl (Ultram) 50 mg PO Q4H PRN PRN Reason: Pain Vancomycin HCl (Vancomycin 50 Mg/Ml Soln) 125 mg PO QID [facility] Last Admin: 02/14/18 20:16 Dose: 2.5 ml Discontinued Medications Acetaminophen (Tylenol) 650 mg PO NOW ONE Stop: 02/12/18 00:39 Last Admin: 02/12/18 00:54 Dose: 650 mg Albuterol/Ipratropium (Duoneb 3.0-0.5 Mg/3 Ml) 3 ml NEB Q4HR [facility] Last Admin: 02/12/18 01:07 Dose: Not Given Furosemide (Lasix) 20 mg IVPUSH NOW ONE Stop: 02/14/18 14:06 Last Admin: 02/14/18 14:06 Dose: 20 mg Furosemide (Lasix) 40 mg IVPUSH DAILY [facility] Last Admin: 02/14/18 15:35 Dose: Not Given Azithromycin 500 mg/ Sodium (Chloride) 250 mls @ 250 mls/hr IV ONETIME STA Stop: 02/12/18 00:21 Last Admin: 02/12/18 00:20 Dose: 250 mls/hr Ceftriaxone Sodium 2 gm/ (Sodium Chloride) 100 mls @ 100 mls/hr IV ONETIME STA Stop: 02/12/18 00:20 Last Admin: 02/12/18 02:15 Dose: 100 mls/hr Magnesium Sulfate 2 gm/ Premix 50 mls @ 50 mls/hr IV ONETIME STA Stop: 02/12/18 00:26 Last Admin: 02/12/18 00:20 Dose: 50 mls/hr Sodium Chloride (Normal Saline) 1,000 mls @ 100 mls/hr IV ASDIRECTED [facility] Last Admin: 02/12/18 15:25 Dose: 100 mls/hr Lidocaine HCl (Xylocaine 2% Jelly) 10 ml MUCMEM ONETIME ONE Stop: 02/11/18 21:58 Last Admin: 02/12/18 00:30 Dose: Not Given Non-Formulary Medication (Oxycodone Hcl/Acetaminophen) 1 each PO QID PRN PRN Reason: Pain Pantoprazole Sodium (Protonix) 40 mg PO DAILY [facility] Last Admin: 02/12/18 10:09 Dose: 40 mg Rivaroxaban (Xarelto) 15 mg PO DAILY [facility] Last Admin: 02/13/18 08:27 Dose: 15 mg - Exam Quality Assessment: Reports: Supplemental Oxygen, DVT Prophylaxis General: Reports: Alert, Oriented, Cooperative, No Acute Distress HEENT: Reports: Pupils Equal, Pupils Reactive, EOMI, Mucous Membr. Moist/[place] Neck: Reports: Supple, Trachea Midline, No JVD Lungs: Reports: Normal Respiratory Effort, Decreased Breath Sounds, Wheezing ( mild ) Cardiovascular: Reports: Regular Rate, Regular Rhythm GI/Abdominal Exam: Normal Bowel Sounds, Soft, Non-Tender, No Distention, No Abnormal Bruit (Male) Exam: Deferred Rectal (Males) Exam: Deferred Back Exam: Reports: Normal Inspection, Decreased Range of Motion Extremities: Normal Inspection, Normal Range of Motion, Non-Tender, No Pedal Edema, Normal Capillary Refill Skin: Reports: Warm, Dry, Intact Neurological: Reports: No New Focal Deficit Psy/Mental Status: Reports: Alert, Normal Affect, Normal Mood <Marylu Reynoso - Last Filed: 02/15/18 14:23> Discharge Summary - Hospital Course Free Text/Narrative:: PATIENT HAS AGREED TO MULTIPLE FOLLOW UP APPOINTMENTS, HOWEVER HE DOES NOT WANT HIS FAMILY INFORMED. THE IMPORTANCE OF PERSONAL HYGIENE INCLUDING HAND WASHING AND A BATH/SHOWER WERE REVIEWED WITH THE PATIENT AND HIS FAMILY. HE WAS EDUCATED BY THE ACUPUNCTURIST. MICHEALOVER HIS FAMILY WAS EDUCATED ABOUT CLEANING THE HOME TO PREVENT RE-INFECTION. IT IS UNCLEAR IF THE C DIFF INFECTIONS MAY HAVE OCCURRED A RESULT OF NONCOMPLIANCE. DURING HIS HOSPITALIZATION, HE HAD AN ORDER FOR HANDWASH AFTER BATHROOM USE AND A DAILY SHOWERS - Patient Summary/Data Consults: Consultations 02/12/18 08:54 Consult to Respiratory Therapy [Respiratory Care Assess and Treatment] [CONS] Routine 02/12/18 15:51 Consult to Case Management [CONS] Routine Consult to Flight Control Tower Operator [CONS] Routine Consult to Spiritual Care [CONS] Routine OT Evaluation and Treatment [CONS] Routine PT Evaluation and Treatment [CONS] Routine - Patient Data Vitals - Most Recent: Last Vital Signs Temp 36.7 C 02/15/18 08:37 Pulse 96 02/15/18 08:38 Resp 16 02/15/18 08:37 BP 101/69 02/15/18 08:40 Pulse Ox 93 L 02/15/18 09:35 Orthostatic Blood Pressure [ 177/72 Standing] Orthostatic Blood Pressure [ 170/61 Supine] I&O - Last 24 hours: Intake & Output 02/14/18 02/15/18 02/15/18 22:59 06:59 14:59 Intake Total 1410 100 600 Output Total 700 200 Balance 710 -100 600 Lab Results - Last 24 hrs: Laboratory Results - last 24 hr 02/13/18 02/15/18 02/15/18 Range/Units 19:34 06:33 06:33 WBC 5.71 (4.23-9.07) K/mm3 RBC 4.20 L (4.63-6.08) M/mm3 Hgb 11.5 L (13.7-17.5) gm/L Hct 37.8 L (40.1-51.0) % MCV 90.0 (79.0-92.2) fl MCH 27.4 (25.7-32.2) pg MCHC 30.4 L (32.2-35.5) g/dl RDW Std Deviation 50.6 H (35.1-43.9) fL Plt Count 141 L (163-337) K/mm3 MPV 11.0 (9.4-12.3) fl Neut % (Auto) 65.8 (34.0-67.9) % Lymph % (Auto) 20.1 L (21.8-53.1) % [place] % (Auto) 10.0 (5.3-12.2) % Eos % (Auto) 3.9 (0.8-7.0) Baso % (Auto) 0.0 L (0.1-1.2) % Neut # (Auto) 3.76 (1.78-5.38) K/mm3 Lymph # (Auto) 1.15 L (1.32-3.57) K/mm3 Potter # (Auto) 0.57 (0.30-0.82) K/mm3 Eos # (Auto) 0.22 (0.04-0.54) K/mm3 Baso # (Auto) 0.00 L (0.01-0.08) K/mm3 Sodium 140 (136-145) mEq/L Potassium 3.6 (3.5-5.1) mEq/L Chloride 102 (98-107) mEq/L Carbon Dioxide 30 (21-32) mEq/L Anion Gap 11.6 (5-15) BUN 14 (7-18) mg/dL Creatinine 1.0 (0.7-1.3) mg/dL Est Cr Clr Drug Dosing 53.03 mL/min Estimated GFR (MDRD) > 60 (>60) mL/min BUN/Creatinine Ratio 14.0 (14-18) Glucose 120 H (83-115) mg/dL Calcium 8.9 (8.5-10.1) mg/dL Magnesium 1.9 (1.8-2.4) mg/dl C-Reactive Protein 17.2 H* (<1.0) mg/dL Adenovirus (PCR) Not detected (Not Detected) B. pertussis DNA (PCR) Not detected (Not Detected) B.parapertussis DNA PCR Not detected (Not Detected) C. pneumoniae DNA (PCR) Not detected (Not Detected) Coronavirus (PCR) Not detected (Not Detected) Human Metapneumovir PCR Not detected (Not Detected) Influenza A (RT-PCR) Not detected (Not Detected) Influenza B (RT-PCR) Not detected (Not Detected) M. pneumoniae (PCR) Not detected (Not Detected) Parainfluen 1,2,3,4 PCR Not detected (Not Detected) RSV (PCR) Not detected (Not Detected) Entero/Rhino (PCR) Not detected (Not Detected) CHIDI Results - Last 24 hrs: Microbiology 02/13/18 12:10 Gram Stain - Final Sputum - Expectorated Sputum Culture - Preliminary Yeast Isolated 02/14/18 21:00 Gram Stain - Final Sputum - Other 02/11/18 22:25 Aerobic Blood Culture - Preliminary Blood - Venous - Lab Draw NO GROWTH AFTER 3 DAYS Anaerobic Blood Culture - Preliminary NO GROWTH AFTER 3 DAYS 02/11/18 22:20 Aerobic Blood Culture - Preliminary Blood - Venous NO GROWTH AFTER 3 DAYS Anaerobic Blood Culture - Preliminary NO GROWTH AFTER 3 DAYS Med Orders - Current: Current Medications Acetaminophen (Tylenol) 650 mg PO Q6H PRN PRN Reason: Pain/Fever Hydrocodone Bitart/Acetaminophen (Novi 325-5 Mg) 1 tab PO Q6H PRN PRN Reason: Pain (moderate 4-6) Last Admin: 02/12/18 10:07 Dose: 1 tab Albuterol (Proventil Neb Soln) 2.5 mg NEB Q4H PRN PRN Reason: shortness of breath Last Admin: 02/13/18 18:22 Dose: 2.5 mg Albuterol/Ipratropium (Duoneb 3.0-0.5 Mg/3 Ml) 3 ml NEB QIDRT [facility] Last Admin: 02/15/18 09:33 Dose: 3 ml Aspirin (Aspirin) 81 mg PO DAILY [facility] Last Admin: 02/15/18 08:36 Dose: 81 mg Famotidine (Pepcid) 20 mg PO BID [facility] Last Admin: 02/15/18 08:35 Dose: 20 mg Flunisolide (Nasalide Nasal [place]) 0 ml NASBOTH DAILY [facility] Last Admin: 02/15/18 08:39 Dose: 2 spray Levofloxacin/Dextrose 750 mg/ (Premix) 150 mls @ 100 mls/hr IV Q24H [facility] Last Admin: 02/14/18 20:09 Dose: 100 mls/hr Metoprolol Tartrate (Lopressor) 50 mg PO BID [facility] Last Admin: 02/15/18 08:38 Dose: 50 mg Multivitamins (Thera) 1 each PO DAILY [facility] Last Admin: 02/15/18 08:36 Dose: 1 each Ondansetron HCl (Zofran) 4 mg IVPUSH Q8H PRN PRN Reason: Nausea Ondansetron HCl (Zofran Odt) 4 mg PO Q6H PRN PRN Reason: nausea, able to take PO Oxybutynin Chloride (Oxybutynin Er) 5 mg PO DAILY [facility] Last Admin: 02/15/18 08:36 Dose: 5 mg Oxycodone/Acetaminophen (Percocet 325-5 Mg) 1 tab PO Q8H PRN PRN Reason: Pain Last Admin: 02/13/18 08:26 Dose: 1 tab Phenazopyridine HCl (Urinary Pain Relief) 190 mg PO TID PRN PRN Reason: UTI SYMPTOMS Rivaroxaban (Xarelto) 15 mg PO DAILY@2100 [facility] Last Admin: 02/14/18 20:15 Dose: 15 mg Tamsulosin HCl (Flomax) 0.4 mg PO DAILY [facility] Last Admin: 02/15/18 08:36 Dose: 0.4 mg Tramadol HCl (Ultram) 50 mg PO Q4H PRN PRN Reason: Pain Vancomycin HCl (Vancomycin 50 Mg/Ml Soln) 125 mg PO QID [facility] Last Admin: 02/15/18 12:36 Dose: 2.5 ml Discontinued Medications Acetaminophen (Tylenol) 650 mg PO NOW ONE Stop: 02/12/18 00:39 Last Admin: 02/12/18 00:54 Dose: 650 mg Albuterol/Ipratropium (Duoneb 3.0-0.5 Mg/3 Ml) 3 ml NEB Q4HR [facility] Last Admin: 02/12/18 01:07 Dose: Not Given Furosemide (Lasix) 20 mg IVPUSH NOW ONE Stop: 02/14/18 14:06 Last Admin: 02/14/18 14:06 Dose: 20 mg Furosemide (Lasix) 40 mg IVPUSH DAILY [facility] Last Admin: 02/14/18 15:35 Dose: Not Given Azithromycin 500 mg/ Sodium (Chloride) 250 mls @ 250 mls/hr IV ONETIME STA Stop: 02/12/18 00:21 Last Admin: 02/12/18 00:20 Dose: 250 mls/hr Ceftriaxone Sodium 2 gm/ (Sodium Chloride) 100 mls @ 100 mls/hr IV ONETIME STA Stop: 02/12/18 00:20 Last Admin: 02/12/18 02:15 Dose: 100 mls/hr Magnesium Sulfate 2 gm/ Premix 50 mls @ 50 mls/hr IV ONETIME STA Stop: 02/12/18 00:26 Last Admin: 02/12/18 00:20 Dose: 50 mls/hr Sodium Chloride (Normal Saline) 1,000 mls @ 100 mls/hr IV ASDIRECTED [facility] Last Admin: 02/12/18 15:25 Dose: 100 mls/hr Lidocaine HCl (Xylocaine 2% Jelly) 10 ml MUCMEM ONETIME ONE Stop: 02/11/18 21:58 Last Admin: 02/12/18 00:30 Dose: Not Given Non-Formulary Medication (Oxycodone Hcl/Acetaminophen) 1 each PO QID PRN PRN Reason: Pain Pantoprazole Sodium (Protonix) 40 mg PO DAILY [facility] Last Admin: 02/12/18 10:09 Dose: 40 mg Rivaroxaban (Xarelto) 15 mg PO DAILY [facility] Last Admin: 02/13/18 08:27 Dose: 15 mg
[2018-02-15] MEDS: Famotidine 20 MG Tab PO SCH (08:35)
[2018-02-15] MEDS: Multivitamins,Therapeutic Tab PO SCH (08:36)
[2018-02-15] MEDS: Tamsulosin 0.4 MG Cap.ER PO SCH (08:36)
[2018-02-15] MEDS: Oxybutynin 5 MG Tab.ER PO SCH (08:36)
[2018-02-15] MEDS: Aspirin 81 MG Tab.Chew PO SCH (08:36)
[2018-02-15] MEDS: Metoprolol Tartrate 50 MG Tab PO SCH (08:38)
[2018-02-15 08:39] VITALS: BP 101/69
[2018-02-15] MEDS: Vancomycin 50 MG/ML Oral Solution Bottle Kit PO SCH ×2 (08:46→12:36)
== END 2018-02-15 13:44 | disposition home or self-care (01) | DRG 371 ==
LOC: JD.ED 21:15 → JD.MS 02-12 00:53
PROVIDERS: ADMIT Internal Medicine Cardiovascular Disease; ATTEND Internal Medicine Cardiovascular Disease
DX: J18.9 Pneumonia, unspecified organism (principal); R19.7 Diarrhea, unspecified; A04.72 Enterocolitis due to Clostridium difficile, not specified as recurrent; J18.1 Lobar pneumonia, unspecified organism; J44.0 Chronic obstructive pulmonary disease with (acute) lower respiratory infection; E83.42 Hypomagnesemia; I25.10 Atherosclerotic heart disease of native coronary artery without angina pectoris; G47.30 Sleep apnea, unspecified; E78.00 Pure hypercholesterolemia, unspecified; I10 Essential (primary) hypertension; K21.9 Gastro-esophageal reflux disease without esophagitis; N40.0 Benign prostatic hyperplasia without lower urinary tract symptoms; F41.9 Anxiety disorder, unspecified; E78.5 Hyperlipidemia, unspecified; R09.02 Hypoxemia; G47.33 Obstructive sleep apnea (adult) (pediatric); D64.9 Anemia, unspecified; C67.9 Malignant neoplasm of bladder, unspecified; F32.9 Major depressive disorder, single episode, unspecified; M54.5 Low back pain; M25.562 Pain in left knee; G89.29 Other chronic pain; H91.90 Unspecified hearing loss, unspecified ear; H54.7 Unspecified visual loss; I25.2 Old myocardial infarction; Z86.14 Personal history of Methicillin resistant Staphylococcus aureus infection; Z87.891 Personal history of nicotine dependence; Z95.1 Presence of aortocoronary bypass graft; Z86.73 Personal history of transient ischemic attack (TIA), and cerebral infarction without residual deficits; Z95.5 Presence of coronary angioplasty implant and graft; Z91.14 Patient's other noncompliance with medication regimen; Z99.81 Dependence on supplemental oxygen; Z86.711 Personal history of pulmonary embolism; R06.00 Dyspnea, unspecified; Z86.718 Personal history of other venous thrombosis and embolism; Z79.01 Long term (current) use of anticoagulants; Z88.6 Allergy status to analgesic agent; Z88.8 Allergy status to other drugs, medicaments and biological substances; Z79.82 Long term (current) use of aspirin; Z79.899 Other long term (current) drug therapy; Z90.49 Acquired absence of other specified parts of digestive tract; Z96.641 Presence of right artificial hip joint; Z85.528 Personal history of other malignant neoplasm of kidney
CPT/HCPCS: 36415; 36600; 71046; 80053; 81001; 82803; 83605; 83735; 83880; 84443; 84484; 85007; 85027; 87040 ×2; 87493 ×2; 93005; 96365; 96368; 99285; J0456; J7050; 80048; 85025; 86140; 86738; 87070; 87077; 87186; 87205; 87486; 87581; 87632; 87798; 93010; 94640; 94667; 94668; 94761; 97110-GP; 97116-GP; 97162-GP; 97165-GO; 97530-GO; A9270-GY; J0696; J1956; J3475; J7030; J7040; J7620-GY

== ENCOUNTER 2018-10-23 17:03 | Emergency (ER) | payer MEDICARE ==
[2018-10-23 17:23] VITALS: BP 158/71
[2018-10-23] MEDS: Sodium Chloride 0.9% 10 ML Syringe FLUSH PRN (18:00)
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
--- NOTE | 2018-10-24 06:22 | CR ---
Chest: Portable view of the chest was obtained. Comparison: Prior chest CT study of 06/02/18 and chest x-ray also performed on 06/02/18. Heart is enlarged. Pulmonary vessels are mildly increased which appear stable. Previous sternotomy is seen. No acute parenchymal change is appreciated. Bony structures are grossly intact. Impression: 1. Findings as noted above. No significant change from previous chest x-ray is seen. Diagnostic code #2
== END 2018-10-23 20:28 | disposition home or self-care (01) ==
LOC: JD.ED 17:03 → SUPCPDRO 17:03 → JD.ED 20:20
DX: J43.1 Panlobular emphysema (principal); M54.6 Pain in thoracic spine; G89.29 Other chronic pain; I10 Essential (primary) hypertension; I25.10 Atherosclerotic heart disease of native coronary artery without angina pectoris; Z86.73 Personal history of transient ischemic attack (TIA), and cerebral infarction without residual deficits; I25.2 Old myocardial infarction; K21.9 Gastro-esophageal reflux disease without esophagitis; Z95.1 Presence of aortocoronary bypass graft; Z95.5 Presence of coronary angioplasty implant and graft; Z90.49 Acquired absence of other specified parts of digestive tract; Z87.891 Personal history of nicotine dependence; Z88.5 Allergy status to narcotic agent; Z88.8 Allergy status to other drugs, medicaments and biological substances; Z79.82 Long term (current) use of aspirin; Z79.899 Other long term (current) drug therapy
CPT/HCPCS: 36415; 71045; 71045-26; 80053; 84484; 85025; 85379; 93005; 93010; 99284; 99284-25

== ENCOUNTER 2018-11-13 23:54 | Emergency (ER) | payer MEDICARE, OTHER ==
[2018-11-14] MEDS ORDERED: Sodium Chloride 0.9% 10 ML Syringe FLUSH PRN (00:36)
[2018-11-14] MEDS ORDERED: Aspirin 81 MG Tab.Chew PO ONE (00:36)
[2018-11-14] MEDS ORDERED: Furosemide 40 MG/4 ML VIAL IVPUSH ONE (02:13)
--- NOTE | 2018-11-14 05:13 | EDM.PDOC ---
ED HPI GENERAL MEDICAL PROBLEM - General Chief Complaint: General Stated Complaint: [facility] Time Seen by Provider: 11/14/18 00:20 Source of Information: Reports: Patient, Family (Spouse), RN Notes Reviewed - History of Present Illness INITIAL COMMENTS - FREE TEXT/NARRATIVE: 88-year-old male has been brought in by [facility] for evaluation of chest discomfort. He states he awakened with chest discomfort this morning at did radiate to his back in between his shoulder blades. He states the pain did resolve while in route here to the ED by ambulance. He states he has been having somewhat frequent episodes of similar discomfort. Of his prior episodes have been when walking up steps at his home. Apparently the home with he and his is of a split-level type configuration that does require him to go up and down some steps. He does have history of CAD, pulmonary fibrosis, COPD and congestive heart failure. He did have CABG about 30 yrs ago and has had stents placed since that time. The pain early this morning did not radiate to either arm but he states he did have some very brief numbness of his right hand which is now gone Middle Shoulder Pain Score (Numeric/FACES): 4 - Related Data Allergies Allergy/AdvReac Type Severity Reaction Status Date / Time celecoxib [From Celebrex] Allergy Hives Verified 11/14/18 01:20 rofecoxib [From Vioxx] Allergy Hives Verified 11/14/18 01:20 valdecoxib [From Bextra] Allergy Hives Verified 11/14/18 01:20 methylprednisolone AdvReac Dizziness Verified 11/14/18 01:20 morphine AdvReac Irritabilit Verified 11/14/18 01:20 y Home Meds: Home Meds Aspirin [David Chewable Aspirin] 81 mg PO DAILY 01/05/14 [History] Tamsulosin [Flomax] 0.4 mg PO DAILY 01/05/14 [History] Metoprolol Tartrate 50 mg PO BID 02/11/18 [History] Pantoprazole [ProTONIX] 40 mg PO DAILY 02/11/18 [History] oxyCODONE HCl/Acetaminophen [Endocet 10-325 mg Tablet] 1 tab PO QID PRN [History] Rivaroxaban [Xarelto] 15 mg PO DAILY 02/12/18 [History] Albuterol [Ventolin HFA] 2 puff INH Q4H PRN #1 puff 02/15/18 [Rx] Nitroglycerin 0.4 mg SL ASDIRECTED 04/13/18 [History] Clindamycin HCl 600 mg PO TID 8 Days #24 capsule 04/19/18 [Rx] Saccharomyces Boulardii [Florastor] 250 mg PO BID #30 cap 04/19/18 [Rx] predniSONE [Prednisone] 20 mg PO DAILY #8 tablet 04/19/18 [Rx] Past Medical History HEENT History: Reports: Hard of Hearing, Impaired Vision Other HEENT History: glasses Cardiovascular History: Reports: Blood Clots/VTE/DVT, CAD, High Cholesterol, Hypertension, [place] Respiratory History: Reports: COPD, PE, Sleep Apnea Other Respiratory History: Chronic O2 use, uses 3 L/min at home, uses CPAP at home. Gastrointestinal History: Reports: GERD Genitourinary History: Reports: BPH Other Genitourinary History: supra pubic cath in the past. Has developed paraphimosis recently and referred pain into both testicles suggesting that he may have an underlying prostatitis. 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 Apparently has a prone to see Dr. Pruitt urologist in the end of June of this year. Musculoskeletal History: Reports: Back Pain, Chronic, Osteoarthritis Neurological History: Reports: TIA Psychiatric History: Reports: Anxiety, Depression Hematologic History: Reports: Anemia, Blood Transfusion(s) Oncologic (Cancer) History: Reports: Other (See Below) Other Oncologic History: pt states he had kidney cancer and had some form of treatment Dermatologic History: Reports: Other (See Below) Other Dermatologic History: growth on left hand - Infectious Disease History Infectious Disease History: Reports: Chicken Pox, Measles, MRSA, Shingles - Past Surgical History HEENT Surgical History: Reports: None Cardiovascular Surgical History: Reports: Coronary Artery Bypass, Coronary Artery Stent Respiratory Surgical History: Reports: None GI Surgical History: Reports: Cholecystectomy Male Surgical History: Reports: Suprapubic Catheter Placement Musculoskeletal Surgical History: Reports: Hip Replacement Oncologic Surgical History: Reports: None Dermatological Surgical History: Reports: Skin Biopsy Social & Family History - Family History Family Medical History: Noncontributory - Tobacco Use Smoking Status *Q: Former Smoker Used Tobacco, but Quit: Yes Month/Year Tobacco Last Used: 1990 - Caffeine Use Caffeine Use: Reports: Coffee Other Caffeine Use: a cup once in awhile. - Recreational Drug Use Recreational Drug Use: No - Living Situation & Occupation Living situation: Reports: with Spouse Occupation: Retired ED ROS GENERAL - Review of Systems Review Of Systems: See Below Constitutional: Denies: Fever, Chills, Diaphoresis HEENT: Denies: Throat Pain Respiratory: Reports: Shortness of Breath (Chronically with exertion), Cough Cardiovascular: Reports: Chest Pain (Occasional gone) GI/Abdominal: Denies: Abdominal Pain, Nausea, Vomiting Musculoskeletal: Reports: Back Pain (Gone). Denies: Neck Pain Skin: Reports: No Symptoms Neurological: Reports: Numbness (Right hand, brief, gone) ED EXAM, GENERAL - Physical Exam Exam: See Below General Appearance: Alert, No Apparent Distress Eye Exam: Bilateral Eye: PERRL Throat/Mouth: Normal Inspection Head: Atraumatic. No: Facial Swelling Neck: Supple Respiratory/Chest: No Respiratory Distress, Lungs Clear, Rales (Primary mild bilateral) Cardiovascular: Regular Rate, Rhythm, Other (He also did experience some very mild palpitations, gone) GI/Abdominal: Soft, Non-Tender. No: Guarding Back Exam: No: CVA Tenderness (L), CVA Tenderness (R) Extremities: Pedal Edema (Trace bilateral). No: Leg Pain, Increased Warmth, Redness Neurological: Alert, Oriented, No Motor/Sensory Deficits Skin Exam: Warm, Dry, Normal Color EKG INTERPRETATION EKG Date: 11/14/18 Rhythm: NSR P-Wave: Present QRS: Normal ST-T: Depressed (There are T-wave inversions aVL and V2 through V5, very mild ST depression V2 to V5.) Course - Vital Signs Last Recorded V/S: Last Vital Signs Temp 96.9 F 11/13/18 23:56 Pulse 69 11/14/18 07:15 Resp 20 11/13/18 23:56 BP 161/82 H 11/14/18 07:15 Pulse Ox 96 11/13/18 23:56 - Orders/Labs/Meds Orders: Active Orders 24 hr Category Date Time Status EKG 12 Lead [EKG Documentation Completion] [RC] STAT Care 11/14/18 00:35 Active Peripheral IV Care [RC] . DIRECTED Care 11/14/18 00:36 Active Peripheral IV Insertion Adult [OM.PC] Stat Oth 11/14/18 00:36 Ordered Labs: Laboratory Tests 11/14/18 11/14/18 11/14/18 Range/Units 01:05 01:05 01:05 WBC 6.81 (4.23-9.07) K/mm3 RBC 4.26 L (4.63-6.08) M/mm3 Hgb 12.6 L (13.7-17.5) gm/L Hct 39.4 L (40.1-51.0) % MCV 92.5 H (79.0-92.2) fl MCH 29.6 (25.7-32.2) pg MCHC 32.0 L (32.2-35.5) g/dl RDW Std Deviation 48.4 H (35.1-43.9) fL Plt Count 150 L (163-337) K/mm3 MPV 10.4 (9.4-12.3) fl Neut % (Auto) 69.6 H (34.0-67.9) % Lymph % (Auto) 16.2 L (21.8-53.1) % [place] % (Auto) 10.0 (5.3-12.2) % Eos % (Auto) 3.5 (0.8-7.0) Baso % (Auto) 0.3 (0.1-1.2) % Neut # (Auto) 4.74 (1.78-5.38) K/mm3 Lymph # (Auto) 1.10 L (1.32-3.57) K/mm3 [place] # (Auto) 0.68 (0.30-0.82) K/mm3 Eos # (Auto) 0.24 (0.04-0.54) K/mm3 Baso # (Auto) 0.02 (0.01-0.08) K/mm3 Sodium 140 (136-145) mEq/L Potassium 4.8 (3.5-5.1) mEq/L Chloride 106 (98-107) mEq/L Carbon Dioxide 27 (21-32) mEq/L Anion Gap 11.8 (5-15) BUN 49 H (7-18) mg/dL Creatinine 1.7 H (0.7-1.3) mg/dL Est Cr Clr Drug Dosing 30.18 mL/min Estimated GFR (MDRD) 38 (>60) mL/min BUN/Creatinine Ratio 28.8 H (14-18) Glucose 144 H (83-115) mg/dL Calcium 9.3 (8.5-10.1) mg/dL Total Bilirubin 0.2 (0.2-1.0) mg/dL AST 18 (15-37) U/L ALT 24 (16-63) U/L Alkaline Phosphatase 39 L (46-116) U/L Troponin I < 0.017 (0.00-0.056) ng/mL NT-Pro-B Natriuret Pep 1617 H (0-450) pg/mL Total Protein 6.9 (6.4-8.2) g/dl Albumin 3.7 (3.4-5.0) g/dl Globulin 3.2 gm/dL Albumin/Globulin Ratio 1.2 (1-2) / Range/Units 05:57 WBC (4.23-9.07) K/mm3 RBC (4.63-6.08) M/mm3 Hgb (13.7-17.5) gm/L Hct (40.1-51.0) % MCV (79.0-92.2) fl MCH (25.7-32.2) pg MCHC (32.2-35.5) g/dl RDW Std Deviation (35.1-43.9) fL Plt Count (163-337) K/mm3 MPV (9.4-12.3) fl Neut % (Auto) (34.0-67.9) % Lymph % (Auto) (21.8-53.1) % [place] % (Auto) (5.3-12.2) % Eos % (Auto) (0.8-7.0) Baso % (Auto) (0.1-1.2) % Neut # (Auto) (1.78-5.38) K/mm3 Lymph # (Auto) (1.32-3.57) K/mm3 [place] # (Auto) (0.30-0.82) K/mm3 Eos # (Auto) (0.04-0.54) K/mm3 Baso # (Auto) (0.01-0.08) K/mm3 Sodium (136-145) mEq/L Potassium (3.5-5.1) mEq/L Chloride (98-107) mEq/L Carbon Dioxide (21-32) mEq/L Anion Gap (5-15) BUN (7-18) mg/dL Creatinine (0.7-1.3) mg/dL Est Cr Clr Drug Dosing mL/min Estimated GFR (MDRD) (>60) mL/min BUN/Creatinine Ratio (14-18) Glucose (83-115) mg/dL Calcium (8.5-10.1) mg/dL Total Bilirubin (0.2-1.0) mg/dL AST (15-37) U/L ALT (16-63) U/L Alkaline Phosphatase (46-116) U/L Troponin I 0.035 (0.00-0.056) ng/mL NT-Pro-B Natriuret Pep (0-450) pg/mL Total Protein (6.4-8.2) g/dl Albumin (3.4-5.0) g/dl Globulin gm/dL Albumin/Globulin Ratio (1-2) Meds: Medications Discontinued Medications Generic Name Dose Route Start Last Admin Trade Name Freq PRN Reason Stop Dose Admin Aspirin 324 mg 11/14/18 00:36 11/14/18 00:44 Aspirin PO 11/14/18 00:37 324 mg ONETIME ONE Administration Furosemide 20 mg 11/14/18 02:13 11/14/18 02:28 Lasix IVPUSH 11/14/18 02:14 20 mg NOW ONE Administration Metoprolol Tartrate 50 mg 11/14/18 07:08 11/14/18 07:15 Lopressor PO 11/14/18 07:09 50 mg ONETIME ONE Administration Sodium Chloride 10 ml 11/14/18 00:36 11/14/18 02:32 Saline Flush FLUSH 10 ml ASDIRECTED PRN Administration Keep Vein Open - Re-Assessments/Exams Free Text/Narrative Re-Assessment/Exam: 11/14/18 02:15 Chest x-ray showed cardiomegaly on the left, mild pulmonary congestion very similar to prior x-ray of several weeks ago. Troponin did come back normal. Creatinine mildly elevated. Other labs were relatively normal. He has been resting comfortably while here in the ED. We did give him oral aspirin. He is remained in sinus rhythm, no ectopy that is been brought to my attention. He does appear to be in mild congestive heart failure. He supports that. Given Lasix 20 mg IV. My plan is to watch him the remainder of the night, repeat a troponin in about 4 hours. He states he would like to go home if possible. 11/14/18 07:05. Repeat troponin has come back elevated at 0.035. He continues to remain pain-free here in the ED. We did give aspirin 324 orally on arrival 5 hours ago. Have ordered his morning metoprolol 50 mg. I have visited with one of the hospitalists on-call at [facility], Dr Cantrell who does accept patient in transfer. We will be sending him by ground ambulance. I am not going to start him on heparin with consideration that he has been on this around toe and continues to have been taking that on a regular basis "for his heart". Departure - Departure Time of Disposition: 07:25 Disposition: DC/Tfer to [facility] 02 Clinical Impression: Acute coronary syndrome - Discharge Information Referrals: PCP,None [Primary Care Provider] - Forms: ED Department Discharge - My Orders Last 24 Hours: My Active Orders 11/14/18 00:35 EKG 12 Lead [EKG Documentation Completion] [RC] STAT 11/14/18 00:36 Peripheral IV Care [RC] . DIRECTED Peripheral IV Insertion Adult [OM.PC] Stat - Assessment/Plan Last 24 Hours: My Active Orders 11/14/18 00:35 EKG 12 Lead [EKG Documentation Completion] [RC] STAT 11/14/18 00:36 Peripheral IV Care [RC] . DIRECTED Peripheral IV Insertion Adult [OM.PC] Stat
[2018-11-14] MEDS ORDERED: Metoprolol Tartrate 50 MG Tab PO ONE (07:08)
[2018-11-14 07:15] VITALS: BP 161/82
--- NOTE | 2018-11-14 07:55 | CR ---
Chest: Frontal view of the chest was obtained. Comparison: Prior chest x-ray of 10/23/18. Heart is enlarged. Previous sternotomy is seen. Pulmonary vessels are felt to be increased which appear to be stable and likely are chronic. Bony structures are grossly intact. Impression: 1. Findings as described above. No significant change from previous chest x-ray is seen. Diagnostic code #2
== END 2018-11-14 08:01 ==
LOC: JD.ED 23:54
DX: I24.9 Acute ischemic heart disease, unspecified (principal); I10 Essential (primary) hypertension; E78.00 Pure hypercholesterolemia, unspecified; I25.10 Atherosclerotic heart disease of native coronary artery without angina pectoris; J44.9 Chronic obstructive pulmonary disease, unspecified; K21.9 Gastro-esophageal reflux disease without esophagitis; F41.9 Anxiety disorder, unspecified; F32.9 Major depressive disorder, single episode, unspecified; Z87.891 Personal history of nicotine dependence; Z79.82 Long term (current) use of aspirin; Z79.899 Other long term (current) drug therapy; Z88.5 Allergy status to narcotic agent; Z88.1 Allergy status to other antibiotic agents; Z88.8 Allergy status to other drugs, medicaments and biological substances
CPT/HCPCS: 36415; 71045; 80053; 83880; 84484; 85025; 93005; 96374; 99285; A9270; J1940; 93010; 99284